=== PATIENT | female | born 1955 | race Caucasian/White ===

== ENCOUNTER 2016-10-22 14:42 | Emergency (ER) | payer MEDICARE, MEDICAID ==
[2016-10-22 15:25] VITALS: BP 158/88
[2016-10-22] MEDS ORDERED: NS 0.9% 1000 ML* 1,000 ML IV ONE (19:38)
[2016-10-22] MEDS ORDERED: Ondansetron INJ* 2 MG/ML VIAL IV ONE (19:41)
[2016-10-22] MEDS ORDERED: fentaNYL* 50 MCG/ML 2 ML VIAL (100 MCG VIAL) IV SLOW PU ONE (19:42)
[2016-10-22] MEDS ORDERED: Metoclopramide IV* 5 MG/ML 2 ML VIAL IV ONE (19:44)
[2016-10-22 20:48] LABS: Hematocrit 46 % (35-47); Hemoglobin 15.2 g/dl (12.0-16.0); Mean Corpuscular HGB Conc 33 g/dl (31-36); Mean Corpuscular Hemoglobin 32 pg (27-31); Mean Corpuscular Volume 95 fL (80-97); Mean Platelet Volume 9 um3 (7.4-10.4); Red Cell Distribution Width 14 % (10.5-15); White Blood Count 10.3 10^3/ul (3.5-10.8)
[2016-10-22 21:05] LABS: ALT 12 U/L (7-52); AST 22 U/L (13-39); Albumin 4.7 g/dL (3.2-5.2); Alkaline Phosphatase 92 U/L (34-104); Anion Gap 11 mmol/L (2-11); Blood Urea Nitrogen 23 mg/dL (6-24); C Reactive Protein < 1.00 mg/L (< 5.00); CO2 Carbon Dioxide 25 mmol/L (22-32); Calcium 10.5 mg/dL (8.6-10.3); Chloride 98 mmol/L (101-111); EGFR African American 34.5 (>60); EGFR Non-African American 26.8 (>60); Glucose 83 mg/dL (70-100); Lipase 18 U/L (11.0-82.0); Potassium 3.5 mmol/L (3.5-5.0); Sodium 134 mmol/L (133-145); Total Protein 8.7 g/dL (6.4-8.9)
[2016-10-22] MEDS ORDERED: HYDROmorphone INJ* 1 MG/ML CARPUJECT SYRINGE IV SLOW PU ONE (21:13)
--- NOTE | 2016-10-22 21:58 | RAD ---
INDICATION: Periumbilical pain. Liver transplant. Vomiting. Peripheral artery disease. COMPARISON: November 03, 2014 CT, February 16, 2013 CT. TECHNIQUE: Multidetector CT images were obtained from the lung bases to the ischial tuberosities. Oral contrast administered. Evaluation of the viscera is limited without IV contrast. Multiplanar reformation. REPORT: 4 mm noncalcified subpleural nodule lateral segment RIGHT middle lobe without change compared with a remote CT of February 16, 2013 without concern. Negative for cardiomegaly. Cardiac pacemaker leads. Unchanged appearance of the transplanted liver. The common bile duct appears dilated up to 1.0 cm similar to the 2013 CT. No stone or lesion conspicuous in the distal common bile duct. Moderately atrophic pancreas without suggestion of pancreatic duct dilatation. Unremarkable spleen. Small hiatal hernia. Negative for CT abnormality of the small bowel or diminutive retrocecal appendix. Mild diverticulosis of the sigmoid colon without findings of diverticulitis. Negative for ascites, free air, or significant hernias. Normal adrenal glands. No suspicious renal lesions or hydronephrosis. Moderately atrophic LEFT kidney without change. Renal vascular calcifications. Unremarkable nondilated ureters and moderately distended urinary bladder. Unremarkable uterus and adnexal regions. Negative for lymphadenopathy. Atherosclerotic calcification of normal diameter abdominal aorta and iliac arteries. Physiologic partial distention of the IVC. Negative for suspicious osseous lesions. IMPRESSION: 1. Postsurgical change of liver transplantation. 2. The common bile duct appears dilated up to 1.0 cm similar to the 2013 CT. 3. Normal appendix documented. 4. Negative for ascites. 5. No acute abdominal pelvic pathologic process evident.
--- NOTE | 2016-10-22 22:12 | ED ---
Mick Yates Erika, scribed for Rahul Alvarado MD on 10/22/16 at 1957 . GI/ HPI - HPI Summary HPI Summary: Patient is a 60-year-old female presenting to the ED with a CC of vomiting starting yesterday. Pt reports that she developed the nausea, vomiting, and periumbilical pain yesterday, and that she has been unable to tolerate PO intake since then - pt states she has lost 6 lbs in 2 days. She was seen by her PCP today, who sent her to the ED. Associated symptoms include chills and slight palpitations. She denies diarrhea, difficulty passing gas, black stools, and hematemesis. Pt does also reports cramping in her legs, and reports a Hx peripheral artery disease. Pt was also recently put on Abx due to possible UTI, and had a US of her kidney due to lab abnormalities in her kidney function. PSHx liver transplant almost 20 years ago at [facility] - takes tacrolimus. PSHx cholecystectomy. Denies PSHx appendectomy. Hx two cardiac arrests, pacemaker, defibrillator. - History of Current Complaint Chief Complaint: EDNauseaVomitDiarrh Time Seen by Provider: 10/22/16 19:22 Stated Complaint: VOMITTING/ABD PAIN Hx Obtained From: Patient Onset/Duration: Started Days Ago, Atraumatic, Still Present Timing: Constant Severity: Moderate Pain Intensity: 8 Location of Pain: Umbilical Associated Signs and Symptoms: Positive: Nausea, Vomiting, Chills. Negative: Blood w/Stool, Diarrhea Aggravating Factor(s): Food Alleviating Factor(s): Nothing - Additional Pertinent History Primary Care Physician: [id number] - Allergy/Home Medications Allergies/Adverse Reactions: Allergies Allergy/AdvReac Type Severity Reaction Status Date / Time Promethazine [From Phenergan] Allergy Severe Unknown Verified 04/06/16 15:56 Reaction Details Morphine Allergy Intermediate Hives Verified 04/06/16 15:56 Procaine [From Novocain] Allergy See Comment Verified 04/06/16 15:56 PMH/Surg Hx/FS Hx/Imm Hx Endocrine/Hematology History: Denies: Hx Anticoagulant Therapy, Hx Diabetes, Hx Anemia Cardiovascular History: Reports: Hx Auto Implanted Cardiovert Defib, Hx Cardiac Arrest, Hx Hypertension, Hx Pacemaker/ICD, Hx Syncope, Other Cardiovascular Problems/Disorders - cardiac arrest following phenergan long QT syndrome Denies: Hx Congestive Heart Failure Comment Only: Hx Peripheral Vascular Disease - PAD Respiratory History: Reports: Hx Chronic Bronchitis, Hx Pneumonia, Other Respiratory Problems/Disorders - PNA Denies: Hx Asthma GI History: Reports: Other GI Disorders - LIVER TRANSPLANT 1995. Pt states constipation on occasion Denies: Hx Jaundice History: Denies: Hx Renal Disease Musculoskeletal History: Reports: Hx Arthritis, Hx Back Problems, Other Musculoskeletal History - osteo-arthritis Denies: Hx Rheumatoid Arthritis - osteoarthritis Sensory History: Reports: Hx Contacts or Glasses Opthamlomology History: Reports: Hx Contacts or Glasses Neurological History: Reports: Hx Seizures Denies: Hx Dementia Psychiatric History: Reports: Hx Anxiety, Hx Depression, Hx Inpatient Treatment , Hx Substance Abuse Denies: Hx Suicide Attempt - suicidal ideation, hospitalization - Surgical History Surgery Procedure, Year, and Place: Pacer December 1996, Liver transplant February 1996 , peripheral artery disease surgery in groin 2011, arthoscopic of left knee, Pacemaker Hx Anesthesia Reactions: No - Immunization History Date of Tetanus Vaccine: pt states she doesnt know Date of Influenza Vaccine: none Infectious Disease History: No Infectious Disease History: Reports: Hx Hepatitis - C Denies: Hx Clostridium Difficile, Hx Human Immunodeficiency Virus (HIV), Hx of Known/Suspected MRSA, Hx Shingles, Hx Tuberculosis, Hx Known/Suspected VRE, Hx Known/Suspected VRSA, History Other Infectious Disease, Traveled Outside the [place] in Last 30 Days - Family History Family History: Denies FHx breast cancer - Social History Alcohol Use: None Hx Substance Use: No Substance Use Type: Reports: None Hx Tobacco Use: Yes Smoking Status (MU): Former Smoker Amount Used/How Often: 2-3 cig./day Review of Systems Positive: Chills Positive: Palpitations Positive: Abdominal Pain, Vomiting, Nausea. Negative: Diarrhea Musculoskeletal: Other - cramping in legs All Other Systems Reviewed And Are Negative: Yes Physical Exam - Summary Physical Exam Summary: Constitutional: Comfortable, pleasant, alert, non-toxic HEENT: dry mucosa Neck: Soft, supple, no adenopathy, no edema Heart: S1, S2, RRR, no murmurs, rubs, or gallops Lungs: clear, breathing comfortably, no wheezes, no rales Abdomen: Soft, flat, tenderness periumbilical with no guarding, no rebound. Bowel sounds present. No CVA tenderness Extremities: No edema, calves non-tender Neurological: A&Ox3 Psychological: logical, coherent Triage Information Reviewed: Yes Vital Signs On Initial Exam: Initial Vitals Temp Pulse Resp BP Pulse Ox 98.7 F 83 16 158/88 98 10/22/16 15:22 10/22/16 15:22 10/22/16 15:22 10/22/16 15:22 10/22/16 15:22 Vital Signs Reviewed: Yes Diagnostics - Vital Signs Vital Signs Temp Pulse Resp BP Pulse Ox 10/22/16 15:22 98.7 F 83 16 158/88 98 - Laboratory Lab Results: Lab Results 10/22/16 10/22/16 10/22/16 Range/Units 20:35 20:35 20:35 WBC 10.3 (3.5-10.8) 10^3/ul RBC 4.80 (4.0-5.4) 10^6/ul Hgb 15.2 (12.0-16.0) g/dl Hct 46 (35-47) % MCV 95 (80-97) fL MCH 32 H (27-31) pg MCHC 33 (31-36) g/dl RDW 14 (10.5-15) % Plt Count 196 (150-450) 10^3/ul MPV 9 (7.4-10.4) um3 Neut % (Auto) 59.9 (38-83) % Lymph % (Auto) 29.8 (25-47) % Robertson % (Auto) 7.6 (1-9) % Eos % (Auto) 1.3 (0-6) % Baso % (Auto) 1.4 (0-2) % Absolute Neuts (auto) 6.1 (1.5-7.7) 10^3/ul Absolute Lymphs (auto) 3.1 (1.0-4.8) 10^3/ul Absolute Monos (auto) 0.8 (0-0.8) 10^3/ul Absolute Eos (auto) 0.1 (0-0.6) 10^3/ul Absolute Basos (auto) 0.1 (0-0.2) 10^3/ul Absolute Nucleated RBC 0 10^3/ul Nucleated RBC % 0 Sodium 134 (133-145) mmol/L Potassium 3.5 (3.5-5.0) mmol/L Chloride 98 L (101-111) mmol/L Carbon Dioxide 25 (22-32) mmol/L Anion Gap 11 (2-11) mmol/L BUN 23 (6-24) mg/dL Creatinine 1.91 H (0.51-0.95) mg/dL Est GFR ( Amer) 34.5 (>60) Est GFR (Non-Af Amer) 26.8 (>60) BUN/Creatinine Ratio 12.0 (8-20) Glucose 83 (70-100) mg/dL Lactic Acid 1.0 (0.5-2.0) mmol/L Calcium 10.5 H (8.6-10.3) mg/dL Total Bilirubin 0.90 (0.2-1.0) mg/dL AST 22 (13-39) U/L ALT 12 (7-52) U/L Alkaline Phosphatase 92 (34-104) U/L C-Reactive Protein < 1.00 (< 5.00) mg/L Total Protein 8.7 (6.4-8.9) g/dL Albumin 4.7 (3.2-5.2) g/dL Globulin 4.0 (2-4) g/dL Albumin/Globulin Ratio 1.2 (1-3) Lipase 18 (11.0-82.0) U/L Result Diagrams: 10/22/16 20:35 10/22/16 20:35 Lab Statement: Any lab studies that have been ordered have been reviewed, and results considered in the medical decision making process. GIGU Course/Dx - Course Assessment/Plan: She has vomiting, periumbilical pain, but no signs of bleeding , fever, severe infection. CAT scan obtained for possibility of obstruction, appendicitis. Should her work up be entirely normal, likely she can be discharged if Sx improved. In the ER she has managed to keep down the Gastrografin and we will attempt to PO challenge. She also has received IV fluids. she feels much better now. we both agreed that with a completely normal workup including ct, that we can try simple fluids at home and simple crackers to start. I told her that I am here tomorrow should she not being doing well that we will re evaluate and possible admit. - Diagnoses Provider Diagnoses: Vomiting, Abdominal pain Discharge - Discharge Plan Condition: Stable Disposition: OTHER Discharge Disposition Comment: Signed out to Dr. Brown pending CTA results Referrals: Bill Koo MD [Primary Care Provider] - The documentation as recorded by the Mick dc Erika accurately reflects the service I personally performed and the decisions made by me, Rahul Alvarado MD.
== END 2016-10-22 22:30 | disposition home or self-care (01) ==
LOC: ED 14:42
DX: R11.10 Vomiting, unspecified (principal); R10.33 Periumbilical pain; Z94.4 Liver transplant status; Z95.0 Presence of cardiac pacemaker; Z87.891 Personal history of nicotine dependence; I73.9 Peripheral vascular disease, unspecified; Z88.5 Allergy status to narcotic agent
CPT/HCPCS: 36415; 74176; 80053; 83605; 83690; 85025; 86140; 96360; 96365; 96374; 96375; 99284; J1170; J2765; J3010

== ENCOUNTER 2016-11-16 09:16 | Emergency (ER) | payer MEDICARE, MEDICAID ==
--- NOTE | 2016-11-16 10:57 | UC ---
Cardiac HPI - HPI Summary HPI Summary: 3 DAYS OF RIGHT SIDED CHEST CONGESTION AND PAIN. HAS A PACEMAKER FOR LONG QT SYNDROME. WAS SUPPOSED TO HAVE A CTA TODAY TO EVALUATE LOWER EXTREMITY PAD BUT CAME HERE INSTEAD DUE TO DISCOMFORT. ALSO HAS H/O LIVER TRANSPLANT, CHRONIC KIDNEY DISEASE. DENIES SOB, NAUSEA, SWEATS. - History of Current Complaint Chief Complaint: UCChestPain Stated Complaint: CHEST CONGESTION Time Seen by Provider: 11/16/16 10:38 Hx Obtained From: Patient Onset/Duration: Gradual Onset, Lasting Days, Still Present Timing: Constant Initial Severity: Moderate Current Severity: Moderate Pain Intensity: 10 - SITTING IN EXAM ROOM IN NO ACUTE DISTRESS Chest Pain Location: Right Anterior Character: Dull/Aching, Tightness Aggravating: Nothing Alleviating: Nothing Associated Signs & Symptoms: Positive: Chest Pain, Cough. Negative: SOB, Syncope, Fever, Diaphoresis, Nausea/Vomiting, Palpitations - Allergy/Home Medications Allergies/Adverse Reactions: Allergies Allergy/AdvReac Type Severity Reaction Status Date / Time Promethazine [From Phenergan] Allergy Severe Unknown Verified 11/16/16 10:09 Reaction Details Morphine Allergy Intermediate Hives Verified 11/16/16 10:09 Procaine [From Novocain] Allergy See Comment Verified 11/16/16 10:09 Home Medications: Home Medications Nitriglycerine 0.4 mg SL PRN 11/16/16 [History] Nystatin CREAM* [Nystatin Cream*] 11/16/16 [History] Triamcinolone 0.1% Oint (NF) [Triamcinolone Acetonide] 11/16/16 [History] PMH/Surg Hx/FS Hx/Imm Hx Endocrine History Of: Denies: Diabetes Cardiovascular History Of: Reports: Cardiac Disorders - pacemaker/, Hypertension , Pacemaker/ICD Denies: Congestive Heart Failure Respiratory History Of: Reports: Bronchitis - CHRONIC, Pneumonia Denies: Asthma GI/ History Of: Denies: Renal Disease Neurological History Of: Reports: Seizures Denies: CVA, Dementia Psychological History Of: Reports: Anxiety, Depression Cancer History Of: Denies: Breast Cancer Other History Of: Negative For: Anticoagulant Therapy - Surgical History Surgical History: Yes Surgery Procedure, Year, and Place: Pacer December 1996, Liver transplant February 1996 , peripheral artery disease surgery in groin 2011, arthoscopic of left knee, Pacemaker - Family History Known Family History: Positive: Cardiac Disease, Hypertension Family History: Denies FHx breast cancer - Social History Alcohol Use: None Substance Use Type: None Smoking Status (MU): Former Smoker Amount Used/How Often: 2-3 cig./day When Did the Patient Quit Smoking/Using Tobacco: Nov 2014 - Immunization History Most Recent Influenza Vaccination: 07/2015 Most Recent Tetanus Shot: unknown Most Recent Pneumonia Vaccination: 2016 Review of Systems Constitutional: Negative Respiratory: Cough Cardiovascular: Chest Pain Gastrointestinal: Negative All Other Systems Reviewed And Are Negative: Yes Physical Exam Triage Information Reviewed: Yes Appearance: Well-Appearing, No Pain Distress, Well-Nourished Vital Signs: Initial Vital Signs Temp 99.1 F 11/16/16 10:02 Pulse 84 11/16/16 10:02 Resp 20 11/16/16 10:02 BP 209/100 11/16/16 10:02 Pulse Ox 100 11/16/16 10:02 Vital Signs Reviewed: Yes Eyes: Positive: Conjunctiva Clear ENT: Positive: Hearing grossly normal Neck: Positive: Supple, Nontender, No Lymphadenopathy Respiratory Exam: Normal Cardiovascular Exam: Normal Abdomen Description: Positive: Soft Musculoskeletal: Positive: No Edema Neurological: Positive: Alert Psychological: Positive: Age Appropriate Behavior Skin: Negative: rashes Diagnostics - EKG Cardiac Rate: NL - 74 BPM Cardiac Rhythm: Sinus: Normal - DIFFUSE T WAVE INVERSION Ectopy: None - Differential Diagnoses - Chest Pain Differential Diagnosis/HQI/PQRI: Acute WI, ACS, Angina - Clinical Impression Provider Diagnoses: CHEST PAIN, ABNORMAL EKG - Physician Notifications Discussed Patient Care With: CARLA BARNETT Time Discussed With Above Provider: 10:50 Instructed by Provider To: Transfer - TO [facility] AMBULANCE Discharge - Discharge Plan Condition: Fair Disposition: TRANS HIGHER LVL OF CARE FAC Referrals: Bill Koo MD [Primary Care Provider] -
[2016-11-16 11:11] VITALS: BP 206/110
== END 2016-11-16 11:12 | disposition short-term general hospital (02) ==
LOC: UCEAST 09:16
DX: R07.89 Other chest pain (principal); R94.31 Abnormal electrocardiogram [ECG] [EKG]; Z95.0 Presence of cardiac pacemaker; Z94.4 Liver transplant status; I12.9 Hypertensive chronic kidney disease with stage 1 through stage 4 chronic kidney disease, or unspecified chronic kidney disease; N18.9 Chronic kidney disease, unspecified; Z88.5 Allergy status to narcotic agent; Z88.4 Allergy status to anesthetic agent; Z87.891 Personal history of nicotine dependence
CPT/HCPCS: 93005; 99213; G0463

== ENCOUNTER 2016-11-16 11:41 | Emergency (ER) | payer MEDICARE, MEDICAID ==
[2016-11-16] MEDS ORDERED: Aspirin Low Dose CHEW TAB* 81 MG PO ONE (12:01)
[2016-11-16] MEDS ORDERED: Ondansetron INJ* 2 MG/ML VIAL IV ONE (12:02)
[2016-11-16] MEDS ORDERED: HYDROmorphone INJ* 1 MG/ML CARPUJECT SYRINGE IV ONE ×2 (12:02→15:05)
[2016-11-16 12:19] LABS: Hematocrit 38 % (35-47); Hemoglobin 12.7 g/dl (12.0-16.0); Mean Corpuscular HGB Conc 34 g/dl (31-36); Mean Corpuscular Hemoglobin 33 pg (27-31); Mean Corpuscular Volume 96 fL (80-97); Mean Platelet Volume 9 um3 (7.4-10.4); Red Cell Distribution Width 13 % (10.5-15); White Blood Count 6.8 10^3/ul (3.5-10.8)
[2016-11-16 12:29] LABS: Albumin 4.2 g/dL (3.2-5.2); BUN/Creatinine Ratio 12.8 (8-20); Calcium 9.9 mg/dL (8.6-10.3); EGFR African American 56.2 (>60); EGFR Non-African American 43.7 (>60); Globulin 3.8 g/dL (2-4); Potassium 4.1 mmol/L (3.5-5.0); Total Bilirubin 0.6 mg/dL (0.2-1.0)
[2016-11-16 12:37] LABS: Troponin I 0.06 ng/mL (<0.04)
--- NOTE | 2016-11-16 12:39 | RAD ---
HISTORY: Chest pain COMPARISONS: April 06, 2016 VIEWS:1: Single frontal portable view of the chest at 12:18 PM FINDINGS: LINES AND TUBES: A right-sided pacemaker is noted CARDIOMEDIASTINAL SILHOUETTE: The cardiomediastinal silhouette is normal for portable technique. PLEURA: The costophrenic angles are sharp. No pleural abnormalities are noted. LUNG PARENCHYMA: There is hyperinflation. ABDOMEN: The upper abdomen is clear. There is no subphrenic gas. BONES AND SOFT TISSUES: No bone or soft tissue abnormalities are noted. IMPRESSION: HYPERINFLATION. NO ACTIVE CARDIOPULMONARY DISEASE.
[2016-11-16] MEDS ORDERED: Heparin VIAL(*) 5000 UNITS/ML VIAL (FIVE THOUSAND) SUBCUT SCH (14:00)
[2016-11-16 14:13] VITALS: BP 176/78
--- NOTE | 2016-11-16 23:03 | CONS ---
CONSULTATION REPORT: DATE OF CONSULT: 11/16/16 PROVIDER: Sonja Rivera NP ATTENDING PHYSICIAN: Dr. Fountain (report dictated by Sonja Rivera NP). REFERRING PHYSICIAN: Dr. Won Gale. PRIMARY CARE PROVIDER: Dr. Koo. SENIOR ENVIRONMENTAL ENGINEER: Dr. Ignacio. REASON FOR CONSULT: Abnormal EKG and mildly elevated troponin. HISTORY OF PRESENT ILLNESS: Ms. Sifuentes is a 60-year-old female with a past medical history of long QT syndrome, status post pacemaker and defibrillator placement; [id number] VFib/VT cardiac arrest on 09/24/14; hepatitis C, status post liver transplant; chronic kidney disease; hypertension, who presents to the emergency department today with reports of cough x4 days, chills , and right upper chest wall pain around pacemaker site. Hospital Medicine was asked to evaluate the patient for possible admission due to an abnormal EKG, noted to have diffuse T-wave inversions. Her initial troponin was 0.06, second troponin was 0.06. The patient was evaluated in the emergency department. She reports 3 weeks ago , she developed nausea, vomiting, diarrhea. She was seen in the emergency department and was sent home with antiemetics. She states she lost approximately 6 pounds from this illness; however, she reports that she was feeling better and this resolved. Then, her son with whom she lives with had a bad cold with cough, headache. Then, she reports Tuesday, which was 4 days ago , she came down with runny nose, cough, headache, body aches, chills, decreased appetite, and reports that she has been coughing so much that now her right upper chest wall around her pacemaker site hurts when she coughs. As well, she is experiencing some back pain with coughing. She reports she has lots of sputum production which is white and creamy. She denies for being diagnosed with COPD in the past and does not currently smoke tobacco, but does have a long history of smoking. In regards to the patient's pacemaker, she has quite a large pacemaker in her right upper chest wall which was slipping under the skin and has been following with Dr. Ignacio, who recommended wearing a bra to hopefully allow the pacer to create some scar tissue and grow in place. The patient reports over the past 2 days, she has not been able to wear her bra due to her coughing and the pain and tenderness around the site. She denies actual chest pain, but reports this to be more pain around the pacer site and tenderness. She denies orthopnea or lower extremity swelling. She denies shortness of breath. When discussed with the patient about being admitted on observation status for chest pain, rule out PA, the patient states that she will absolutely not be admitted to this hospital, but if we think she needs to be admitted, she will sign out AMA and travel to [place] for admission. I did speak with Dr. Harley, envelope folding machine operator, who reviewed the EKG and states that the pacer itself can make these T-wave inversions. Recommendation is to check another troponin and if that is the same or less, the patient could be discharged home with plan for outpatient stress test and follow up with Dr. Ignacio. As well, recommendation is to treat the patient for COPD exacerbation. The patient denies any high fevers. Today, she was found to be 98.8 in the emergency department. She reports her abdominal pain, nausea, vomiting, diarrhea have resolved. No dark or bloody stools. PAST MEDICAL HISTORY: 1. Hypertension. 2. Hepatitis C, with liver transplant, 1995, at [place]. 3. Chronic kidney disease, stage 3. 4. Long QT syndrome, status post pacemaker placement. 5. Chronic low back pain. 6. History of VFib/V-tach arrest at [facility] where she was defibrillated and brought to [facility]. She was then transferred to [place] where she underwent a change in her pacemaker to a pacer/defibrillator, 09/24/14. 7. October of 2014, the patient reports she had pericarditis approximately 1 to 2 weeks after her pacer/defibrillator was implanted. 8. History of opiate abuse. 9. Depression with suicidal attempt. HOME MEDICATIONS: 1. Nystatin cream 1 application topical b.i.d. 2. Aspirin 81 mg p.o. daily. 3. Nitroglycerin 0.4 mg sublingual q.5 minutes p.r.n. 4. Tramadol 50 mg p.o. q.6 hours p.r.n. 5. Prograf 1 mg p.o. b.i.d. 6. Lipitor 10 mg p.o. daily. 7. Zoloft 50 mg p.o. daily. 8. Diltiazem HCl coated beads 240 mg p.o. daily. 9. Lisinopril 20 mg p.o. daily. ALLERGIES: PHENERGAN, MORPHINE, PROCAINE. FAMILY HISTORY: Positive family history of coronary artery disease. SOCIAL HISTORY: The patient reports prior long-term tobacco abuse, and she reports that she has quit over the past 2 years. No alcohol use. The patient currently lives with her son, Ever, who is her healthcare proxy. She has 2 sons, Dylan and Ever Coombs, and an older daughter who lives in [place]. REVIEW OF SYSTEMS: A 14-point review of systems was performed. All the pertinent positives and negatives are mentioned in the history of present illness. All the remaining systems are negative. PHYSICAL EXAM: Vital Signs: Temperature 98.8, heart rate 97, respirations 17, O2 sat 99% on room air, and blood pressure 176/78. Appearance: Alert and oriented x3, 60-year-old female, who appears chronically ill. She is alert and oriented x3 in no acute distress. HEENT: Head is normocephalic, atraumatic. Pupils are equal and reactive to light. Oropharynx is clear. Moist mucous membranes. Poor dentition. No oropharyngeal erythema or exudate noted. Neck: Supple. No cervical or supraclavicular lymphadenopathy. Cardiac: S1, S2. Regular rate and rhythm. No murmurs, rubs, or gallops appreciated. No lower extremity edema noted. Respiratory: Lungs are clear to auscultation bilaterally. Good aeration throughout. Abdomen: Soft, nontender, nondistended. Normal bowel sounds x4. Musculoskeletal: No clubbing or cyanosis noted. Full range of motion in all extremities. Strength is 5/5 throughout. Skin: No rashes, lesions, or open wounds noted. Warm, pink, and dry. It is noted on her right upper chest wall that she has a large pacemaker under the skin that has multiple sharp firm edges felt to the skin. She is tender to palpation around that site, which seems to be reproducing her pain when palpated. Neuro: Cranial nerves II through XII are intact. Sensation to lower extremities is intact to light touch. Psych: Alert and oriented x3. DIAGNOSTIC STUDIES/LAB DATA: Sodium 133, potassium 4.1, chloride 103, carbon dioxide 23, anion gap 7, BUN , creatinine 1.25, glucose 98, lactic acid 0.9 , calcium 9.9. Total bilirubin 0.60, AST 21, ALT 11, alkaline phosphatase 82. Troponin 0.06, second troponin 0.06. BNP 341. Total protein 8.0, albumin 4.2. INR is 0.91. WBC 6.8, RBC 3.90, Hgb 12.7, Hct 38, MCV 96, MCH 33, MCHC 34, RDW 13, platelet count 172. Chest x-ray, impression: Hyperinflation. No active cardiopulmonary disease. EKG: Sinus rhythm with a rate of 85. Diffuse T-wave inversions in leads II, III, aVF, and V4 through V6. ASSESSMENT: Ms. Coombs is a 60-year-old female with a past medical history of coronary artery disease with history of [id number] cardiac arrest, now status post pacer and defibrillator; hepatitis C, with liver transplant; chronic kidney disease, stage 3; history of long-term tobacco abuse, who presents to the emergency department with report of 4 days of upper respiratory symptoms, now with right upper chest wall pain and tenderness around pacemaker site, was found to have abnormal EKG changes and mildly elevated troponin. RECOMMENDATIONS: I spoke with Dr. Harley, envelope folding machine operator, who states that we check another troponin and if this is negative, send the patient home for outpatient stress test and to follow up with Dr. Ignacio as an outpatient. The patient has made it very clear that she will not be admitted to this hospital and if we think that she needs to be admitted, she will discharge herself against medical advice and have her son drive her to [facility]. I spoke with Dr. Won Gale who plans on checking another troponin and will make a decision. I do think the patient has this upper respiratory illness, most likely chronic obstructive pulmonary disease exacerbation with increased sputum production. She has good O2 saturation on room air and she has good aeration throughout. She would most likely benefit from steroids and inhalers. She has no leukocytosis and do not think the patient requires antibiotics, as this most likely appears to be viral. I did have the nurse test her for influenza A and B , results are still pending at the time of dictation. I did discuss with the patient that she should discuss with her primary about using daily inhalers and maybe being evaluated by Dr. Barragan, textile dyer, for underlying undiagnosed chronic obstructive pulmonary disease. TIME SPENT: Approximately 60 minutes was spent on this consultation. This was discussed with attending physician, Dr. Fountain, as well as referring leasing sales consultant , Dr. Won Gale, who agree with the plan of care as well as discussed with Dr. Harley, envelope folding machine operator. SONJA RIVERA NP CC: Dr. Koo; Dr. Ignacio * [id number]/CPS #: [id number] MTDD
--- NOTE | 2016-11-18 09:54 | ED ---
I, Luciano,Endy, scribed for Castillo Gale MD on 11/16/16 at 1201 . HPI Chest Pain - HPI Summary HPI Summary: This 60 y/o female presents to ED for gradually worsening 3 days ago. Pt reports cough 4 days ago, and reports possible sick contact from his son who was visiting her from out of town. Positive chills. She states she is still cold even when she sleeps with electronic blanket on. Movement and coughing make the pain worse. PMHx includes long QT syndrome s/p pacemaker/defib placement, HTN, PAD, HI, and liver transplant. - History of Current Complaint Chief Complaint: EDChestPainROMI Time Seen by Provider: 11/16/16 11:52 Hx Obtained From: Patient Onset/Duration: Started Days Ago, Atraumatic, Still Present Timing: Constant Pain Intensity: 10 Pain Scale Used: 0-10 Numeric Chest Pain Location: Diffuse Chest Pain Radiates: No Character: Dull/Aching Aggravating Factor(s): Movement, Other: - coughing Alleviating Factor(s): Nothing Associated Signs and Symptoms: Positive: Chest Pain, Chills. Negative: Shortness of Breath, Calf Pain/Swelling - Additional Pertinent History Primary Care Physician: [id number] - Allergy/Home Medications Allergies/Adverse Reactions: Allergies Allergy/AdvReac Type Severity Reaction Status Date / Time Promethazine [From Phenergan] Allergy Severe Unknown Verified 11/16/16 10:09 Reaction Details Morphine Allergy Intermediate Hives Verified 11/16/16 10:09 Procaine [From Novocain] Allergy See Comment Verified 11/16/16 10:09 Home Medications: Home Medications Aspirin EC Low Dose* [Ecotrin EC Low Dose*] 81 mg PO DAILY 11/16/16 [History Confirmed 11/16/16] Atorvastatin* [Lipitor*] 10 mg PO DAILY 11/16/16 [History Confirmed 11/16/16] Diltiazem HCl Coated Beads [Cartia Xt] 240 mg PO DAILY 11/16/16 [History Confirmed 11/16/16] Lisinopril TAB* [Prinivil TAB*] 20 mg PO DAILY 11/16/16 [History Confirmed 11/16] Nitroglycerin TAB 0.4 MG* 0.4 mg SL Q5M PRN 11/16/16 [History Confirmed 11/16/16 ] Nystatin CREAM* [Nystatin Cream*] 1 applic TOPICAL BID 11/16/16 [History Confirmed 11/16/16] Sertraline* [Zoloft*] 50 mg PO DAILY 11/16/16 [History Confirmed 11/16/16] Triamcinolone 0.1% CREAM(NF) [Kenalog Cream 0.1%(NF)] 1 applic TOPICAL BID 11/16 [History Confirmed 11/16/16] traMADol TAB* [Ultram*] 50 mg PO Q6HR PRN 11/16/16 [History Confirmed 11/16/16] PMH/Surg Hx/FS Hx/Imm Hx Endocrine/Hematology History: Denies: Hx Anticoagulant Therapy, Hx Diabetes, Hx Anemia Cardiovascular History: Reports: Hx Auto Implanted Cardiovert Defib, Hx Cardiac Arrest, Hx Hypertension, Hx Pacemaker/ICD, Hx Syncope, Other Cardiovascular Problems/Disorders - cardiac arrest following phenergan long QT syndrome Denies: Hx Congestive Heart Failure Comment Only: Hx Peripheral Vascular Disease - PAD Respiratory History: Reports: Hx Chronic Bronchitis, Hx Pneumonia, Other Respiratory Problems/Disorders - PNA Denies: Hx Asthma GI History: Reports: Other GI Disorders - LIVER TRANSPLANT 1995. Pt states constipation on occasion Denies: Hx Jaundice History: Denies: Hx Renal Disease Musculoskeletal History: Reports: Hx Arthritis, Hx Back Problems, Other Musculoskeletal History - osteo-arthritis Denies: Hx Rheumatoid Arthritis - osteoarthritis Sensory History: Reports: Hx Contacts or Glasses Opthamlomology History: Reports: Hx Contacts or Glasses Neurological History: Reports: Hx Seizures Denies: Hx Dementia Psychiatric History: Reports: Hx Anxiety, Hx Depression, Hx Inpatient Treatment , Hx Substance Abuse Denies: Hx Suicide Attempt - suicidal ideation, hospitalization - Surgical History Surgery Procedure, Year, and Place: Pacer December 1996, Liver transplant February 1996 , peripheral artery disease surgery in groin 2011, arthoscopic of left knee, Pacemaker Hx Anesthesia Reactions: No - Immunization History Date of Tetanus Vaccine: pt states she doesnt know Date of Influenza Vaccine: none Infectious Disease History: No Infectious Disease History: Reports: Hx Hepatitis - C Denies: Hx Clostridium Difficile, Hx Human Immunodeficiency Virus (HIV), Hx of Known/Suspected MRSA, Hx Shingles, Hx Tuberculosis, Hx Known/Suspected VRE, Hx Known/Suspected VRSA, History Other Infectious Disease, Traveled Outside the [place] in Last 30 Days - Family History Known Family History: Positive: Cardiac Disease, Hypertension Family History: Denies FHx breast cancer - Social History Alcohol Use: None Hx Substance Use: No Substance Use Type: Reports: None Hx Tobacco Use: Yes Smoking Status (MU): Former Smoker Amount Used/How Often: 2-3 cig./day Review of Systems Positive: Chills. Negative: Fever Positive: Chest Pain Positive: Cough All Other Systems Reviewed And Are Negative: Yes Physical Exam Triage Information Reviewed: Yes Vital Signs On Initial Exam: Initial Vitals Temp Pulse Resp BP Pulse Ox 98.8 F 87 18 196/98 100 11/16/16 11:43 11/16/16 11:43 11/16/16 11:43 11/16/16 11:43 11/16/16 11:43 Vital Signs Reviewed: Yes Appearance: Positive: Well-Appearing, No Pain Distress Skin: Positive: Warm, Skin Color Reflects Adequate Perfusion Head/Face: Positive: Normal Head/Face Inspection Eyes: Positive: Normal Neck: Positive: Supple, Nontender Respiratory/Lung Sounds: Positive: Clear to Auscultation, Breath Sounds Present Cardiovascular: Positive: Other - tender over pacemaker Musculoskeletal: Positive: Strength/ROM Intact Neurological: Positive: Normal Psychiatric: Positive: Normal, Affect/Mood Appropriate AVPU Assessment: Alert Diagnostics - Vital Signs Vital Signs Temp Pulse Resp BP Pulse Ox 11/16/16 11:43 98.8 F 87 18 196/98 100 - Laboratory Lab Results: Lab Results 11/16/16 11/16/16 11/16/16 Range/Units 11:07 11:07 11:07 WBC 6.8 (3.5-10.8) 10^3/ul RBC 3.90 L (4.0-5.4) 10^6/ul Hgb 12.7 (12.0-16.0) g/dl Hct 38 (35-47) % MCV 96 (80-97) fL MCH 33 H (27-31) pg MCHC 34 (31-36) g/dl RDW 13 (10.5-15) % Plt Count 172 (150-450) 10^3/ul MPV 9 (7.4-10.4) um3 Neut % (Auto) 60.4 (38-83) % Lymph % (Auto) 27.2 (25-47) % Glenn % (Auto) 5.6 (1-9) % Eos % (Auto) 5.4 (0-6) % Baso % (Auto) 1.4 (0-2) % Absolute Neuts (auto) 4.1 (1.5-7.7) 10^3/ul Absolute Lymphs (auto) 1.8 (1.0-4.8) 10^3/ul Absolute Monos (auto) 0.4 (0-0.8) 10^3/ul Absolute Eos (auto) 0.4 (0-0.6) 10^3/ul Absolute Basos (auto) 0.1 (0-0.2) 10^3/ul Absolute Nucleated RBC 0 10^3/ul Nucleated RBC % 0 INR (Anticoag Therapy) 0.91 (0.89-1.11) Sodium 133 (133-145) mmol/L Potassium 4.1 (3.5-5.0) mmol/L Chloride 103 (101-111) mmol/L Carbon Dioxide 23 (22-32) mmol/L Anion Gap 7 (2-11) mmol/L BUN 16 (6-24) mg/dL Creatinine 1.25 H (0.51-0.95) mg/dL Est GFR ( Amer) 56.2 (>60) Est GFR (Non-Af Amer) 43.7 (>60) BUN/Creatinine Ratio 12.8 (8-20) Glucose 98 (70-100) mg/dL Lactic Acid (0.5-2.0) mmol/L Calcium 9.9 (8.6-10.3) mg/dL Total Bilirubin 0.60 (0.2-1.0) mg/dL AST 21 (13-39) U/L ALT 11 (7-52) U/L Alkaline Phosphatase 82 (34-104) U/L Troponin I 0.06 H* (<0.04) ng/mL B-Natriuretic Peptide ( - 100) pg/mL Total Protein 8.0 (6.4-8.9) g/dL Albumin 4.2 (3.2-5.2) g/dL Globulin 3.8 (2-4) g/dL Albumin/Globulin Ratio 1.1 (1-3) 11/16/16 11/16/16 11/16/16 Range/Units 11:07 11:07 13:05 WBC (3.5-10.8) 10^3/ul RBC (4.0-5.4) 10^6/ul Hgb (12.0-16.0) g/dl Hct (35-47) % MCV (80-97) fL MCH (27-31) pg MCHC (31-36) g/dl RDW (10.5-15) % Plt Count (150-450) 10^3/ul MPV (7.4-10.4) um3 Neut % (Auto) (38-83) % Lymph % (Auto) (25-47) % Glenn % (Auto) (1-9) % Eos % (Auto) (0-6) % Baso % (Auto) (0-2) % Absolute Neuts (auto) (1.5-7.7) 10^3/ul Absolute Lymphs (auto) (1.0-4.8) 10^3/ul Absolute Monos (auto) (0-0.8) 10^3/ul Absolute Eos (auto) (0-0.6) 10^3/ul Absolute Basos (auto) (0-0.2) 10^3/ul Absolute Nucleated RBC 10^3/ul Nucleated RBC % INR (Anticoag Therapy) (0.89-1.11) Sodium (133-145) mmol/L Potassium (3.5-5.0) mmol/L Chloride (101-111) mmol/L Carbon Dioxide (22-32) mmol/L Anion Gap (2-11) mmol/L BUN (6-24) mg/dL Creatinine (0.51-0.95) mg/dL Est GFR ( Amer) (>60) Est GFR (Non-Af Amer) (>60) BUN/Creatinine Ratio (8-20) Glucose (70-100) mg/dL Lactic Acid 0.9 (0.5-2.0) mmol/L Calcium (8.6-10.3) mg/dL Total Bilirubin (0.2-1.0) mg/dL AST (13-39) U/L ALT (7-52) U/L Alkaline Phosphatase (34-104) U/L Troponin I 0.06 H* (<0.04) ng/mL B-Natriuretic Peptide 341 H ( - 100) pg/mL Total Protein (6.4-8.9) g/dL Albumin (3.2-5.2) g/dL Globulin (2-4) g/dL Albumin/Globulin Ratio (1-3) Result Diagrams: 11/16/16 11:07 11/16/16 11:07 Lab Statement: Any lab studies that have been ordered have been reviewed, and results considered in the medical decision making process. - Radiology CXR Xray Interpretation: No Acute Changes - HYPERINFLATION. NO ACTIVE CARDIOPULMONARY DISEASE. Radiology Interpretation Completed By: Radiologist - EKG 1139 Cardiac Rate: NL - Not paced EKG Rhythm: Sinus Rhythm EKG Interpretation: Diffuse T-wave inversion Re-Evaluation - Re-Evaluation First Eval Re-Evaluation Time: 14:34 Change: Unchanged Comment: MD in room to discuss plan of care involving admission with pt. Dr. Ortiz suggested the admission, but pt is currently refusing admission even after sharing hospitalist consultation. Currently pending third trop. Chest Pain Course/Dx - Course Course Of Treatment: Ms. Coombs presented from [facility] with a C/O coughing and URI-like symptoms with chest pain. She reported a sharp right-sided CP with movement and palpation which she attributes to her pacemaker and a dull, achey left-sided CP also. Her initial ecg was alarming with diffuse T-wave inversions which have not been seen previously on our ecg's. Dr. Harley felt that these could be a normal finding if she had been ventricularly paced for awhile previous to the ecg or they could represent ischemia. The hospitalists were notified for admission however she refused to consider hospitalization here. She is awaiting repeaat troponin at this time and we will recommend outpatient F /U if it is stable or transfer if not. - Diagnoses Provider Diagnoses: Chest pain - Provider Notifications Discussed Care Of Patient With: Dr. Harley (Street Superintendent) at 1247 PM. Dylan Minor NP (Hospitalist) at [address] Ortiz (Hospitalist) at [address] Tavares at change of shift Time Discussed With Above Provider: 12:47 Discharge - Discharge Plan Condition: Stable Disposition: HOME The documentation as recorded by the Luciano dc Soohyun accurately reflects the service I personally performed and the decisions made by , Castillo Gale MD.
--- NOTE | 2016-12-17 12:27 | ED ---
Jeffrey Yates Anna, scribed for Joce Tavares MD on 11/16/16 at 1709 . Progress - Progress Note Progress Note: Last troponin returned as 0.05 for pt, a decrease from previous two. Pt will be discharged home with follow up from PCP and an understanding that she should return for new or worsening symptoms. Course/Dx - Diagnoses Provider Diagnoses: Chest pain The documentation as recorded by the Jeffrey dc Anna accurately reflects the service I personally performed and the decisions made by , Joce Tavares MD.
== END 2016-11-16 17:46 | disposition home or self-care (01) ==
LOC: ED 11:41 → MEDTELE 13:41 → UNDOADMOB 13:41 → UNDODISOB 17:46 → MEDTELE 17:46
DX: R07.9 Chest pain, unspecified (principal); J20.9 Acute bronchitis, unspecified; I10 Essential (primary) hypertension; R05 Cough; Z87.891 Personal history of nicotine dependence; R94.31 Abnormal electrocardiogram [ECG] [EKG]; Z95.0 Presence of cardiac pacemaker; Z94.4 Liver transplant status; I12.9 Hypertensive chronic kidney disease with stage 1 through stage 4 chronic kidney disease, or unspecified chronic kidney disease; N18.9 Chronic kidney disease, unspecified; Z88.5 Allergy status to narcotic agent; Z88.4 Allergy status to anesthetic agent
CPT/HCPCS: 36415; 71010; 80053; 83605; 83880; 84484; 85025; 85610; 87502; 93005; 96374; 96375; 96376; 99282; A9270-GY; J1170; J2405

== ENCOUNTER 2017-02-14 18:06 | Emergency (ER) | payer MEDICARE, MEDICAID ==
--- NOTE | 2017-02-14 20:04 | RAD ---
Indication: Right wrist injury, fall on outstretched hand 3 views of the wrist demonstrates no fracture. No other bone or joint abnormality is identified. IMPRESSION: NO FRACTURE OF THE WRIST IS NOTED.
[2017-02-14] MEDS ORDERED: oxyCODONE TAB* 5 MG TAB PO ONE (20:18)
--- NOTE | 2017-02-14 20:20 | ED ---
Upper Extremity Pain - HPI Summary HPI Summary: Two days ago the patient tripped and fell, landing on her right knee and catching herself with her right wrist. She had pain in both areas but was hosting a birthday green party for her adult twin sons and didn't wan to interrupt the green party. Then, yesterday was Mother's Day, so she didn't want to spoil that day too by coming to the ER. Today she was unable to get a ride until this afternoon. She has significant pain in the wrist and knee. She has osteoporosis , and has had a liver transplant and has vascular issues. She has known osteoarthritis in the left knee. There is bruising and swelling of the wrist and knee. She has pain with any movement or weight bearing. No N/T. - History of Current Complaint Chief Complaint: EDExtremityUpper Stated Complaint: RT WRIST AND LT KNEE INJURY Time Seen by Provider: 02/14/17 19:17 Hx Obtained From: Patient Mechanism Of Injury: Fall From A Standing Position Onset/Duration: Started Days Ago - 2 Timing: Constant Severity Initially: Moderate Severity Currently: Severe Pain Location: Wrist, Other: - left knee Character: Sharp, Aching, Stiffness Aggravating Factor(s): Movement Alleviating Factor(s): Nothing Associated Signs & Symptoms: Positive: Swelling, Bruising Related History: Dominant Hand Right - Allergies/Home Medications Allergies/Adverse Reactions: Allergies Allergy/AdvReac Type Severity Reaction Status Date / Time Promethazine [From Phenergan] Allergy Severe Unknown Verified 11/16/16 10:09 Reaction Details Morphine Allergy Intermediate Hives Verified 11/16/16 10:09 Procaine [From Novocain] Allergy See Comment Verified 11/16/16 10:09 PMH/Surg Hx/FS Hx/Imm Hx Endocrine/Hematology History: Denies: Hx Anticoagulant Therapy, Hx Diabetes, Hx Anemia Cardiovascular History: Reports: Hx Auto Implanted Cardiovert Defib, Hx Cardiac Arrest, Hx Hypertension, Hx Pacemaker/ICD, Hx Syncope, Other Cardiovascular Problems/Disorders - cardiac arrest following phenergan long QT syndrome Denies: Hx Congestive Heart Failure Comment Only: Hx Peripheral Vascular Disease - PAD Respiratory History: Reports: Hx Chronic Bronchitis, Hx Pneumonia, Other Respiratory Problems/Disorders - PNA Denies: Hx Asthma GI History: Reports: Other GI Disorders - LIVER TRANSPLANT 1995. Pt states constipation on occasion Denies: Hx Jaundice History: Denies: Hx Dialysis, Hx Renal Disease Musculoskeletal History: Reports: Hx Arthritis, Hx Back Problems, Other Musculoskeletal History - osteo-arthritis Denies: Hx Rheumatoid Arthritis - osteoarthritis Comment Only: Hx Osteoporosis - unsure Sensory History: Reports: Hx Contacts or Glasses Opthamlomology History: Reports: Hx Contacts or Glasses Neurological History: Reports: Hx Seizures Denies: Hx Dementia Psychiatric History: Reports: Hx Anxiety, Hx Depression, Hx Inpatient Treatment , Hx Substance Abuse Denies: Hx Suicide Attempt - suicidal ideation, hospitalization - Surgical History Surgery Procedure, Year, and Place: Pacer December 1996, Liver transplant February 1996 , peripheral artery disease surgery in groin 2011, arthoscopic of left knee, Pacemaker Hx Anesthesia Reactions: No - Immunization History Date of Tetanus Vaccine: pt states she doesnt know Date of Influenza Vaccine: none Infectious Disease History: No Infectious Disease History: Reports: Hx Hepatitis - C Denies: Hx Clostridium Difficile, Hx Human Immunodeficiency Virus (HIV), Hx of Known/Suspected MRSA, Hx Shingles, Hx Tuberculosis, Hx Known/Suspected VRE, Hx Known/Suspected VRSA, History Other Infectious Disease, Traveled Outside the [place] in Last 30 Days - Family History Known Family History: Positive: Cardiac Disease, Hypertension Family History: Denies FHx breast cancer - Social History Occupation: Unemployed Lives: Alone Alcohol Use: None Hx Substance Use: No Substance Use Type: Reports: None Hx Tobacco Use: Yes Smoking Status (MU): Former Smoker Amount Used/How Often: 2-3 cig./day Review of Systems Positive: Myalgia, Decreased ROM, Edema - right wrist Positive: Bruising - left knee Negative: Paresthesia, Numbness All Other Systems Reviewed And Are Negative: Yes Physical Exam Triage Information Reviewed: Yes Vital Signs On Initial Exam: Initial Vitals Temp Pulse Resp BP Pulse Ox 97.7 F 85 20 150/59 98 02/14/17 18:09 02/14/17 18:09 02/14/17 18:09 02/14/17 18:09 02/14/17 18:09 Vital Signs Reviewed: Yes Appearance: Positive: Well-Appearing, Pain Distress, Thin Skin: Positive: Warm, Skin Color Reflects Adequate Perfusion, Dry, Soft Head/Face: Positive: Normal Head/Face Inspection Eyes: Positive: EOMI, ROHINI, Conjunctiva Clear ENT: Positive: Hearing grossly normal Respiratory/Lung Sounds: Positive: Breath Sounds Present Cardiovascular: Positive: RRR Musculoskeletal: Positive: Limited @ - right wrist extension and flexion limited by pain; left knee at 30 degrees and any extension or flexion causes pain, Pain @ - TTP right DRUJ; TTP left patella and lateral joint line, Edema Left - knee, Edema Right - wrist Neurological: Positive: Sensory/Motor Intact, Alert, Oriented to Person Place, Time, NV Bundle Intact Distally, Unable to Assess Gait Psychiatric: Positive: Affect/Mood Appropriate AVPU Assessment: Alert Diagnostics - Vital Signs Vital Signs Temp Pulse Resp BP Pulse Ox 02/14/17 18:12 97.3 F 82 20 150/59 100 02/14/17 18:09 97.7 F 85 20 150/59 98 - Laboratory Lab Statement: Any lab studies that have been ordered have been reviewed, and results considered in the medical decision making process. - Radiology No standard instances Xray Interpretation: No Acute Changes Radiology Interpretation Completed By: Radiologist - negative wrist or knee fracture Course/Dx - Diagnoses Differential Diagnosis/HQI/PQRI: Positive: Arthritis, Bursitis, Contusion, Fracture (Closed), Laceration, Strain, Sprain Provider Diagnoses: Sprain of right wrist, Contusion of left knee Discharge - Discharge Plan Condition: Stable Disposition: HOME Patient Education Materials: Wrist Sprain (ED), Knee Pain (ED) Referrals: Bill Koo MD [Primary Care Provider] - Additional Instructions: Wear your splint to protect you as your pain improves. Come out of the splint several times daily to perform gentle range of motion exercises to avoid stiffness. Elevate your hand above your heart and apply ice for 20 minutes several times daily to decrease swelling and pain. Use ibuprofen 400mg three times daily with meals for the next 3-5 days to decrease swelling and pain as well. Follow-up with your primary care provider in 3-5 days for evaluation. Return to the emergency department if your symptoms worsen.
[2017-02-14 20:50] VITALS: BP 161/70
--- NOTE | 2017-02-14 23:07 | RAD ---
Indication: Left knee pain. 4 views of left knee demonstrates joint space narrowing in the medial compartment with subchondral eburnation and osteophyte formation. No definite fracture is noted. No joint effusion is noted. IMPRESSION: DEGENERATIVE CHANGES MEDIAL COMPARTMENT LEFT KNEE.
== END 2017-02-14 20:50 | disposition home or self-care (01) ==
LOC: ED 18:06
DX: S63.501A Unspecified sprain of right wrist, initial encounter (principal); S80.02XA Contusion of left knee, initial encounter; R60.9 Edema, unspecified; M81.0 Age-related osteoporosis without current pathological fracture; W19.XXXA Unspecified fall, initial encounter; Y93.9 Activity, unspecified; Y92.9 Unspecified place or not applicable; Z87.891 Personal history of nicotine dependence
CPT/HCPCS: 99282; A9270-GY

== ENCOUNTER 2017-02-21 23:24 | Emergency (ER) | payer MEDICARE, MEDICAID ==
[2017-02-22] MEDS ORDERED: oxyCODONE/Acetamin 5/325 MG* TAB PO ONE ×2 (00:02)
--- NOTE | 2017-02-22 00:13 | ED ---
I, Luciano,Endy, scribed for Kendall Abarca MD on 02/22/17 at 0004 . Upper Extremity Pain - HPI Summary HPI Summary: This 61 y/o female presents to ED for persistent right wrist pain since a week ago. Pt was seen at [facility] a week ago after injuring her RUE wrist and LLE knee in a mechanical fall. She returns tonight stating that she is having trouble controlling her pain and has not been able to schedule an appointment with her doctor. Pt has been taking tramadol without much relief. - History of Current Complaint Chief Complaint: EDExtremityLower Stated Complaint: RT WRIST/LT KNEE PAIN Time Seen by Provider: 02/21/17 23:59 Hx Obtained From: Patient Mechanism Of Injury: Blunt Trauma, Fall From A Standing Position Onset/Duration: Started Weeks Ago - a week ago, Traumatic Timing: Constant Severity Initially: Moderate Severity Currently: Moderate Pain Location: Wrist - RUE Character: Dull Aggravating Factor(s): Movement - Allergies/Home Medications Allergies/Adverse Reactions: Allergies Allergy/AdvReac Type Severity Reaction Status Date / Time Promethazine [From Phenergan] Allergy Severe Unknown Verified 02/21/17 23:35 Reaction Details Procaine [From Novocain] Allergy See Comment Verified 02/21/17 23:35 PMH/Surg Hx/FS Hx/Imm Hx Endocrine/Hematology History: Denies: Hx Anticoagulant Therapy, Hx Diabetes, Hx Anemia Cardiovascular History: Reports: Hx Auto Implanted Cardiovert Defib, Hx Cardiac Arrest, Hx Hypertension, Hx Pacemaker/ICD, Hx Syncope, Other Cardiovascular Problems/Disorders - cardiac arrest following phenergan long QT syndrome Denies: Hx Congestive Heart Failure Comment Only: Hx Peripheral Vascular Disease - PAD Respiratory History: Reports: Hx Chronic Bronchitis, Hx Pneumonia, Other Respiratory Problems/Disorders - PNA Denies: Hx Asthma GI History: Reports: Other GI Disorders - LIVER TRANSPLANT 1995. Pt states constipation on occasion Denies: Hx Jaundice History: Denies: Hx Dialysis, Hx Renal Disease Musculoskeletal History: Reports: Hx Arthritis, Hx Back Problems, Other Musculoskeletal History - osteo-arthritis Denies: Hx Rheumatoid Arthritis - osteoarthritis Comment Only: Hx Osteoporosis - unsure Sensory History: Reports: Hx Contacts or Glasses Opthamlomology History: Reports: Hx Contacts or Glasses Neurological History: Reports: Hx Seizures Denies: Hx Dementia Psychiatric History: Reports: Hx Anxiety, Hx Depression, Hx Inpatient Treatment , Hx Substance Abuse Denies: Hx Suicide Attempt - suicidal ideation, hospitalization - Surgical History Surgery Procedure, Year, and Place: Pacer December 1996, Liver transplant February 1996 , peripheral artery disease surgery in groin 2011, arthoscopic of left knee, Pacemaker Hx Anesthesia Reactions: No - Immunization History Date of Tetanus Vaccine: pt states she doesnt know Date of Influenza Vaccine: none Infectious Disease History: No Infectious Disease History: Reports: Hx Hepatitis - C Denies: Hx Clostridium Difficile, Hx Human Immunodeficiency Virus (HIV), Hx of Known/Suspected MRSA, Hx Shingles, Hx Tuberculosis, Hx Known/Suspected VRE, Hx Known/Suspected VRSA, History Other Infectious Disease, Traveled Outside the [place] in Last 30 Days - Family History Known Family History: Positive: Cardiac Disease, Hypertension Family History: Denies FHx breast cancer - Social History Alcohol Use: None Hx Substance Use: No Substance Use Type: Reports: None Hx Tobacco Use: Yes Smoking Status (MU): Former Smoker Amount Used/How Often: 2-3 cig./day Review of Systems Negative: Fever Positive: Other - Positive pain at RUE wrist and LLE knee All Other Systems Reviewed And Are Negative: Yes Physical Exam Triage Information Reviewed: Yes Vital Signs On Initial Exam: Initial Vitals Temp Pulse Resp BP Pulse Ox 99.1 F 87 18 189/90 100 02/21/17 23:31 02/21/17 23:31 02/21/17 23:31 02/21/17 23:31 02/21/17 23:31 Vital Signs Reviewed: Yes Appearance: Positive: No Pain Distress, Thin Skin: Positive: Warm, Other - eccymotiv to wrist and knee Eyes: Positive: ROHINI ENT: Positive: Hearing grossly normal Neck: Positive: Supple Respiratory/Lung Sounds: Positive: Breath Sounds Present Cardiovascular: Positive: RRR Musculoskeletal: Positive: Other - from to wrist and knee, no deformity Neurological: Positive: Alert, Oriented to Person Place, Time Diagnostics - Vital Signs Vital Signs Temp Pulse Resp BP Pulse Ox 02/21/17 23:31 99.1 F 87 18 189/90 100 - Laboratory Lab Statement: Any lab studies that have been ordered have been reviewed, and results considered in the medical decision making process. Re-Evaluation - Re-Evaluation First Eval Comment: explained to pt, xrays last week neg, will give percocet for tonight, pt needs to see pcp for ongoing analgesics, pt appears comfprtasble despite stating in pain Course/Dx - Diagnoses Provider Diagnoses: Right wrist pain, Left knee pain Discharge - Discharge Plan Condition: Stable Disposition: HOME Patient Education Materials: Wrist Injury (ED), Knee Pain (ED) Referrals: Bill Koo MD [Primary Care Provider] - 2 Days The documentation as recorded by the Luciano dc Soohyun accurately reflects the service I personally performed and the decisions made by me, Kendall Abarca MD.
[2017-02-22 00:48] VITALS: BP 203/74
== END 2017-02-22 00:46 | disposition home or self-care (01) ==
LOC: ED 23:24
DX: M25.531 Pain in right wrist (principal); M25.562 Pain in left knee; Z87.891 Personal history of nicotine dependence
CPT/HCPCS: 99282; A9270-GY

== ENCOUNTER 2017-02-28 17:09 | Emergency (ER) | payer MEDICARE, MEDICAID ==
[2017-02-28 17:41] VITALS: BP 189/96
== END 2017-02-28 20:53 | disposition left against medical advice (07) ==
LOC: ED 17:09
DX: M25.531 Pain in right wrist (principal); Z53.20 Procedure and treatment not carried out because of patient's decision for unspecified reasons
CPT/HCPCS: 99281

== ENCOUNTER 2017-03-02 07:15 | Observation (INO) | payer MEDICARE, MEDICAID ==
[2017-03-02] MEDS ORDERED: Aspirin Low Dose CHEW TAB* 81 MG PO ONE (07:39)
[2017-03-02] MEDS ORDERED: Nitroglycerin TAB 0.4 MG* 0.4 MG TAB SL ONE (07:44)
[2017-03-02 08:08] LABS: Hematocrit 34 % (35-47); Hemoglobin 11.5 g/dl (12.0-16.0); Mean Corpuscular HGB Conc 34 g/dl (31-36); Mean Corpuscular Hemoglobin 33 pg (27-31); Mean Corpuscular Volume 96 fL (80-97); Mean Platelet Volume 9 um3 (7.4-10.4); Red Blood Count 3.51 10^6/ul (4.0-5.4); Red Cell Distribution Width 13 % (10.5-15); White Blood Count 7.4 10^3/ul (3.5-10.8)
[2017-03-02 08:22] LABS: Albumin 4.1 g/dL (3.2-5.2); BUN/Creatinine Ratio 10.8 (8-20); Calcium 9.1 mg/dL (8.6-10.3); EGFR African American 42.8 (>60); EGFR Non-African American 33.2 (>60); Globulin 3.6 g/dL (2-4); Magnesium 1.6 mg/dL (1.9-2.7); Potassium 3.3 mmol/L (3.5-5.0); Total Bilirubin 0.5 mg/dL (0.2-1.0); Total Protein 7.7 g/dL (6.4-8.9)
--- NOTE | 2017-03-02 08:28 | RAD ---
INDICATION: Chest pain. COMPARISON: Comparison is made with a prior study from November 16, 2016. TECHNIQUE: Dual-energy PA and lateral views of the chest were obtained. FINDINGS: There is a multilead cardiac pacemaker present. The heart is within normal limits in size. Mediastinal contours appear normal. The lungs are hyperinflated and clear. No pleural effusion is seen. IMPRESSION: FINDINGS CONSISTENT WITH COPD, NO EVIDENCE FOR ACUTE FINDING.
[2017-03-02 08:32] LABS: T4 12.17 mcg/mL (6.09-12.23)
[2017-03-02 08:33] LABS: TSH (Thyroid Stimulating Horm) 1.5 mcIU/mL (0.34-5.60)
[2017-03-02 08:47] LABS: Troponin I 0.13 ng/mL (<0.04)
[2017-03-02] MEDS ORDERED: Morphine INJ* 4 MG/ML 1 ML SYRINGE IV ONE ×2 (08:56→09:58)
[2017-03-02] MEDS ORDERED: Morphine INJ* 4 MG/ML 1 ML SYRINGE ONE (08:59)
[2017-03-02] MEDS ORDERED: Potassium Chlor TAB* 20 MEQ TAB.ER PO ONE (09:18)
[2017-03-02 09:40] LABS: Urine Bacteria Absent (Absent); Urine Bilirubin Negative (Negative); Urine Glucose Negative (Negative); Urine Nitrite Negative (Negative)
[2017-03-02] MEDS ORDERED: Acetaminophen TAB* 325 MG PO PRN (10:01)
--- NOTE | 2017-03-02 12:37 | HP ---
HISTORY AND PHYSICAL: DATE OF ADMISSION: 03/02/17 PRIMARY CARE PROVIDER: Dr. Koo. MECHANICAL SUPERVISOR: Dr. Ignacio. CHIEF COMPLAINT: Chest pain. HISTORY OF PRESENT ILLNESS: Ms. Coombs is a 61-year-old female who presents to the emergency room with complaints of chest pain that began at approximately 2 a.m. on the morning of admission. The patient states that over the last 15 days or so, she has slept very little. Additionally, she states she may be eating one meal a day over the last 15 days. However, approximately 2 a.m. on the morning of admission, she developed tightness and cramping in her chest. She describes this as substernal. The patient had some associated mild shortness of breath and chills, but no sweats or nausea. She does state that she has had a cold recently and has been blowing her nose quite a bit. She has had a moist cough and has been bringing up a significant amount of white sputum though does not describe the cough causing pain. The patient states that the pain has been present over the last 8 hours continuously. She did take 3 sublingual nitroglycerin at home; however, she states it did not help. In looking at her nitroglycerin bottle, it appears that this was prescribed in 2014 and may not be effective. In addition, the patient states that she has been scheduled for a type of bypass surgery for her lower extremity peripheral arterial disease next week. She was supposed to meet with an anesthesiologist tomorrow preop. Additionally , the patient states that she fell on 02/12/17. At that time she states she was seen in the ER on 02/14/17 for swelling of the right wrist. She states x- rays were obtained and did not reveal fracture. She states that she went back to the emergency room second time for continued pain in her wrist and was unhappy with the care at that time. She additionally presented to the emergency room on the day prior to this admission again for right wrist pain as well as left knee pain and left without being seen. PAST MEDICAL HISTORY: 1. Hypertension. 2. History of hepatitis C. 3. Status post liver transplant in 1995. 4. Permanent pacemaker/ICD for long QT syndrome in 1996. 5. Peripheral arterial disease. 6. Chronic back pain. 7. Depression. 8. Questionable history of opioid abuse. 9. Paroxysmal ventricular tachycardia. 10. History of AFib. 11. Left lower extremity endarterectomy and stenting for peripheral arterial disease. MEDICATIONS: 1. Hydrochlorothiazide 12.5 mg p.o. daily. 2. Metoprolol tartrate 25 mg p.o. b.i.d. 3. Advair 250/50 one puff inhale twice daily. 4. Aspirin 81 mg p.o. daily. 5. Tacrolimus 1 mg p.o. b.i.d. 6. Nitroglycerin 0.4 mg SL q.5 minutes p.r.n. chest pain. 7. Lisinopril 40 mg p.o. daily. 8. Cartia XT 240 mg p.o. daily. ALLERGIES: PROMETHAZINE and PROCAINE. FAMILY HISTORY: Mom at the age of 72 of cardiac arrest. Dad at the age of 65 of [place]. The patient's brother of CHF and sister after being in a coma for 10 months related to a postop infection. SOCIAL HISTORY: The patient states that she quit smoking 2 years ago. She does not drink alcohol since her liver transplant. 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 She is . She has 4 children. She indicates that her sons, Ever and Sam Coombs are her healthcare proxies. REVIEW OF SYSTEMS: The patient denies any fevers, does admit to chills this morning. She states her appetite has been poor over the last 15 days with eating approximately one meal per day. She admits to chest pain as above. No lower extremity edema. She does complain of claudication in her legs. She admits to cough and chronic shortness of breath. Additionally, she has been bring up whitish colored sputum as noted above. No nausea, vomiting, abdominal pain, constipation, diarrhea, or hematochezia. No hematuria. No dysuria. No focal weakness or sensory loss. No sudden change in vision. No dysphagia. She does complain of ongoing pain in her right wrist and left knee. No rashes. She admits to being very depressed at this point and in fact cries frequently during our evaluation. PHYSICAL EXAMINATION GENERAL: The patient is a well-developed, middle-aged petite female sitting in a stretcher in no acute distress. VITAL SIGNS: Blood pressure 133/56, pulse 68, respirations 24, temp 97.2, O2 sat 98% on room air. HEENT: Pupils are equal. They are round. They react to light. Extraocular muscles intact. Oropharynx is clear. Oral mucosa is moist. The patient wears upper dentures. Her lower teeth are in poor repair. There is no submandibular , cervical, or supraclavicular adenopathy. NECK: Thyroid is not enlarged. No thyroid nodules are noted. PULMONARY: Lungs are clear to auscultation bilaterally. CARDIAC: Normal S1, S2. Regular rate and rhythm. I do not appreciate any murmurs. There is no lower extremity edema. ABDOMEN: Bowel sounds are present. Abdomen is soft, nontender, nondistended. MUSCULOSKELETAL: There is no cyanosis or clubbing of the digits. There is full active range of motion of all 4 extremities. SKIN: Warm and dry. There are no rashes. The patient does have excoriations on the right anterior ankle. NEUROLOGIC: Cranial nerves II through XII are grossly intact. Sensation is intact to light touch throughout. Strength is 5/5 and symmetric in both upper and lower extremities bilaterally. PSYCH: The patient is alert. She is oriented x3. She is very cheerful and cries frequently during this evaluation. LABORATORY DATA/DIAGNOSTIC STUDIES: Sodium 136, potassium 3.3, chloride 103, CO2 23, BUN 17, creatinine 1.58, glucose 135. Lactic acid 1.3, calcium 9.1, magnesium 1.6, bilirubin 0.5, AST 26, ALT 16, alk phos 87, CPK 171, CK-MB 6.9 ( CK-MB percentage 4.04), troponin 0.13, BNP 78, albumin 4.1, TSH 1.5. Urinalysis reveals specific gravity of 1.009, 2+ protein, trace leukocyte esterase, positive squamous epithelial cells and hyaline cast. EKG; normal sinus rhythm without acute ST-T wave abnormalities, though there are diffuse T wave inversions in the inferior lateral leads that are unchanged from previous chest x-ray. Findings consistent with COPD. No evidence for acute finding. ASSESSMENT AND PLAN: Ms. Coombs is a 61-year-old female with a complicated cardiac history including cardiac arrest, a history of long QT syndrome status post pacer ICD, hypertension, peripheral arterial disease, and depression, who presents to the emergency room with complaints of chest pain that began on the morning of admission. 1. Chest pain: I am somewhat suspicious that the patient's chest pain may be related in fact to the upper respiratory tract infection given her recent cold and moist cough. However, her troponin is higher than her baseline. The patient usually has a chronically elevated troponin in the 0.3 to 0.6 range. Her troponin currently is 0.13. She does have ongoing chest pain. I will get a followup troponin at 10:30 and if this is trending up we will ask for a cardiology consultation. If the troponin is stable or trending down, we will plan on getting a chemical nuclear stress test tomorrow. I do think there are other reasons for the patient to possibly have chest discomfort. I will also go ahead and get a transthoracic echo-cardiogram to evaluate for pericardial effusion. The patient did have a hint of worsened chest pain while lying flat and better when sitting forward during my exam though she only commented on this once during the course of my evaluation. The patient will be maintained on her usual dose of aspirin, metoprolol, and lisinopril. 2. Hypertension: The patient's blood pressure is under good control on her home medication regimen. She will be maintained on her hydrochlorothiazide, metoprolol, lisinopril, and diltiazem. 3. Status post liver transplant. The patient will be maintained on her usual dose of tacrolimus. Her last tacrolimus level was 2.9 on 01/13/17. 4. Peripheral arterial disease. The patient will be continued on her usual dose of aspirin. She states that she was to have bypass surgery next week. Once her cardiac evaluation is complete, she can continue to pursue surgery for her peripheral arterial disease. 5. Depression, the patient is clearly depressed during my evaluation. She refuses to talk about what is going on currently and refuses to consider starting an antidepressant as she does want to take another medication at this time. I will continue to try to discuss with her about beginning an antidepressant. 6. DVT prophylaxis: According to the Adult Thrombosis Prophylaxis Risk Factor Assessment Guide, the patient has a total risk factor score of 2 making her moderate risk. She will be placed on heparin 5000 units subcutaneous q.8 hours. 7. Code status is full. TIME SPENT: 70 minutes were spent admitting the patient. CC: Dr. Koo; Dr. Ignacio* [id number]/[facility] #: [id number] [facility] HOSPITALAniya
[2017-03-02] MEDS: Heparin VIAL(*) 5000 UNITS/ML VIAL (FIVE THOUSAND) SUBCUT SCH ×2 (13:00→21:29)
[2017-03-02] MEDS: Morphine INJ* 4 MG/ML 1 ML SYRINGE IV PRN ×3 (14:06→22:23)
--- NOTE | 2017-03-02 15:22 | ECHO ---
Patient: ADELE ZELAYA [facility] Rec#: [id number] : 1955 Date: 03/02/2017 Age: 61y Height: 157.48 cm / 62.0 in Weight: 37.65 kg / 83.0 lbs Sex: F BSA: 1.32 Room#: [facility] Admit Date#: 03/02/2017 Type: Inpatient Referring: Inocencia Fountain DO Reading: April Ignacio MD Power Machine Operator: Rachna Moser RDCS CC: Bill Koo MD Transthoracic Echocardiogram Indication: CP BP: 133/56 HR: 58 Rhythm: Bradycardia Findings History: HTN, HepC+, s/p liver transplant 1995, s/p AICD 1996 for long Q-T syndrome,PAD,depression PVT,a-fib. Technical Comments: The study is technically limited due to the patient's history of COPD. COmpleted at 1440. Left Ventricle: The left ventricular chamber size is normal. Mild concentric left ventricular hypertrophy is observed. Global left ventricular wall motion and contractility are within normal limits.mild LVOT obstruction is noted, mild elevation in LVOT velocity and mild dagger shaped velocity profile. The estimated ejection fraction is 60-65%. Abnormal left ventricular diastolic function is observed. Left Atrium: The left atrium is severely dilated. Right Ventricle: The right ventricular cavity size is normal. The right ventricular global systolic function is normal. A pacemaker wire is visualized in the right ventricle. Right Atrium: The right atrial cavity size is normal. Aortic Valve: The aortic valve is trileaflet. There is no evidence of aortic regurgitation. There is no evidence of aortic stenosis. Mitral Valve: The mitral valve leaflets are mildly thickened. There is mild mitral regurgitation. The mitral regurgitant jet is centrally directed. There is no evidence of mitral stenosis. Tricuspid Valve: The tricuspid valve leaflets are normal. There is mild to moderate tricuspid regurgitation. The right ventricular systolic pressure is estimated at 39 mmHg. There is evidence of mild pulmonary hypertension. There is no tricuspid stenosis. Pulmonic Valve: The pulmonic valve appears normal. There is no evidence of pulmonic regurgitation. There is no pulmonic stenosis. Pericardium: The pericardium appears normal. Aorta: The ascending aorta is not well visualized. There is no dilatation of the aortic arch. There is no dilation of the aortic root. Pulmonary Artery: The main pulmonary artery appears normal. Venous: The inferior vena cava appears normal in size. There is a greater than 50% respiratory change in the inferior vena cava dimension. Conclusions Mild concentric left ventricular hypertrophy is observed. Global left ventricular wall motion and contractility are within normal limits.mild LVOT obstruction is noted, mild elevation in LVOT velocity and mild dagger shaped velocity profile. The estimated ejection fraction is 60-65%. Abnormal left ventricular diastolic function is observed. The right ventricular global systolic function is normal. There is mild mitral regurgitation. There is mild to moderate tricuspid regurgitation. There is evidence of mild pulmonary hypertension. The pericardium appears normal. Compared with prior echo of 09/24/14, LVH and LVEF are stable, valve function is stable, PA pressure not significantly changed. Measurements Name Value Normal Range RVIDd (AP) 2D 2.3 cm (0.9 - 2.6) RVDdMajor (2D) 2.6 cm (2.2 - 4.4) RAd ISD 4CH 4.8 cm (3.4 - 4.9) RA (A4C)W 3.7 cm (2.9 - 4.6) IVSd (2D) 1.3 cm (0.6 - 1) LVPWd (2D) 1.2 cm (0.6 - 1) LVIDd (2D) 3.6 cm (3.6 - 5.4) LVIDs (2D) 2.3 cm - LV FS (2D) 36 % (25 - 45) Aortic Annulus 1.6 cm (1.4 - 2.6) Ao root diameter (2D) 2.5 cm (2.1 - 3.5) Aortic arch 2 cm (1.8 - 3.4) Descending Ao 0.4 cm - LA dimension (AP) 2D 3.8 cm (2.3 - 3.8) LAd ISD 4CH 5.5 cm (2.9 - 5.3) LA ISD 4CH W 3.7 cm (2.5 - 4.5) Name Value Normal Range LA ESV SP 4CH (A/L) 80 ml - LA ESV SP 2CH (A/L) 71 ml - LA ESV BP (A/L) 77 ml - LA ESV BP (A/L) index 58.06 ml/m2 - LA ESV SP 4CH (MOD) 78 ml - LA ESV SP 2CH (MOD) 69 ml - Name Value Normal Range MV E-wave Vmax 0.8 m/sec - MV deceleration time 223 msec - MV A-wave Vmax 1 m/sec - MV E:A ratio 0.77 ratio - Name Value Normal Range AV Vmax 1.5 m/sec - AV VTI 37 cm - AV peak gradient 9.5 mmHg - AV mean gradient 4.02 mmHg - LVOT Vmax 1.3 m/sec - LVOT VTI 31 cm - LVOT peak gradient 7.16 mmHg - LVOT mean gradient 2.54 mmHg - Name Value Normal Range MR Vmax 4.8 m/sec - MR VTI 194 cm - Name Value Normal Range TR Vmax 3 m/sec - TR peak gradient 50 mmHg - RAP 3 mmHg - RVSP 39 mmHg - IVC diameter 1.5 cm - Name Value Normal Range PV Vmax 1 m/sec - PV peak gradient 4.04 mmHg -
--- NOTE | 2017-03-02 18:48 | ED ---
Sebas Yates Billy, scribed for Charlie Vear MD on 03/02/17 at 0750 . HPI Chest Pain - HPI Summary HPI Summary: Patient is a 61 year-old female coming to [facility] for evaluation of mid-sternal chest pain since 0200 this morning, when she was woken up by the pain. She took 1x NTG PROOFREADER. She reports mild shortness of breath as well as chills and a cough. Denies dizziness, nausea, diaphoresis, or fever. Patient has a history of 2x AZ in August and September of 2014. She has a pacemaker/defibrillator in place. Patient also reports that she has had a decreased appetite recently, eating only one meal a day, and she reports that she lost 36 pounds in the last 2 weeks. - History of Current Complaint Chief Complaint: EDChestPainROMI Time Seen by Provider: 03/02/17 07:37 Hx Obtained From: Patient Onset/Duration: Started Hours Ago Time of Onset: 02:00 Timing: Constant Initial Severity: Moderate Current Severity: Moderate Pain Intensity: 10 Pain Scale Used: 0-10 Numeric Chest Pain Location: Mid Sternal Chest Pain Radiates: No Aggravating Factor(s): Nothing Alleviating Factor(s): Nothing Associated Signs and Symptoms: Positive: Chest Pain, Shortness of Breath, Chills , Cough. Negative: Dizziness, Lightheadedness, Diaphoresis, Nausea - Additional Pertinent History Primary Care Physician: [id number] - Allergy/Home Medications Allergies/Adverse Reactions: Allergies Allergy/AdvReac Type Severity Reaction Status Date / Time Promethazine [From Phenergan] Allergy Severe Unknown Verified 02/28/17 17:31 Reaction Details Procaine [From Novocain] Allergy See Comment Verified 02/28/17 17:31 Home Medications: Home Medications Fluticasone-Salmeterol 250-50* [Advair Diskus 250-50*] 1 puff INH BID 03/02/17 [ History Confirmed 03/02/17] Hydrochlorothiazide TAB* [Hydrodiuril TAB*] 12.5 mg PO DAILY 03/02/17 [History Confirmed 03/02/17] Metoprolol Tartrate TAB* [Lopressor TAB*] 25 mg PO BID 03/02/17 [History Confirmed 03/02/17] PMH/Surg Hx/FS Hx/Imm Hx Endocrine/Hematology History: Denies: Hx Anticoagulant Therapy, Hx Diabetes, Hx Anemia Cardiovascular History: Reports: Hx Auto Implanted Cardiovert Defib, Hx Cardiac Arrest, Hx Hypertension, Hx Pacemaker/ICD, Hx Syncope, Other Cardiovascular Problems/Disorders - cardiac arrest following phenergan long QT syndrome Denies: Hx Congestive Heart Failure Comment Only: Hx Peripheral Vascular Disease - PAD Respiratory History: Reports: Hx Chronic Bronchitis, Hx Pneumonia, Other Respiratory Problems/Disorders - PNA Denies: Hx Asthma GI History: Reports: Other GI Disorders - LIVER TRANSPLANT 1995. Pt states constipation on occasion Denies: Hx Jaundice History: Denies: Hx Dialysis, Hx Renal Disease Musculoskeletal History: Reports: Hx Arthritis, Hx Back Problems, Other Musculoskeletal History - osteo-arthritis Denies: Hx Rheumatoid Arthritis - osteoarthritis Comment Only: Hx Osteoporosis - unsure Sensory History: Reports: Hx Contacts or Glasses Opthamlomology History: Reports: Hx Contacts or Glasses Neurological History: Reports: Hx Seizures Denies: Hx Dementia Psychiatric History: Reports: Hx Anxiety, Hx Depression, Hx Inpatient Treatment , Hx Substance Abuse Denies: Hx Suicide Attempt - suicidal ideation, hospitalization - Surgical History Surgery Procedure, Year, and Place: Pacer December 1996, Liver transplant February 1996 , peripheral artery disease surgery in groin 2011, arthoscopic of left knee, Pacemaker Hx Anesthesia Reactions: No - Immunization History Date of Tetanus Vaccine: pt states she doesnt know Date of Influenza Vaccine: none Infectious Disease History: No Infectious Disease History: Reports: Hx Hepatitis - C Denies: Hx Clostridium Difficile, Hx Human Immunodeficiency Virus (HIV), Hx of Known/Suspected MRSA, Hx Shingles, Hx Tuberculosis, Hx Known/Suspected VRE, Hx Known/Suspected VRSA, History Other Infectious Disease, Traveled Outside the [place] in Last 30 Days - Family History Known Family History: Positive: Cardiac Disease, Hypertension Family History: Denies FHx breast cancer - Social History Alcohol Use: None Hx Substance Use: No Substance Use Type: Reports: None Hx Tobacco Use: Yes Smoking Status (MU): Former Smoker Amount Used/How Often: 2-3 cig./day Review of Systems Positive: Chills. Negative: Skin Diaphoresis Positive: Chest Pain Positive: Shortness Of Breath, Cough Gastrointestinal: Other - decreased appetite Negative: Nausea Positive: Arthralgia - Right wrist pain All Other Systems Reviewed And Are Negative: Yes Physical Exam - Summary Physical Exam Summary: VITAL SIGNS: Reviewed. GENERAL: Patient is a thin female who is in pain distress secondary to the chest pain. Patient is not in any acute respiratory distress. She is able to speak in full sentences. HEAD AND FACE: No signs of trauma. No ecchymosis, hematomas or skull depressions. No sinus tenderness. EYES: PERRLA, EOMI x 2, No injected conjunctiva, no nystagmus. EARS: Hearing grossly intact. Ear canals and tympanic membranes are within normal limits. MOUTH: Oropharynx within normal limits. NECK: Supple, trachea is midline, no adenopathy, no JVD, no carotid bruit, no c- spine tenderness, neck with full ROM. CHEST: Symmetric, no tenderness at palpation LUNGS: Clear to auscultation bilaterally. No wheezing or crackles. CVS: Regular rate and rhythm, S1 and S2 present, no murmurs or gallops appreciated. ABDOMEN: Soft, non-tender. No signs of distention. No rebound no guarding, and no masses palpated. Bowel sounds are normal. EXTREMITIES: FROM in all major joints, no edema, no cyanosis or clubbing. NEURO: Alert and oriented x 3. No acute neurological deficits. Speech is normal and follows commands. SKIN: Dry and warm Triage Information Reviewed: Yes Vital Signs On Initial Exam: Initial Vitals Temp Pulse Resp BP Pulse Ox 97.2 F 75 18 183/83 100 03/02/17 07:16 03/02/17 07:16 03/02/17 07:16 03/02/17 07:16 03/02/17 07:16 Vital Signs Reviewed: Yes - Indira Coma Scale Coma Scale Total: 15 Diagnostics - Vital Signs Vital Signs Temp Pulse Resp BP Pulse Ox 03/02/17 07:31 72 99 03/02/17 07:30 182/86 03/02/17 07:28 152/71 03/02/17 07:16 97.2 F 75 18 183/83 100 - Laboratory Lab Results: Lab Results 03/02/17 03/02/17 03/02/17 Range/Units 07:48 07:48 07:48 WBC 7.4 (3.5-10.8) 10^3/ul RBC 3.51 L (4.0-5.4) 10^6/ul Hgb 11.5 L (12.0-16.0) g/dl Hct 34 L (35-47) % MCV 96 (80-97) fL MCH 33 H (27-31) pg MCHC 34 (31-36) g/dl RDW 13 (10.5-15) % Plt Count 199 (150-450) 10^3/ul MPV 9 (7.4-10.4) um3 Neut % (Auto) 55.7 (38-83) % Lymph % (Auto) 23.8 L (25-47) % Wagoner % (Auto) 11.3 H (1-9) % Eos % (Auto) 8.5 H (0-6) % Baso % (Auto) 0.7 (0-2) % Absolute Neuts (auto) 4.1 (1.5-7.7) 10^3/ul Absolute Lymphs (auto) 1.8 (1.0-4.8) 10^3/ul Absolute Monos (auto) 0.8 (0-0.8) 10^3/ul Absolute Eos (auto) 0.6 (0-0.6) 10^3/ul Absolute Basos (auto) 0.1 (0-0.2) 10^3/ul Absolute Nucleated RBC 0 10^3/ul Nucleated RBC % 0.1 Sodium 136 (133-145) mmol/L Potassium 3.3 L (3.5-5.0) mmol/L Chloride 103 (101-111) mmol/L Carbon Dioxide 23 (22-32) mmol/L Anion Gap 10 (2-11) mmol/L BUN 17 (6-24) mg/dL Creatinine 1.58 H (0.51-0.95) mg/dL Est GFR ( Amer) 42.8 (>60) Est GFR (Non-Af Amer) 33.2 (>60) BUN/Creatinine Ratio 10.8 (8-20) Glucose 135 H (70-100) mg/dL Lactic Acid 1.3 (0.5-2.0) mmol/L Calcium 9.1 (8.6-10.3) mg/dL Magnesium 1.6 L (1.9-2.7) mg/dL Total Bilirubin 0.50 (0.2-1.0) mg/dL AST 26 (13-39) U/L ALT 16 (7-52) U/L Alkaline Phosphatase 87 (34-104) U/L Total Creatine Kinase 171 (10-223) U/L CK-MB (CK-2) 6.9 H (0.6-6.3) ng/mL Troponin I 0.13 H* (<0.04) ng/mL B-Natriuretic Peptide ( - 100) pg/mL Total Protein 7.7 (6.4-8.9) g/dL Albumin 4.1 (3.2-5.2) g/dL Globulin 3.6 (2-4) g/dL Albumin/Globulin Ratio 1.1 (1-3) TSH 1.50 (0.34-5.60) mcIU/mL Thyroxine (T4) 12.17 (6.09-12.23) mcg/mL Urine Color Urine Appearance Urine pH (5-9) Ur Specific Eucha (1.010-1.030) Urine Protein (Negative) Urine Ketones (Negative) Urine Blood (Negative) Urine Nitrate (Negative) Urine Bilirubin (Negative) Urine Urobilinogen (Negative) Ur Leukocyte Esterase (Negative) Urine WBC (Auto) (Absent) Urine RBC (Auto) (Absent) Ur Squamous Epith Cells (Absent) Urine Bacteria (Absent) Hyaline Casts (Absent) Urine Glucose (Negative) 03/02/17 03/02/17 Range/Units 07:48 09:13 WBC (3.5-10.8) 10^3/ul RBC (4.0-5.4) 10^6/ul Hgb (12.0-16.0) g/dl Hct (35-47) % MCV (80-97) fL MCH (27-31) pg MCHC (31-36) g/dl RDW (10.5-15) % Plt Count (150-450) 10^3/ul MPV (7.4-10.4) um3 Neut % (Auto) (38-83) % Lymph % (Auto) (25-47) % Wagoner % (Auto) (1-9) % Eos % (Auto) (0-6) % Baso % (Auto) (0-2) % Absolute Neuts (auto) (1.5-7.7) 10^3/ul Absolute Lymphs (auto) (1.0-4.8) 10^3/ul Absolute Monos (auto) (0-0.8) 10^3/ul Absolute Eos (auto) (0-0.6) 10^3/ul Absolute Basos (auto) (0-0.2) 10^3/ul Absolute Nucleated RBC 10^3/ul Nucleated RBC % Sodium (133-145) mmol/L Potassium (3.5-5.0) mmol/L Chloride (101-111) mmol/L Carbon Dioxide (22-32) mmol/L Anion Gap (2-11) mmol/L BUN (6-24) mg/dL Creatinine (0.51-0.95) mg/dL Est GFR ( Amer) (>60) Est GFR (Non-Af Amer) (>60) BUN/Creatinine Ratio (8-20) Glucose (70-100) mg/dL Lactic Acid (0.5-2.0) mmol/L Calcium (8.6-10.3) mg/dL Magnesium (1.9-2.7) mg/dL Total Bilirubin (0.2-1.0) mg/dL AST (13-39) U/L ALT (7-52) U/L Alkaline Phosphatase (34-104) U/L Total Creatine Kinase (10-223) U/L CK-MB (CK-2) (0.6-6.3) ng/mL Troponin I (<0.04) ng/mL B-Natriuretic Peptide 78 ( - 100) pg/mL Total Protein (6.4-8.9) g/dL Albumin (3.2-5.2) g/dL Globulin (2-4) g/dL Albumin/Globulin Ratio (1-3) TSH (0.34-5.60) mcIU/mL Thyroxine (T4) (6.09-12.23) mcg/mL Urine Color Yellow Urine Appearance Clear Urine pH 5.0 (5-9) Ur Specific Eucha 1.009 L (1.010-1.030) Urine Protein 2+(100 mg/dl) H (Negative) Urine Ketones Negative (Negative) Urine Blood Negative (Negative) Urine Nitrate Negative (Negative) Urine Bilirubin Negative (Negative) Urine Urobilinogen Negative (Negative) Ur Leukocyte Esterase Trace H (Negative) Urine WBC (Auto) Trace(0-5/hpf) (Absent) Urine RBC (Auto) Trace(0-2/hpf) (Absent) Ur Squamous Epith Cells Present H (Absent) Urine Bacteria Absent (Absent) Hyaline Casts Present H (Absent) Urine Glucose Negative (Negative) Result Diagrams: 03/02/17 07:48 03/02/17 07:48 Lab Statement: Any lab studies that have been ordered have been reviewed, and results considered in the medical decision making process. - EKG 0728 Cardiac Rate: NL - 70 bpm EKG Rhythm: Sinus Rhythm EKG Interpretation: No STEMI, TWI in II III aVF, unable to interpret V4 V5 due to EKG quality Re-Evaluation - Re-Evaluation First Eval Re-Evaluation Time: 08:44 Chest Pain Course/Dx - Course Assessment/Plan: Patient is a 61 year-old female coming to [facility] for evaluation of mid-sternal chest pain since 0200 this morning, when she was woken up by the pain. She took 1x NTG PROOFREADER. She reports mild shortness of breath as well as chills and a cough. Denies dizziness, nausea, diaphoresis, or fever. Patient has a history of 2x AZ in August and September of 2014. She has a pacemaker/ defibrillator in place. Patient also reports that she has had a decreased appetite recently, eating only one meal a day, and she reports that she lost 36 pounds in the last 2 weeks. Test results WNL except for slight anemia. Potassium of 3.3 for which the patient was given potassium chloride. CKMB of 6.9 and troponin of 0.13. CXR findings are consistent with COPD, without any evidence of acute findings. EKG shows NSR without ST elevations. In the ED course, the patient was given NTG without any relief of her symptoms. She was also given morphine with improvement. Therefore, since the patient has multiple comorbidities, we must rule out acute coronary syndrome. I discussed the findings and test results with Dr. Fountain who accepted the patient for admission. The patient is hemodynamically stable, A&Ox3. - Chest Pain Differential Diagnosis/HQI/PQRI: Acute AZ, ACS, Angina, CHF, Chest Wall, GI Disease, Lower Respiratory Infection - Diagnoses Provider Diagnoses: chest pain r/o acute coronary syndrome, Anemia, Hypokalemia - Provider Notifications Discussed Care Of Patient With: Inocencia Fountain - Accepts patient for admission. Time Discussed With Above Provider: 09:18 Discharge - Discharge Plan Condition: Stable Disposition: ADMITTED TO [facility] The documentation as recorded by the scribeSebas Billy accurately reflects the service I personally performed and the decisions made by me, Charlie Vera MD.
[2017-03-02] MEDS: Mometasone/Formoter 200/5 MDI INH SCH (19:56)
[2017-03-02] MEDS: Tacrolimus CAP(*) 1 MG PO SCH (21:29)
[2017-03-02] MEDS: Metoprolol Tartrate TAB* 25 MG PO SCH (21:29)
[2017-03-03] MEDS: Morphine INJ* 4 MG/ML 1 ML SYRINGE IV PRN ×3 (05:50→14:44)
[2017-03-03] MEDS: Heparin VIAL(*) 5000 UNITS/ML VIAL (FIVE THOUSAND) SUBCUT SCH ×2 (05:51→15:58)
[2017-03-03] MEDS: Mometasone/Formoter 200/5 MDI INH SCH (07:31)
[2017-03-03] MEDS ORDERED: Docusate CAP* 100 MG PO PRN (08:48)
[2017-03-03] MEDS ORDERED: Aspirin EC Low Dose* 81 MG TAB.EC PO SCH (09:00)
[2017-03-03] MEDS ORDERED: Lisinopril TAB* 10 MG PO SCH (09:00)
[2017-03-03] MEDS ORDERED: Hydrochlorothiazide TAB* 25 MG PO SCH (09:00)
[2017-03-03] MEDS ORDERED: Diltiazem CD CAP* 240 MG PO SCH (09:00)
[2017-03-03] MEDS: Tacrolimus CAP(*) 1 MG PO SCH (11:32)
[2017-03-03] MEDS ORDERED: Aminophylline IV* 25 MG/ML 10 ML VIAL ONE (12:15)
[2017-03-03] MEDS ORDERED: Regadenoson* 0.4 MG/5 ML SYRINGE ONE (12:15)
[2017-03-03] MEDS: Metoprolol Tartrate TAB* 25 MG PO SCH (14:14)
--- NOTE | 2017-03-03 14:24 | RAD ---
Edited for charges. INDICATION: Chest pain. COMPARISON: There are no prior studies available for comparison. Technique: A single day myocardial perfusion stress study was performed. Initially the resting study was performed. The patient was given an intravenous injection of 10.7 mCi of technetium 99m tetrofosmin and and the heart was imaged in multiple projections. The patient returned later in the day and under the direction of Dr. Robertson, the patient was given intervenous injection of Lexiscan. Subsequently the patient was given intravenous injection of 25.3 mCi of technetium 99m tetrofosmin and the heart was imaged in multiple projections. Images were reconstructed in the axial, sagittal and coronal planes and in a 3- D format. FINDINGS: There appears to be normal wall motion and myocardial thickening. The left ventricular ejection fraction was calculated to be 69%. Review of the images demonstrates normal distribution of radiopharmaceutical. There is no evidence for infarct or ischemia. IMPRESSION: NO EVIDENCE FOR INFARCT OR ISCHEMIA. ASSESSMENT: Low risk. Based on imaging criteria from ACC/AHA 2002 Guideline Update for the Management of Patients With Chronic Stable Angina Table 23. Noninvasive Risk Stratification. MTDD
--- NOTE | 2017-03-03 15:26 | PN ---
Subjective Date of Service: 03/03/17 Interval History: Patient seen and examined at bedside. Pt states that she continues to have intermittent chest discomfort. She is unsure if the pain is worse today when laying back as she has been sitting up today. Denies fever, chills, chest discomfort, N/V/D. Pt states that she had chest discomfort during her stress test in addition to shortness of breath and palpitations that was relieved by Pepsi. Pt reports an occasional productive cough. Pt reports having a lot of stress lately caused by some family issues that started 2 weeks ago. Pt reports that she has never had chest discomfort like this before. Tele: Sinus rhythm, rate 60-70's. Family History: Unchanged from Admission Social History: Unchanged from Admission Past Medical History: Unchanged from Admission Objective Active Medications: Acetaminophen (Tylenol Tab*) 650 mg PO Q4H PRN Reason: PAIN Aspirin (Aspirin Ec Low Dose*) 81 mg PO DAILY [facility] Diltiazem HCl (Cardizem Cd Cap*) 240 mg PO DAILY [facility] Docusate Sodium (Colace Cap*) 100 mg PO BID PRN Reason: CONSTIPATION Heparin Sodium (Porcine) (Heparin Vial(*)) 5,000 units SUBCUT Q8HR [facility] Hydrochlorothiazide (Hydrodiuril Tab*) 12.5 mg PO DAILY [facility] Lisinopril (Prinivil Tab*) 40 mg PO DAILY [facility] Metoprolol Tartrate (Lopressor Tab*) 25 mg PO BID [facility] Mometasone Furoate/Formoterol Fumar (Dulera 200/5 Mdi*) 2 puff INH BID [facility] Morphine Sulfate (Morphine Inj (Syringe)*) 4 mg IV Q4H PRN Reason: PAIN Tacrolimus (Prograf Cap(*)) 1 mg PO BID [facility] Vital Signs 03/02/17 03/02/17 03/02/17 18:04 19:04 19:53 Temperature 97.8 F Pulse Rate 64 Respiratory 16 16 18 Rate Blood Pressure 132/59 (mmHg) O2 Sat by Pulse 97 Oximetry 03/02/17 03/02/17 03/02/17 22:23 23:23 23:24 Temperature 99.2 F Pulse Rate 65 Respiratory 18 16 20 Rate Blood Pressure 134/65 (mmHg) O2 Sat by Pulse 94 Oximetry 03/03/17 03/03/17 03/03/17 03:25 05:50 06:50 Temperature 98.3 F Pulse Rate 66 Respiratory 20 16 18 Rate Blood Pressure 134/56 (mmHg) O2 Sat by Pulse 97 Oximetry 03/03/17 03/03/17 03/03/17 07:21 07:42 10:29 Temperature 98.1 F Pulse Rate 64 Respiratory 18 16 18 Rate Blood Pressure 153/63 (mmHg) O2 Sat by Pulse 99 Oximetry 03/03/17 03/03/17 03/03/17 11:22 11:29 14:44 Temperature 98.4 F Pulse Rate 68 Respiratory 17 18 18 Rate Blood Pressure 188/76 (mmHg) O2 Sat by Pulse 100 Oximetry Oxygen Devices in Use Now: None Appearance: NAD, sitting up in bed. Eyes: No Scleral Icterus Ears/Nose/Mouth/Throat: Mucous Membranes Moist Respiratory: Symmetrical Chest Expansion and Respiratory Effort, Clear to Auscultation Cardiovascular: NL Sounds; No Murmurs; No JVD, RRR Extremities: No Edema Skin: No Rash or Ulcers Neurological: Alert and Oriented x 3, NL Muscle Strength and Tone Lines/Tubes/Other Access: Clean, Dry and Intact Peripheral IV - site benign Nutrition: Taking PO's Result Diagrams: 03/02/17 07:48 03/02/17 07:48 Additional Lab and Data: Assess/Plan/Problems-Billing Assessment: Ms. Coombs is a 61 yo female with PMH significant for complicated cardiac history including a cardiac arrest, hx prolonged QT syndrome - s/p ICD, HTN, PAD , and depression who presented to the emergency room with complaints of chest discomfort. - Patient Problems (1) Chest pain Code(s): R07.9 - CHEST PAIN, UNSPECIFIED SNOMED Code(s): 56805897 Comment: - Suspect this is non-cardiac. Pt has been under a lot of stress and has a URI. Suspect this is the cause of the discomfort - Troponins peaked at 0.15 - Stress test low risk - Echo stable when compared to previous ones (2) Hypertension Code(s): I10 - ESSENTIAL (PRIMARY) HYPERTENSION SNOMED Code(s): 24767032 Comment: - Hypertensive this AM prior to medications - Continue home medications (3) Liver transplant recipient Code(s): Z94.4 - LIVER TRANSPLANT STATUS SNOMED Code(s): 351523376 Comment: - Continue tactolimus (4) PAD (peripheral artery disease) Code(s): I73.9 - PERIPHERAL VASCULAR DISEASE, UNSPECIFIED SNOMED Code(s): 122421381 Comment: - Pt has an appointment with vascular surgeon next week (5) Depression Code(s): F32.9 - MAJOR DEPRESSIVE DISORDER, SINGLE EPISODE, UNSPECIFIED SNOMED Code(s): 19480318 Comment: - Pt encouraged to talk and consider antidepressants - Will defer to PCP at this time (6) Chronic pain Code(s): G89.29 - OTHER CHRONIC PAIN SNOMED Code(s): 25088939 Comment: - Recommend outpatient pain clinic consultation (7) DVT prophylaxis Code(s): YKK5124 - SNOMED Code(s): 102082536 (8) Full code status Code(s): Z78.9 - OTHER SPECIFIED HEALTH STATUS SNOMED Code(s): 421482563 Status and Disposition: OBV. Stable for discharge to home today.
[2017-03-03 15:46] VITALS: BP 148/82
--- NOTE | 2017-03-04 06:57 | DS ---
DISCHARGE SUMMARY: DATE OF ADMISSION: 03/02/17 DATE OF DISCHARGE: 03/03/17 ATTENDING PHYSICIAN: Dr. Montez Voss *(dictated by Lucy Uribe NP). PRIMARY CARE PROVIDER: Dr. Bill Koo. PRIMARY DIAGNOSIS: Noncardiac chest pain. SECONDARY DIAGNOSES: 1. Hypertension. 2. Status post liver transplant. 3. Peripheral arterial disease. 4. Depression. STUDIES WHILE IN THE HOSPITAL: 1. Chest x-ray on 03/02/17. Radiologist's impression: Findings consistent with COPD. No evidence for acute findings. 2. Transthoracic echocardiogram from 03/02/17. Shoe Shanker's impression: Mild concentric left ventricular hypertrophy is observed. Global left ventricle wall motion and contractility are within normal limits. Mild LVOT obstruction is noted, mild elevation in LVOT velocity, and mild dagger-shaped velocity profile. The estimated ejection fraction is 60% to 65%. Abnormal left ventricular diastolic function is observed. The right ventricular global systolic function is normal. There is mild mitral regurgitation. There is mild- to-moderate tricuspid regurgitation. There is evidence of mild pulmonary hypertension. The pericardium appears normal. Compared with prior echo of , LVH and LVEF are stable, valve function is stable, PA pressure not significantly changed. 3. Nuclear cardiac stress test from 03/03/17. Radiologist's impression: No evidence for infarct or ischemia. Assessment: Low risk. Shoe Shanker's conclusion: Observation chest pain none. Resting ECG abnormal ST changes none. Non-diagnostic Lexiscan study by EKG due to resting EKG abnormalities. Nuclear portion to be reported separately by radiologist. Hypertensive response. DISCHARGE MEDICATIONS: Continued home medications: 1. Hydrochlorothiazide 12.5 mg oral daily. 2. Metoprolol tartrate 25 mg oral twice daily. 3. Advair Diskus 250/50 one puff inhalation twice daily. 4. Aspirin 81 mg oral daily. 5. Prograf 1 mg oral twice daily. 6. Nitroglycerin 0.4 mg sublingual every 5 minutes as needed for chest discomfort. 7. Lisinopril 40 mg oral daily. 8. Diltiazem HCl 240 mg oral daily. HISTORY OF PRESENT ILLNESS/HOSPITAL COURSE: Ms. Coombs is a 61-year-old female with past medical history significant for hypertension, status post liver transplant, pacemaker ICD inserted for prolonged QT syndrome, peripheral arterial disease, who presented to the emergency room with complaints of chest discomfort starting yesterday. The patient had also reported having approximately 2 weeks of sleeping very little, losing weight due to poor appetite, and recent stressors related to her family. The patient states that she had not had chest discomfort similar to this. She also reports some upper respiratory symptoms of cough with some white sputum production. The patient took 3 nitroglycerin at home, however, felt this did not help her pain and she decided to present to the emergency room for further evaluation of her symptoms. While in the emergency room, the patient had an EKG showing a normal sinus rhythm without acute ST-T wave abnormalities. She did have diffuse T-wave inversions in the inferior leads that were unchanged from previous EKGs. The patient had a chest x-ray showing findings consistent with COPD, but no other acute findings. She had labs that were significant for hypokalemia with potassium at 3.3. Troponin of 0.13. Hospitalists were asked to evaluate the patient for admission. While in the hospital, the patient was monitored on telemetry. She had no events noted on telemetry. She chronically has an elevated troponin of 0.3 to 0.6. Her initial troponin was 0.13. Her troponins peaked at 0.15. The patient underwent a transthoracic echocardiogram to evaluate for pericardial effusion and the possibility of a pericarditis. The patient's transthoracic echocardiogram had no significant findings and was similar to previous echocardiogram. The patient was maintained on her usual dose of aspirin, metoprolol, and lisinopril. It is to note the patient was hypertensive this morning, but her blood pressure medications had been held in preparation for her stress test. She was administered her antihypertensives and her blood pressure has improved to the 140s from the 180s. The patient reported continued intermittent chest discomfort. This was not reproducible by pain with palpation , but she underwent a nuclear cardiac stress test that showed a low risk. It was felt that some of the patient's discomfort could be part of her chronic pain and that her chest discomfort may also be related to stress in addition to what appears to be viral upper respiratory infection. Ms. Coombs is stable for discharge to home today. PHYSICAL EXAMINATION: Vital signs are as follows: Temperature 98.0, heart rate 70, respiratory rate 17, O2 sat 100% on room air, blood pressure 148/82. DISCHARGE PLAN: Ms. Coombs will be discharged to home. Activity as tolerated. The patient should be on heart healthy diet. As far as her chest discomfort, I suspect this is noncardiac and is related to stress and possibly a viral illness. At this time, the patient has been afebrile and does not have any leukocytosis, we will hold on any antibiotics. As far as the patient's chronic pain, I recommend she be set up with an appointment with the pain clinic. At this time, the patient has been encouraged to take [id number] medications that have been approved for her to take status post liver transplant. The patient should be seen in followup by her primary care provider , Dr. Koo, she has an appointment on March 08, at 3:45 p.m. All of her usual medications have been continued. This is a summarized report of a complex medical history and hospital stay. For further details, please see the entire medical record. TIME SPENT: Time for this discharge was 50 minutes; 25 minutes of that was spent [id number] with the patient discussing discharge plans and instructions. Reviewed by ERI RICARDO 03/04/17 1807 CC: Dr. Koo* [id number]/[facility] #: [id number] DOROTHY
== END 2017-03-03 16:25 | disposition home or self-care (01) ==
LOC: ED 07:15 → MEDTELE 10:01
PROVIDERS: ADMIT Hospitalist; ATTEND Hospitalist
DX: R07.89 Other chest pain (principal); I10 Essential (primary) hypertension; I73.9 Peripheral vascular disease, unspecified; E87.6 Hypokalemia; F32.9 Major depressive disorder, single episode, unspecified; I45.81 Long QT syndrome; Z94.4 Liver transplant status; I51.7 Cardiomegaly; Z79.82 Long term (current) use of aspirin; Z79.899 Other long term (current) drug therapy; Z88.8 Allergy status to other drugs, medicaments and biological substances; Z95.0 Presence of cardiac pacemaker; Z87.891 Personal history of nicotine dependence; R06.02 Shortness of breath
CPT/HCPCS: 36415; 71020; 78452; 80053; 81003; 81015; 82550; 82553; 83605; 83735; 83880; 84436; 84443; 84484; 85025; 87086; 93005; 93017; 93306; 94640; 96365; 96366; 96372; 96375; 96376; 99284; A9270-GY; A9502; G0378; J0280; J1644; J2270; J2785; J3475; J7507

== ENCOUNTER 2017-03-14 14:28 | Inpatient (IN) | payer MEDICARE, MEDICAID ==
[2017-03-14] MEDS ORDERED: VERAPAMIL 2.5 MG/ML 4 ML VIAL ONE (14:35)
[2017-03-14] MEDS ORDERED: fentaNYL* 50 MCG/ML 2 ML VIAL (100 MCG VIAL) ONE (14:35)
[2017-03-14] MEDS ORDERED: Heparin 2 UNITS/ML IVPREMIX* 3,000 ML IV ONE (14:35)
[2017-03-14] MEDS ORDERED: Heparin(*) 1000 UNIT/ML 10 ML VIAL CATH LAB IV ONE (14:35)
[2017-03-14] MEDS ORDERED: Midazolam* 1 MG/ML 5 ML VIAL (5 MG) ONE (14:35)
[2017-03-14] MEDS ORDERED: Lidocaine 1% INJ* 10 MG/ML 30 ML SDV ONE (14:35)
[2017-03-14] MEDS ORDERED: nitroGLYCERIN DRIP* 250 ML ONE ×2 (14:35→14:37)
[2017-03-14] MEDS ORDERED: Iohexol 350 (CONTRAST) 200 ML MDV IV ONE (14:36)
[2017-03-14] MEDS ORDERED: Norepinephrine 16MCG/ML IVPRE* 4,000 MCG/250 ML BAG IV ONE (14:37)
[2017-03-14] MEDS ORDERED: Iodixanol* (CONTRAST) 320 MG/ML 100 ML SDV ONE (14:48)
--- NOTE | 2017-03-14 15:05 | ED ---
Ya Yates Alfonso, scribed for Joce Tavares MD on 03/14/17 at 1454 . HPI Chest Pain - HPI Summary HPI Summary: This patient is a 61 year old female [facility] c/o unspecified chest pain for a few days. Sx aggravated and alleviated by nothing. She was brought directly to the laboratory apparatus glass blower with Dr. Jones (svp) upon arriving to the ED. PMHx of CAD. PSHx of liver transplant. - History of Current Complaint Chief Complaint: EDChestPainROMI Hx Obtained From: Patient, EMS Onset/Duration: Started Days Ago - A few days Timing: Constant Initial Severity: Moderate Current Severity: Moderate Aggravating Factor(s): Nothing Alleviating Factor(s): Nothing Associated Signs and Symptoms: Positive: Chest Pain - Additional Pertinent History Primary Care Physician: MARQUIS - Allergy/Home Medications Allergies/Adverse Reactions: Allergies Allergy/AdvReac Type Severity Reaction Status Date / Time Promethazine [From Phenergan] Allergy Severe Unknown Verified 02/28/17 17:31 Reaction Details Procaine [From Novocain] Allergy See Comment Verified 02/28/17 17:31 PMH/Surg Hx/FS Hx/Imm Hx Endocrine/Hematology History: Denies: Hx Anticoagulant Therapy, Hx Diabetes, Hx Anemia Cardiovascular History: Reports: Hx Angina, Hx Auto Implanted Cardiovert Defib, Hx Cardiac Arrest, Hx Coronary Artery Disease, Hx Hypertension, Hx Myocardial Infarction, Hx Pacemaker/ICD, Hx Syncope, Other Cardiovascular Problems/ Disorders - cardiac arrest following phenergan long QT syndrome Denies: Hx Congestive Heart Failure, Hx Hypercholesterolemia Comment Only: Hx Peripheral Vascular Disease - PAD Respiratory History: Reports: Hx Chronic Bronchitis, Hx Pneumonia, Other Respiratory Problems/Disorders - PNA Denies: Hx Asthma GI History: Reports: Other GI Disorders - LIVER TRANSPLANT 1995. Pt states constipation on occasion Denies: Hx Jaundice History: Denies: Hx Dialysis, Hx Renal Disease Musculoskeletal History: Reports: Hx Arthritis, Hx Back Problems, Other Musculoskeletal History - osteo-arthritis Denies: Hx Rheumatoid Arthritis - osteoarthritis Comment Only: Hx Osteoporosis - unsure Sensory History: Reports: Hx Contacts or Glasses Denies: Hx Hearing Aid Opthamlomology History: Reports: Hx Contacts or Glasses Neurological History: Reports: Hx Seizures Denies: Hx Dementia Psychiatric History: Reports: Hx Anxiety, Hx Depression, Hx Inpatient Treatment , Hx Substance Abuse Denies: Hx Suicide Attempt - suicidal ideation, hospitalization - Surgical History Surgery Procedure, Year, and Place: Pacer December 1996, Liver transplant February 1996 , peripheral artery disease surgery in groin 2011, arthoscopic of left knee, Pacemaker Hx Anesthesia Reactions: No - Immunization History Date of Tetanus Vaccine: pt states she doesnt know Date of Influenza Vaccine: none Infectious Disease History: Reports: Hx Hepatitis - C Denies: Hx Clostridium Difficile, Hx Human Immunodeficiency Virus (HIV), Hx of Known/Suspected MRSA, Hx Shingles, Hx Tuberculosis, Hx Known/Suspected VRE, Hx Known/Suspected VRSA, History Other Infectious Disease, Traveled Outside the [place] in Last 30 Days - Family History Known Family History: Positive: Cardiac Disease, Hypertension Family History: Denies FHx breast cancer - Social History Alcohol Use: None Hx Substance Use: No Substance Use Type: Reports: None Hx Tobacco Use: Yes Smoking Status (MU): Former Smoker Amount Used/How Often: 2-3 cig./day Review of Systems Constitutional: Negative Eyes: Negative ENT: Negative Positive: Chest Pain - Unspecified Respiratory: Negative Gastrointestinal: Negative Genitourinary: Negative Musculoskeletal: Negative Skin: Negative Neurological: Negative Psychological: Normal All Other Systems Reviewed And Are Negative: Yes Physical Exam - Summary Physical Exam Summary: Gen: ill-appearing, mild to moderate pain distress Skin: warm, color, dry Head: normal Eyes: EOMI, ROHINI ENT: dry oral mucosa Neck: supple, nontender Resp: CTA, breath sounds present Cardio: RRR Abd: soft, nontender Bowel: present Musc: normal, strength/ROM intact Neuro: alert and awake Psych: affect/mood appropriate Triage Information Reviewed: Yes Vital Signs Reviewed: Yes Chest Pain Course/Dx - Course Course Of Treatment: CRITICAL CARE TIME LESS THAN 30 MINUTES. PATIENT SEEN WHILE SHE WAS STILL ON THE EMS RPEGRAM. DR JONES TOOK PATIENT DIRECTLY TO THE CARDIAC CATHETERIZATION LAB FROM THE ED. - Diagnoses Provider Diagnoses: STEMI (ST elevation myocardial infarction) - Provider Notifications Discussed Care Of Patient With: Kat Jones Time Discussed With Above Provider: 14:22 Instructed by Provider To: Will See In ED - Dr. Jones (wax specialist) was consulted and he saw the patient in the ED, taking them directly to the laboratory apparatus glass blower. Patient never left the [facility]. Discharge - Discharge Plan Condition: Guarded Disposition: ADMITTED TO [facility] Referrals: Bill Koo MD [Primary Care Provider] - The documentation as recorded by the Ya dc Alfonso accurately reflects the service I personally performed and the decisions made by me, Joce Tavares MD.
[2017-03-14 15:38] LABS: Hematocrit 30 % (35-47); Mean Corpuscular HGB Conc 33 g/dl (31-36); Mean Corpuscular Hemoglobin 32 pg (27-31); Mean Corpuscular Volume 95 fL (80-97); Mean Platelet Volume 9 um3 (7.4-10.4); Red Blood Count 3.14 10^6/ul (4.0-5.4); Red Cell Distribution Width 13 % (10.5-15); White Blood Count 12.3 10^3/ul (3.5-10.8)
--- NOTE | 2017-03-14 15:53 | PN ---
Progress Note - Progress Note Note: CRITICAL CARE MEDICINE PROCEDURE NOTE DATE: 03/14/17 TIME: 1500 SERVICE: Critical Care Medicine for cardiology. LOCATION OF PROCEDURE: Photocopy Operator PROCEDURE: Central line insertion PROCEDURALIST: Dr. Ivory Consent obtain: procedure performed emergently INDICATION: STEMI, Cardiogenic shock with poor access PROCEDURE: Oxygenation maintained and vitals monitored. Patient in supine position on cath table. SITE: RIGHT Internal jugular. Site preparation with chlorhexidine locally. Full sterile drape, gown, hat, mask, gloves. 5ml 1% Lidocaine utilized at incision site. Standard sterile Seldinger technique utilized via ultrasound guidance and wire was inserted with a little bit of resistance after 15cm. May have curved down subclavian, but wire appeared to be ok on fluro view. Catheter was inserted to 14cm and sutured in place. Good blood return, however distal port was a little sluggish and felt a little resistance as it may be up against a valve, or again potentially guided distally. Minimal blood loss. Site dressed with tegaderm. Ok to use, at least as a midline urgently; and will obtain f/u cxr after cath. Patient otherwise tolerated well. Shoshana Ivory, DO
[2017-03-14 15:54] LABS: Albumin 2.9 g/dL (3.2-5.2); BUN/Creatinine Ratio 9.3 (8-20); Calcium 7.8 mg/dL (8.6-10.3); EGFR African American 7.3 (>60); EGFR Non-African American 5.7 (>60); Globulin 2.9 g/dL (2-4); Potassium 4.4 mmol/L (3.5-5.0); Total Bilirubin 0.6 mg/dL (0.2-1.0); Total Protein 5.8 g/dL (6.4-8.9)
[2017-03-14 16:04] LABS: Troponin I 44.28 ng/mL (<0.04)
[2017-03-14] MEDS ORDERED: Heparin 2 UNITS/ML IVPREMIX* 1,000 ML IV ONE (16:12)
[2017-03-14] MEDS ORDERED: Ticagrelor* 90 MG TAB PO ONE (16:13)
[2017-03-14] MEDS ORDERED: Ondansetron INJ* 2 MG/ML VIAL ONE (16:15)
--- NOTE | 2017-03-14 16:31 | CONSULT ---
Consult Consult: CRITICAL CARE MEDICINE DATE: 03/14/17 TIME: 1600 PRIMARY CARE PROVIDER: Hayes REFERRING PROVIDER: Ailyn REASON/CHIEF COMPLAINT: MODs post STEMI HISTORY OF PRESENT ILLNESS: 61 F presenting with STEMI. Poor iv access, vasculopath noted in farm laborer and icu consulted for line placement (see procedure note). BM stent placed to rca. Pt with noted multiple medical ailments and now more acute organ dysfunction beyond AMI. ICU consulted. REVIEW OF SYSTEMS: As per HPI. PAST MEDICAL HISTORY: As per HPI. HTN, Hep C, s/p liver transplant 1995, AICU from long QT, PAD s/p Left le endaterectomy, PAF, copd, tob abuse MEDICATIONS: Reviewed. ALLERGIES: Reviewed. Promethazine and procaine. SOCIAL HISTORY: Reviewed. quit tob. FAMILY HISTORY: CAD PHYSICAL EXAM: small, frail Vital Signs: Reviewed. Neurologic: awake, communicating. HEENT: anicteric, mmm Cardiovascular: distant, S1, S2 Respiratory: clear bl Abdomen: old scarring, soft Extremities: cool Access: RIJ now. LABS: Reviewed. IMAGING: Reviewed. MEDICATIONS: Reviewed. ASSESSMENT: 61 F with history as above presenting with STEMI, Acute renal failure, COPD, PAD, chronic pain PLAN: Neurologic: stable. prns and chronic pain needs. Cardiovascular: cards f/u. perfusion low end and can use levophed through pump recovery. coming in with a troponin of >40. vol deplete. generous crystalloids ongoing as ordered. Respiratory: tolerating. NC currently. f/u copd needs Gastrointestinal: maintain but check first her tacrolimus level Renal/Metabolic: suhas. question meds. tacrolimus induced MARITZA, acei, thiazide vs pre-reanl and flow failure with MS or combo of all. will need nephro eval in am - high potential for HD needs. check UA, FENa. Infectious Disease: no abx needs identified Hematology: f/u counts. anti-plt per cards. Endocrine: check lipids, A1C Musculoskeletal: oob tomorrow. Psych/Social: pt expressed understanding. Supportive and preventative care as ordered. SUP: po VTE prophylaxis: SCDs; heparin if stay prolonged. Disposition: ICU with cards and ICU f/u Code Status: Full Critical Care Time: 45min, excluding procedures. D/w Dr. Ailyn Ivory DO
[2017-03-14] MEDS ORDERED: Acetaminophen TAB* 325 MG PO PRN (16:37)
[2017-03-14] MEDS ORDERED: Ondansetron INJ* 2 MG/ML VIAL IV PRN ×2 (16:37→17:09)
[2017-03-14] MEDS ORDERED: Nitroglycerin TAB 0.4 MG* 0.4 MG TAB SL PRN (16:37)
[2017-03-14] MEDS ORDERED: NS 0.9% 1000 ML* 1,000 ML IV SCH (16:45)
[2017-03-14] MEDS ORDERED: fentaNYL* 50 MCG/ML 2 ML VIAL (100 MCG VIAL) IV SLOW PU PRN (16:58)
[2017-03-14] MEDS ORDERED: NS 0.9% 1000 ML* 1,000 ML IV ONE (16:59)
[2017-03-14] MEDS ORDERED: Albuterol/Ipratropium NEB.SOL* Albuterol 2.5 MG/Ipratropium 0.5 MG 3 ML INH PRN (17:00)
--- NOTE | 2017-03-14 17:32 | RAD ---
HISTORY: Line placement COMPARISONS: March 02, 2017 VIEWS:1: Single frontal portable view of the chest at 5:12 PM FINDINGS: LINES AND TUBES: Right-sided pacemaker is noted. The right internal jugular venous catheter is noted with the tip overlying the superior vena cava. CARDIOMEDIASTINAL SILHOUETTE: The cardiomediastinal silhouette is normal for portable technique. PLEURA: The costophrenic angles are sharp. No pleural abnormalities are noted. There is no appreciable pneumothorax. LUNG PARENCHYMA: There is hyperinflation. ABDOMEN: The upper abdomen is clear. There is no subphrenic gas. BONES AND SOFT TISSUES: Degenerative changes are noted most pronounced of the right shoulder IMPRESSION: LINES AND TUBES ABOVE. HYPERINFLATION. NO ACTIVE CARDIOPULMONARY DISEASE.
[2017-03-14 18:52] LABS: Phosphorus 7.4 mg/dL (2.5-5.0)
[2017-03-14] MEDS ORDERED: Norepinephrine 16MCG/ML IVPRE* 4,000 MCG/250 ML BAG IV SCH (19:00)
--- NOTE | 2017-03-14 19:19 | CONS ---
CC: Dr. Koo; Dr. Ignacio; Transplant Unit at [facility]; Dr. Galan * INTERVENTIONAL CARDIOLOGY CONSULT NOTE: DATE OF CONSULT: 03/14/17 PRIMARY CARE PHYSICIAN: Dr. Koo. CREAM GATHERER: Dr. Ignacio. HISTORY OF PRESENT ILLNESS: A 61-year-old woman with remote liver transplant presenting to the ER with acute inferior wall ST elevation infarct. She has an extensive history of peripheral vascular disease. She was here last month with chest pain for 8 hours, troponins were 0.13, 0.14, 0.15, 0.13, 0.13, 0.08. She had a nuclear cardiac scan, 03/03/17, which was read as showing normal wall motion and thickening, normal EF of 69%, and normal tracer distribution without infarct or ischemia. EKG on 03/02/17 showed inferolateral T-wave inversion with a long QT interval, unchanged from EKG of 11/16/16. She was discharged with a diagnosis of noncardiac chest pain, echocardiogram showed LVH with EF of 60% to 65% with mild LVOT obstruction. She had mild pulmonary hypertension. She has had previous elevated low level troponins. She was discharged with hydrochlorothiazide 12.5 mg daily, Lopressor 25 b.i.d., bronchodilators, aspirin 81 mg daily, Prograf 1 mg b.i.d. p.r.n., nitroglycerin, lisinopril 40 daily, Cardizem ER 240 mg daily. Yesterday, she felt poorly with pressure in her chest and across her upper back intermittently throughout the whole day. She also fell 3 times over the past 48 hours because of loss of balance. She said she has been eating and drinking. She denies any syncope. She is scheduled to have a peripheral vascular bypass surgery with Dr. Scott in [place] sometime in the next month or two for bilateral lower extremity claudication. By recent CTA, she has right common femoral disease as well as in-stent restenosis of a left external iliac stent, but with a patent common femoral on the left. PAST MEDICAL HISTORY: PAD with pending bypass surgery, hypertension, history of hepatitis C status post liver transplant in 1995, long QT syndrome status post AICD implant, history of paroxysmal atrial fibrillation and paroxysmal ventricular tachycardia, chronic low back pain, chronic renal insufficiency with creatinine in the past as high as 2.6. On 03/02/17, creatinine was 1.58. ALLERGIES: PHENERGAN and PROCAINE. FAMILY HISTORY: Positive for premature coronary artery disease. SOCIAL HISTORY: She stopped smoking 2 years ago. REVIEW OF SYSTEMS: She tells me she has lost 30 pounds in the past 2 weeks. Pulmonary: She has intermittent bronchitis. GI: She denies peptic ulcer disease or bleeding, on aspirin 81 mg daily. Circulatory: She is pending vascular surgery. Remainder all negative. PHYSICAL EXAM: At arrival in the cardiac cath rn, first blood pressure 81/35. She already had volume running. She was complaining of moderate chest pressure and low back pain which is chronic. Heart rate 60s. No ectopy. Lungs: She had no rales or wheezes laterally. Neck: JVP was not elevated. Carotids were palpable. HEENT: Unremarkable without xanthelasma, but her mucous membranes were dry. Cardiac Exam: Normal S1, S2. No murmur, gallop, or rub. Abdomen: Soft, nontender. No bruit. Bowel sounds present. Aorta not palpable. Right femoral pulses not palpable. Left femoral pulse was 1/2. The right radial was not palpable, nor were pedals. She had no cyanosis, clubbing, or edema. Her skin was cool, vasoconstricted. DIAGNOSTIC STUDIES/LAB DATA: EKG showed acute inferolateral ST elevation infarct. Subsequent labs during the cath revealed acute renal failure on chronic renal failure with a creatinine of 7.29, potassium 4.4. Her CPK-MB was already elevated at 261.3, first troponin was high at 44.28. BNP elevated at 143. IMPRESSION: 1. Acute inferior wall ST elevation infarct with hypotension, clinically volume depletion, with subsequent labs confirming acute on chronic renal failure. 2. Severe peripheral acute disease with limited access options, anticipated bypass grafting. Hence, a drug-eluting stent was not contemplated. 3. Acute renal failure on chronic renal insufficiency. She will be managed by the automation lead/hospitalist service with consultation from Dr. Galan as needed. She is at significant risk for developing permanent worse renal failure from contrast utilized in treating her acute infarct, even though we minimized the amount utilized. [id number]/[facility] #: [id number] MTDD
[2017-03-14 19:24] LABS: Uric Acid 11.3 mg/dL (2.3-6.6)
[2017-03-14] MEDS: fentaNYL* 50 MCG/ML 2 ML VIAL (100 MCG VIAL) IV SLOW PU PRN ×4 (19:55→23:37)
[2017-03-14] MEDS: Atorvastatin* 80 MG TAB PO SCH (20:14)
[2017-03-14] MEDS: Ticagrelor* 90 MG TAB PO SCH (20:14)
[2017-03-14] MEDS: Mometasone/Formoter 200/5 MDI INH SCH ×2 (20:22→20:28)
[2017-03-14] MEDS ORDERED: Mometasone/Formoter 100/5 MDI INH SCH (21:00)
[2017-03-14] MEDS ORDERED: Mometasone/Formoter 200/5 MDI INH SCH (21:00)
[2017-03-14] MEDS ORDERED: Atropine SYRINGE* 0.1 MG/ML 10 ML SYRINGE (1 MG) ONE (21:34)
[2017-03-14] MEDS ORDERED: Sodium Bicarbonate 8.4% IV* 150 MEQ in D5W 1000 ML BAG* 1,000 ML IVPB SCH (23:00)
[2017-03-15] MEDS: fentaNYL* 50 MCG/ML 2 ML VIAL (100 MCG VIAL) IV SLOW PU PRN ×9 (00:45→20:05)
[2017-03-15 05:27] LABS: Hematocrit 28 % (35-47); Hemoglobin 9.6 g/dl (12.0-16.0); Mean Corpuscular HGB Conc 34 g/dl (31-36); Mean Corpuscular Hemoglobin 32 pg (27-31); Mean Corpuscular Volume 96 fL (80-97); Mean Platelet Volume 9 um3 (7.4-10.4); Red Blood Count 2.95 10^6/ul (4.0-5.4); Red Cell Distribution Width 14 % (10.5-15)
[2017-03-15 05:33] LABS: BUN/Creatinine Ratio 12.4 (8-20); Calcium 7.8 mg/dL (8.6-10.3); EGFR African American 14.1 (>60); Magnesium 1.3 mg/dL (1.9-2.7); Phosphorus 4.8 mg/dL (2.5-5.0); Potassium 3.9 mmol/L (3.5-5.0)
[2017-03-15] MEDS ORDERED: Spiriva Inhaler DEVICE* 1 EACH DEVICE INH ONE (09:00)
[2017-03-15] MEDS: Ticagrelor* 90 MG TAB PO SCH ×2 (09:09→21:20)
[2017-03-15] MEDS: Aspirin Low Dose CHEW TAB* 81 MG PO SCH (09:09)
[2017-03-15] MEDS: Tiotropium CAP.INH* CAP.INH/18 MCG INH SCH (09:10)
[2017-03-15] MEDS: Mometasone/Formoter 200/5 MDI INH SCH ×2 (09:10→19:30)
[2017-03-15] MEDS ORDERED: Magnesium Sulf 4 GM/100 ML IV* 4,000 MG/100 ML BAG IVPB ONE (09:42)
[2017-03-15] MEDS: oxyCODONE/Acetamin 5/325 MG* TAB PO PRN ×4 (09:52→22:04)
--- NOTE | 2017-03-15 11:06 | PN ---
Progress Note - Progress Note Note: CRITICAL CARE MEDICINE DATE: 03/15/17 TIME: 935 SUBJECTIVE: Patient seen and examined. PHYSICAL EXAM: Vital Signs: Reviewed. Neurologic: awake, communicating. HEENT: anicteric, mmm Cardiovascular: distant, S1, S2 Respiratory: clear bl Abdomen: old scarring, soft Extremities: warmer Access: RIJ. LABS: Reviewed. IMAGING: Reviewed. MEDICATIONS: Reviewed. ASSESSMENT: 61 F with history as above presenting with STEMI to RCA, Acute renal failure, COPD, PAD, chronic pain PLAN: Neurologic: stable. percocet prn. Cardiovascular: cards f/u. add touch bb (previously on cardizem for rate control ) and see if this holds her paf. keep lower dose crystalloids today. Respiratory: tolerating. RA currently. f/u copd needs Gastrointestinal: po. checking tacrolimus level and pn hold Renal/Metabolic: suhas improved and continued. nephro eval. Infectious Disease: no abx needs Hematology: f/u counts. anti-plt per cards. Endocrine: on statin Musculoskeletal: oob Psych/Social: pt expressed understanding. Supportive and preventative care as ordered. SUP: po VTE prophylaxis: SCDs; heparin if stay prolonged. Disposition: ICU today and floor tomorrow likely Code Status: Full Critical Care Time: 25min D/w Dr. Ailyn Ivory DO
--- NOTE | 2017-03-15 11:32 | ECHO ---
Patient: ADELE ZELAYA [facility] Rec#: [id number] : 1955 Date: 03/15/2017 Age: 61y Height: 157.48 cm / 62.0 in Weight: 52.16 kg / 115.0 lbs Sex: F BSA: 1.51 Room#: ICU-1 Admit Date#: 03/14/2017 Type: Inpatient Referring: Kat Robertson MD Reading: Nicholas Harley MD Research Agricultural Engineer: Lucy Lawton RDCS CC: Bill Koo MD Transthoracic Echocardiogram Indication: STEMI, S/P PCI BP: 112/55 HR: 85 Rhythm: NSR Indications Acute Myocardial Infarction Findings History: HTN, Hep C, liver transplant 1995, AICD for long QT syndrome, PAD, PVT, PAF, former smoker. Technical Comments: The study quality is fair. The study is technically limited due to poor parasternal windows. Completed at 0930. Left Ventricle: The left ventricular chamber size is decreased. Mild concentric left ventricular hypertrophy is observed. There is a focal wall motion abnormality present. Left ventricular systolic function is at the lower limits of normal. The estimated ejection fraction is 50-55%. Abnormal left ventricular diastolic function is observed. The mid inferolateral, and apical lateral wall segments are hypokinetic (score 2). Overall wallmotion score index is 2.00 Left Atrium: The left atrium is mildly dilated. Right Ventricle: The right ventricular cavity size is normal. The right ventricular global systolic function is mildly reduced. A pacemaker wire is visualized in the right ventricle. Right Atrium: The right atrial cavity size is normal. A pacemaker wire is visualized in the right atrium. Aortic Valve: The aortic valve is trileaflet. There is no evidence of aortic regurgitation. There is no evidence of aortic stenosis. Mitral Valve: The mitral valve leaflets are mildly thickened. There is mild to moderate mitral regurgitation. There is no evidence of mitral stenosis. Tricuspid Valve: The tricuspid valve leaflets are normal. There is moderate tricuspid regurgitation. There is evidence of moderate pulmonary hypertension. There is no tricuspid stenosis. Pulmonic Valve: The pulmonic valve structure is not well visualized. The pulmonic valve appears normal. There is no evidence of pulmonic regurgitation. There is no pulmonic stenosis. Pericardium: There is no significant pericardial effusion. Aorta: The aorta is not well visualized. There is no dilatation of the aortic arch. There is no dilation of the aortic root. Pulmonary Artery: The main pulmonary artery is not well visualized. Venous: The inferior vena cava is dilated. There is less than 50% respiratory change in the inferior vena cava dimension. Conclusions Mild concentric left ventricular hypertrophy is observed. Left ventricular systolic function is at the lower limits of normal. The estimated ejection fraction is 50-55%. The mid inferolateral, and apical lateral wall segments are hypokinetic (score 2). The right ventricular global systolic function is mildly reduced. A pacemaker wire is visualized in the right ventricle. There is no evidence of aortic stenosis. There is mild to moderate mitral regurgitation. There is moderate tricuspid regurgitation. There is evidence of moderate pulmonary hypertension. There is no significant pericardial effusion. The aorta is not well visualized. Compared to study of 03/02/17, the inferio wall motion abnormalities are new. Valve functions are the same Measurements Name Value Normal Range RVIDd (AP) 2D 2.5 cm (0.9 - 2.6) RVDdMajor (2D) 3.6 cm (2.2 - 4.4) RAd ISD 4CH 4.4 cm (3.4 - 4.9) RA (A4C)W 4.2 cm (2.9 - 4.6) IVSd (2D) 1.1 cm (0.6 - 1) LVPWd (2D) 1.1 cm (0.6 - 1) LVIDd (2D) 3.4 cm (3.6 - 5.4) LVIDs (2D) 2.8 cm - LV FS (2D) 17 % (25 - 45) Aortic Annulus 1.7 cm (1.4 - 2.6) Ao root diameter (2D) 2.7 cm (2.1 - 3.5) Aortic arch 2.4 cm (1.8 - 3.4) LA dimension (AP) 2D 3.4 cm (2.3 - 3.8) LAd ISD 4CH 5.3 cm (2.9 - 5.3) LA ISD 4CH W 4.6 cm (2.5 - 4.5) Name Value Normal Range LA ESV SP 4CH (A/L) 46 ml - LA ESV SP 2CH (A/L) 40 ml - LA ESV BP (A/L) 52.85 ml - LA ESV BP (A/L) index 34.98 ml/m2 - LA ESV SP 4CH (MOD) 43 ml - LA ESV SP 2CH (MOD) 38 ml - Name Value Normal Range MV E-wave Vmax 0.7 m/sec - MV deceleration time 211.1 msec - MV A-wave Vmax 0.96 m/sec - MV E:A ratio 0.75 ratio - LV septal e' Vmax 0.03 m/sec - LV lateral e' Vmax 0.07 m/sec - LV E:e' septal ratio 23.3 ratio - LV E:e' lateral ratio 10 ratio - Name Value Normal Range AV Vmax 1.79 m/sec - AV VTI 29.4 cm - AV peak gradient 12.8 mmHg - AV mean gradient 6.6 mmHg - LVOT Vmax 1.2 m/sec - LVOT VTI 22.2 cm - LVOT peak gradient 5.8 mmHg - LVOT mean gradient 2.89 mmHg - JD Vmax 0.8 m/sec - Name Value Normal Range MR Vmax 4.9 m/sec - MR VTI 124.1 cm - Name Value Normal Range TR Vmax 2.8 m/sec - TR peak gradient 31 mmHg - RAP 15 mmHg - RVSP 46 mmHg - IVC diameter 2.2 cm - Name Value Normal Range PV Vmax 0.9 m/sec - PV peak gradient 3.27 mmHg - Wallmotion BAS Not Seen BA Not Seen BAL Not Seen TITO Not Seen BI Not Seen BIS Not Seen MAS Not Seen MA Not Seen MAL Not Seen MIL Hypokinetic AK Not Seen MIS Not Seen Not Seen AA Not Seen AL Hypokinetic AI Not Seen APEX Not Seen
--- NOTE | 2017-03-15 14:53 | CATH ---
CC: Dr. Ignacio; Dr. Koo; Liver Transplant Unit at [facility] * STENT REPORT: DATE OF PROCEDURE: 03/14/17 - ROOM #[id number] PRIMARY CARE PROVIDER: Dr. Koo. HIGH RIGGER: Dr. Ignacio. PROCEDURES: 1. Left common femoral artery access with Doppler needle and ultrasound guidance, bilateral selective coronary cineangiography, left heart catheterization, aspiration thrombectomy RCA, stent placement RCA 2.75 x 32 bare metal stent post dilated with 2.75 x 30 noncompliant balloon. 2. Right internal jugular triple-lumen catheter placement Dr. Ott with ultrasound assistance. HISTORY: A 61-year-old woman with severe peripheral vascular disease, remote liver transplant presenting with acute inferior wall ST elevation infarct, hypotension with systolic blood pressure in the 60 to 70s in the ambulance, history of CKD stage 3. She had no palpable right radial, right femoral, had a palpable faint left common femoral, recent CTA had shown right common femoral disease, a patent left common femoral with external iliac in-stent restenosis. She is anticipating vascular bypass surgery with Dr. Scott within the next 1 to 2 months, further details were unknown. Therefore, a drug-eluting stent was not considered. PROCEDURE ACCESS: Left common femoral artery with ultrasound guidance and Doppler needle, Wholey wire. Sheath 6F. MEDICATIONS: 1. IV Versed. 2. IV Fentanyl. 3. Heparin 9000 units IV. 4. Brilinta 180 mg p.o. 5. Zofran 4 mg IV. 6. Volume loading with IV saline approximately 2 L. DIAGNOSTIC CATHETERS: 6-FR4, 6FL4 guiding catheters, 6FR4 which was disengaged from the RCA ostium to prevent dampening wire 14BMW used to perform aspiration thrombectomy of the mid RCA after which a 2.5 x 12 balloon was used to pre- dilate the stenosis after which a 2.75 x 32 REBEL bare metal stent was deployed , a 2.5 x 32 was not available. It was deployed at 11 atmospheres 20 seconds, post dilated with a 2.75 x 30 noncompliant balloon 11 atmospheres 18 seconds, 11 atmospheres 20 seconds. Left heart pressures were then recorded using the guiding catheter. Sheath was secured, was subsequently pulled in the ICU once ACT decreased. HEMODYNAMICS: Initial BP 81/35, post revascularization and IV volume LV 92/10- 16, no aortic valve gradient on pull back. ANGIOGRAPHY: Left main: The left main has mild proximal taper, is small, it was dampening with engagement with the diagnostic catheter. Left main has no significant stenosis. LAD: The LAD is moderate, extends past the apex, has scattered mild luminal irregularity, supplies several small diagonals, the LAD has no significant stenosis. Circumflex: The circumflex is moderate, not dominant, with a very small marginal and a moderate posterolateral, the circumflex has luminal irregularity but no significant stenosis. There are left to right collaterals to the RCA. RCA: The RCA is dominant, moderate, occluded in the mid portion, there was dampening with catheter engagement. Because of thrombus, aspiration thrombectomy was performed. After stent deployment, post dilatation, the RCA has JOSHUA-3 flow, normal myocardial blush. There is no residual stenosis at the stent site. Before the crux, there was an eccentric, fairly short 50% stenosis , the PDA is small to moderate with mid 30% stenosis, is followed by a moderate posterolateral. Left common femoral sheath entry is in the common femoral which has an eccentric 40% stenosis, the external iliac, proximal previously placed stent has in-stent restenosis in the segment visualized. The SFA is occluded at the origin, the profunda is patent proximally. CONCLUSION: 1. Acute inferior wall ST elevation infarct with culprit RCA occlusion, excellent angiographic result after aspiration thrombectomy followed by bare metal stent placement and noncompliant balloon post dilatation. Drug eluting stent was not used as the patient is expecting to have bypass procedure within the next few months. 2. Hypovolemic shock, improved with volume administration, there may be a component of RV infarct as well. 3. Extensive PAD. [id number]/[facility] #: [id number] [facility]
[2017-03-15] MEDS: Metoprolol Tartrate TAB* 25 MG PO SCH ×2 (15:33→21:20)
--- NOTE | 2017-03-15 16:20 | PN ---
CC: Dr. Koo; Dr. Ignacio * PROGRESS NOTE: DATE OF SERVICE/DICTATION: 03/15/17 HISTORY: Ms. 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 She had been noticing some episodes of falling recently. She called me while I was on-call this weekend, mentioned that she has been started on a new medication and that she was having dizziness and lightheadedness when she stood up and that she would then occasionally fall down. I suggested that she should discontinue the medication and contact Dr. Koo on Tuesday. She subsequently presented to the hospital with an ST segment elevation myocardial infarction and underwent balloon angioplasty of right coronary artery. She is feeling considerably better at the present time. Of note, she was recently admitted to the hospital with chest pain and had a nuclear study at that time, which was negative. She was noted on this occasion to have an elevated serum creatinine above her baseline, which was interpreted as a combination of decreased pump function plus prerenal state. Her previous medical history is significant for peripheral vascular disease. She has a long history of hypertension. She has a prolonged QT syndrome and has a defibrillator implanted. She has a history of paroxysmal atrial fibrillation. ALLERGIES: She is allergic to PHENERGAN and PROCAINE. PHYSICAL EXAMINATION: At the present time, she is somewhat hypotensive with blood pressures in the 80 systolic range while I was with her in the intensive care unit. Pulse is 88, respirations are 24. She is lying flat in bed. Her chest was clear. The heart revealed a regular rhythm. I heard no murmurs. The abdomen is soft and nontender. There was no edema. LABORATORY DATA AND DIAGNOSTIC STUDIES: Review of laboratory studies reveals a white count of 11, hemoglobin 9.6. Sodium 129, potassium 3.9, total CO2 of 19, chloride 102. Her total CO2 is actually improved since yesterday. Her creatinine is 4.12, down from 7.29 on presentation. Her baseline creatinine is around 2. Her troponin was 44.28. IMPRESSION: 1. Acute right coronary artery myocardial infarction. 2. Acute on chronic renal insufficiency on the basis of prerenal state. 3. Hyponatremia. 4. Metabolic acidosis. 5. Chronic hepatitis C. 6. Status post hepatic transplant. At the present time, her renal function is improving nicely with rehydration. I would not further buffer her acidosis as this will probably spontaneously improve, as it is also likely that her serum sodium will spontaneously improve. Her uric acid is markedly elevated at 11.3, but she is not having significant episodes of gout nor uric acid or kidney stones. I do not think this warrants the use of allopurinol at this time. I have discussed the case with Dr. Quintero and with Dr. Ivroy. [id number]/[facility] #: [id number] [facility]ITALAniya
[2017-03-15] MEDS: Atorvastatin* 80 MG TAB PO SCH (18:04)
[2017-03-16] MEDS: fentaNYL* 50 MCG/ML 2 ML VIAL (100 MCG VIAL) IV SLOW PU PRN (00:08)
[2017-03-16] MEDS: oxyCODONE/Acetamin 5/325 MG* TAB PO PRN ×5 (02:41→20:59)
[2017-03-16 04:48] LABS: Hematocrit 25 % (35-47); Hemoglobin 8.4 g/dl (12.0-16.0); Mean Corpuscular HGB Conc 34 g/dl (31-36); Mean Corpuscular Hemoglobin 32 pg (27-31); Mean Corpuscular Volume 96 fL (80-97); Mean Platelet Volume 9 um3 (7.4-10.4); Red Cell Distribution Width 14 % (10.5-15); White Blood Count 7.9 10^3/ul (3.5-10.8)
[2017-03-16 05:10] LABS: BUN/Creatinine Ratio 15.8 (8-20); Calcium 7.9 mg/dL (8.6-10.3); EGFR African American 24.2 (>60); EGFR Non-African American 18.8 (>60); Phosphorus 3.7 mg/dL (2.5-5.0); Potassium 4.4 mmol/L (3.5-5.0)
[2017-03-16] MEDS: Mometasone/Formoter 200/5 MDI INH SCH ×2 (07:57→20:11)
[2017-03-16] MEDS: Tiotropium CAP.INH* CAP.INH/18 MCG INH SCH (07:59)
[2017-03-16] MEDS: Aspirin Low Dose CHEW TAB* 81 MG PO SCH (09:06)
[2017-03-16] MEDS: Metoprolol Tartrate TAB* 25 MG PO SCH ×2 (09:06→20:59)
[2017-03-16] MEDS: Ticagrelor* 90 MG TAB PO SCH ×2 (09:07→20:59)
[2017-03-16] MEDS: Tacrolimus CAP(*) 1 MG PO SCH ×2 (09:07→20:59)
--- NOTE | 2017-03-16 12:33 | PN ---
Subjective Date of Service: 03/16/17 Interval History: This is a 61 yo female with prolonged QT syndrome, COPD, PVD, HTN, and s/p liver transplant with a h/o Hep C who was admitted with STEMI and MARNI s/p RCA thrombectomy and bare metal stent placement. Patient has been moved from ICU yesterday. Dr Galan has been consulted for management of her MARNI who has recommended continued hydration. Patient denies CP, SOB, abd pain, n/v. She has an occasional cough, but not worse than usual. She is also complaining of bilateral heel pain that seems to be new. She states that it's a burning sensation on the plantar aspect. No known h/o DM. Objective Active Medications: Acetaminophen (Tylenol Tab*) 650 mg PO Q4H PRN PRN Reason: HEADACHE/PAIN Albuterol/Ipratropium (Duoneb (Albuterol 2.5 Mg/Ipratropium 0.5 Mg)) 1 neb INH Q4H PRN PRN Reason: SOB/WHEEZING Aspirin (Aspirin Low Dose Tab*) 81 mg PO DAILY [facility] Last Admin: 03/16/17 09:06 Dose: 81 mg Atorvastatin Calcium (Lipitor*) 80 mg PO 1700 [facility] Last Admin: 03/15/17 18:04 Dose: 80 mg Fentanyl Citrate (Fentanyl*) 25 mcg IV SLOW PU Q1H PRN PRN Reason: PAIN Last Admin: 03/16/17 00:08 Dose: 25 mcg Lactated Ringer's (Lactated Ringers 1000 Ml Bag*) 1,000 mls @ 75 mls/hr IV PER RATE [facility] Last Admin: 03/16/17 01:04 Dose: 75 mls/hr Metoprolol Tartrate (Lopressor Tab*) 12.5 mg PO Q12HR [facility] Last Admin: 03/16/17 09:06 Dose: 12.5 mg Mometasone Furoate/Formoterol Fumar (Dulera 200/5 Mdi*) 2 puff INH BID [facility] Last Admin: 03/16/17 07:57 Dose: 2 puff Nitroglycerin (Nitroglycerin Tab 0.4 Mg*) 0.4 mg SL Q5M PRN PRN Reason: ANGINA Ondansetron HCl (Zofran Inj*) 4 mg IV Q4H PRN PRN Reason: NAUSEA Oxycodone/Acetaminophen (Percocet 5/325 Tab*) 1 tab PO Q4H PRN PRN Reason: PAIN Last Admin: 03/16/17 06:47 Dose: 1 tab Tacrolimus (Prograf Cap(*)) 1 mg PO BID [facility] Last Admin: 03/16/17 09:07 Dose: 1 mg Ticagrelor (Brilinta*) 90 mg PO BID [facility] Last Admin: 03/16/17 09:07 Dose: 90 mg Tiotropium Horicon (Spiriva Cap.Inh*) 1 cap INH DAILY [facility] Last Admin: 03/16/17 07:59 Dose: 1 inh Vital Signs: Temp Pulse Resp BP Pulse Ox 98.7 F 84 18 100/51 98 03/16/17 12:06 03/16/17 12:06 03/16/17 12:06 03/16/17 12:06 03/16/17 12:06 Appearance: Well appearing middle aged woman in NAD Respiratory: Symmetrical Chest Expansion and Respiratory Effort, Clear to Auscultation Cardiovascular: NL Sounds; No Murmurs; No JVD, RRR Abdominal: NL Sounds; No Tenderness; No Distention Extremities: No Edema Skin: No Rash or Ulcers Neurological: Alert and Oriented x 3 Result Diagrams: 03/16/17 04:37 03/16/17 04:37 Microbiology and Other Data: Microbiology 03/14/17 18:36 Urine Culture - Final Urine No Growth (<1,000 CFU/mL) 03/14/17 18:10 Nasal Screen MRSA (PCR)(JANET) - Final Nasal Mrsa Negative Assess/Plan/Problems-Billing Assessment: This is a 61 yo female with COPD, HTN, paroxysmal afib, PVD, and s/p liver transplant with h/o Hep C admitted with STEMI and MARNI s/p RCA thrombectomy and bare metal stent placement - Patient Problems (1) STEMI (ST elevation myocardial infarction) Comment: s/p thrombectomy and bare metal stent placement Management per cardiology team Cont ASA, Brilinta, statin, BB (2) Acute kidney injury Comment: Improving with IVF hydration Presumably due to pre-renal causes, mostly poor cardiac output which has improved Cont IVF and refer to Dr Galan's recommendations (3) COPD (chronic obstructive pulmonary disease) Comment: Without acute exacerbation Cont Dulera and Spiriva (4) Neuropathy Comment: This is a new complaint since admission Perhaps related to uremia associated with MARNI Will check TSH and HgbA1c, otherwise recommend f/u with PCP (5) Hypertension Comment: Mildly hypotensive Cont BB (6) PAD (peripheral artery disease) Comment: s/p endarterectomy Cont ASA/statin, asx (7) Long QT syndrome Comment: Pacer in place No dysrhythmias observed (8) Liver transplant recipient Comment: Continue tacrolimus (9) DVT prophylaxis Comment: SCDs per cardiology (10) Full code status Status and Disposition: Inpatient. Dispo per cardiology. Hospitalist will cont to follow
[2017-03-16 14:00] LABS: TSH (Thyroid Stimulating Horm) 1.54 mcIU/mL (0.34-5.60)
[2017-03-16] MEDS: Atorvastatin* 80 MG TAB PO SCH (17:00)
[2017-03-17 04:59] LABS: Hematocrit 25 % (35-47); Hemoglobin 8.2 g/dl (12.0-16.0); Mean Corpuscular HGB Conc 33 g/dl (31-36); Mean Corpuscular Hemoglobin 32 pg (27-31); Mean Corpuscular Volume 97 fL (80-97); Mean Platelet Volume 9 um3 (7.4-10.4); Red Blood Count 2.58 10^6/ul (4.0-5.4); Red Cell Distribution Width 14 % (10.5-15); White Blood Count 8.5 10^3/ul (3.5-10.8)
[2017-03-17 05:20] LABS: BUN/Creatinine Ratio 19.2 (8-20); Calcium 8.1 mg/dL (8.6-10.3); EGFR Non-African American 24.9 (>60)
[2017-03-17] MEDS: oxyCODONE/Acetamin 5/325 MG* TAB PO PRN ×2 (07:27→18:01)
[2017-03-17] MEDS: Tiotropium CAP.INH* CAP.INH/18 MCG INH SCH (07:59)
[2017-03-17] MEDS: Mometasone/Formoter 200/5 MDI INH SCH ×2 (07:59→20:22)
[2017-03-17] MEDS: Metoprolol Tartrate TAB* 25 MG PO SCH (08:45)
[2017-03-17] MEDS: Aspirin Low Dose CHEW TAB* 81 MG PO SCH (08:45)
[2017-03-17] MEDS: Ticagrelor* 90 MG TAB PO SCH ×2 (08:46→20:39)
[2017-03-17] MEDS: Cyanocobalamin TAB* 500 MCG PO SCH (08:46)
[2017-03-17] MEDS: Tacrolimus CAP(*) 1 MG PO SCH ×2 (08:46→20:39)
[2017-03-17] MEDS: fentaNYL* 50 MCG/ML 2 ML VIAL (100 MCG VIAL) IV SLOW PU PRN ×7 (08:54→22:30)
--- NOTE | 2017-03-17 14:48 | PN ---
Progress Note - Progress Note SOAP: Subjective: [Maria Coombs is a 61 year old female with prolonged QT syndrome, COPD, PVD , and s/p liver transplant h/o hep C that was admitted for STEMI and MARNI s/p thrombectomy and bare metal stent placed. Patient reports improvement today and feels significantly better and is hoping to be discharged tomorrow to her younger brother who she will be housed with. Her only complaint is bilateral peripheral neuropathy that is worse in the left plantar aspect of her foot. She denies it getting any better and expressed concern for possible diabetes. She was reassured that her hemoglobin A1c has come back negative at 5.3 and this information was shared with her. Patient was started on B12 supplementation to aid in neuropathy. She denies any SOB, chest pains, palpitations, or edema. She has been eating and drinking with no abdominal pain, n/v.] Objective: [Active Medications: Acetaminophen (Tylenol Tab*) 650 mg PO Q4H PRN PRN Reason: HEADACHE/PAIN Albuterol/Ipratropium (Duoneb (Albuterol 2.5 Mg/Ipratropium 0.5 Mg)) 1 neb INH Q4H PRN PRN Reason: SOB/WHEEZING Aspirin (Aspirin Low Dose Tab*) 81 mg PO DAILY [facility] Last Admin: 03/17/17 08:45 Dose: 81 mg Atorvastatin Calcium (Lipitor*) 80 mg PO 1700 [facility] [place] Last Admin: 03/16/17 17:00 Dose: 80 mg Cyanocobalamin (Vitamin B12 Tab*) 1,000 mcg PO DAILY [facility] [place] Last Admin: 03/17/17 08:46 Dose: 1,000 mcg Fentanyl Citrate (Fentanyl*) 25 mcg IV SLOW PU Q1H PRN PRN Reason: PAIN Last Admin: 03/17/17 12:49 Dose: 25 mcg Heparin Sodium (Porcine) (Heparin Flush Picc/Ml/Cvc(*)) 1 ml FLUSH 0600,1800 [facility] [place] PRN Reason: Protocol Last Admin: 03/17/17 05:34 Dose: 1 ml Metoprolol Tartrate (Lopressor Tab*) 50 mg PO BID [facility] [place] Mometasone Furoate/Formoterol Fumar (Dulera 200/5 Mdi*) 2 puff INH BID [facility] Last Admin: 03/17/17 07:59 Dose: 2 puff Nitroglycerin (Nitroglycerin Tab 0.4 Mg*) 0.4 mg SL Q5M PRN PRN Reason: ANGINA Ondansetron HCl (Zofran Inj*) 4 mg IV Q4H PRN PRN Reason: NAUSEA Oxycodone/Acetaminophen (Percocet 5/325 Tab*) 1 tab PO Q4H PRN PRN Reason: PAIN Last Admin: 03/17/17 07:27 Dose: 1 tab Tacrolimus (Prograf Cap(*)) 1 mg PO BID [facility] Last Admin: 03/17/17 08:46 Dose: 1 mg Ticagrelor (Brilinta*) 90 mg PO BID [facility] [place] Last Admin: 03/17/17 08:46 Dose: 90 mg Tiotropium [place] (Spiriva Cap.Inh*) 1 cap INH DAILY [facility] [place] Last Admin: 03/17/17 07:59 Dose: 1 inh Vital Signs: Temp Pulse Resp BP Pulse Ox 97.8 F 83 18 128/68 100 03/17/17 11:07 03/17/17 11:07 03/17/17 12:49 03/17/17 11:07 03/17/17 11:07 Appearance: Well appearing pleasant middle aged women who is ambulating around the room in [facility] Skin: irritation and erythematous on left rocha, no rashes or ulcers. Respiratory: Chest is symmetric with no use of accessory muscle or respiratory effort. Lungs are clear to auscultation across all lung gerard. Cardiovascular: RRR, no murmurs, rubs, or gallops. Abdomen: Bowel sound heard in all four quadrants, no tenderness to palpation abdomen is soft and symmetric. Extremities: No edema noted, warm to touch. Neurological: Alert and Oriented X 3 Diagnostics: WBC 8.5 10^3/ul (3.5-10.8) 03/17/17 04:35 RBC 2.58 10^6/ul (4.0-5.4) L 03/17/17 04:35 Hgb 8.2 g/dl (12.0-16.0) L 03/17/17 04:35 Hct 25 % (35-47) L 03/17/17 04:35 MCV 97 fL (80-97) 03/17/17 04:35 MCH 32 pg (27-31) H 03/17/17 04:35 MCHC 33 g/dl (31-36) 03/17/17 04:35 RDW 14 % (10.5-15) 03/17/17 04:35 Plt Count 153 10^3/ul (150-450) 03/17/17 04:35 MPV 9 um3 (7.4-10.4) 03/17/17 04:35 Neut % (Auto) 71.3 % (38-83) 03/17/17 04:35 Lymph % (Auto) 13.6 % (25-47) L 03/17/17 04:35 Wheeler % (Auto) 9.7 % (1-9) H 03/17/17 04:35 Eos % (Auto) 4.8 % (0-6) 03/17/17 04:35 Baso % (Auto) 0.6 % (0-2) 03/17/17 04:35 Absolute Neuts (auto) 6.1 10^3/ul (1.5-7.7) 03/17/17 04:35 Absolute Lymphs (auto) 1.2 10^3/ul (1.0-4.8) 03/17/17 04:35 Absolute Monos (auto) 0.8 10^3/ul (0-0.8) 03/17/17 04:35 Absolute Eos (auto) 0.4 10^3/ul (0-0.6) 03/17/17 04:35 Absolute Basos (auto) 0.1 10^3/ul (0-0.2) 03/17/17 04:35 Absolute Nucleated RBC 0 10^3/ul 03/17/17 04:35 Nucleated RBC % 0 03/17/17 04:35 INR (Anticoag Therapy) 0.97 (0.89-1.11) 03/14/17 15:27 APTT 22.7 seconds (26.0-36.3) L 03/14/17 15:27 Sodium 130 mmol/L (133-145) L 03/17/17 04:35 Potassium 5.0 mmol/L (3.5-5.0) 03/17/17 04:35 Chloride 104 mmol/L (101-111) 03/17/17 04:35 Carbon Dioxide 22 mmol/L (22-32) 03/17/17 04:35 Anion Gap 4 mmol/L (2-11) 03/17/17 04:35 BUN 39 mg/dL (6-24) H 03/17/17 04:35 Creatinine 2.03 mg/dL (0.51-0.95) H 03/17/17 04:35 Est GFR ( Amer) 32.0 (>60) 03/17/17 04:35 Est GFR (Non-Af Amer) 24.9 (>60) 03/17/17 04:35 BUN/Creatinine Ratio 19.2 (8-20) 03/17/17 04:35 Glucose 82 mg/dL (70-100) 03/17/17 04:35 Hemoglobin A1c 5.3 % (Less than 6.0) 03/16/17 04:37 Uric Acid 11.3 mg/dL (2.3-6.6) H 03/14/17 18:54 Calcium 8.1 mg/dL (8.6-10.3) L 03/17/17 04:35 Phosphorus 3.7 mg/dL (2.5-5.0) 03/16/17 04:37 Magnesium 2.0 mg/dL (1.9-2.7) 03/16/17 04:37 Total Bilirubin 0.60 mg/dL (0.2-1.0) 03/14/17 15:27 AST 128 U/L (13-39) H 03/14/17 15:27 ALT 27 U/L (7-52) 03/14/17 15:27 Alkaline Phosphatase 62 U/L (34-104) 03/14/17 15:27 Total Creatine Kinase 630 U/L (10-223) H 03/15/17 05:00 CK-MB (CK-2) 238.9 ng/mL (0.6-6.3) H 03/15/17 02:00 Myoglobin 932.2 ng/mL (14.3-65.8) H 03/14/17 15:27 Troponin I 44.28 ng/mL (<0.04) H* 03/14/17 15:27 B-Natriuretic Peptide 143 pg/mL (-100) H 03/14/17 15:27 Total Protein 5.8 g/dL (6.4-8.9) L 03/14/17 15:27 Albumin 2.9 g/dL (3.2-5.2) L 03/14/17 15:27 Globulin 2.9 g/dL (2-4) 03/14/17 15:27 Albumin/Globulin Ratio 1.0 (1-3) 03/14/17 15:27 LDL Cholesterol Direct 66 mg/dL 03/14/17 15:27 Vitamin B12 266 pg/mL (180-914) 03/16/17 12:40 TSH 1.54 mcIU/mL (0.34-5.60) 03/16/17 12:40 Ur Random Creatinine 118.92 mg/dL 03/14/17 18:36 Ur Random Sodium 36 mmol/L 03/14/17 18:36 Tacrolimus <1.0 ng/mL L 03/14/17 18:54 Blood Type AB Positive 03/14/17 15:27 Antibody Screen Negative 03/14/17 15:27 ] Assessment/Plan: [Assessment: 61 yo female with prolonged QT syndrome, COPD, PVD, and s/p liver transplant h/o hep C that was admitted for STEMI and MARNI s/p thrombectomy and bare metal stent placed. 1) STEMI (ST Elevation myocardial infarction): Thrombectomy and bare metal stent was placed Management with cardiology team Patient plans to follow up with outpatient project estimator Dr. Ignacio. Continue ASA, statin, BB, and Brilinta 2) Acute kidney injury: IVF hydration continued per Dr. Galan's recommendations. Likely a pre-renal causation due to low cardiac output. 3) COPD: Continue Dulera and Spiriva. 4) Neuropathy: Continue with B12 1,000 mcg supplementation to see if it improves. 5) Hypertension: Continue BB pressure 128/68 today 6) PAD: Continue ASA and statin therapy. 7) Long QT Syndrome: Pacemaker is in place No dysrhythmias observed on EKGs. 8) Liver transplant: Continue tacrolimus 9) DVT prophylaxis: Per cardiology, patient is on Heparin therapy. 10) Full Code Status Status: Patient is currently inpatient and managed by cardiology and hospitalist. Patient plans on discharging to her younger brother that lives in town and following up with her PCP and outpatient project estimator. ] Procedure Note: Right IJ line was removed with preceptor assistance from Tejas Justin PA-C. Patient was placed in reverse trendelenburg in her hospital bed and was instructed to exhale slowly and IJ line was removed and gauze was placed with pressure over area of insertion. []
--- NOTE | 2017-03-17 16:57 | PN ---
Subjective Date of Service: 03/17/17 Interval History: Patient offers no acute concerns. Continues to deny CP, SOB, abd pain, n/v. No cough. IJ line was removed today by Soraya Pizarro PA-C under my supervision. Patient was placed in reverse trendelenburg position, sutures removed, patient exhaled as line was removed and pressure held with 2x2 dressing placed. Objective Active Medications: Acetaminophen (Tylenol Tab*) 650 mg PO Q4H PRN PRN Reason: HEADACHE/PAIN Albuterol/Ipratropium (Duoneb (Albuterol 2.5 Mg/Ipratropium 0.5 Mg)) 1 neb INH Q4H PRN PRN Reason: SOB/WHEEZING Aspirin (Aspirin Low Dose Tab*) 81 mg PO DAILY [facility] Last Admin: 03/17/17 08:45 Dose: 81 mg Atorvastatin Calcium (Lipitor*) 80 mg PO 1700 [facility] Last Admin: 03/16/17 17:00 Dose: 80 mg Cyanocobalamin (Vitamin B12 Tab*) 1,000 mcg PO DAILY [facility] Last Admin: 03/17/17 08:46 Dose: 1,000 mcg Fentanyl Citrate (Fentanyl*) 25 mcg IV SLOW PU Q1H PRN PRN Reason: PAIN Last Admin: 03/17/17 14:37 Dose: 25 mcg Heparin Sodium (Porcine) (Heparin Flush Picc/Ml/Cvc(*)) 1 ml FLUSH 0600,1800 [facility] PRN Reason: Protocol Last Admin: 03/17/17 05:34 Dose: 1 ml Metoprolol Tartrate (Lopressor Tab*) 50 mg PO BID [facility] Mometasone Furoate/Formoterol Fumar (Dulera 200/5 Mdi*) 2 puff INH BID [facility] Last Admin: 03/17/17 07:59 Dose: 2 puff Nitroglycerin (Nitroglycerin Tab 0.4 Mg*) 0.4 mg SL Q5M PRN PRN Reason: ANGINA Ondansetron HCl (Zofran Inj*) 4 mg IV Q4H PRN PRN Reason: NAUSEA Oxycodone/Acetaminophen (Percocet 5/325 Tab*) 1 tab PO Q4H PRN PRN Reason: PAIN Last Admin: 03/17/17 07:27 Dose: 1 tab Tacrolimus (Prograf Cap(*)) 1 mg PO BID [facility] Last Admin: 03/17/17 08:46 Dose: 1 mg Ticagrelor (Brilinta*) 90 mg PO BID [facility] Last Admin: 03/17/17 08:46 Dose: 90 mg Tiotropium [place] (Spiriva Cap.Inh*) 1 cap INH DAILY [facility] Last Admin: 03/17/17 07:59 Dose: 1 inh Vital Signs: Temp Pulse Resp BP Pulse Ox 98.2 F 81 18 107/54 100 03/17/17 15:30 03/17/17 15:30 03/17/17 15:37 03/17/17 15:30 03/17/17 15:30 Appearance: Well appearing in NAD Respiratory: Symmetrical Chest Expansion and Respiratory Effort, Clear to Auscultation Cardiovascular: NL Sounds; No Murmurs; No JVD, RRR Abdominal: NL Sounds; No Tenderness; No Distention Extremities: No Edema Skin: No Rash or Ulcers Neurological: Alert and Oriented x 3 Result Diagrams: 03/17/17 04:35 03/17/17 04:35 Microbiology and Other Data: Microbiology 03/14/17 18:36 Urine Culture - Final Urine No Growth (<1,000 CFU/mL) 03/14/17 18:10 Nasal Screen MRSA (PCR)(JANET) - Final Nasal Mrsa Negative Assess/Plan/Problems-Billing Assessment: This is a 61 yo female with COPD, HTN, paroxysmal afib, PVD, and s/p liver transplant with h/o Hep C admitted with STEMI and MARNI s/p RCA thrombectomy and bare metal stent placement - Patient Problems (1) STEMI (ST elevation myocardial infarction) Comment: s/p thrombectomy and bare metal stent placement Management per cardiology team Cont ASA, Brilinta, statin, BB (2) Acute kidney injury Comment: Improving with IVF hydration Presumably due to pre-renal causes, mostly poor cardiac output which has improved Cont IVF and refer to Dr Galan's recommendations (3) COPD (chronic obstructive pulmonary disease) Comment: Without acute exacerbation Cont Dulera and Spiriva (4) Neuropathy Comment: This is a new complaint since admission TSH and HgbA1c WNL, vit B12 borderline low and supplementation has been initiated, recommend follow up with PCP (5) Hypertension Comment: Mildly hypotensive Cont BB (6) PAD (peripheral artery disease) Comment: s/p endarterectomy Cont ASA/statin, asx (7) Long QT syndrome Comment: Pacer in place No dysrhythmias observed (8) Liver transplant recipient Comment: Continue tacrolimus (9) DVT prophylaxis Comment: SCDs per cardiology (10) Full code status Status and Disposition: Inpatient. Dispo per cardiology, anticipate likely discharge tomorrow. Hospitalist will cont to follow
[2017-03-17] MEDS: Atorvastatin* 80 MG TAB PO SCH (18:00)
[2017-03-17] MEDS: Metoprolol Tartrate TAB* 50 mg PO SCH (20:38)
[2017-03-18] MEDS: fentaNYL* 50 MCG/ML 2 ML VIAL (100 MCG VIAL) IV SLOW PU PRN ×3 (04:21→10:20)
[2017-03-18] MEDS: oxyCODONE/Acetamin 5/325 MG* TAB PO PRN (05:53)
[2017-03-18 06:05] LABS: Hematocrit 27 % (35-47); Hemoglobin 8.8 g/dl (12.0-16.0); Mean Corpuscular HGB Conc 33 g/dl (31-36); Mean Corpuscular Hemoglobin 32 pg (27-31); Mean Corpuscular Volume 98 fL (80-97); Mean Platelet Volume 9 um3 (7.4-10.4); Red Blood Count 2.72 10^6/ul (4.0-5.4); Red Cell Distribution Width 13 % (10.5-15)
[2017-03-18 06:24] LABS: Calcium 8.6 mg/dL (8.6-10.3); EGFR African American 38.3 (>60); EGFR Non-African American 29.7 (>60); Potassium 5.1 mmol/L (3.5-5.0)
[2017-03-18] MEDS: Cyanocobalamin TAB* 500 MCG PO SCH (07:57)
[2017-03-18] MEDS: Tacrolimus CAP(*) 1 MG PO SCH (07:57)
[2017-03-18] MEDS: Metoprolol Tartrate TAB* 50 mg PO SCH (07:57)
[2017-03-18] MEDS: Aspirin Low Dose CHEW TAB* 81 MG PO SCH (07:58)
[2017-03-18] MEDS: Ticagrelor* 90 MG TAB PO SCH (07:58)
[2017-03-18] MEDS: Mometasone/Formoter 200/5 MDI INH SCH (08:57)
[2017-03-18] MEDS: Tiotropium CAP.INH* CAP.INH/18 MCG INH SCH (08:57)
--- NOTE | 2017-03-18 11:30 | PN ---
Progress Note - Progress Note SOAP: Subjective: [This is a 61 yo female admitted s/p thrombectomy RCA stent placed after STEMI and MARNI with PMH of Qt prolongation, HTN, PAF, COPD, PAD, and liver transplant h/o of hepatitis C. Vital signs stable overnight. Patients states she has been given clearance for discharge per cardiology and states she will be following up with outpatient cardiology Dr. Ignacio and Nephrology Dr. Galan in the next week. She states she will be going home and staying with her younger brother. She does not voice any concerns and denies chest pain, cough, SOB, palpitations, or edema. ] Objective: [General: Pleasant 61 yo female in NAD. Lungs: Chest is symmetric and lungs are clear to auscultation across all lung gerard. Heart: RRR, no murmurs rubs or gallops Extremities: No edema noted, Dorsalis pedis pulse palpated 1+ bilaterally, unable to palpate posterior tibialis pulses.] Neuro: Alert and Oriented x3 Vital Signs: Temp Pulse Resp BP Pulse Ox 98.8 F 65 16 142/61 98 03/18/17 07:37 03/18/17 08:59 03/18/17 10:20 03/18/17 07:37 03/18/17 08:59 Assessment/Plan: [Assessment: 61 yo female with prolonged QT syndrome, COPD, PVD, and s/p liver transplant h/o hep C that was admitted for STEMI and MARNI s/p thrombectomy and bare metal stent placed. 1) STEMI (ST Elevation myocardial infarction): Thrombectomy and bare metal stent was placed Management with cardiology team Patient plans to follow up with outpatient human resources compensation analyst Dr. Ignacio. Continue ASA, statin, BB, and Brilinta 2) Acute kidney injury: IVF hydration continued per Dr. Galan's recommendations. Likely a pre-renal causation due to low cardiac output. 3) COPD: Continue Dulera and Spiriva. 4) Neuropathy: Continue with B12 1,000 mcg supplementation to see if it improves. 5) Hypertension: Continue BB 6) PAD: Continue ASA and statin therapy. 7) Long QT Syndrome: Pacemaker is in place No dysrhythmias observed on EKGs. 8) Liver transplant: Continue tacrolimus 9) DVT prophylaxis: Per cardiology, patient is on Heparin therapy. 10) Full Code Status Disposition: Patient is currently inpatient and managed by cardiology and hospitalist. Patient plans on discharging to her younger brother that lives in town and following up with her PCP and outpatient human resources compensation analyst. ] []
[2017-03-18 11:46] VITALS: BP 113/54
--- NOTE | 2017-03-18 14:21 | DS ---
CC: Dr. Koo; Dr. Galan; Dr. Ignacio; Dr. Robertson * DISCHARGE SUMMARY: DATE OF ADMISSION: 03/14/17 DATE OF DISCHARGE: 03/18/17 PRIMARY CARE PROVIDER: Dr. Koo. PRIMARY FOOD PRESERVATION SCIENTIST: Dr. Ignacio. ASSOCIATE PROGRAM MANAGER: Dr. Galan. COMMUNITY RELATIONS LIAISON: Dr. Robertson. CABLE ENGINEER OUTSIDE PLANT: Dr. Ivory. DISCHARGING PROVIDER: CARLA Hernandez. SUPERVISING PHYSICIAN: Dr. Kasandra Hawthorne. * (DICTATED BY CARLA HERNANDEZ) PRIMARY DISCHARGE DIAGNOSES: 1. ST elevation myocardial infarction, now status post thrombectomy and bare- metal stent placement to the right coronary artery. 2. Cardiogenic shock. 3. Acute kidney injury, nearly resolved. SECONDARY DISCHARGE DIAGNOSES: 1. Chronic obstructive pulmonary disease without acute exacerbation. 2. Peripheral neuropathy likely due to mild vitamin B12 deficiency. 3. Hypotension. 4. Peripheral arterial disease. 5. Acute long QT syndrome with pacemaker in place and without significant dysrhythmias during her hospital stay. 6. Remote history of liver transplant, maintained on tacrolimus with a history of hepatitis C. DISCHARGE MEDICATIONS: 1. Tramadol 50 mg p.o. q.6 hours as needed for pain. 2. Aspirin 81 mg p.o. daily. 3. Atorvastatin 80 mg p.o. at bedtime. 4. Vitamin B12 1000 mcg p.o. daily. 5. Advair 250/50 one puff inhaled twice daily. 6. Metoprolol tartrate 50 mg p.o. twice daily. 7. Nitroglycerin 0.4 mg sublingual q.5 minutes as needed for chest pain. 8. Tacrolimus 1 mg p.o. twice daily. 9. Brilinta 90 mg p.o. twice daily. 10. Spiriva 1 capsule inhaled daily. MEDICATION CHANGES: 1. Start Brilinta. 2. Start Spiriva. 3. Stop hydrochlorothiazide. 4. Increase metoprolol. 5. Stop diltiazem. 6. Hold lisinopril. HOSPITAL IMAGIN. Chest x-ray demonstrates changes consistent with COPD but no acute process. 2. EKG shows sinus rhythm with ST depression in V1 through V3 consistent with an inferior wall WI. 3. Transthoracic echocardiogram shows mild LVH with left ventricular ejection fraction at 50% to 55% and mid inferolateral and apical wall segments are hypokinetic. Right ventricular systolic function is mildly reduced. Mild-to- moderate mitral regurg, moderate tricuspid regurg, moderate pulmonary hypertension noted. 4. Cardiac catheterization performed by Dr. Robertson, resulted in RCA thrombectomy and bare-metal stent placement. Left main has no significant stenosis. LAD showed no significant stenosis. Circumflex showed no significant stenosis. The RCA demonstrated an occluded mid portion, which showed no residual stenosis following stent deployment. HOSPITAL COURSE: This is a 61-year-old female with a history of COPD, remote history of liver transplant with a history of hepatitis C as well as peripheral vascular disease, hypertension, and prolonged QT syndrome with pacemaker in place, who presented with complaints of chest pressure and weakness. Patient had been seen with similar complaints about 2 weeks prior and admitted for chest pain workup at that time. Nuclear stress testing was negative and patient had mild elevation in her troponins. Upon return, patient had ST depressions in precordial leads V1 through V3 indicative of an inferior wall WI. Patient was initially hypotensive with systolic pressures in the 80s. STEMI team was called and patient was immediately taken to the cardiac catheterization lab. The RCA was identified as the culprit vessel and thrombectomy was additionally performed followed by balloon angioplasty and deployment of a bare-metal stent completed by Dr. Robertson. Patient was subsequently transferred to the ICU and treated for cardiogenic shock with evidence of significant acute kidney injury associated with such. Patient was resuscitated with crystalloid fluids and vasopressors were not necessary. Patient's associate artistic director Dr. Galan was consulted regarding severity of her acute kidney injury. Initial creatinine of 7.29 with an estimated GFR of 5.7. Dr. Galan felt that her acute kidney injury was likely prerenal due to hypovolemia and complicated by poor cardiac output as a result of cardiogenic shock and recommended continuing IV fluid hydration. Patient did quite well following stent placement, did not experience any additional complications. Her renal function continued to improve, and she did not complain of any additional chest pain following cardiac catheterization. She experienced no complications as a result of her COPD. At one point, patient began complaining of bilateral heel pain that she described as a pins and needle sensation in the plantar aspect of both of her heels. She states that this was a new complaint for her and she had a strong family history of diabetes, which she was concerned about. Hemoglobin A1c was checked, which was within normal limits at 5.3. TSH was also drawn, which was normal at 1.5 but vitamin B12 was slightly low at 266 and patient was subsequently started on oral supplementation. DISPOSITION AND FOLLOWUP PLAN: Patient is being discharged to her brother's home where she will live for some time. Her lisinopril was not resumed at the time of discharge. She has a potassium of 5.1 today. Her renal function has returned nearly to baseline but recommend repeating a basic metabolic panel in 5 to 7 days and following up with associate artistic director Dr. Galan for his advice regarding resuming her lisinopril and subsequent monitoring of her potassium and renal function at that time. Other medication changes as outlined above. Followup with Dr. Ignacio has been arranged for 03/24/17 in her office. She will require a follow up with Dr. Galan in approximately 1 to 2 weeks and her primary care provider within a week. CARLA HERNANDEZ [id number] #: [id number] DOROTHY
== END 2017-03-18 13:00 | disposition home or self-care (01) | DRG 248 ==
LOC: ED 14:28 → ICU 16:54 → MEDTELE 03-16 00:32
PROVIDERS: ADMIT Internal Medicine Critical Care Medicine; ATTEND Hospitalist
PROC: 02C03ZZ Extirpation of Matter from Coronary Artery, One Artery, Percutaneous Approach (ICD-10-PCS; 2017-03-14)
PROC: B2111ZZ Fluoroscopy of Multiple Coronary Arteries using Low Osmolar Contrast (ICD-10-PCS; 2017-03-14)
PROC: 4A023N7 Measurement of Cardiac Sampling and Pressure, Left Heart, Percutaneous Approach (ICD-10-PCS; 2017-03-14)
PROC: 05HM33Z Insertion of Infusion Device into Right Internal Jugular Vein, Percutaneous Approach (ICD-10-PCS; 2017-03-14)
PROC: B543ZZA Ultrasonography of Right Jugular Veins, Guidance (ICD-10-PCS; 2017-03-14)
PROC: 02703DZ Dilation of Coronary Artery, One Artery with Intraluminal Device, Percutaneous Approach (ICD-10-PCS; principal; 2017-03-14 14:30)
PROC: 05PYX3Z Removal of Infusion Device from Upper Vein, External Approach (ICD-10-PCS; 2017-03-17)
DX: I21.11 ST elevation (STEMI) myocardial infarction involving right coronary artery (principal); R57.0 Cardiogenic shock; E87.2 Acidosis; I95.9 Hypotension, unspecified; I27.2 Other secondary pulmonary hypertension; N17.9 Acute kidney failure, unspecified; Z94.4 Liver transplant status; E87.1 Hypo-osmolality and hyponatremia; N18.3 Chronic kidney disease, stage 3 (moderate); G62.9 Polyneuropathy, unspecified; I45.81 Long QT syndrome; I48.0 Paroxysmal atrial fibrillation; I25.10 Atherosclerotic heart disease of native coronary artery without angina pectoris; M19.90 Unspecified osteoarthritis, unspecified site; F41.9 Anxiety disorder, unspecified; F32.9 Major depressive disorder, single episode, unspecified; I73.9 Peripheral vascular disease, unspecified; J44.9 Chronic obstructive pulmonary disease, unspecified; G89.29 Other chronic pain; E53.8 Deficiency of other specified B group vitamins; I08.1 Rheumatic disorders of both mitral and tricuspid valves; I12.9 Hypertensive chronic kidney disease with stage 1 through stage 4 chronic kidney disease, or unspecified chronic kidney disease; M54.5 Low back pain; Z88.8 Allergy status to other drugs, medicaments and biological substances; Z95.810 Presence of automatic (implantable) cardiac defibrillator; I25.2 Old myocardial infarction; Z82.49 Family history of ischemic heart disease and other diseases of the circulatory system; Z87.891 Personal history of nicotine dependence; Z88.4 Allergy status to anesthetic agent; Z87.01 Personal history of pneumonia (recurrent); Z86.19 Personal history of other infectious and parasitic diseases; Z79.82 Long term (current) use of aspirin; Z79.02 Long term (current) use of antithrombotics/antiplatelets; Z79.899 Other long term (current) drug therapy
CPT/HCPCS: 36415; 71010; 76937; 80048; 80053; 80197; 82550; 82553; 82570; 82607; 83036; 83721; 83735; 83874; 83880; 84100; 84300; 84443; 84484; 84550; 85025; 85027; 85610; 85730; 86850; 86900; 86901; 87086; 87641; 93005; 93306; 94640; 94760; A9270-GY; C1725; C1757; C1769; C1876; C1887; J0461; J1644; J2001; J2250; J2405; J3010; J7060; J7507

== ENCOUNTER 2017-03-23 12:27 | Emergency (ER) | payer MEDICARE, MEDICAID ==
[2017-03-23] MEDS ORDERED: HYDROcodone/ACETAMIN 5-325 MG* 1 TAB PO ONE (15:49)
--- NOTE | 2017-03-23 18:04 | ED ---
Lower Extremity - HPI Summary HPI Summary: Pt here w/ Lt foot swelling x 3-4 days. Pt is s/p cardiac cath w/ stent placement via Lt femoral artery 1 week ago here for CA. Had a f/u Tuesday w/ cardiology and was told everything was healing well, no problems. She developed swelling in her Lt foot 2 days later and has had this since. No pain in groin. Denies fever, chills, N/V/D, chest pain, SOB, hemoptysis, new onset fatigue. Had labs drawn today through PCP's office. WBC's WNL and remaining CBC is abnormal but improved from previous draws (see labs results for details). Mag is low at 1.5 - pt reports she takes OTC mag supplement at home and recently had mag IV while admitted for CA and renal failure. Labs also reveal poor renal function but improvement from previous labs. Urinating well w/o difficulty. NOTE: pt is s/p liver transplant and takes tacrolimus x years. - History of Current Complaint Chief Complaint: EDExtremityLower Stated Complaint: FEET SWELLING/STENT SX WK AGO Time Seen by Provider: 03/23/17 15:31 Hx Obtained From: Patient Pain Intensity: 8 - Allergies/Home Medications Allergies/Adverse Reactions: Allergies Allergy/AdvReac Type Severity Reaction Status Date / Time Promethazine [From Phenergan] Allergy Severe Unknown Verified 03/23/17 12:48 Reaction Details Procaine [From Novocain] Allergy See Comment Verified 03/23/17 12:48 Home Medications: Home Medications traMADol TAB* [Ultram*] 50 mg PO Q6HR PRN 03/23/17 [History Confirmed 03/23/17] PMH/Surg Hx/FS Hx/Imm Hx Previously Healthy: No - recovering from cardiac cath 1 week ago Endocrine/Hematology History: Reports: Hx Anemia Denies: Hx Anticoagulant Therapy, Hx Blood Transfusions, Hx Diabetes Cardiovascular History: Reports: Hx Angina, Hx Auto Implanted Cardiovert Defib, Hx Cardiac Arrest - 2013 X2 Aug/Sep, Hx Coronary Artery Disease, Hx Hypertension , Hx Myocardial Infarction - 03/2017 - stent placed - on Brilinta, Hx Pacemaker/ ICD, Hx Peripheral Vascular Disease - pending bypass, Hx Syncope - 2016, Other Cardiovascular Problems/Disorders - cardiac arrest following phenergan long QT syndrome; Percarditis-10/2014 Denies: Hx Congestive Heart Failure, Hx Hypercholesterolemia Respiratory History: Reports: Hx Chronic Bronchitis, Hx Pneumonia, Other Respiratory Problems/Disorders - PNA Denies: Hx Asthma, Hx Pulmonary Embolism, Hx Seasonal Allergies, Hx Sleep Apnea GI History: Reports: Hx Gall Bladder Disease, Other GI Disorders - 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 Denies: Hx Crohn's Disease, Hx Diverticulosis, Hx Gastroesophageal Reflux Disease, Hx Jaundice History: Reports: Hx Acute Renal Failure - admission in 03/2017 Denies: Hx Dialysis, Hx Renal Disease Musculoskeletal History: Reports: Hx Arthritis - chronic - pending pain management appt, Hx Back Problems - chronic, Other Musculoskeletal History - osteo-arthritis Denies: Hx Rheumatoid Arthritis - osteoarthritis Sensory History: Reports: Hx Contacts or Glasses - reading glasses Denies: Hx Hearing Aid Opthamlomology History: Reports: Hx Contacts or Glasses - reading glasses Neurological History: Denies: Hx Dementia, Hx Seizures Psychiatric History: Reports: Hx Anxiety, Hx Depression, Hx Inpatient Treatment , Hx Substance Abuse Denies: Hx Suicide Attempt - suicidal ideation, hospitalization - Surgical History Surgery Procedure, Year, and Place: Pacer December 1996, Liver transplant February 1996 , peripheral artery disease surgery in groin 2011, arthoscopic of left knee, Pacemaker Hx Anesthesia Reactions: No - Immunization History Date of Tetanus Vaccine: pt states she doesnt know Date of Influenza Vaccine: none Infectious Disease History: No Infectious Disease History: Reports: Hx Hepatitis - C - s/p liver transplant - no Hep C currently Denies: Hx Clostridium Difficile, Hx Human Immunodeficiency Virus (HIV), Hx of Known/Suspected MRSA, Hx Shingles, Hx Tuberculosis, Hx Known/Suspected VRE, Hx Known/Suspected VRSA, History Other Infectious Disease, Traveled Outside the [place] in Last 30 Days - Family History Known Family History: Positive: Cardiac Disease, Hypertension Family History: Denies FHx breast cancer - Social History Lives: With Family Alcohol Use: None Hx Substance Use: No Substance Use Type: Reports: None Hx Tobacco Use: Yes Smoking Status (MU): Former Smoker Amount Used/How Often: 2-3 cig./day Review of Systems Constitutional: Negative Negative: Fever, Chills, Fatigue Cardiovascular: Other - see HPI Negative: Chest Pain Negative: Shortness Of Breath Negative: Abdominal Pain, Vomiting, Diarrhea, Nausea Positive: no symptoms reported Musculoskeletal: Other - chronic arthralgia Skin: Other - see HPI Neurological: Negative Negative: Weakness, Paresthesia, Numbness Psychological: Normal All Other Systems Reviewed And Are Negative: Yes Physical Exam Triage Information Reviewed: Yes Vital Signs On Initial Exam: Initial Vitals Temp Pulse Resp BP Pulse Ox 98.4 F 60 16 146/56 100 03/23/17 12:49 03/23/17 12:49 03/23/17 12:49 03/23/17 12:49 03/23/17 12:49 Vital Signs Reviewed: Yes Appearance: Positive: Well-Appearing, Pain Distress - mild - pleasant, Thin Skin: Positive: Warm, Dry - erythema w/ superficial capillary rupture over Lt dorsal foot w/ pitting edema - pulses difficult to palpate - cap refill < 2 secs (U/S identifies pulse per nursing); macular purpuric ecchymosis over Lt medial groin - no edema, NTTP; medial inner thigh down leg and into foot TTP - no edema, no erythema Head/Face: Positive: Normal Head/Face Inspection Eyes: Positive: EOMI ENT: Positive: Hearing grossly normal Respiratory/Lung Sounds: Positive: Breath Sounds Present. Negative: Rales, Rhonchi, Wheezes Cardiovascular: Positive: Pulses are Symmetrical in both Upper and Lower Extremities - see above, Murmur, Leg Edema Left - foot as mentioned above, S1, S2. Negative: Leg Edema Right Abdomen Description: Positive: Nontender, Soft Bowel Sounds: Positive: Present Musculoskeletal: Positive: Normal, Strength/ROM Intact Neurological: Positive: Normal, Sensory/Motor Intact, Alert, Oriented to Person Place, Time, CN Intact II-III Psychiatric: Positive: Normal - Indira Coma Scale Coma Scale Total: 15 Diagnostics - Vital Signs Vital Signs Temp Pulse Resp BP Pulse Ox 03/23/17 16:30 51 18 123/75 95 03/23/17 16:00 55 15 125/65 99 03/23/17 15:46 55 16 120/88 100 03/23/17 15:00 40 12 127/60 91 03/23/17 14:30 60 18 100 03/23/17 12:51 98.4 F 60 16 146/56 100 03/23/17 12:49 98.4 F 60 16 146/56 100 - Laboratory Lab Statement: Any lab studies that have been ordered have been reviewed, and results considered in the medical decision making process. Re-Evaluation - Re-Evaluation First Eval Change: Unchanged - NO RELIEF OF PAIN W/ NORCO - WILL TRY IV MORPHINE Second Eval Change: Improved - pain improved s/p IV morphine
--- NOTE | 2017-03-23 18:05 | RAD ---
INDICATION: Pain and swelling. COMPARISON: CT aortogram and runoff December 02, 2016 TECHNIQUE: Duplex interrogation of the Lowerextremity was performed. FINDINGS: Deep veins: The common femoral, great saphenous, profunda femoris, proximal, mid, and distal deep femoral, popliteal, posterior tibial, and peroneal veins are patent. There is normal compressibility, augmentation, and phasic flow. Superficial veins: There are no findings of superficial thrombophlebitis. Popliteal fossa:There is no evidence of a popliteal cyst. Soft tissues:There are no soft tissue abnormalities. Other: There is left SFA occlusion representing a previously documented finding IMPRESSION: NORMAL VENOUS EXAMINATION. NO EVIDENCE OF DEEP VENOUS THROMBOSIS
[2017-03-23] MEDS ORDERED: Morphine INJ* 2 MG/ML 1 ML SYRINGE IV ONE (18:09)
[2017-03-23] MEDS ORDERED: Ondansetron INJ* 2 MG/ML VIAL ONE (18:13)
[2017-03-23] MEDS ORDERED: Ondansetron INJ* 2 MG/ML VIAL IV ONE (18:46)
[2017-03-23 18:53] VITALS: BP 125/61
--- NOTE | 2017-03-23 19:38 | RAD ---
INDICATION: Left foot swelling. History of cardiac catheter. History of chronic left SFA occlusion. Request for duplex interrogation of the lower extremity COMPARISON: Venous duplex examination same date; CT aortogram and runoff December 02, 2016 TECHNIQUE: Duplex interrogation of the left lower extremity was performed. FINDINGS: The common femoral artery is patent with a velocity of 140 cm/s. The profunda femoris artery is patent with velocity of 155 cm/s. The SFA is occluded representing a previously documented finding. There is reconstitution of a patent popliteal artery with a velocity 30 cm/s. The tibial vessels are patent with velocities in the posterior tibial, peroneal, anterior tibial arteries of 18, 27, and 41 cm/s, respectively. IMPRESSION: LEFT SFA OCCLUSION REPRESENTING A CHRONIC, KNOWN FINDING. A DENSITY AT THE GROIN WITH RECONSTITUTED VESSELS BELOW THE KNEE.
[2017-03-23] MEDS ORDERED: oxyCODONE/Acetamin 5/325 MG* TAB PO ONE (19:42)
== END 2017-03-23 20:22 | disposition home or self-care (01) ==
LOC: ED 12:27
DX: R60.0 Localized edema (principal); Z95.5 Presence of coronary angioplasty implant and graft; Z87.891 Personal history of nicotine dependence
CPT/HCPCS: 36415; 83605; 86140; 96375; 99282; A9270-GY; J2270; J2405

== ENCOUNTER 2017-06-05 07:57 | Inpatient (IN) | payer MEDICARE, MEDICAID ==
[2017-06-05] MEDS ORDERED: methylPREDNISolone 125 MG* 2 ML VIAL IV ONE (08:12)
[2017-06-05] MEDS ORDERED: Aspirin Low Dose CHEW TAB* 81 MG PO ONE (08:12)
[2017-06-05] MEDS ORDERED: Albuterol/Ipratropium NEB.SOL* Albuterol 2.5 MG/Ipratropium 0.5 MG 3 ML INH ONE (08:12)
[2017-06-05] MEDS ORDERED: oxyCODONE/Acetamin 5/325 MG* TAB PO ONE (08:14)
[2017-06-05 08:31] LABS: Hematocrit 32 % (35-47); Hemoglobin 10.7 g/dl (12.0-16.0); Mean Corpuscular HGB Conc 34 g/dl (31-36); Mean Corpuscular Hemoglobin 32 pg (27-31); Mean Corpuscular Volume 96 fL (80-97); Mean Platelet Volume 8 um3 (7.4-10.4); Red Cell Distribution Width 14 % (10.5-15); White Blood Count 10.4 10^3/ul (3.5-10.8)
[2017-06-05 08:59] LABS: Albumin 4.3 g/dL (3.2-5.2); BUN/Creatinine Ratio 18.7 (8-20); Calcium 9.9 mg/dL (8.6-10.3); EGFR African American 57.1 (>60); EGFR Non-African American 44.4 (>60); Magnesium 1.9 mg/dL (1.9-2.7); Total Bilirubin 0.7 mg/dL (0.2-1.0); Total Protein 8.3 g/dL (6.4-8.9)
--- NOTE | 2017-06-05 09:04 | RAD ---
INDICATION: Shortness of breath. COMPARISON: Comparison is made with a prior chest x-ray study from March 14, 2017. TECHNIQUE: A portable view of the chest was obtained. FINDINGS: There is a multilead transvenous cardiac pacemaker present. The heart is within normal limits in size. There is mild diffuse prominence of the interstitial markings which is a new finding from the prior exam. No focal infiltrate or pleural effusion is seen. IMPRESSION: FINDINGS SUGGESTIVE OF CONGESTIVE HEART FAILURE.
[2017-06-05] MEDS ORDERED: Furosemide IV* 10 MG/ML 10 ML VIAL (100 MG) IV ONE (09:10)
[2017-06-05 09:12] LABS: Troponin I 0.06 ng/mL (<0.04)
--- NOTE | 2017-06-05 10:06 | ED ---
oHlly Yates Edward, scribed for Florentino Mayers on 06/05/17 at 0800 . Shortness of Breath - HPI Summary HPI Summary: 61 y/o female presents to the ED c/o increasing SOB starting last night at 23: 00. SOB worse since 05:00 this morning. SOB @ [facility]. SOB not alleviated with inhaler. Associated sx: CP starting at 05:00 this morning. Denies swelling of legs, N/V, diaphoresis, dizziness. Pt c/o chronic SOB when she walks. PMHx COPD, STEMI (March 2017). Smoker. - History of Current Complaint Hx Obtained From: Patient Onset/Duration: Lasting Hours Dyspnea At: [facility] Associated Signs & Symptoms: Chest Pain Unrelated to Cough - Allergy/Home Medications Allergies/Adverse Reactions: Allergies Allergy/AdvReac Type Severity Reaction Status Date / Time Promethazine [From Phenergan] Allergy Severe Unknown Verified 03/23/17 12:48 Reaction Details Procaine [From Novocain] Allergy See Comment Verified 03/23/17 12:48 PMH/Surg Hx/FS Hx/Imm Hx Previously Healthy: No Endocrine/Hematology History: Reports: Hx Anemia Denies: Hx Anticoagulant Therapy, Hx Blood Transfusions, Hx Diabetes Cardiovascular History: Reports: Hx Angina, Hx Auto Implanted Cardiovert Defib, Hx Cardiac Arrest - 2013 X2 Aug/Sep, Hx Coronary Artery Disease, Hx Hypertension , Hx Myocardial Infarction - 03/2017 - stent placed - on Brilinta, Hx Pacemaker/ ICD, Hx Peripheral Vascular Disease - pending bypass, Hx Syncope - 2016, Other Cardiovascular Problems/Disorders - cardiac arrest following phenergan long QT syndrome; Percarditis-10/2014 Denies: Hx Congestive Heart Failure, Hx Hypercholesterolemia Respiratory History: Reports: Hx Chronic Bronchitis, Hx Pneumonia, Other Respiratory Problems/Disorders - PNA Denies: Hx Asthma, Hx Pulmonary Embolism, Hx Seasonal Allergies, Hx Sleep Apnea GI History: Reports: Hx Gall Bladder Disease, Other GI Disorders - 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 Denies: Hx Crohn's Disease, Hx Diverticulosis, Hx Gastroesophageal Reflux Disease, Hx Jaundice History: Reports: Hx Acute Renal Failure - admission in 03/2017 Denies: Hx Dialysis, Hx Renal Disease Musculoskeletal History: Reports: Hx Arthritis - chronic - pending pain management appt, Hx Back Problems - chronic, Other Musculoskeletal History - osteo-arthritis Denies: Hx Rheumatoid Arthritis - osteoarthritis Sensory History: Reports: Hx Contacts or Glasses - reading glasses Denies: Hx Hearing Aid Opthamlomology History: Reports: Hx Contacts or Glasses - reading glasses Neurological History: Denies: Hx Dementia, Hx Seizures Psychiatric History: Reports: Hx Anxiety, Hx Depression, Hx Inpatient Treatment , Hx Substance Abuse Denies: Hx Suicide Attempt - suicidal ideation, hospitalization - Surgical History Surgery Procedure, Year, and Place: Pacer December 1996, Liver transplant February 1996 , peripheral artery disease surgery in groin 2011, arthoscopic of left knee, Pacemaker Hx Anesthesia Reactions: No - Immunization History Date of Tetanus Vaccine: pt states she doesnt know Date of Influenza Vaccine: none Infectious Disease History: Reports: Hx Hepatitis - C - s/p liver transplant - no Hep C currently Denies: Hx Clostridium Difficile, Hx Human Immunodeficiency Virus (HIV), Hx of Known/Suspected MRSA, Hx Shingles, Hx Tuberculosis, Hx Known/Suspected VRE, Hx Known/Suspected VRSA, History Other Infectious Disease - Family History Known Family History: Positive: Cardiac Disease, Hypertension Family History: Denies FHx breast cancer - Social History Alcohol Use: None Hx Substance Use: No Substance Use Type: Reports: None Hx Tobacco Use: Yes Smoking Status (MU): Former Smoker Amount Used/How Often: 2-3 cig./day Review of Systems Constitutional: Negative Eyes: Negative ENT: Negative Positive: Chest Pain Positive: Shortness Of Breath Gastrointestinal: Negative Genitourinary: Negative Musculoskeletal: Negative Skin: Negative Neurological: Negative Psychological: Normal All Other Systems Reviewed And Are Negative: Yes Physical Exam Triage Information Reviewed: Yes Vital Signs On Initial Exam: Initial Vitals Temp Pulse Resp BP Pulse Ox 98.1 F 58 17 175/75 96 06/05/17 07:58 06/05/17 07:58 06/05/17 07:58 06/05/17 07:58 06/05/17 07:58 Vital Signs Reviewed: Yes Appearance: Positive: Well-Appearing, No Pain Distress Skin: Positive: Warm, Skin Color Reflects Adequate Perfusion, Dry Head/Face: Positive: Normal Head/Face Inspection Eyes: Positive: EOMI, ROHINI ENT: Positive: Normal ENT inspection Neck: Positive: Supple, Nontender Respiratory/Lung Sounds: Positive: Breath Sounds Present, Wheezes - wheezes bilaterally, Other - Poor air entry b/l Cardiovascular: Positive: RRR, Pulses are Symmetrical in both Upper and Lower Extremities Abdomen Description: Positive: Nontender, Soft Bowel Sounds: Positive: Present Musculoskeletal: Positive: Normal, Strength/ROM Intact Neurological: Positive: Normal, Sensory/Motor Intact, Alert, Oriented to Person Place, Time Diagnostics - Vital Signs Vital Signs Temp Pulse Resp BP Pulse Ox 06/05/17 09:30 73 16 178/74 97 06/05/17 09:00 60 14 100 06/05/17 08:58 62 13 97 06/05/17 08:55 60 12 97 06/05/17 08:50 20 06/05/17 08:36 59 21 98 06/05/17 08:28 23 06/05/17 08:00 98.1 F 59 22 194/75 96 06/05/17 07:58 98.1 F 58 17 175/75 96 - Laboratory Lab Results: Lab Results 06/05/17 06/05/17 06/05/17 Range/Units 08:17 08:17 08:17 WBC 10.4 (3.5-10.8) 10^3/ul RBC 3.30 L (4.0-5.4) 10^6/ul Hgb 10.7 L (12.0-16.0) g/dl Hct 32 L (35-47) % MCV 96 (80-97) fL MCH 32 H (27-31) pg MCHC 34 (31-36) g/dl RDW 14 (10.5-15) % Plt Count 271 (150-450) 10^3/ul MPV 8 (7.4-10.4) um3 Neut % (Auto) 71.3 (38-83) % Lymph % (Auto) 12.1 L (25-47) % [place] % (Auto) 8.2 (1-9) % Eos % (Auto) 8.1 H (0-6) % Baso % (Auto) 0.3 (0-2) % Absolute Neuts (auto) 7.4 (1.5-7.7) 10^3/ul Absolute Lymphs (auto) 1.3 (1.0-4.8) 10^3/ul Absolute Monos (auto) 0.8 (0-0.8) 10^3/ul Absolute Eos (auto) 0.8 H (0-0.6) 10^3/ul Absolute Basos (auto) 0 (0-0.2) 10^3/ul Absolute Nucleated RBC 0 10^3/ul Nucleated RBC % 0 INR (Anticoag Therapy) (0.89-1.11) APTT (26.0-36.3) seconds D-Dimer, Quantitative (Less Than 230) ng/mL Sodium 136 (133-145) mmol/L Potassium Pending Chloride 103 (101-111) mmol/L Carbon Dioxide 25 (22-32) mmol/L Anion Gap Pending BUN 23 (6-24) mg/dL Creatinine 1.23 H (0.51-0.95) mg/dL Est GFR ( Amer) 57.1 (>60) Est GFR (Non-Af Amer) 44.4 (>60) BUN/Creatinine Ratio 18.7 (8-20) Glucose 110 H (70-100) mg/dL Calcium 9.9 (8.6-10.3) mg/dL Magnesium 1.9 (1.9-2.7) mg/dL Total Bilirubin 0.70 (0.2-1.0) mg/dL AST Pending ALT 14 (7-52) U/L Alkaline Phosphatase 85 (34-104) U/L Troponin I 0.06 H* (<0.04) ng/mL B-Natriuretic Peptide 1328 H ( - 100) pg/mL Total Protein 8.3 (6.4-8.9) g/dL Albumin 4.3 (3.2-5.2) g/dL Globulin 4.0 (2-4) g/dL Albumin/Globulin Ratio 1.1 (1-3) 06/05/17 Range/Units 08:17 WBC (3.5-10.8) 10^3/ul RBC (4.0-5.4) 10^6/ul Hgb (12.0-16.0) g/dl Hct (35-47) % MCV (80-97) fL MCH (27-31) pg MCHC (31-36) g/dl RDW (10.5-15) % Plt Count (150-450) 10^3/ul MPV (7.4-10.4) um3 Neut % (Auto) (38-83) % Lymph % (Auto) (25-47) % [place] % (Auto) (1-9) % Eos % (Auto) (0-6) % Baso % (Auto) (0-2) % Absolute Neuts (auto) (1.5-7.7) 10^3/ul Absolute Lymphs (auto) (1.0-4.8) 10^3/ul Absolute Monos (auto) (0-0.8) 10^3/ul Absolute Eos (auto) (0-0.6) 10^3/ul Absolute Basos (auto) (0-0.2) 10^3/ul Absolute Nucleated RBC 10^3/ul Nucleated RBC % INR (Anticoag Therapy) 0.91 (0.89-1.11) APTT 31.3 (26.0-36.3) seconds D-Dimer, Quantitative 414 H (Less Than 230) ng/mL Sodium (133-145) mmol/L Potassium Chloride (101-111) mmol/L Carbon Dioxide (22-32) mmol/L Anion Gap BUN (6-24) mg/dL Creatinine (0.51-0.95) mg/dL Est GFR ( Amer) (>60) Est GFR (Non-Af Amer) (>60) BUN/Creatinine Ratio (8-20) Glucose (70-100) mg/dL Calcium (8.6-10.3) mg/dL Magnesium (1.9-2.7) mg/dL Total Bilirubin (0.2-1.0) mg/dL AST ALT (7-52) U/L Alkaline Phosphatase (34-104) U/L Troponin I (<0.04) ng/mL B-Natriuretic Peptide ( - 100) pg/mL Total Protein (6.4-8.9) g/dL Albumin (3.2-5.2) g/dL Globulin (2-4) g/dL Albumin/Globulin Ratio (1-3) Result Diagrams: 06/05/17 08:17 06/05/17 08:17 Lab Statement: Any lab studies that have been ordered have been reviewed, and results considered in the medical decision making process. - Radiology CXR Radiology Interpretation Completed By: Radiologist - FINDINGS SUGGESTIVE OF CHF - EKG 1 EKG Rhythm: Sinus Bradycardia - @ 57 bpm EKG Interpretation: 08:03 - Non-specific ST changes Course/Dx - Course Assessment/Plan: 61 y/o female presents to the ED c/o increasing SOB starting last night at 23:00. SOB worse since 05:00 this morning. SOB not alleviated with inhaler. SOB @ [facility]. Associated sx: CP starting at 05:00 this morning. Denies swelling of legs, N/V, diaphoresis, dizziness. Pt c/o chronic SOB when she walks. PMHx COPD, STEMI (March 2017). Smoker. EKG @ 08:03 shows Sinus bradycardia @ [address] changes. CXR FINDINGS SUGGESTIVE OF CHF. Troponin at 08:17 - 0.06. Dr. Lopez agreed to admit the pt. - Diagnoses Provider Diagnoses: CHF (congestive heart failure), chest pain r/o ACS - Physician Notifications Discussed Care of Patient With: Theresa Lopez Time Discussed With Above Provider: 21:37 Instructed by Provider To: Admit As Inpatient Discharge - Discharge Plan Condition: Stable Disposition: ADMITTED TO [facility] Referrals: Bill Koo MD [Primary Care Provider] - The documentation as recorded by the Holly dc Edward accurately reflects the service I personally performed and the decisions made by Riana waldrop Emmanuel.
[2017-06-05 10:20] LABS: Potassium 4.3 mmol/L (3.5-5.0)
[2017-06-05 11:02] LABS: Urine Bacteria Absent (Absent); Urine Bilirubin Negative (Negative); Urine Glucose Negative (Negative); Urine Nitrite Negative (Negative)
[2017-06-05] MEDS ORDERED: Nitroglycerin 2% OINT* 1 GM PAK ONE (11:25)
[2017-06-05] MEDS ORDERED: Acetaminophen TAB* 325 MG PO PRN (11:28)
[2017-06-05] MEDS ORDERED: Albuterol 2.5 MG/3 ML NEB.SOL* (0.083%) INH PRN (11:28)
[2017-06-05] MEDS: Diltiazem CD CAP* 120 MG PO SCH (11:57)
[2017-06-05] MEDS: Diltiazem CD CAP* 180 MG PO SCH (11:57)
[2017-06-05] MEDS: Ticagrelor* 90 MG TAB PO SCH ×2 (11:58→20:18)
[2017-06-05] MEDS ORDERED: Nitroglycerin 2% OINT* 1 GM PAK TOPICAL SCH (12:00)
[2017-06-05] MEDS ORDERED: Morphine INJ* 2 MG/ML 1 ML SYRINGE IV ONE (12:57)
[2017-06-05] MEDS ORDERED: Heparin DRIP 25,000 UNITS(*) 25,000 UNITS/500 ML BAG IVPB SCH (13:00)
[2017-06-05] MEDS ORDERED: Heparin VIAL(*) 5000 UNITS/ML VIAL (FIVE THOUSAND) IV SCH (13:00)
[2017-06-05] MEDS ORDERED: Morphine INJ* 2 MG/ML 1 ML SYRINGE ONE (13:06)
[2017-06-05] MEDS ORDERED: Heparin VIAL(*) 5000 UNITS/ML VIAL (FIVE THOUSAND) SUBCUT SCH (14:00)
--- NOTE | 2017-06-05 14:26 | HP ---
CC: Dr. Koo * HISTORY AND PHYSICAL: DATE OF ADMISSION: 06/05/17 PRIMARY CARE PROVIDER: Dr. Koo. ATTENDING PHYSICIAN WHILE IN THE HOSPITAL: Theresa Pinto MD * (report dictated by Dylan Minor NP). CHIEF COMPLAINT: 1. Chest pain. 2. Shortness of breath. HISTORY OF PRESENT ILLNESS: Mrs. Coombs is a 61-year-old female patient with multiple medical problems. She comes into the emergency department today stating that over the last 24 to 36 hours, she has had progressive worsening shortness of breath, worse with lying flat. She says she has needed to sleep propped up on pillow. She states she has been having some chest pressure, which does get worse when she lies down. She denies having any abdominal discomfort, but she does state that whenever she tries to urinate, it has been painful at times. She denies having any fevers or chills in the last 36 hours, but interestingly she does state that in the middle of the week last week, she developed a runny nose, congestion. She was having chills then. She said she was under 5 blankets trying to get warm and she states she was still shivering and cold. She says that this progressed until . She went to bed early on , woke up Tuesday and felt great, but then on Tuesday and Tuesday night, she did have progressive worsening shortness of breath and having some orthopnea. No edema was described and she says that she has not had anymore runny nose, congestion, or fevers or chills, but she was concerned because of the chest pressure. She recently did have a STEMI with a bare metal stent to the RCA. She has a history of hypertension, hepatitis C, chronic back pain, depression, paroxysmal ventricular tachycardia, atrial fibrillation, peripheral arterial disease, CAD, COPD, neuropathy, LA, osteoporosis and long QTC syndrome. Because of these issues and her recent heart attack and having the chest discomfort and worsening shortness of breath, she felt that she should be evaluated. She states that she recently has had an issue with her blood pressure, it has been running in the 190s at times. Dr. Koo has been working closely with her, increasing her medications as she has tolerated to try to get her blood pressure better controlled. She was evaluated in the ED, it was noted that her troponin was elevated. In addition to this, her BNP was elevated and chest x-ray was concerning for CHF. We were asked to evaluate for admission. PAST MEDICAL HISTORY: Significant for: 1. Hypertension. 2. Hepatitis C. 3. Peripheral arterial disease. 4. Chronic back pain. 5. Depression. 6. Paroxysmal ventricular tachycardia. 7. Atrial fibrillation. 8. CAD. 9. COPD. 10. Neuropathy. 11. LA. 12. Osteoporosis. 13. Long QTC syndrome. PAST SURGICAL HISTORY: She has had a liver transplant 21 years ago. She has had an ICD/pacemaker placement. She has had a left lower extremity endarterectomy. She has had a cardiac catheterization with bare metal stent done in March of this year. I will refer you to that hospitalization for details. MEDICATIONS: Home meds according to Joe' include: 1. Incruse Ellipta 1 inhalation daily. 2. Diltiazem CD 300 mg daily. 3. Lipitor 80 mg p.o. at bedtime. 4. Tramadol 50 mg p.o. every 6 hours as needed. 5. Brilinta 90 mg p.o. b.i.d. 6. Prograf 1 mg p.o. b.i.d. 7. Nitro 0.4 mg sublingual q.5 minutes p.r.n. chest pain. 8. Lopressor 50 mg p.o. b.i.d. 9. B12 1000 mcg p.o. daily. 10. Aspirin 81 mg daily. ALLERGIES TO MEDICATIONS: Include PROMETHAZINE and PROCAINE. FAMILY HISTORY: Her mother had a history of cardiac arrest and LA as did the father. SOCIAL HISTORY: She is still smoking, she states just under half a pack a day. She has been smoking her entire life. She does not drink alcohol. Her surrogate decision maker is her son. REVIEW OF SYSTEMS: There is no documented fever here. She does admit to having a weight change. She has actually lost weight since her LA. No weight gain recently. She denies having any double vision, no ear discharge. There was rhinorrhea, but it resolved. No sore throat. There is chest pressure per my HPI. She says that it is nonexertional. She does admit to having some orthopnea and no nocturnal dyspnea. There is dyspnea on exertion. There was no abdominal pain. There was no nausea or vomiting. There is dysuria. There is no frequency. No seizure. No loss of consciousness, no pruritus and no skin ulcerations. Review of 14 systems completed, all others negative. PHYSICAL EXAMINATION GENERAL: At this time, Mrs. Coombs is a 61-year-old female patient. She is chronically ill appearing. She is sitting in the hospital bed. She does not appear to be in any acute respiratory distress. VITAL SIGNS: Blood pressure 173/77 with a pulse of 72, respirations 22, O2 sat 97%. She is on room air. Her temperature was 98.1. HEENT: Head is atraumatic and normocephalic. Eyes: EOMs are intact. Her sclerae anicteric and not pale. Throat: Oral mucosa appears to be moist. No oropharyngeal erythema. NECK: Supple. LUNGS: Clear on the upper lobes. On the lower lobes, she does have bilateral crackles. No wheezes or rhonchi. HEART: Sounds S1 and S2. Regular rate and rhythm. No murmurs, rubs, or gallops. ABDOMEN: Soft, flat. There was tenderness in the suprapubic area. EXTREMITIES: Pulses were 2+ throughout. She had no peripheral edema. NEUROLOGIC: She is awake, she is alert, she is oriented x3. Speech is clear. She has no gross focal deficits. SKIN: Intact. DIAGNOSTIC STUDIES/LAB DATA: Reveal WBC of 10.4, RBC of 3.30, hemoglobin 10.7 , hematocrit of 32, and platelet count of 271,000. INR was 0.91, PTT was 31.3. The D-Dimer was 414. Sodium was 136, potassium was 4.3, chloride 103, bicarb 25, BUN 23, creatinine 1.23, which is improved significantly from her previous creatinine. Her glucose is 110, calcium 9.9, mag 1.9, total bili 0.7, AST 32, ALT 14, alk phos 85. Troponin was 0.06. BNP was 1328. Albumin was 4.0. Urine is pending. She did have a chest x-ray obtained today, when I reviewed it , to me it appears that she does have pulmonary vascular congestion bilaterally. Radiology read this as findings suggestive of CHF. She does have a EKG obtained today as well, which shows sinus bradycardia with a rate of 57. She did have inverted T-waves in lead 3 and lead 2 and aVF. She had no elevation noted. She has a biphasic T-wave in V1. I reviewed to the previous EKG and it looks a little bit better. There is ST depression noted in V4, 5 and V1, 2, 3, and V4 are improved. She did have an echocardiogram done on 03/15, which showed an EF of 50% to 55%. Her heart catheterization on the , impression: Acute inferior wall ST elevation infarct with RCA occlusion. A bare metal stent was placed. Old medical records were reviewed. ASSESSMENT AND PLAN: Mrs. Coombs is a 61-year-old female patient coming into the emergency department today with complaints of chest pain and shortness of breath. On evaluation congestive heart failure. She will be admitted under inpatient status for: 1. Congestive heart failure. Again at this point, I suspect that the demand on her heart was increased when she had a upper respiratory infection and her cardiac output could not keep up and thus, placing her in congestive heart failure with the recent upper respiratory infection that she had. She may also have a urinary tract infection that may be increasing the demand as well. My plan is to go ahead and check her urine. We will give her Lasix 40 mg IV b.i.d. , put her on nitro paste as she is still having chest pain, cycle her troponins , repeat the echocardiogram and in addition to this, depending on the findings of the echo we may need to get Cardiology involved. We will continue her medications as prescribed. We will check daily weights, place her on telemetry and again I did order a heart healthy diet and we will follow closely and I again did order some nitrates. 2. Hypertension. Again, her blood pressure is not well controlled, which certainly is not helping her cardiac status, so we are going to put her on nitro. We will monitor this closely and may need to consider adding a second agent or increasing her beta zoie if she will tolerate it. 3. Hepatitis C with liver transplant. Continue her Prograf. 4. Peripheral arterial disease. She is on Brilinta, aspirin, and statin. We will continue. 5. Chronic back pain. Tramadol has been ordered. 6. Depression. Continue supportive care. 7. History of paroxysmal ventricular tachycardia and atrial fibrillation. She is in a sinus rhythm now. We will monitor. 8. Coronary artery disease. Continue beta zoie, aspirin, statin. Again, trend the troponins. Get serial EKGs. 9. Chronic obstructive pulmonary disease. Continue inhalers as prescribed and p.r.n. albuterol. 10. Osteoporosis. She can follow with her primary. 11. Neuropathy. Again, we will continue with her p.r.n. tramadol. 12. Long QTC syndrome. We will monitor this on telemetry. 13. DVT prophylaxis. She will be placed on heparin subcu. 14. Code status. She actually says she wished to be DNR. She states she did fill out one here when she was here last time. TIME SPENT: On the admission was 60 minutes; greater than half the time obtaining my history and physical, the other half of the time was spent going over the plan of care with the patient and implementing the plan of care. I did discuss plan of care with my attending, Dr. Pinto; she is in agreement. DYLAN MINOR NP [id number]/[facility] #: [id number] DOROTHY
--- NOTE | 2017-06-05 15:49 | CONS ---
CC: Dr. Koo; Dr. Rizzo CARDIOLOGY CONSULTATION: DATE OF CONSULTATION: 06/05/17 INDICATION FOR CONSULTATION: Chest pain. HISTORY OF PRESENT ILLNESS: The patient is a 61-year-old female with a history of liver transplant, history of hepatitis C, history of recent inferior wall myocardial infarction. The patient states that she has been feeling poorly for the past couple of days. She has had a moist cough bringing up white sputum and some chest pain. Ultimately, she came to the emergency room for evaluation. The patient states that she has just been feeling unwell for the last couple of days. She denies any fev ers or chills. She has been having a productive cough. She has also been complaining of chest pain in the center of her chest. It does not radiate anywhere. It is essentially constant. There is n o change with exertion, no change with lying down. The patient was admitted to the hospital in March 2017 with an acute inferior wall myocardial infarct ion. At that time, she had an occluded right coronary artery. She had a bare metal stent placed at that time. She also had mild disease in her left circumflex and left anterior descending artery. PAST MEDICAL HISTORY: Significant for: 1. Hypertension. 2. Hepatitis C. 3. Liver transplant in 1995. 4. History of ICD implantation for long QT syndrome. 5. Peripheral artery disease, status post multiple stents and potentially for femoral bypass. 6. Paroxysmal atrial fibrillation. OUTPATIENT MEDICATIONS: 1. Prograf capsules 1 mg b.i.d. 2. Aspirin 81 mg a day. 3. Atorvastatin 80 mg a day. 4. Metoprolol tartrate 50 mg b.i.d. 5. Brilinta 90 mg b.i.d. 6. Tramadol as directed. 7. Diltiazem 300 mg daily. ALLERGIES: PROMETHAZINE and PROCAINE. FAMILY HISTORY: Mother of cardiac arrest at 72. Father at 65 of myocardial infarction. SOCIAL HISTORY: She is a previous smoker. She quit 3 years ago. Rare alcohol intake. 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 She has 4 children. PHYSICAL EXAMINATION: On physical exam, height is 5 feet 2 inches, weight is 101 pounds. Temperatu re 97.5, heart rate is 76, blood pressure 173/77, respiratory rate is 18. Sclerae anicteric. Oroph arynx is pink without erythema. Carotids are 2+ without bruits. JVD is normal. Thyroid is normal. Cardiac Exam: S1, S2 without any murmurs, rubs, or gallops. Lungs are clear to auscultation bila terally. There is no dullness or percussion. Abdomen is soft, nontender, and nondistended with nor moactive bowel sounds. Extremities showed no edema. She has 2+ pulses throughout. The patient is awake, alert, and oriented. She moves all 4 extremities equally. LABORATORY STUDIES/DIAGNOSTIC STUDIES: Chemistry is within normal limits. BUN 23, creatinine 1.2. AST and ALT are within normal limits. First troponin level is 0.06, second troponin is 0.06. BNP at 1328, which is a new finding for her. Her EKG demonstrates normal sinus rhythm with prolonged QT and T wave abnormalities, no obvious acut e ischemic EKG changes. IMPRESSION: This is a 61-year-old female with multiple medical problems, admitted to the hospital w ith shortness of breath and chest pain and found to be in congestive heart failure. She was josey javier in the emergency room. She feels much better today. RECOMMENDATIONS: For now, my recommendation is to continue to rule out myocardial infarction. Her first 2 troponins levels were flat. Her EKGs do not represent an acute myocardial event. Further recommendations pending the results of her echocardiogram and troponin. [id number]/[facility] #: [id number]
[2017-06-05] MEDS: Furosemide IV* 10 MG/ML VIAL (40 MG) IV SCH (16:23)
[2017-06-05] MEDS: traMADol TAB* 50 MG PO PRN (16:23)
[2017-06-05] MEDS ORDERED: Iodixanol* (CONTRAST) 320 MG/ML 100 ML SDV IV ONE (17:04)
--- NOTE | 2017-06-05 18:26 | RAD ---
INDICATION: Chest pain and shortness of breath. COMPARISON: Comparison is made with a prior CT angiogram of the chest from November 03, 2014 and a prior chest x-ray study from June 05, 2017. TECHNIQUE: A CT angiogram of the chest was performed with intravenous following intravenous injection of 58 ml of is a PICC 320 nonionic contrast. Contiguous axial sections were obtained from the lung apices through the lung bases. Images were reconstructed in the coronal and sagittal planes. FINDINGS: There is relatively homogeneous opacification of the pulmonary arteries. No intraluminal filling defect or pulmonary embolism is seen. The heart is within normal limits in size. There is reflux of contrast into the inferior vena cava and hepatic veins suggestive of right heart failure. No pericardial effusion is present. There are calcifications within the coronary arteries. The aorta is not opacified with contrast on this study. The aorta is normal in caliber. There is mild to moderate calcific plaque present. There are calcified lymph nodes in the subcarinal region and right hilum consistent with old granulomatous disease. No significant enlarged lymph nodes are seen by size criteria. There are scattered patchy infiltrates present which are most prominent in the right upper lobe although also involve the left upper lobe in the superior segments of both lower lobes suggestive of pneumonia. No pleural effusion is seen. No significant focal osseous abnormality is seen. IMPRESSION: 1. NO EVIDENCE FOR PULMONARY EMBOLISM. 2. SCATTERED PATCHY INFILTRATE SUGGESTIVE OF PNEUMONIA. 3. FINDINGS CONSISTENT WITH OLD GRANULOMATOUS DISEASE.
[2017-06-05] MEDS: Morphine INJ* 2 MG/ML 1 ML SYRINGE IV PRN (19:20)
[2017-06-05] MEDS: DOXYcycline IV* 100 MG in NS 0.9% 250 ML* 250 ML IVPB SCH (19:54)
[2017-06-05] MEDS: Tacrolimus CAP(*) 1 MG PO SCH (20:18)
[2017-06-05] MEDS: Atorvastatin* 80 MG TAB PO SCH (20:18)
[2017-06-05] MEDS: Metoprolol Tartrate TAB* 50 mg PO SCH (20:18)
[2017-06-05] MEDS: Nitroglycerin 2% OINT* 1 GM PAK TOPICAL SCH (20:21)
[2017-06-05] MEDS ORDERED: Metoprolol Tartrate TAB* 50 mg PO SCH (21:00)
[2017-06-05] MEDS ORDERED: Ticagrelor* 90 MG TAB PO SCH (21:00)
[2017-06-05] MEDS ORDERED: Tacrolimus CAP(*) 1 MG PO SCH (21:00)
[2017-06-06] MEDS: Morphine INJ* 2 MG/ML 1 ML SYRINGE IV PRN ×4 (04:50→21:30)
[2017-06-06] MEDS: Nitroglycerin 2% OINT* 1 GM PAK TOPICAL SCH ×2 (05:11→15:51)
[2017-06-06 05:39] LABS: Hematocrit 30 % (35-47); Hemoglobin 9.9 g/dl (12.0-16.0); Mean Corpuscular HGB Conc 33 g/dl (31-36); Mean Corpuscular Hemoglobin 31 pg (27-31); Mean Corpuscular Volume 95 fL (80-97); Mean Platelet Volume 9 um3 (7.4-10.4); Red Blood Count 3.18 10^6/ul (4.0-5.4); Red Cell Distribution Width 15 % (10.5-15); White Blood Count 15.6 10^3/ul (3.5-10.8)
[2017-06-06 05:53] LABS: Calcium 9.6 mg/dL (8.6-10.3); EGFR African American 36.8 (>60); EGFR Non-African American 28.6 (>60); Potassium 3.8 mmol/L (3.5-5.0)
[2017-06-06 06:37] LABS: Urine Bacteria Absent (Absent); Urine Bilirubin Negative (Negative); Urine Glucose Negative (Negative); Urine Nitrite Negative (Negative)
[2017-06-06] MEDS ORDERED: Umeclidin 62.5 MDI(NF) 1 INH MDI INH SCH (09:00)
[2017-06-06] MEDS ORDERED: Influenza VAC *QUAD* 2017-18* 0.5 ML SYRINGE IM ONE (09:00)
[2017-06-06] MEDS ORDERED: Diltiazem CD CAP* 120 MG PO SCH (09:00)
[2017-06-06] MEDS ORDERED: Diltiazem CD CAP* 180 MG PO SCH (09:00)
[2017-06-06] MEDS: Tacrolimus CAP(*) 1 MG PO SCH ×2 (09:28→21:29)
[2017-06-06] MEDS: Cyanocobalamin TAB* 500 MCG PO SCH (09:28)
[2017-06-06] MEDS: Ticagrelor* 90 MG TAB PO SCH ×2 (09:29→21:29)
[2017-06-06] MEDS: Aspirin EC Low Dose* 81 MG TAB.EC PO SCH (09:29)
[2017-06-06] MEDS: Metoprolol Tartrate TAB* 50 mg PO SCH ×2 (09:31→21:29)
[2017-06-06] MEDS: Diltiazem CD CAP* 180 MG PO SCH (09:32)
[2017-06-06] MEDS: Diltiazem CD CAP* 120 MG PO SCH (09:32)
[2017-06-06] MEDS: Furosemide IV* 10 MG/ML VIAL (40 MG) IV SCH (09:33)
[2017-06-06] MEDS: traMADol TAB* 50 MG PO PRN (09:37)
[2017-06-06] MEDS: DOXYcycline IV* 100 MG in NS 0.9% 250 ML* 250 ML IVPB SCH ×2 (10:05→19:22)
--- NOTE | 2017-06-06 10:35 | ECHO ---
Patient: ADELE ZELAYA [facility] Rec#: [id number] : 1955 Date: 06/06/2017 Age: 61y Height: 157.48 cm / 62.0 in Weight: 47.54 kg / 104.8 lbs Sex: F BSA: 1.45 Room#: [facility] Admit Date#: 06/05/2017 Type: Inpatient Referring: Theresa Villegas MD Reading: Nicholas Harley MD Printing Estimator: Lucy Lawton RDCS CC: Bill Koo MD Transthoracic Echocardiogram Indication: CHF BP: 182/66 HR: 50 Rhythm: Paced Findings History: HTN, hep C, liver transplant 1995, AICD for long QT syndrome, PAD, PVT, PAF, former smoker. Technical Comments: The study quality is fair. The study is technically limited due to the patient's smoking history. Completed at 1010. Left Ventricle: The left ventricular chamber size is normal. Mild concentric left ventricular hypertrophy is observed. Global left ventricular wall motion and contractility are within normal limits. Left ventricular systolic function is at the lower limits of normal. The estimated ejection fraction is 50-55%. There is abnormal ventricular septal wall motion consistent with right ventricular pacemaker. The assessment of diastolic function is non-diagnostic. Left Atrium: The left atrium is severely dilated. Right Ventricle: The right ventricle is mildly dilated. The right ventricular global systolic function is low normal. A pacemaker wire is visualized in the right ventricle. Right Atrium: The right atrial cavity size is normal. A pacemaker wire is visualized in the right atrium. Aortic Valve: The aortic valve is trileaflet. The aortic valve leaflets are mildly thickened. There is a trace of aortic regurgitation. There is no evidence of aortic stenosis. Mitral Valve: There is mitral annular calcification. The mitral valve leaflets are moderately thickened. There is moderate mitral regurgitation. There is no evidence of mitral stenosis. Tricuspid Valve: The tricuspid valve leaflets are mildly thickened. There is moderate to severe tricuspid regurgitation. The right ventricular systolic pressure is estimated at 28 mmHg. There is evidence that pulmonary hypertension may be underestimated. There is no tricuspid stenosis. Pulmonic Valve: The pulmonic valve appears normal. There is a trace pulmonic regurgitation. There is no pulmonic stenosis. Pericardium: There is no significant pericardial effusion. Aorta: There is no dilatation of the ascending aorta. There is no dilatation of the aortic arch. The aortic root is normal in size. Pulmonary Artery: The main pulmonary artery appears normal. Venous: The inferior vena cava is dilated. There is a greater than 50% respiratory change in the inferior vena cava dimension. Hepatic vein systolic flow is reversed. Summary: There are no significant changes when compared to the previous study done on 03/15/17 Conclusions Global left ventricular wall motion and contractility are within normal limits. Left ventricular systolic function is at the lower limits of normal. The estimated ejection fraction is 50-55%. There is abnormal ventricular septal wall motion consistent with right ventricular pacemaker. There is a trace of aortic regurgitation. There is moderate mitral regurgitation. There is moderate to severe tricuspid regurgitation. There is evidence that pulmonary hypertension may be underestimated. There is no significant pericardial effusion. There are no significant changes when compared to the previous study done on 03/15/17 Measurements Name Value Normal Range RVIDd (AP) 2D 3.9 cm (0.9 - 2.6) RVDdMajor (2D) 4.9 cm (2.2 - 4.4) RAd ISD 4CH 4.7 cm (3.4 - 4.9) RA (A4C)W 4.4 cm (2.9 - 4.6) IVSd (2D) 1.2 cm (0.6 - 1) LVPWd (2D) 1.1 cm (0.6 - 1) LVIDd (2D) 3.8 cm (3.6 - 5.4) LVIDs (2D) 2.9 cm - LV FS (2D) 24 % (25 - 45) Aortic Annulus 1.7 cm (1.4 - 2.6) Ao root diameter (2D) 2.5 cm (2.1 - 3.5) Ascending Ao 2.7 cm (2.1 - 3.4) Aortic arch 2.4 cm (1.8 - 3.4) LA dimension (AP) 2D 4.4 cm (2.3 - 3.8) LAd ISD 4CH 5.2 cm (2.9 - 5.3) LA ISD 4CH W 4.3 cm (2.5 - 4.5) Name Value Normal Range LA ESV SP 4CH (A/L) 82 ml - LA ESV SP 2CH (A/L) 97 ml - LA ESV BP (A/L) 91 ml - LA ESV BP (A/L) index 63 ml/m2 - LA ESV SP 4CH (MOD) 76 ml - LA ESV SP 2CH (MOD) 93 ml - Name Value Normal Range MV E-wave Vmax 1.16 m/sec - MV deceleration time 152.9 msec - MV A-wave Vmax 0.61 m/sec - MV E:A ratio 1.9 ratio - LV septal e' Vmax 0.06 m/sec - LV lateral e' Vmax 0.07 m/sec - LV E:e' septal ratio 19.33 ratio - LV E:e' lateral ratio 16.57 ratio - Name Value Normal Range AV Vmax 1.37 m/sec - AV VTI 26.7 cm - AV peak gradient 7.55 mmHg - AV mean gradient 3.82 mmHg - LVOT Vmax 1.02 m/sec - LVOT VTI 17.2 cm - LVOT peak gradient 4.24 mmHg - LVOT mean gradient 2.06 mmHg - JD Vmax 0.55 m/sec - Name Value Normal Range MR Vmax 5 m/sec - MR VTI 169.5 cm - MR flow (PISA) 151 ml/sec - MR PISA radius 0.67 cm - MR alias Vmax 53.01 cm/sec - Name Value Normal Range TR Vmax 1.84 m/sec - TR peak gradient 13 mmHg - RAP 15 mmHg - RVSP 28 mmHg - IVC diameter 2.2 cm - Name Value Normal Range PV Vmax 0.68 m/sec - PV peak gradient 1.84 mmHg -
[2017-06-06] MEDS: Umeclidin 62.5 MDI(NF) 1 INH MDI INH SCH (11:53)
--- NOTE | 2017-06-06 14:05 | PN ---
Subjective Date of Service: 06/06/17 Interval History: Patient seen and examined at bedside. Pt states that she is feeling better today , then when she came in. Denies fever, chills, shortness of breath, N/V/D. Pt states that she has a cough with minimal white sputum production. She denies chest discomfort today, except pain when the nuclear test technician was pushing on her test. Tele: Paced to sinus rhythm, rate 50-60's. Family History: Unchanged from Admission Social History: Unchanged from Admission Past Medical History: Unchanged from Admission Objective Active Medications: Acetaminophen (Tylenol Tab*) 650 mg PO Q4H PRN Reason: FEVER/PAIN Albuterol (Ventolin 2.5 Mg/3 Ml Neb.Monique*) 2.5 mg INH Q2H PRN Reason: SOB/ WHEEZING Aspirin (Aspirin Ec Low Dose*) 81 mg PO DAILY [facility] Atorvastatin Calcium (Lipitor*) 80 mg PO BEDTIME [facility] Cyanocobalamin (Vitamin B12 Tab*) 1,000 mcg PO DAILY [facility] Diltiazem HCl (Cardizem Cd Cap*) 180 mg PO DAILY [facility] Diltiazem HCl (Cardizem Cd Cap*) 120 mg PO DAILY [facility] Furosemide (Lasix Iv*) 40 mg IV 0800,1700 [facility] Doxycycline Hyclate 100 mg/ (Sodium Chloride) 250 mls @ 250 mls/hr IVPB Q12H [facility] Metoprolol Tartrate (Lopressor Tab*) 50 mg PO BID [facility] Morphine Sulfate (Morphine Inj (Syringe)*) 2 mg IV Q4H PRN Reason: PAIN - MILD Nitroglycerin (Nitroglycerin 2% Oint*) 1 inch TOPICAL Q8HR [facility] Reason: Protocol Tacrolimus (Prograf Cap(*)) 1 mg PO BID [facility] Ticagrelor (Brilinta*) 90 mg PO BID [facility] Tramadol HCl (Ultram*) 50 mg PO Q6HR PRN Reason: PAIN Umeclidinium [place] (Incruse Ellipta Mdi (Nf)) 1 inh INH DAILY [facility] Vital Signs 06/05/17 06/05/17 06/05/17 14:08 15:21 16:00 Temperature 98.4 F Pulse Rate 50 Respiratory 18 20 Rate Blood Pressure 110/58 (mmHg) O2 Sat by Pulse 100 100 Oximetry 06/05/17 06/05/17 06/05/17 16:23 18:23 19:20 Temperature 98.0 F Pulse Rate 51 Respiratory 16 20 16 Rate Blood Pressure 128/57 (mmHg) O2 Sat by Pulse 99 Oximetry 06/05/17 06/06/17 06/06/17 20:20 00:00 00:26 Temperature 98.0 F Pulse Rate 60 Respiratory 16 16 Rate Blood Pressure 117/58 (mmHg) O2 Sat by Pulse 97 98 Oximetry 06/06/17 06/06/17 06/06/17 00:49 02:34 04:50 Temperature 97.8 F Pulse Rate 57 49 Respiratory 20 16 16 Rate Blood Pressure 83/45 (mmHg) O2 Sat by Pulse 99 98 Oximetry 06/06/17 06/06/17 06/06/17 05:50 07:28 08:00 Temperature 97.5 F Pulse Rate 45 Respiratory 16 22 Rate Blood Pressure 90/50 (mmHg) O2 Sat by Pulse 100 100 Oximetry 06/06/17 06/06/17 06/06/17 09:31 09:37 11:14 Temperature 98.3 F Pulse Rate 60 50 Respiratory 16 18 Rate Blood Pressure 110/46 (mmHg) O2 Sat by Pulse 100 Oximetry Ears/Nose/Mouth/Throat: Mucous Membranes Moist Respiratory: Symmetrical Chest Expansion and Respiratory Effort, Clear to Auscultation Cardiovascular: NL Sounds; No Murmurs; No JVD, RRR Abdominal: NL Sounds; No Tenderness; No Distention Neurological: Alert and Oriented x 3, NL Muscle Strength and Tone Lines/Tubes/Other Access: Clean, Dry and Intact Peripheral IV - site benign Nutrition: Taking PO's Result Diagrams: 06/06/17 04:41 06/06/17 04:41 Additional Lab and Data: Assess/Plan/Problems-Billing Assessment: Ms. Coombs is a 61 yo female with PMH significant for HTN, HEp C, PAD, chronic back pain, depression, paroxysmal v tach and afib, CAD, COPD, MD, liver transplant and prolonged QTC syndrome who presented to the emergency room with complaints of shortness of breath and chest pain. The paitent was found in be in a CHF exacerbation and to have PNA. - Patient Problems (1) Pneumonia Code(s): J18.9 - PNEUMONIA, UNSPECIFIED ORGANISM SNOMED Code(s): 347644931 Comment: - Chest xray - findings suggestive of congetive HF - Chest CTA - scattered patchy infiltrate - Afebile, but with leukocytosis today - Continue doxycycline (2) CHF exacerbation Code(s): I50.9 - HEART FAILURE, UNSPECIFIED SNOMED Code(s): 84055282 Comment: - Acute - Suspect secondary to worsening MR and Pt pacing more - Cardiology consult, input appreciated - Daily weights and Strict I+Os - Will change Lasix from IV to PO starting in the morning (3) Chest pain Code(s): R07.9 - CHEST PAIN, UNSPECIFIED SNOMED Code(s): 05481980 Comment: - Suspect this is non-cardiac. Pain is reproducible and she has PNA - Troponins 0.06, 0.06, 0.05 - Echo - EF 50-55%, abnormal ventricular septal wall motion consistent wtih right ventricular pacemaker (4) Hypertension Code(s): I10 - ESSENTIAL (PRIMARY) HYPERTENSION SNOMED Code(s): 79500964 Comment: - Hypertensive on admission - Now with some hypotension and BP normotensive now - Continue metoprolol, - Discontinue Nitro paste (5) CAD (coronary artery disease) Code(s): I25.10 - ATHSCL HEART DISEASE OF [place] CORONARY ARTERY W/O ANG PCTRS SNOMED Code(s): 98934650 Comment: - Continue brilinta, metoprolol, ASA and statin (6) Tobacco user Code(s): Z72.0 - TOBACCO USE SNOMED Code(s): 357130766 Comment: - Encouraged to stop smoking - Nicotine replacement (7) COPD (chronic obstructive pulmonary disease) Code(s): J44.9 - CHRONIC OBSTRUCTIVE PULMONARY DISEASE, UNSPECIFIED SNOMED Code(s): 42864470 Comment: - Without acute exacerbation - Continue Ellipta and Albuterol PRN (8) Chronic pain Code(s): G89.29 - OTHER CHRONIC PAIN SNOMED Code(s): 88598684 Comment: - Continue Tamadol (9) Long QT syndrome Code(s): I45.81 - LONG QT SYNDROME SNOMED Code(s): 4467809 Comment: - Pacer in place - No dysrhythmias observed (10) PAD (peripheral artery disease) Code(s): I73.9 - PERIPHERAL VASCULAR DISEASE, UNSPECIFIED SNOMED Code(s): 645708707 Comment: - Asymptomatic - s/p endarterectomy - Continue ASA and statin (11) Hepatitis C carrier Code(s): Z22.52 - SNOMED Code(s): 377220845 Comment: - Status post liver transplant (12) Liver transplant recipient Code(s): Z94.4 - LIVER TRANSPLANT STATUS SNOMED Code(s): 098763699 Comment: - Continue tacrolimus (13) pacemaker in situ (14) DVT prophylaxis Code(s): ZER6747 - SNOMED Code(s): 791963280 Comment: - SQ Heparin (15) Full code status Code(s): Z78.9 - OTHER SPECIFIED HEALTH STATUS SNOMED Code(s): 460614269 Status and Disposition: OBV to Inpatient. Discharge to home when medically stable, possibly in the morning.
[2017-06-06] MEDS ORDERED: Mouth Piece, Nicotine* 1 EACH CARTRIDGE INH ONE (19:10)
[2017-06-06] MEDS: Nicotine Inhaler* 10 MG AMP INH PRN (19:20)
[2017-06-06] MEDS: Atorvastatin* 80 MG TAB PO SCH (21:29)
[2017-06-07] MEDS: Morphine INJ* 2 MG/ML 1 ML SYRINGE IV PRN ×4 (01:31→13:48)
[2017-06-07 05:39] LABS: Hematocrit 28 % (35-47); Hemoglobin 9.3 g/dl (12.0-16.0); Mean Corpuscular HGB Conc 33 g/dl (31-36); Mean Corpuscular Hemoglobin 31 pg (27-31); Mean Corpuscular Volume 95 fL (80-97); Mean Platelet Volume 9 um3 (7.4-10.4); Red Blood Count 2.96 10^6/ul (4.0-5.4); Red Cell Distribution Width 15 % (10.5-15); White Blood Count 13.7 10^3/ul (3.5-10.8)
[2017-06-07 05:51] LABS: BUN/Creatinine Ratio 27.3 (8-20); Calcium 9.1 mg/dL (8.6-10.3); EGFR African American 31.7 (>60); EGFR Non-African American 24.6 (>60); Potassium 3.6 mmol/L (3.5-5.0)
[2017-06-07] MEDS: DOXYcycline IV* 100 MG in NS 0.9% 250 ML* 250 ML IVPB SCH ×2 (07:39→18:46)
[2017-06-07] MEDS: Diltiazem CD CAP* 180 MG PO SCH (07:43)
[2017-06-07] MEDS: Metoprolol Tartrate TAB* 50 mg PO SCH ×2 (07:44→20:17)
[2017-06-07] MEDS: Tacrolimus CAP(*) 1 MG PO SCH ×2 (07:44→20:17)
[2017-06-07] MEDS: Ticagrelor* 90 MG TAB PO SCH ×2 (07:47→20:17)
[2017-06-07] MEDS: Aspirin EC Low Dose* 81 MG TAB.EC PO SCH (07:47)
[2017-06-07] MEDS: Cyanocobalamin TAB* 500 MCG PO SCH (07:48)
[2017-06-07] MEDS: Furosemide TAB* 20 MG PO SCH (07:50)
[2017-06-07] MEDS: Nicotine Inhaler* 10 MG AMP INH PRN (07:50)
[2017-06-07] MEDS: Diltiazem CD CAP* 120 MG PO SCH (07:50)
[2017-06-07] MEDS: Umeclidin 62.5 MDI(NF) 1 INH MDI INH SCH (08:15)
[2017-06-07] MEDS ORDERED: Furosemide IV* 10 MG/ML VIAL (40 MG) IV ONE (14:00)
--- NOTE | 2017-06-07 15:58 | PN ---
Subjective Date of Service: 06/07/17 Interval History: Pt attests to SOB though took off NC as causing dry nose -> coughing up some blood. Abdominal bloating sensation. Usually constipated. BP low just now 88/ 53. Pt living in [facility] [place]. Application has been submitted with their case assistant to [facility]. Does not like exposure to drug users given her immunocompromised state. Pt drank 3L and weighs 108 from 104.8 from 101.6 lbs. Thirsty Family History: Unchanged from Admission Social History: Unchanged from Admission Past Medical History: Unchanged from Admission Objective Active Medications: Acetaminophen (Tylenol Tab*) 650 mg PO Q4H PRN PRN Reason: FEVER/PAIN Last Admin: 06/07/17 07:44 Dose: 650 mg Albuterol (Ventolin 2.5 Mg/3 Ml Neb.Monique*) 2.5 mg INH Q2H PRN PRN Reason: SOB/WHEEZING Aspirin (Aspirin Ec Low Dose*) 81 mg PO DAILY [facility] Last Admin: 06/07/17 07:47 Dose: 81 mg Atorvastatin Calcium (Lipitor*) 80 mg PO BEDTIME [facility] Last Admin: 06/06/17 21:29 Dose: 80 mg Cyanocobalamin (Vitamin B12 Tab*) 1,000 mcg PO DAILY [facility] Last Admin: 06/07/17 07:48 Dose: 1,000 mcg Diltiazem HCl (Cardizem Cd Cap*) 180 mg PO DAILY [facility] Last Admin: 06/07/17 07:43 Dose: 180 mg Diltiazem HCl (Cardizem Cd Cap*) 120 mg PO DAILY [facility] Last Admin: 06/07/17 07:50 Dose: 120 mg Furosemide (Lasix Tab*) 20 mg PO DAILY [facility] Last Admin: 06/07/17 07:50 Dose: 20 mg Doxycycline Hyclate 100 mg/ (Sodium Chloride) 250 mls @ 250 mls/hr IVPB Q12H [facility] Last Admin: 06/07/17 07:39 Dose: 250 mls/hr Metoprolol Tartrate (Lopressor Tab*) 50 mg PO BID [facility] Last Admin: 06/07/17 07:44 Dose: 50 mg Morphine Sulfate (Morphine Inj (Syringe)*) 2 mg IV Q4H PRN PRN Reason: PAIN - MILD Last Admin: 06/07/17 13:48 Dose: 2 mg Nicotine (Nicotine Inhaler*) 10 mg INH Q2H PRN PRN Reason: CRAVING Last Admin: 06/07/17 07:50 Dose: 10 mg Tacrolimus (Prograf Cap(*)) 1 mg PO BID [facility] Last Admin: 06/07/17 07:44 Dose: 1 mg Ticagrelor (Brilinta*) 90 mg PO BID [facility] Last Admin: 06/07/17 07:47 Dose: 90 mg Tramadol HCl (Ultram*) 50 mg PO Q6HR PRN PRN Reason: PAIN Last Admin: 06/06/17 09:37 Dose: 50 mg Umeclidinium [place] (Incruse Ellipta Mdi (Nf)) 1 inh INH DAILY [facility] Last Admin: 06/07/17 08:15 Dose: Not Given Vital Signs 06/06/17 06/06/17 06/06/17 16:00 16:04 17:04 Temperature Pulse Rate Respiratory 18 16 Rate Blood Pressure (mmHg) O2 Sat by Pulse 100 Oximetry 06/06/17 06/06/17 06/06/17 18:23 19:40 20:00 Temperature 97.8 F Pulse Rate 59 Respiratory 18 16 16 Rate Blood Pressure 119/62 (mmHg) O2 Sat by Pulse 100 Oximetry 06/06/17 06/06/17 06/06/17 21:30 22:30 23:34 Temperature 97.8 F Pulse Rate 51 Respiratory 16 16 16 Rate Blood Pressure 92/48 (mmHg) O2 Sat by Pulse 99 Oximetry 06/07/17 06/07/17 06/07/17 00:00 01:31 01:45 Temperature Pulse Rate 54 Respiratory 18 16 Rate Blood Pressure (mmHg) O2 Sat by Pulse 98 99 Oximetry 06/07/17 06/07/17 06/07/17 02:30 03:37 05:35 Temperature 98.1 F Pulse Rate 56 Respiratory 16 16 18 Rate Blood Pressure 127/60 (mmHg) O2 Sat by Pulse 97 Oximetry 06/07/17 06/07/17 06/07/17 06:35 07:37 08:00 Temperature 97.7 F Pulse Rate 64 Respiratory 16 28 16 Rate Blood Pressure 140/59 (mmHg) O2 Sat by Pulse 100 100 Oximetry 06/07/17 06/07/17 06/07/17 09:28 10:28 11:28 Temperature 97.8 F Pulse Rate 50 Respiratory 16 16 24 Rate Blood Pressure 88/53 (mmHg) O2 Sat by Pulse 99 Oximetry 06/07/17 06/07/17 11:51 13:48 Temperature Pulse Rate 61 Respiratory 16 16 Rate Blood Pressure (mmHg) O2 Sat by Pulse 96 Oximetry Oxygen Devices in Use Now: None Appearance: Chronically Ill appearing. Eyes: No Scleral Icterus, PERRLA Ears/Nose/Mouth/Throat: NL Teeth, Lips, Gums, Mucous Membranes Moist Neck: NL Appearance and Movements; NL JVP, Trachea Midline Respiratory: Symmetrical Chest Expansion and Respiratory Effort - Slight rales at bases Cardiovascular: - - 3/6 crescendo decreshendo murmur located at 5th intercoastal midclavicular. RRR. JVD to ear tragus Abdominal: - - soft, slight tenderness LLQ/epigastric Extremities: No Edema Skin: No Rash or Ulcers Neurological: Alert and Oriented x 3, NL Sensation, NL Muscle Strength and Tone Result Diagrams: 06/07/17 05:20 06/07/17 05:20 Additional Lab and Data: Laboratory Results - last 24 hr 06/07/17 06/07/17 05:20 05:20 WBC 13.7 H RBC 2.96 L Hgb 9.3 L Hct 28 L MCV 95 MCH 31 MCHC 33 RDW 15 Plt Count 227 MPV 9 Neut % (Auto) 78.7 Lymph % (Auto) 12.6 L [place] % (Auto) 8.2 Eos % (Auto) 0.2 Baso % (Auto) 0.3 Absolute Neuts (auto) 10.7 H Absolute Lymphs (auto) 1.7 Absolute Monos (auto) 1.1 H Absolute Eos (auto) 0 Absolute Basos (auto) 0 Absolute Nucleated RBC 0.01 Nucleated RBC % 0 Sodium 131 L Potassium 3.6 Chloride 99 L Carbon Dioxide 22 Anion Gap 10 BUN 56 H Creatinine 2.05 H Est GFR ( Amer) 31.7 Est GFR (Non-Af Amer) 24.6 BUN/Creatinine Ratio 27.3 H Glucose 103 H Calcium 9.1 Microbiology and Other Data: Microbiology 06/06/17 16:10 Legionella Urinary Antigen - Final Urine Negative Legionella Streptococcus pneumoniae Ag Screen - Final Negative S. pneumo Antigen Assess/Plan/Problems-Billing Assessment: Ms. Coombs is a 61 yo female with PMH significant for CAD/VT s/p stent, multiple cardiac arrests, HTN, Hepatitis C, PAD, chronic back pain, depression, paroxysmal v tach and afib, COPD, liver transplant and prolonged QTC syndrome who presented to the emergency room with complaints of shortness of breath, chills/hot sensation and chest pressure. Hypertensive Urgency with diastolic/ valvular (moderate to severe TVR) CHF exacerbation and to patchy infiltrates on CT Angio. Acute Kidney Injury in setting of labile CKD. Living in [facility]. - Patient Problems (1) Diastolic CHF, acute Current Visit: Yes Status: Acute Code(s): I50.31 - ACUTE DIASTOLIC ( CONGESTIVE) HEART FAILURE SNOMED Code(s): 729860455 Comment: Corinne Fluid restriction. Extra 40IV lasix now. Patient education about daily weights and fluid intake. JVD to ear and SOB. (2) Acute kidney injury Current Visit: No Status: Acute Priority: High Onset Date: 07/30/14 Code (s): N17.9 - ACUTE KIDNEY FAILURE, UNSPECIFIED SNOMED Code(s): 57969796 Comment: DDx hypertensive urgency, CHF exaccerbation, IV contrast nephropathy. BMP daily. Consider Urine Lytes (3) Hypertensive urgency Current Visit: Yes Status: Acute Priority: High Code(s): I16.0 - HYPERTENSIVE URGENCY SNOMED Code(s): 324114669 Comment: 190s as an outpatient and in ED. On Diltiazem ER 300mg daily, metoprolol 50mg BID, lasix diuresis. Recheck as now recorded as hypotensive. Titrate accordingly. (4) Pneumonia Current Visit: Yes Status: Acute Code(s): J18.9 - PNEUMONIA, UNSPECIFIED ORGANISM SNOMED Code(s): 518169270 Comment: - Chest CTA - scattered patchy infiltrate - Afebile, improving leukocytosis today - Continue doxycycline (5) Cardiac arrest Current Visit: No Status: Acute Priority: High Onset Date: 09/24/14 Code (s): I46.9 - CARDIAC ARREST, CAUSE UNSPECIFIED SNOMED Code(s): 166266946 Comment: telemonitor, s/p PPM (6) Tricuspid valve regurgitation Current Visit: Yes Status: Acute Code(s): I07.1 - RHEUMATIC TRICUSPID INSUFFICIENCY SNOMED Code(s): 781326529 Comment: Moderate to Severe. (7) CAD (coronary artery disease) Current Visit: No Status: Chronic Code(s): I25.10 - ATHSCL HEART DISEASE OF [place] CORONARY ARTERY W/O ANG PCTRS SNOMED Code(s): 12125165 Comment: VT RCA March 2017 s/p BMS - Continue brilinta, metoprolol, ASA and statin - Continue telemetry - appreciate cardiology recs (8) Depression Current Visit: No Status: Chronic Code(s): F32.9 - MAJOR DEPRESSIVE DISORDER , SINGLE EPISODE, UNSPECIFIED SNOMED Code(s): 66108999 Comment: Pt undergoing a lot of stress recently. Living in [facility]. (9) Hx of opioid abuse Current Visit: No Status: Chronic Priority: Medium Code(s): Z87.898 - PERSONAL HISTORY OF OTHER SPECIFIED CONDITIONS SNOMED Code(s): 848237984 Comment: Stop IV morphine, back to home tramadol in anticipation of potential discharge (10) Liver transplant recipient Current Visit: No Status: Chronic Code(s): Z94.4 - LIVER TRANSPLANT STATUS SNOMED Code(s): 436384743 Comment: - Continue tacrolimus (11) Long QT syndrome Current Visit: No Status: Chronic Priority: High Onset Date: 09/24/14 Code(s): I45.81 - LONG QT SYNDROME SNOMED Code(s): 6421455 Comment: - Pacer in place - No dysrhythmias observed. - Telemetry - Avoid QT prolonging agents like anti-nausea or FQs (12) Opioid dependence Current Visit: No Status: Chronic Priority: High Code(s): F11.20 - OPIOID DEPENDENCE, UNCOMPLICATED SNOMED Code(s): 73062734 Comment: back to home tramadol (13) PAD (peripheral artery disease) Current Visit: No Status: Chronic Code(s): I73.9 - PERIPHERAL VASCULAR DISEASE, UNSPECIFIED SNOMED Code(s): 778040285 Comment: - Asymptomatic - s/p endarterectomy - Continue ASA and statin (14) Atrial fibrillation Current Visit: Yes Status: Acute Code(s): I48.91 - UNSPECIFIED ATRIAL FIBRILLATION SNOMED Code(s): 91186388 Comment: Reported Hx Afib, If so CHADSVASC 4 (HTN, CHF, female, vascular disease(PAD/CAD)). On DAPT but not currently on anticoagulation which would be indicated. Investigate telemetry/history to confirm. Status and Disposition: Inpatient. Discharge to home when medically stable [facility] has been arranged as well. Attending: Christian Rojas
[2017-06-07] MEDS ORDERED: Senna/Docusate (NF) TAB PO SCH (16:00)
[2017-06-07] MEDS ORDERED: Docusate CAP* 100 MG PO PRN (17:51)
[2017-06-07] MEDS ORDERED: Senna TAB PO PRN (17:52)
[2017-06-07] MEDS: Atorvastatin* 80 MG TAB PO SCH (20:17)
[2017-06-07] MEDS: traMADol TAB* 50 MG PO PRN (20:17)
[2017-06-07] MEDS: Polyethylene Glycol 3350* 17 GM PACKET PO SCH (20:17)
[2017-06-08] MEDS: traMADol TAB* 50 MG PO PRN (05:09)
[2017-06-08 05:52] LABS: BUN/Creatinine Ratio 31.4 (8-20); Calcium 9.1 mg/dL (8.6-10.3); EGFR African American 33.7 (>60); EGFR Non-African American 26.2 (>60); Magnesium 1.6 mg/dL (1.9-2.7); Potassium 3.6 mmol/L (3.5-5.0)
[2017-06-08] MEDS ORDERED: NS 0.9% 250 ML* 500 ML ONE (07:24)
[2017-06-08] MEDS: DOXYcycline IV* 100 MG in NS 0.9% 250 ML* 250 ML IVPB SCH (07:26)
[2017-06-08] MEDS: Nicotine Inhaler* 10 MG AMP INH PRN (07:26)
[2017-06-08] MEDS: Polyethylene Glycol 3350* 17 GM PACKET PO SCH (07:26)
[2017-06-08] MEDS ORDERED: Magnesium Sulfate 2 GM IV* 2 GM/50 ML BAG IVPB ONE (08:18)
[2017-06-08 08:40] VITALS: BP 142/67
[2017-06-08] MEDS: Metoprolol Tartrate TAB* 50 mg PO SCH (08:49)
[2017-06-08] MEDS: Aspirin EC Low Dose* 81 MG TAB.EC PO SCH (08:49)
[2017-06-08] MEDS: Diltiazem CD CAP* 120 MG PO SCH (08:49)
[2017-06-08] MEDS: Ticagrelor* 90 MG TAB PO SCH (08:49)
[2017-06-08] MEDS: Diltiazem CD CAP* 180 MG PO SCH (08:49)
[2017-06-08] MEDS: Cyanocobalamin TAB* 500 MCG PO SCH (08:49)
[2017-06-08] MEDS: Furosemide TAB* 20 MG PO SCH (08:49)
[2017-06-08] MEDS: Tacrolimus CAP(*) 1 MG PO SCH (08:49)
[2017-06-08] MEDS: Umeclidin 62.5 MDI(NF) 1 INH MDI INH SCH (09:21)
--- NOTE | 2017-06-08 10:58 | PN ---
Subjective Date of Service: 06/08/17 - CC: SOB Interval History: Breathing is improving, following fluid restriction. Still some SOB, not at baseline. ROS: remains constipated and bloated and gassy Medications Active Medications: Acetaminophen (Tylenol Tab*) 650 mg PO Q4H PRN PRN Reason: FEVER/PAIN Last Admin: 06/07/17 07:44 Dose: 650 mg Albuterol (Ventolin 2.5 Mg/3 Ml Neb.Monique*) 2.5 mg INH Q2H PRN PRN Reason: SOB/WHEEZING Aspirin (Aspirin Ec Low Dose*) 81 mg PO DAILY [facility] Last Admin: 06/08/17 08:49 Dose: 81 mg Atorvastatin Calcium (Lipitor*) 80 mg PO BEDTIME [facility] Last Admin: 06/07/17 20:17 Dose: 80 mg Cyanocobalamin (Vitamin B12 Tab*) 1,000 mcg PO DAILY [facility] Last Admin: 06/08/17 08:49 Dose: 1,000 mcg Diltiazem HCl (Cardizem Cd Cap*) 180 mg PO DAILY [facility] Last Admin: 06/08/17 08:49 Dose: 180 mg Diltiazem HCl (Cardizem Cd Cap*) 120 mg PO DAILY [facility] Last Admin: 06/08/17 08:49 Dose: 120 mg Docusate Sodium (Colace Cap*) 100 mg PO BID PRN PRN Reason: CONSTIPATION Furosemide (Lasix Tab*) 20 mg PO DAILY [facility] Last Admin: 06/08/17 08:49 Dose: 20 mg Doxycycline Hyclate 100 mg/ (Sodium Chloride) 250 mls @ 250 mls/hr IVPB Q12H [facility] Last Admin: 06/08/17 07:26 Dose: 250 mls/hr Metoprolol Tartrate (Lopressor Tab*) 50 mg PO BID [facility] Last Admin: 06/08/17 08:49 Dose: 50 mg Nicotine (Nicotine Inhaler*) 10 mg INH Q2H PRN PRN Reason: CRAVING Last Admin: 06/08/17 07:26 Dose: 10 mg Polyethylene Glycol/Electrolytes (Miralax*) 17 gm PO 0800,2100 [facility] Last Admin: 06/08/17 07:26 Dose: 17 gm Senna (Senokot Tab*) 1 tab PO DAILY PRN PRN Reason: CONSTIPATION Tacrolimus (Prograf Cap(*)) 1 mg PO BID [facility] Last Admin: 06/08/17 08:49 Dose: 1 mg Ticagrelor (Brilinta*) 90 mg PO BID [facility] Last Admin: 06/08/17 08:49 Dose: 90 mg Tramadol HCl (Ultram*) 50 mg PO Q6HR PRN PRN Reason: PAIN Last Admin: 06/08/17 05:09 Dose: 50 mg Umeclidinium [place] (Incruse Ellipta Mdi (Nf)) 1 inh INH DAILY [facility] Last Admin: 06/08/17 09:21 Dose: Not Given Objective Vital Signs: Temp Pulse Resp BP Pulse Ox 97.4 F 59 14 142/67 99 06/08/17 07:49 06/08/17 07:49 06/08/17 08:20 06/08/17 07:49 06/08/17 07:49 Oxygen Devices in Use Now: Nasal Cannula Appearance: petite woman, appears somewhat older than stated age, at 60 degrees comfortable. Eyes: PERRLA Ears/Nose/Mouth/Throat: Mucous Membranes Moist Neck: Trachea Midline Respiratory: Symmetrical Chest Expansion and Respiratory Effort - mild decrease in breathsounds in bases bilaterally. Cardiovascular: RRR - pansystolic low pitched murers heard LLSB and apex. Abdominal: - - distended, active bowel sounds, suspect hepatomegally but liver is not pulsitile. Non tender. Laboratory Results: 06/07/17 05:20 06/08/17 04:50 INR (Anticoag Therapy) 0.91 (0.89-1.11) 06/05/17 08:17 APTT 31.3 seconds (26.0-36.3) 06/05/17 08:17 Total Bilirubin 0.70 mg/dL (0.2-1.0) 06/05/17 08:17 AST 32 U/L (13-39) 06/05/17 08:17 ALT 14 U/L (7-52) 06/05/17 08:17 Alkaline Phosphatase 85 U/L (34-104) 06/05/17 08:17 B-Natriuretic Peptide 1328 pg/mL (-100) H 06/05/17 08:17 Total Protein 8.3 g/dL (6.4-8.9) 06/05/17 08:17 Albumin 4.3 g/dL (3.2-5.2) 06/05/17 08:17 Globulin 4.0 g/dL (2-4) 06/05/17 08:17 Albumin/Globulin Ratio 1.1 (1-3) 06/05/17 08:17 Diagnostic Imaging: ECHO 06/05/17: EF 55%, mod MR, mod-severe TR. EKG Data: ECG 06/05/17: QTc 570 ms Monitor: NSR. Assessment/Plan 61 yo female admitted with CHF, preserved LV systolic function with MR and TR. Hx LQTS (w/ICD), CAD, IWMI and stent March 2017, PAF, valvular heart disease, liver transplant, PVD with claudication improving with diuresis. Additional comorbidities include HTN, being treated for pneumonia. Points of Discussion: CHF: Continue lasix and fluid restriction. LQTS: Continue beta zoie and ICD and avoidance of meds that further prolong QT interval. HTN: Adequate control on BB, CCB, diuretics CAD/PVD Continue Lipator/ASA/Brillinta in addition to smoking cessation, HTN control. Complex patient.
[2017-06-08] MEDS ORDERED: Furosemide TAB* 40 MG PO SCH (13:00)
--- NOTE | 2017-06-09 05:24 | DS ---
DISCHARGE SUMMARY: DATE OF ADMISSION: 06/05/17 DATE OF DISCHARGE: 06/08/17 ADMITTING PROVIDER: Dylan Minor NP PRIMARY CARE PROVIDER: Dr. Koo. CHIEF COMPLAINT: Progressive shortness of breath, chest tightness. PRINCIPAL DIAGNOSIS: Diastolic congestive heart failure in the setting of hypertensive urgency. SECONDARY DIAGNOSES: Include: 1. Hypertension. 2. Hepatitic C. 3. Peripheral artery disease. 4. Coronary artery disease. 5. Cardiac arrest, status post pacemaker. 6. Congenital prolonged QT syndrome. 7. Liver transplant, on immunosuppression therapy. 8. Osteoporosis. 9. Neuropathy. 10. Chronic obstructive pulmonary disease. 11. Chronic opioid use. 12. Depression. HISTORY OF PRESENT ILLNESS AND HOSPITAL COURSE: Ms. Coombs is a 61-year-old female with multiple medical problems, who presented with a day and a half of progressive shortness of breath, worse with lying flat, improved with a pillow to sleep on. Of note, she had had very high blood pressures in the outpatient setting to the 190s and Dr. Koo recently increased her diltiazem extended release to total of 300 mg in the ED here. She had been again quite hypertensive to the 190s. She denied fevers, chills, but had a runny nose and congestion a week prior. She recently had a STEMI with a bare-metal stent to the RCA. Chest x-ray in the ED was considering for vascular congestion, CHF, and her BNP was elevated to the 1328. Troponins were trended and flat at 0.06, 0.06, 0.05. The patient's home antihypertensives were initiated in addition to Lasix 40 mg IV b.i.d. in the ED. These were then scaled back on hospital day # 2. Her creatinine had bumped likely secondary to hypertensive urgency and CHF. It is difficult to assess her true baseline given quite labile creatinines over the last 6 months especially, but initial creatinine on admission had been 1.23, rising to 1.8, then 2.05 on hospital day #3. This started to decline at 1.94 on day of discharge. The patient was noted to be ingesting large amounts of fluid (3.3 L) on hospital day #3, at which point this provider instituted fluid restrictions. Lasix was then also increased back up to 40 mg IV that afternoon. The patient's weight dropped 2 kg by the next day and her shortness of breath markedly improved. In addition, the abdominal bloating sensation that she had been experiencing had resolved. Her pacemaker was interrogated, but no setting changes were made. She plans to establish care with a new church supervisor at the [facility], as it is within walking distance of her temporary fpc at the [facility], where she has been staying recently. She had a case fitter at [facility] and they had put an application for more permanent housing solution at [facility], but that disposition is still pending. The patient was discharged on Lasix 40 mg daily and will need close followup with both Dr. Koo and her new church supervisor, Dr. Rizzo. She had a CT angiogram on admission, which was negative for pulmonary embolism (may have been a contributing factor given the dye load to her acute kidney injury), but it shows scattered patchy infiltrates suggestive of pneumonia and based on this finding, she was started on a 5-day course of doxycycline, the last 2 days of which will be completed as an outpatient. She did have negative legionella and Strep pneumo urinary antigens. Doxy was chosen because of her congenital prolonged QT syndrome, of note, approximately 650 microseconds on admission EKG. Her weight on admission was documented as 47.6 kg rising up to 49.4 kg by 06/07/17 and then decreasing to 47.7 kg. Her physical exam on the day prior to admission was notable for JVD up to tragus of ear, which had markedly improved by the day of discharge. No significant peripheral edema in the legs, but suspicion for abdominal bloating secondary to retained fluid on day prior to admission. MEDICATIONS UPON DISCHARGE: Include: 1. Diltiazem 300 mg extended release daily. 2. Furosemide 40 mg daily. 3. Metoprolol tartrate 50 mg b.i.d. 4. Nitroglycerin tab p.r.n. 5. Tacrolimus 1 mg p.o. b.i.d. 6. Brilinta 90 mg p.o. b.i.d. 7. Incruse Ellipta inhaler daily. 8. Tramadol 50 mg q.6 p.r.n. 9. Vitamin B12 tablets 1000 mcg p.o. daily. 10. Lipitor 80 mg p.o. bedtime. 11. Aspirin 81 mg daily. 12. Tylenol 650 mg p.o. q.4 p.r.n. New medications include: 1. Doxycycline 100 mg p.o. b.i.d. for 2 additional days. 2. Docusate 100 mg p.o. b.i.d. 3. MiraLAX 17 g p.o. b.i.d. 4. Senokot tabs, 1 tab p.o. daily. DISPOSITION: Home ([facility]). DIET: Heart healthy, unchanged. FOLLOW-UP/CC: Dr. Koo and her new church supervisor, Dr. Rizzo [id number]/[facility] #: [id number] MTDD
== END 2017-06-08 13:27 | disposition home or self-care (01) | DRG 304 ==
LOC: ED 07:57 → MEDTELE 09:40 → OBSVTOIN 06-06 14:17
PROVIDERS: ADMIT Internal Medicine; ATTEND Internal Medicine
PROC: 3E0234Z Introduction of Serum, Toxoid and Vaccine into Muscle, Percutaneous Approach (ICD-10-PCS; principal; 2017-06-06)
DX: I16.0 Hypertensive urgency (principal); J18.9 Pneumonia, unspecified organism; I50.33 Acute on chronic diastolic (congestive) heart failure; Z94.4 Liver transplant status; Z86.74 Personal history of sudden cardiac arrest; I45.81 Long QT syndrome; I48.0 Paroxysmal atrial fibrillation; F11.20 Opioid dependence, uncomplicated; G62.9 Polyneuropathy, unspecified; I73.9 Peripheral vascular disease, unspecified; F32.9 Major depressive disorder, single episode, unspecified; J44.9 Chronic obstructive pulmonary disease, unspecified; I25.10 Atherosclerotic heart disease of native coronary artery without angina pectoris; M19.90 Unspecified osteoarthritis, unspecified site; G89.29 Other chronic pain; F41.9 Anxiety disorder, unspecified; Z82.49 Family history of ischemic heart disease and other diseases of the circulatory system; M54.9 Dorsalgia, unspecified; M81.0 Age-related osteoporosis without current pathological fracture; F17.210 Nicotine dependence, cigarettes, uncomplicated; I08.1 Rheumatic disorders of both mitral and tricuspid valves; R14.0 Abdominal distension (gaseous); Z79.82 Long term (current) use of aspirin; Z79.02 Long term (current) use of antithrombotics/antiplatelets; I25.2 Old myocardial infarction; Z88.8 Allergy status to other drugs, medicaments and biological substances; Z95.810 Presence of automatic (implantable) cardiac defibrillator; Z95.5 Presence of coronary angioplasty implant and graft; Z86.19 Personal history of other infectious and parasitic diseases; Z23 Encounter for immunization
CPT/HCPCS: 36415; 71010; 71275; 80048; 80053; 81003; 81015; 83735; 83880; 84484; 85025; 85379; 85610; 85730; 87899; 90686; 93005; 93306; 94640; A9270-GY; G0378; J1940; J2270; J2930; J3475; J7507; Q9967

== ENCOUNTER 2017-06-20 20:33 | Inpatient (IN) | payer MEDICARE, MEDICAID ==
[2017-06-20] MEDS ORDERED: Levalbuterol 1.25MG/0.5ML NEB INH ONE (20:39)
[2017-06-20] MEDS ORDERED: Diltiazem IV* 5 MG/ML 5 ML VIAL (for loading dose/IV Push) (25 MG) IV SLOW PU ONE (20:42)
[2017-06-20] MEDS ORDERED: Diltiazem IV VIAL* 125 MG in D5W 100 ML BAG* 100 ML IV ONE (20:43)
[2017-06-20] MEDS ORDERED: Morphine INJ* 4 MG/ML 1 ML CARPUJECT IV ONE (20:44)
[2017-06-20] MEDS ORDERED: Ondansetron INJ* 2 MG/ML VIAL IV ONE (20:44)
[2017-06-20] MEDS ORDERED: NS 0.9% 1000 ML* 1,000 ML IV SCH (20:45)
[2017-06-20] MEDS ORDERED: Diltiazem IV VIAL* 125 MG/25 ML VIAL ONE (21:00)
[2017-06-20] MEDS ORDERED: Diltiazem DRIP* 100 MG/100 ML ADDV.BAG IVPB ONE (21:01)
[2017-06-20 21:07] LABS: Hematocrit 33 % (35-47); Hemoglobin 10.9 g/dl (12.0-16.0); Mean Corpuscular HGB Conc 33 g/dl (31-36); Mean Corpuscular Hemoglobin 31 pg (27-31); Mean Corpuscular Volume 95 fL (80-97); Mean Platelet Volume 8 um3 (7.4-10.4); Red Blood Count 3.49 10^6/ul (4.0-5.4); Red Cell Distribution Width 15 % (10.5-15); White Blood Count 8.1 10^3/ul (3.5-10.8)
--- NOTE | 2017-06-20 21:20 | RAD ---
HISTORY: Shortness of breath COMPARISONS: June 05, 2017 VIEWS: 1: frontal portable view of the chest at 9:04 PM FINDINGS: LINES AND TUBES: There is right-sided pacemaker CARDIOMEDIASTINAL SILHOUETTE: The cardiomediastinal silhouette is normal for portable technique. PLEURA: The costophrenic angles are sharp. No pleural abnormalities are noted. LUNG PARENCHYMA: There is hyperinflation. There is patchy alveolar opacification of the left lung base and to a lesser extent of the right lung base ABDOMEN: The upper abdomen is clear. There is no subphrenic gas. BONES AND SOFT TISSUES: No bone or soft tissue abnormalities are noted. IMPRESSION: 1. COPD. 2. LEFT GREATER THAN RIGHT BIBASILAR ATELECTASIS VERSUS CONSOLIDATION. RECOMMEND FOLLOW-UP UNTIL RESOLUTION TO EXCLUDE UNDERLYING PULMONARY PARENCHYMAL PATHOLOGY.
[2017-06-20 21:23] LABS: Albumin 3.9 g/dL (3.2-5.2); C Reactive Protein 9.36 mg/L (< 5.00); Calcium 9.7 mg/dL (8.6-10.3); EGFR African American 58.7 (>60); EGFR Non-African American 45.7 (>60); Globulin 4.4 g/dL (2-4); Magnesium 2.1 mg/dL (1.9-2.7); Potassium 3.8 mmol/L (3.5-5.0); Total Bilirubin 0.5 mg/dL (0.2-1.0); Total Protein 8.3 g/dL (6.4-8.9)
[2017-06-20 21:29] LABS: Troponin I 0.05 ng/mL (<0.04)
[2017-06-20 21:50] LABS: TSH (Thyroid Stimulating Horm) 3.77 mcIU/mL (0.34-5.60)
[2017-06-20] MEDS ORDERED: Acetaminophen TAB* 325 MG PO PRN (22:02)
[2017-06-20] MEDS ORDERED: Docusate CAP* 100 MG PO PRN (22:02)
[2017-06-20] MEDS ORDERED: Nicotine Inhaler* 10 MG AMP INH PRN (22:02)
[2017-06-20] MEDS ORDERED: Senna TAB PO PRN (22:02)
[2017-06-20] MEDS ORDERED: Mouth Piece, Nicotine* 1 EACH CARTRIDGE INH SCH (22:24)
[2017-06-20] MEDS ORDERED: Iodixanol* (CONTRAST) 320 MG/ML 100 ML SDV IV ONE (22:50)
[2017-06-20] MEDS: traMADol TAB* 50 MG PO PRN (23:36)
[2017-06-20] MEDS: Metoprolol Tartrate TAB* 50 mg PO SCH (23:37)
[2017-06-20] MEDS: Tacrolimus CAP(*) 1 MG PO SCH (23:39)
--- NOTE | 2017-06-21 01:19 | HP ---
CC: Dr. Koo; Dr. Rizzo * HISTORY AND PHYSICAL: DATE OF ADMISSION: 06/20/17 PRIMARY CARE PROVIDER: Dr. Koo. MEDICAL INSTRUMENT TECHNICIAN: Dr. Rizzo. CHIEF COMPLAINT: Shortness of breath and heart palpitations. HISTORY OF PRESENT ILLNESS: Maria Coombs is a 61-year-old female with history of liver transplant over 20 years ago, who also has history of non- oxygen-dependent COPD and long QT syndrome, status post ICD placement, who presented to the hospital complaining of palpitations and shortness of breath. The patient stated that she was discharged from the hospital on 06/08/17 when she was admitted for congestive heart failure and her cardiac medications were adjusted. She stated that she did pretty well until today when she developed a dry cough and with the cough she felt that all of a sudden, she developed palpitations and then it continued to progress with worse palpitations and worse shortness of breath at that point. When she came into the emergency department, she was in acute respiratory failure with a heart rate in the 160s with atrial flutter. The patient cardioverted shortly after a dose of Cardizem 20 mg IV was administered as well as dose of morphine and Zofran by the ED provider. By the time I am seeing her in the ED room, she is comfortable, although still on Vapotherm, in sinus rhythm with a heart rate in the 80s. She is going to be admitted to the intensive care unit with a diagnosis of acute respiratory failure and atrial fibrillation with rapid ventricular response. PAST MEDICAL HISTORY: 1. History of hypertension. 2. History of hepatitis C. 3. History of peripheral arterial disease. The patient had left lower extremity endarterectomy in the past. 4. History of chronic lower back pain. 5. Depression. 6. History of paroxysmal ventricular tachycardia as a consequence of long QT syndrome. The patient is status post ICD placement. 7. History of atrial fibrillation. 8. History of coronary artery disease. 9. History of COPD, not oxygen dependent. 10. History of neuropathy. 11. History of OR. 12. History of osteoporosis. 13. History of liver transplant 21 years ago. ALLERGIES: Include PROMETHAZINE and PROCAINE. MEDICATIONS: Are unchanged from her discharge on 06/08/17 and include: 1. Diltiazem CD 300 mg daily. 2. Furosemide 40 mg daily. 3. Metoprolol tartrate 50 mg b.i.d. 4. Nitroglycerin tablet on a p.r.n. basis. 5. Prograf 1 mg b.i.d. 6. Brilinta 90 mg b.i.d. 7. Incruse Ellipta inhalation daily. 8. Tramadol 50 mg every 6 hours p.r.n. 9. Vitamin B12 1000 mcg daily. 10. Lipitor 80 mg daily. 11. Aspirin 81 mg daily. 12. Tylenol on a p.r.n. basis. The patient also is going to be continued on her laxatives and stool softeners and this includes Colace, MiraLAX, and Senokot. The patient finished her doxycycline treatment on 06/10/17. FAMILY HISTORY: Positive for heart disease in both mother and father. SOCIAL HISTORY: The patient smokes "less than a pack a day." She started smoking when she was a teenager. She does not drink any alcohol, but she used to be an alcoholic. She quit drinking 25 years ago. Her surrogate decision maker is her son, Ever Coombs. REVIEW OF SYSTEMS: Please see history of present illness. The patient has stated that she had been in her usual state of health until today when she started having dry cough. The patient denies any chest pain. She stated that her exercise tolerance had been reasonable for the past several days after her admission a week and a half ago. She does not use oxygen at home. She denies cough with purulent sputum production. She has not had any recent fevers and has not been feeling ill. She has had no problems with gastrointestinal issues. No diarrhea, no abdominal pain, no nausea or vomiting. All the remaining 14 systems were reviewed with the patient and were otherwise negative. PHYSICAL EXAMINATION VITAL SIGNS: Blood pressure of 167/66, heart rate of 82 and regular, respiratory rate of 22, oxygen saturation 100% on Vapotherm at 35 L and 100% oxygen. GENERAL: The patient is a very pleasant 61-year-old female who is in no acute distress. Alert, awake, and oriented x3. HEENT: Head atraumatic, normocephalic. Eyes: Pupils are equal and reactive to light and accommodation. Oropharynx is clear. Mucosa moist. NECK: Supple, no JVD, no bruits bilaterally. RESPIRATORY: Coarse crackles heard at bilateral bases, otherwise clear. CARDIOVASCULAR: Regular rate and rhythm. No murmurs. ABDOMEN: Soft, nontender. Bowel sounds present in all 4 quadrants. EXTREMITIES: There is no edema. Pulses are +1 bilaterally. There is no clubbing or cyanosis. SKIN: On evaluation of the skin, no ecchymotic areas or rashes noted. NEURO EVALUATION: Speech is clear. Cranial nerves II through XII are grossly intact. Motor strength is 5/5 bilaterally. PSYCHIATRIC EVALUATION: Alert and oriented x3, pleasant, cooperative with evaluation, with no evidence of anxiety or depression. DIAGNOSTIC STUDIES/LABORATORY DATA: Laboratory data showed troponin of 0.05, which is consistent with patient's prior. Sodium of 137, potassium of 3.8, chloride 103, carbon dioxide 27, BUN 18, creatinine 1.2, which is consistent with prior. Liver function tests unremarkable. C-reactive protein of 9.3. Brain natriuretic peptide was 533. TSH was 3.7. CBC: White blood cell count of 8.1, hemoglobin of 10.9, hematocrit of 33, and platelets of 278. Portable chest x-ray was reviewed by the radiologist with impression: "COPD. Left greater than right bibasilar atelectasis with consolidation. Recommend followup until resolution to exclude underlying pulmonary parenchymal pathology. " The patient's first EKG showed atrial fibrillation with rapid ventricular response with heart rate at [address] depressions in lateral leads. After 20 mg of Cardizem, the patient converted to sinus rhythm with an EKG showing normal sinus rhythm with a heart rate of 78 beats per minute with negative T waves in leads II, III, and aVF as well as V4 and V6. The patient's ST changes are chronic and comparable with prior EKG obtained earlier this month. ASSESSMENT AND PLAN: 1. Acute respiratory failure. At this point, I suspect that the patient had an attack of nonproductive dry cough, which caused her to get in atrial fibrillation with rapid ventricular response and subsequently caused the development of acute respiratory failure. That state is resolving after the patient received a bolus of IV Cardizem and a dose of morphine. At this point, the patient is back in sinus rhythm. She is going to be supported with Vapotherm and observed in the intensive care unit. At this point, I do not believe, she will require any further rate controlling agents. She is on the Cardizem at home, which I will be continuing in the morning. I will also treat her with a dose of beta zoie for tonight that she is scheduled for. 2. In regards to atrial fibrillation with rapid ventricular response and anticoagulation. The patient has a history of AFib in the past, but she is right now not anticoagulated. Her episode was clearly defined and happened for a couple of hours until she converted to sinus rhythm in the ED. I will ask her for ICD interrogation to evaluate it further. 3. In regards to patient's troponin elevation, this is chronic consistent with prior. The patient had no complaints of chest pain. I will check another troponin in the morning. The patient did have history of ST elevation OR in March 2017 where she received a bare metal stent to the RCA. 4. In regards to the patient's dyslipidemia, I will continue her statin and check lipid profile in the morning. 5. The patient's chronic kidney disease is stage 3 and consistent with prior. In fact, creatinine had improved slightly. 6. In regards to patient's combined, but mostly diastolic chronic CHF. The patient's EF was documented at 55% during her last hospital stay at the beginning of the month. At this point, I will continue her Lasix in the morning and check patient's daily weights. It is plausible that the patient may have been over- diuresed recently although currently, she appears euvolemic. Therefore, I will continue her Lasix in the morning. 7. For patient's liver transplant, continue patient's Prograf. 8. In regards to smoking, the patient was counseled to quit. She is going to be placed on nicotine inhaler. 9. In regards to DVT prophylaxis, the patient is going to be placed on heparin subcutaneously. 10. The patient's code status is full and her surrogate is her son. TIME SPENT: Approximately 72 minutes was spent on admission of this patient, more than half that time was spent [id number] with the patient during the interview and physical exam. [id number]/[facility] #: [id number] DOROTHY
[2017-06-21] MEDS ORDERED: Zosyn per Pharmacy* NOTE FOLLOW UP SCH (05:00)
[2017-06-21] MEDS ORDERED: Morphine INJ* 4 MG/ML 1 ML CARPUJECT ONE ×2 (05:14→06:13)
[2017-06-21 05:47] LABS: Urine Bacteria Absent (Absent); Urine Bilirubin Negative (Negative); Urine Glucose Negative (Negative); Urine Nitrite Negative (Negative)
[2017-06-21] MEDS ORDERED: Furosemide IV* 10 MG/ML VIAL (40 MG) IV ONE (06:08)
[2017-06-21] MEDS ORDERED: Nitroglycerin 2% OINT* 1 GM PAK TOPICAL ONE (06:08)
[2017-06-21] MEDS ORDERED: Furosemide IV* 10 MG/ML VIAL (40 MG) ONE (06:09)
[2017-06-21] MEDS ORDERED: Morphine INJ* 2 MG/ML 1 ML CARPUJECT IV ONE (06:10)
[2017-06-21] MEDS ORDERED: Morphine INJ* 4 MG/ML 1 ML CARPUJECT IV ONE (06:10)
[2017-06-21] MEDS ORDERED: Nitroglycerin 2% OINT* 1 GM PAK ONE (06:16)
[2017-06-21] MEDS: Heparin VIAL(*) 5000 UNITS/ML VIAL (FIVE THOUSAND) SUBCUT SCH ×3 (06:19→21:47)
--- NOTE | 2017-06-21 06:27 | PN ---
Progress Note - Progress Note Date of Service: 06/21/17 Note: CTA showed b/l infiltrates. Despite that CRP is relatively low and suspect CHF more. Pt received IVF from ED and by 6 AM developed resp rales b/l , increased WOB and SBP in 200's. Lasix/Nitro Morphine give. Still increased RR on Vapotherm. Will start BIPAP and check ABG.
[2017-06-21 06:31] LABS: Hematocrit 31 % (35-47); Hemoglobin 10.2 g/dl (12.0-16.0); Mean Corpuscular HGB Conc 33 g/dl (31-36); Mean Corpuscular Hemoglobin 31 pg (27-31); Mean Corpuscular Volume 94 fL (80-97); Mean Platelet Volume 9 um3 (7.4-10.4); Red Blood Count 3.32 10^6/ul (4.0-5.4); Red Cell Distribution Width 15 % (10.5-15); White Blood Count 8.2 10^3/ul (3.5-10.8)
[2017-06-21 06:43] LABS: BUN/Creatinine Ratio 14.8 (8-20); Calcium 8.6 mg/dL (8.6-10.3); EGFR African American 61.7 (>60); HDL Cholesterol 51.4 mg/dL; Magnesium 1.9 mg/dL (1.9-2.7); Potassium 4.2 mmol/L (3.5-5.0)
[2017-06-21 06:49] LABS: EPAP 6; FIO2 100; IPAP 12; Resp Rate 12
[2017-06-21 06:53] LABS: PCO2 Arterial 45 mmHg (35-45)
--- NOTE | 2017-06-21 07:07 | ED ---
Richard Yates Benjamin, scribed for Joce Tavares MD on 06/20/17 at 2058 . Shortness of Breath - HPI Summary HPI Summary: 61yo female BIBA for sudden SOB and CP. Pt was dxed last week with PNA and fluid in her lungs. Pt uses an inhaler at home. LEVEL 5 CAVEAT due to respiratory distress. - History of Current Complaint Chief Complaint: EDShortnessOfBreath Time Seen by Provider: 06/20/17 20:36 Hx From Patient Unobtainable Due To: Extremis - LEVEL 5 CAVEAT due to distress. Onset/Duration: Sudden Onset Current Severity: Severe Dyspnea At: Rest - Allergy/Home Medications Allergies/Adverse Reactions: Allergies Allergy/AdvReac Type Severity Reaction Status Date / Time Promethazine [From Phenergan] Allergy Severe Unknown Verified 03/23/17 12:48 Reaction Details Procaine [From Novocain] Allergy See Comment Verified 03/23/17 12:48 PMH/Surg Hx/FS Hx/Imm Hx Endocrine/Hematology History: Reports: Hx Anemia Denies: Hx Anticoagulant Therapy, Hx Blood Transfusions, Hx Diabetes Cardiovascular History: Reports: Hx Angina, Hx Auto Implanted Cardiovert Defib, Hx Cardiac Arrest - 2013 X2 Aug/Sep, Hx Coronary Artery Disease, Hx Hypertension , Hx Myocardial Infarction - 03/2017 - stent placed - on Brilinta, Hx Pacemaker/ ICD, Hx Peripheral Vascular Disease - pending bypass, Hx Syncope - 2016, Other Cardiovascular Problems/Disorders - cardiac arrest following phenergan long QT syndrome; Percarditis-10/2014 Denies: Hx Congestive Heart Failure, Hx Hypercholesterolemia Respiratory History: Reports: Hx Chronic Bronchitis, Hx Pneumonia, Other Respiratory Problems/Disorders - PNA Denies: Hx Asthma, Hx Pulmonary Embolism, Hx Seasonal Allergies, Hx Sleep Apnea GI History: Reports: Hx Gall Bladder Disease, Other GI Disorders - 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 Denies: Hx Crohn's Disease, Hx Diverticulosis, Hx Gastroesophageal Reflux Disease, Hx Jaundice History: Reports: Hx Acute Renal Failure - admission in 03/2017 Denies: Hx Dialysis, Hx Renal Disease Musculoskeletal History: Reports: Hx Arthritis - chronic - pending pain management appt, Hx Back Problems - chronic, Other Musculoskeletal History - osteo-arthritis Denies: Hx Rheumatoid Arthritis - osteoarthritis Sensory History: Reports: Hx Contacts or Glasses - reading glasses Denies: Hx Hearing Aid Opthamlomology History: Reports: Hx Contacts or Glasses - reading glasses Neurological History: Denies: Hx Dementia, Hx Seizures Psychiatric History: Reports: Hx Anxiety, Hx Depression, Hx Inpatient Treatment , Hx Substance Abuse Denies: Hx Suicide Attempt - suicidal ideation, hospitalization - Surgical History Surgery Procedure, Year, and Place: Pacer December 1996, Liver transplant February 1996 , peripheral artery disease surgery in groin 2011, arthoscopic of left knee, Pacemaker Hx Anesthesia Reactions: No - Immunization History Date of Tetanus Vaccine: pt states she doesnt know Date of Influenza Vaccine: none Infectious Disease History: No Infectious Disease History: Reports: Hx Hepatitis - C - s/p liver transplant - no Hep C currently Denies: Hx Clostridium Difficile, Hx Human Immunodeficiency Virus (HIV), Hx of Known/Suspected MRSA, Hx Shingles, Hx Tuberculosis, Hx Known/Suspected VRE, Hx Known/Suspected VRSA, History Other Infectious Disease, Traveled Outside the [place] in Last 30 Days - Family History Known Family History: Positive: Cardiac Disease, Hypertension Family History: Denies FHx breast cancer - Social History Occupation: Unemployed Lives: With Family Alcohol Use: None Hx Substance Use: No Substance Use Type: Reports: None Hx Tobacco Use: Yes Smoking Status (MU): Former Smoker Type: Cigarettes Amount Used/How Often: 2-3 cig./day Review of Systems - ROS Summary Review of Systems Summary: LEVEL 5 CAVEAT due to respiratory distress. Positive: Chest Pain Positive: Shortness Of Breath All Other Systems Reviewed And Are Negative: No Physical Exam Triage Information Reviewed: Yes Vital Signs On Initial Exam: Initial Vitals Pulse Resp Pulse Ox 153 39 100 06/20/17 20:39 06/20/17 20:39 06/20/17 20:39 Vital Signs Reviewed: Yes Completion Of Physical Exam Limited Due To: Level 5 - LEVEL 5 CAVEAT due to respiratory distress. Appearance: Positive: Well-Appearing, Well-Nourished, Pain Distress - Moderate to severe respiratory distress. Skin: Positive: Warm, Skin Color Reflects Adequate Perfusion, Dry Head/Face: Positive: Normal Head/Face Inspection Eyes: Positive: EOMI, ROHINI ENT: Positive: Normal ENT inspection, Hearing grossly normal Neck: Positive: Supple, Nontender Respiratory/Lung Sounds: Positive: Breath Sounds Present, Rhonchi - bilateral Cardiovascular: Positive: Pulses are Symmetrical in both Upper and Lower Extremities, Tachycardia. Negative: Leg Edema Left, Leg Edema Right Abdomen Description: Positive: Nontender, Soft Bowel Sounds: Positive: Present Musculoskeletal: Positive: Strength/ROM Intact. Negative: Edema Left, Edema Right Neurological: Positive: Sensory/Motor Intact, Alert, Oriented to Person Place, Time Psychiatric: Positive: Affect/Mood Appropriate Diagnostics - Vital Signs Vital Signs Temp Pulse Resp BP Pulse Ox 06/20/17 20:42 96.7 F 166 42 167/66 98 06/20/17 20:39 153 39 100 - Laboratory Lab Results: Lab Results 06/20/17 06/20/17 06/20/17 Range/Units 19:57 19:57 19:57 WBC (3.5-10.8) 10^3/ul RBC (4.0-5.4) 10^6/ul Hgb (12.0-16.0) g/dl Hct (35-47) % MCV (80-97) fL MCH (27-31) pg MCHC (31-36) g/dl RDW (10.5-15) % Plt Count (150-450) 10^3/ul MPV (7.4-10.4) um3 Neut % (Auto) (38-83) % Lymph % (Auto) (25-47) % Gentry % (Auto) (1-9) % Eos % (Auto) (0-6) % Baso % (Auto) (0-2) % Absolute Neuts (auto) (1.5-7.7) 10^3/ul Absolute Lymphs (auto) (1.0-4.8) 10^3/ul Absolute Monos (auto) (0-0.8) 10^3/ul Absolute Eos (auto) (0-0.6) 10^3/ul Absolute Basos (auto) (0-0.2) 10^3/ul Absolute Nucleated RBC 10^3/ul Nucleated RBC % INR (Anticoag Therapy) 0.88 L (0.89-1.11) APTT 31.5 (26.0-36.3) seconds D-Dimer, Quantitative 931 H (Less Than 230) ng/mL Sodium 137 (133-145) mmol/L Potassium 3.8 (3.5-5.0) mmol/L Chloride 103 (101-111) mmol/L Carbon Dioxide 27 (22-32) mmol/L Anion Gap 7 (2-11) mmol/L BUN 18 (6-24) mg/dL Creatinine 1.20 H (0.51-0.95) mg/dL Est GFR ( Amer) 58.7 (>60) Est GFR (Non-Af Amer) 45.7 (>60) BUN/Creatinine Ratio 15.0 (8-20) Glucose 127 H (70-100) mg/dL Lactic Acid (0.5-2.0) mmol/L Calcium 9.7 (8.6-10.3) mg/dL Magnesium 2.1 (1.9-2.7) mg/dL Total Bilirubin 0.50 (0.2-1.0) mg/dL AST 29 (13-39) U/L ALT 19 (7-52) U/L Alkaline Phosphatase 93 (34-104) U/L Total Creatine Kinase 103 (10-223) U/L CK-MB (CK-2) 4.5 (0.6-6.3) ng/mL Troponin I 0.05 H* (<0.04) ng/mL C-Reactive Protein 9.36 H (< 5.00) mg/L B-Natriuretic Peptide 533 H ( - 100) pg/mL Total Protein 8.3 (6.4-8.9) g/dL Albumin 3.9 (3.2-5.2) g/dL Globulin 4.4 H (2-4) g/dL Albumin/Globulin Ratio 0.9 L (1-3) Lipase 32 (11.0-82.0) U/L TSH 3.77 (0.34-5.60) mcIU/mL 06/20/17 06/20/17 Range/Units 19:57 19:57 WBC 8.1 (3.5-10.8) 10^3/ul RBC 3.49 L (4.0-5.4) 10^6/ul Hgb 10.9 L (12.0-16.0) g/dl Hct 33 L (35-47) % MCV 95 (80-97) fL MCH 31 (27-31) pg MCHC 33 (31-36) g/dl RDW 15 (10.5-15) % Plt Count 278 (150-450) 10^3/ul MPV 8 (7.4-10.4) um3 Neut % (Auto) 58.5 (38-83) % Lymph % (Auto) 22.9 L (25-47) % Gentry % (Auto) 6.4 (1-9) % Eos % (Auto) 10.9 H (0-6) % Baso % (Auto) 1.3 (0-2) % Absolute Neuts (auto) 4.7 (1.5-7.7) 10^3/ul Absolute Lymphs (auto) 1.9 (1.0-4.8) 10^3/ul Absolute Monos (auto) 0.5 (0-0.8) 10^3/ul Absolute Eos (auto) 0.9 H (0-0.6) 10^3/ul Absolute Basos (auto) 0.1 (0-0.2) 10^3/ul Absolute Nucleated RBC 0 10^3/ul Nucleated RBC % 0 INR (Anticoag Therapy) (0.89-1.11) APTT (26.0-36.3) seconds D-Dimer, Quantitative (Less Than 230) ng/mL Sodium (133-145) mmol/L Potassium (3.5-5.0) mmol/L Chloride (101-111) mmol/L Carbon Dioxide (22-32) mmol/L Anion Gap (2-11) mmol/L BUN (6-24) mg/dL Creatinine (0.51-0.95) mg/dL Est GFR ( Amer) (>60) Est GFR (Non-Af Amer) (>60) BUN/Creatinine Ratio (8-20) Glucose (70-100) mg/dL Lactic Acid 1.5 (0.5-2.0) mmol/L Calcium (8.6-10.3) mg/dL Magnesium (1.9-2.7) mg/dL Total Bilirubin (0.2-1.0) mg/dL AST (13-39) U/L ALT (7-52) U/L Alkaline Phosphatase (34-104) U/L Total Creatine Kinase (10-223) U/L CK-MB (CK-2) (0.6-6.3) ng/mL Troponin I (<0.04) ng/mL C-Reactive Protein (< 5.00) mg/L B-Natriuretic Peptide ( - 100) pg/mL Total Protein (6.4-8.9) g/dL Albumin (3.2-5.2) g/dL Globulin (2-4) g/dL Albumin/Globulin Ratio (1-3) Lipase (11.0-82.0) U/L TSH (0.34-5.60) mcIU/mL Result Diagrams: 06/21/17 04:56 06/21/17 04:56 Lab Statement: Any lab studies that have been ordered have been reviewed, and results considered in the medical decision making process. - Radiology CXR Xray Interpretation: Positive (See Comments) - IMPRESSION: 1. COPD. 2. LEFT GREATER THAN RIGHT BIBASILAR ATELECTASIS VERSUS CONSOLIDATION. RECOMMEND FOLLOW- UP UNTIL RESOLUTION TO EXCLUDE UNDERLYING PULMONARY PARENCHYMAL PATHOLOGY. Radiology Interpretation Completed By: Radiologist - ED physician has reviewed this radiology report and agrees. Course/Dx - Course Course Of Treatment: Reviewed pts medication and allergy lists. High blood pressure noted. ADMIT HOSPITALIST. - Diagnoses Provider Diagnoses: Acute respiratory failure, Rapid atrial fibrillation - Critical Care Time Critical Care Time: 30-74 min Discharge - Discharge Plan Condition: Guarded Disposition: ADMITTED TO [facility] documentation as recorded by the Richard dc Benjamin accurately reflects the service I personally performed and the decisions made by me, Joce Tavares MD.
[2017-06-21 07:10] LABS: Troponin I 0.19 ng/mL (<0.04)
--- NOTE | 2017-06-21 08:08 | RAD ---
Indication: Hypoxia. Contrast: Administered 61.1 ml of VISAPAQUE 320 mg/ml CTA of the chest was performed after IV contrast administration. Coronal and sagittal reconstructed images were obtained. Patient has history of liver transplant. Comparison is made with previous exam dated June 05, 2017. The pulmonary arterial tree is well opacified. No evidence of filling defects are noted to suggest pulmonary embolus. Inferior thyroid lobes are unremarkable. No hilar adenopathy is noted. The heart demonstrates no pericardial effusion. The thoracic aorta demonstrates no evidence of aortic dissection or aneurysmal dilatation. The lung gerard demonstrate emphysematous changes. There is consolidative changes in both lung bases with air bronchograms consistent with bibasilar pneumonia. No pleural fluid is identified. The visualized abdominal organs demonstrates liver to demonstrate intrahepatic ductal dilatation. Clinical correlation is suggested. The remainder of the abdominal organs are unremarkable. The patient has history of liver transplant. IMPRESSION: Bibasilar pneumonia with no evidence of pulmonary embolus.
[2017-06-21] MEDS: Morphine INJ* 4 MG/ML 1 ML CARPUJECT IV PRN ×4 (08:14→22:30)
[2017-06-21] MEDS: ZOSYN 3.375 GM Q8H per EXTENDED INFUSION IVPB SCH ×4 (08:41→16:28)
[2017-06-21] MEDS: Tiotropium CAP.INH* CAP.INH/18 MCG (USE ORDER SET !) INH SCH (08:49)
[2017-06-21] MEDS ORDERED: Spiriva Inhaler DEVICE* 1 EACH DEVICE SCH (09:00)
--- NOTE | 2017-06-21 09:06 | PN ---
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 She was in rapid afib/flutter in the ER but converted with a cardizem bolus. Her resp status declined and developed pulm edema prompting BiPAP therapy. She diuressed nearly a liter after Lasix administration Patient was recently relieved from the BiPAP, she reports improvement in her WOB. She is still mildly dyspneic. She states that her symptoms of SOB started the day before yesterday with some progressive dyspnea. No edema. Palpitations and cough started yesterday afternoon. She states that she was told that she had a PNA during her last admission and was treated with doxycycline. CTA at admission last night demonstrated bibasilar infiltrates which may represent a new or resolving process. Objective Active Medications: Acetaminophen (Tylenol Tab*) 650 mg PO Q4H PRN PRN Reason: FEVER/PAIN Albuterol (Ventolin 2.5 Mg/3 Ml Neb.Monique*) 2.5 mg INH Q2H PRN PRN Reason: SOB/WHEEZING Aspirin (Aspirin Ec Low Dose*) 81 mg PO DAILY TAI Atorvastatin Calcium (Lipitor*) 80 mg PO BEDTIME [facility] Cyanocobalamin (Vitamin B12 Tab*) 1,000 mcg PO DAILY TAI Device (Tiotropium Inhaler Device*) 1 each .SEE ORDER .USE w/ SPIRIVA CAPS TAI Device (Nicotine Mouth Piece*) 1 each INH .CARTRIDGE TAI Diltiazem HCl (Cardizem Cd Cap*) 180 mg PO DAILY TAI Diltiazem HCl (Cardizem Cd Cap*) 120 mg PO DAILY TAI Docusate Sodium (Colace Cap*) 100 mg PO BID PRN PRN Reason: CONSTIPATION Last Admin: 06/20/17 23:37 Dose: 100 mg Furosemide (Lasix Tab*) 40 mg PO DAILY [facility] Heparin Sodium (Porcine) (Heparin Vial(*)) 5,000 units SUBCUT Q8HR TAI Last Admin: 06/21/17 06:19 Dose: 5,000 units Piperacillin Sod/Tazobactam (Sod 3.375 gm/ Sodium Chloride) 100 mls @ 25 mls/ hr IVPB Q8H [facility] Last Admin: 06/21/17 08:41 Dose: 25 mls/hr Metoprolol Tartrate (Lopressor Tab*) 50 mg PO BID [facility] Last Admin: 06/20/17 23:37 Dose: 50 mg Morphine Sulfate (Morphine Inj (Syringe)*) 1 mg IV Q4H PRN PRN Reason: PAIN Last Admin: 06/21/17 08:14 Dose: 1 mg Nicotine (Nicotine Inhaler*) 10 mg INH Q2H PRN PRN Reason: CRAVING Pharmacy Consult (Zosyn Per Pharmacy*) 1 note FOLLOW UP .ZOSYN PER PHARMACY [facility] Pharmacy Profile Note (Nitro Patch/Oint Remove*) 1 note TOPICAL 1600 ONE Stop: 06/21/17 16:01 Polyethylene Glycol/Electrolytes (Miralax*) 17 gm PO 0800,2100 [facility] Senna (Senokot Tab*) 1 tab PO DAILY PRN PRN Reason: CONSTIPATION Last Admin: 06/20/17 23:37 Dose: 1 tab Tacrolimus (Prograf Cap(*)) 1 mg PO BID [facility] Last Admin: 06/20/17 23:39 Dose: Not Given Ticagrelor (Brilinta*) 90 mg PO BID [facility] Tiotropium [place] (Spiriva Cap.Inh*) 1 cap INH DAILY [facility] Last Admin: 06/21/17 08:49 Dose: 1 cap Tramadol HCl (Ultram*) 50 mg PO Q6HR PRN PRN Reason: PAIN Last Admin: 06/20/17 23:36 Dose: 50 mg Vital Signs: Temp Pulse Resp BP Pulse Ox 97.5 F 87 26 162/85 92 06/21/17 07:40 06/21/17 08:50 06/21/17 08:50 06/21/17 08:30 06/21/17 08:50 Oxygen Devices in Use Now: Nasal Cannula Appearance: Middle aged female who appears chronically ill in NAD Respiratory: Symmetrical Chest Expansion and Respiratory Effort, - - crackles at lung bases, L>R Cardiovascular: NL Sounds; No Murmurs; No JVD, RRR Abdominal: NL Sounds; No Tenderness; No Distention Extremities: No Edema Skin: No Rash or Ulcers Neurological: Alert and Oriented x 3 Result Diagrams: 06/21/17 04:56 06/21/17 04:56 Additional Lab and Data: . Microbiology and Other Data: Microbiology 06/21/17 04:56 Legionella Urinary Antigen - Final Urine Negative Legionella Streptococcus pneumoniae Ag Screen - Final Negative S. pneumo Antigen 06/20/17 23:25 Nasal Screen MRSA (PCR)(JANET) - Final Nasal Mrsa Negative Diagnostic Imaging: CXR - pacer/ICD device in L chest, bibasilar infiltrate v pul edema CTA chest - no PE, bibasilar infiltrate EKG - initial - aflutter at !50 bpm EKG - repeat - sinus, inverted Twaves V4-6, II, III, avF unchanged from baseline Assess/Plan/Problems-Billing Assessment: This is a 61 yo female who presented with rapid afib/flutter and associated acute respiratory failure with possible PNA but no signs of sepsis, admitted to ICU for BiPAP. 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 No leukocytosis, only mild elevation in CRP Tmax 100.5 Recent tx for possible PNA with doxycycline, but comparison of CTA to 06/05 shows that the infiltrate is new and pattern doesn't look like pulm edema Cont empiric therapy with Zosyn Cultures pending (5) Demand ischemia Comment: No c/o CP, no new ischemic changes on EKG Trend trops (6) COPD (chronic obstructive pulmonary disease) Comment: No acute exacerbation Cont home inhaled medications (7) CAD (coronary artery disease) Comment: [place] RCA March 2017 s/p BMS Continue brilinta, metoprolol, ASA and statin Asx, mildly elevated trop, assume this is demand related rather than representing ACS (8) Hypertension Comment: Hypertensive at admission Now improving Cont home antihypertensives (9) Long QT syndrome Comment: ICD in place Cont tele Avoid QT prolonging agents (10) Liver transplant recipient Comment: Continue tacrolimus (11) PAD (peripheral artery disease) Comment: Continue ASA and statin (12) Depression Comment: Appears stable at the moment (13) DVT prophylaxis Comment: SQ heparin (14) Full code status Status and Disposition: Inpatient. Continues to require ICU level care.
[2017-06-21] MEDS: Polyethylene Glycol 3350* 17 GM PACKET PO SCH ×2 (09:38→21:46)
[2017-06-21] MEDS: Metoprolol Tartrate TAB* 50 mg PO SCH ×2 (09:39→21:46)
[2017-06-21] MEDS: Tacrolimus CAP(*) 1 MG PO SCH ×2 (09:39→21:47)
[2017-06-21] MEDS: Diltiazem CD CAP* 120 MG PO SCH (09:39)
[2017-06-21] MEDS: Ticagrelor* 90 MG TAB PO SCH ×2 (09:39→21:46)
[2017-06-21] MEDS: Aspirin EC Low Dose* 81 MG TAB.EC PO SCH (09:39)
[2017-06-21] MEDS: Diltiazem CD CAP* 180 MG PO SCH (09:40)
[2017-06-21] MEDS: Cyanocobalamin TAB* 500 MCG PO SCH (09:40)
[2017-06-21] MEDS: Furosemide TAB* 40 MG PO SCH (09:40)
[2017-06-21] MEDS: Heparin DRIP 25,000 UNITS(*) 25,000 UNITS/500 ML BAG IV SCH (12:48)
[2017-06-21] MEDS ORDERED: Nitro Patch/OINT Remove TOPICAL ONE (16:00)
[2017-06-21] MEDS: Heparin VIAL(*) 5000 UNITS/ML VIAL (FIVE THOUSAND) IV SCH (19:41)
[2017-06-21] MEDS: Atorvastatin* 80 MG TAB PO SCH (21:46)
--- NOTE | 2017-06-21 21:55 | CONS ---
CC: Dr. Rizzo; Dr. Koo * CARDIOLOGY CONSULTATION: DATE OF CONSULT: 06/21/17 INDICATION FOR CONSULT: Atrial fibrillation. HISTORY OF PRESENT ILLNESS: The patient is a 61-year-old female with multiple medical problems including hepatitis C, renal transplant, coronary artery disease with recent inferior wall myocardial infarction, who was admitted to the hospital because of feeling poorly at home. On arrival to the emergency room, she was found to be in atrial fibrillation with rapid ventricular response. The patient came to the emergency room because of palpitations and shortness of breath. On arrival to the emergency room, she was in atrial fibrillation with a heart rate of 160, she was given Cardizem CD and converted to normal sinus rhythm on her own. I went to speak to the patient today, but she was extremely sleepy, she was unable to sleep all night, thus I could not get any history from her. The patient is currently lying flat in bed without complaints. PAST MEDICAL HISTORY: Significant for hepatitis C, history of liver transplant , history of peripheral vascular disease, history of coronary artery disease, history of long QT syndrome, history of ICD implantation, history of COPD. OUTPATIENT MEDICATIONS: 1. Diltiazem CD 300 mg a day. 2. Lasix 40 mg a day. 3. Metoprolol tartrate 50 mg b.i.d. 4. Prograf 1 mg b.i.d. 5. Brilinta 90 mg b.i.d. 6. Tramadol 50 mg q.6 hours p.r.n. 7. Lipitor 80 mg a day. 8. Aspirin 81 mg a day. ALLERGIES: She is intolerant of lidocaine, Phenergan, cilostazol. SOCIAL HISTORY: She is a previous alcoholic. She denies any alcohol for the last 25 years. She smokes half a pack of cigarettes a day. She lives on her own. Her son is involved in her care. REVIEW OF SYSTEMS: Per her history and physical. PHYSICAL EXAM: Height is 5 feet 2 inches, weight is 105 pounds. Temperature 97.3, heart rate is 80, blood pressure 126/75, respiratory rate is 28, oxygen saturation 100% on 2 L, sclerae anicteric. Oropharynx is pink without erythema. Carotids are 2+ without bruits. JVD is normal. Thyroid is normal. Cardiac Exam: S1, S2 without any murmurs, rubs, or gallops. Lungs are clear to auscultation bilaterally. There is no dullness to percussion. Abdomen is soft, nontender, nondistended with normoactive bowel sounds. Extremities show no edema. She has 2+ pulses throughout. The patient is awake, alert, and oriented. She moves all 4 extremities equally. DIAGNOSTIC STUDIES/LAB DATA: CBC: White count 8.2, hemoglobin 10, hematocrit 34, platelet count 249. Chemistries within normal limits. BUN 17, creatinine 1.15. Initial troponin 0.05, latest troponin 0.29. TSH 3.66. AST and ALT are within normal limits. EKG demonstrates normal sinus rhythm, long QT. IMPRESSION AND PLAN: This is a 61-year-old female with a history of long QT syndrome, history of liver transplant, history of coronary artery disease with a stent through her right coronary artery in March, who was admitted to the hospital because of palpitation. She was found to be in atrial fibrillation with rapid ventricular response. She converted to normal sinus rhythm on her own. Interrogation of her single-chamber implantable cardioverter-defibrillator shows normal function of the device. For now, my recommendation is to start heparin. The patient's elevated troponin level is not due to an ischemic event. It is likely due to demand ischemia from her rapid ventricular rate. I do not think the patient needs a stress test or reevaluation of her cardiac perfusion. The patient is on heparin for now. The question is should she be on long-term anticoagulation. The patient did have an admission to the hospital a month ago for pulmonary edema of unclear origin. It may have been she has been going in and out of atrial fibrillation. I strongly encouraged the use of anticoagulation despite the fact that she is on aspirin and Brilinta. The question is what to do about antiarrhythmic therapy in this patient. It will be very difficult to start an antiarrhythmic on this patient. I would not be comfortable starting amiodarone or Multaq given their history of liver toxicity , I would be hesitant to start Tikosyn or sotalol given her history of long QT. [id number]/[facility] #: [id number] [facility]
[2017-06-22] MEDS: ZOSYN 3.375 GM Q8H per EXTENDED INFUSION IVPB SCH ×6 (01:00→16:59)
[2017-06-22] MEDS: Morphine INJ* 4 MG/ML 1 ML CARPUJECT IV PRN ×2 (02:40→06:44)
[2017-06-22 04:53] LABS: Hematocrit 23 % (35-47); Hemoglobin 7.7 g/dl (12.0-16.0); Mean Corpuscular HGB Conc 33 g/dl (31-36); Mean Corpuscular Hemoglobin 31 pg (27-31); Mean Corpuscular Volume 93 fL (80-97); Mean Platelet Volume 8 um3 (7.4-10.4); Red Blood Count 2.48 10^6/ul (4.0-5.4); Red Cell Distribution Width 14 % (10.5-15); White Blood Count 7.6 10^3/ul (3.5-10.8)
[2017-06-22 04:59] LABS: C Reactive Protein 51.48 mg/L (< 5.00)
[2017-06-22 05:09] LABS: BUN/Creatinine Ratio 19.7 (8-20); Calcium 8.5 mg/dL (8.6-10.3); EGFR African American 43.1 (>60); EGFR Non-African American 33.5 (>60); Potassium 3.3 mmol/L (3.5-5.0)
[2017-06-22] MEDS: Heparin VIAL(*) 5000 UNITS/ML VIAL (FIVE THOUSAND) SUBCUT SCH ×2 (06:02→14:11)
--- NOTE | 2017-06-22 08:23 | RAD ---
HISTORY: Acute respiratory failure COMPARISONS: June 20, 2017 VIEWS: 4: Frontal dual-energy and lateral views of the chest. FINDINGS: CARDIOMEDIASTINAL SILHOUETTE: The cardiomediastinal silhouette is normal. MARQUES: The marques are normal. PLEURA: The costophrenic angles are sharp. No pleural abnormalities are noted. LUNG PARENCHYMA: There is hyperinflation with flattening of the diaphragm and expansion of the AP diameter of the chest. There is persistent but improved alveolar desiccation of the right lung base with interval resolution of airspace disease of the left lung base ABDOMEN: The upper abdomen is clear. There is no subphrenic gas. BONES AND SOFT TISSUES: No bone or soft tissue abnormalities are noted. OTHER: A left-sided pacemaker is noted IMPRESSION: CP. PERSISTENT, BUT IMPROVED, RIGHT BASILAR CONSOLIDATION
[2017-06-22] MEDS: Tiotropium CAP.INH* CAP.INH/18 MCG (USE ORDER SET !) INH SCH (08:40)
[2017-06-22] MEDS: Aspirin EC Low Dose* 81 MG TAB.EC PO SCH (09:14)
[2017-06-22] MEDS: Diltiazem CD CAP* 120 MG PO SCH (09:14)
[2017-06-22] MEDS: Metoprolol Tartrate TAB* 50 mg PO SCH ×2 (09:14→20:39)
[2017-06-22] MEDS: Ticagrelor* 90 MG TAB PO SCH ×2 (09:14→20:41)
[2017-06-22] MEDS: Polyethylene Glycol 3350* 17 GM PACKET PO SCH ×2 (09:14→20:42)
[2017-06-22] MEDS: Diltiazem CD CAP* 180 MG PO SCH (09:14)
[2017-06-22] MEDS: Cyanocobalamin TAB* 500 MCG PO SCH (09:15)
[2017-06-22] MEDS: Furosemide TAB* 40 MG PO SCH (09:15)
[2017-06-22] MEDS: Tacrolimus CAP(*) 1 MG PO SCH ×2 (09:15→20:41)
[2017-06-22] MEDS ORDERED: Morphine INJ* 4 MG/ML 1 ML CARPUJECT IV PRN (10:02)
--- NOTE | 2017-06-22 10:14 | PN ---
Subjective Date of Service: 06/22/17 Interval History: Patient reports significant improvement in dyspnea. She is still having occasional CP, but she states it is R sided, sore to palpation and worse with deep inspiration. No abd pain,n/v. 1/2 blood cx bottles reported as positive for gram + cocci neg for MSSA and MRSA. Objective Active Medications: Acetaminophen (Tylenol Tab*) 650 mg PO Q4H PRN PRN Reason: FEVER/PAIN Albuterol (Ventolin 2.5 Mg/3 Ml Neb.Monique*) 2.5 mg INH Q2H PRN PRN Reason: SOB/WHEEZING Aspirin (Aspirin Ec Low Dose*) 81 mg PO DAILY [facility] Last Admin: 06/22/17 09:14 Dose: 81 mg Atorvastatin Calcium (Lipitor*) 80 mg PO BEDTIME [facility] Last Admin: 06/21/17 21:46 Dose: 80 mg Cyanocobalamin (Vitamin B12 Tab*) 1,000 mcg PO DAILY [facility] Last Admin: 06/22/17 09:15 Dose: 1,000 mcg Device (Tiotropium Inhaler Device*) 1 each .SEE ORDER .USE w/ SPIRIVA CAPS [facility] Device (Nicotine Mouth Piece*) 1 each INH .CARTRIDGE [facility] Diltiazem HCl (Cardizem Cd Cap*) 180 mg PO DAILY [facility] Last Admin: 06/22/17 09:14 Dose: 180 mg Diltiazem HCl (Cardizem Cd Cap*) 120 mg PO DAILY [facility] Last Admin: 06/22/17 09:14 Dose: 120 mg Docusate Sodium (Colace Cap*) 100 mg PO BID PRN PRN Reason: CONSTIPATION Last Admin: 06/20/17 23:37 Dose: 100 mg Furosemide (Lasix Tab*) 40 mg PO DAILY [facility] Last Admin: 06/22/17 09:15 Dose: 40 mg Heparin Sodium (Porcine) (Heparin Vial(*)) 5,000 units SUBCUT Q8HR [facility] Last Admin: 06/22/17 06:02 Dose: 5,000 units Heparin Sodium (Porcine) (Heparin Vial(*)) 0 units IV .PER PROTOCOL [facility] PRN Reason: Protocol Last Admin: 06/21/17 19:41 Dose: 1,900 units Piperacillin Sod/Tazobactam (Sod 3.375 gm/ Sodium Chloride) 100 mls @ 25 mls/ hr IVPB Q8H [facility] Last Admin: 06/22/17 09:15 Dose: 25 mls/hr Heparin Sodium/Dextrose (Heparin Drip 25,000 Units(*)) 25,000 units in 500 mls @ 0 mls/hr IV .NO INITIAL BOLUS [facility]; As Directed PRN Reason: Protocol Last Admin: 06/21/17 12:48 Dose: 15 mls/hr Metoprolol Tartrate (Lopressor Tab*) 50 mg PO BID [facility] Last Admin: 06/22/17 09:14 Dose: 50 mg Morphine Sulfate (Morphine Inj (Syringe)*) 1 mg IV Q2H PRN PRN Reason: PAIN Nicotine (Nicotine Inhaler*) 10 mg INH Q2H PRN PRN Reason: CRAVING Pharmacy Consult (Zosyn Per Pharmacy*) 1 note FOLLOW UP .ZOSYN PER PHARMACY [facility] Polyethylene Glycol/Electrolytes (Miralax*) 17 gm PO 0800,2100 [facility] Last Admin: 06/22/17 09:14 Dose: 17 gm Senna (Senokot Tab*) 1 tab PO DAILY PRN PRN Reason: CONSTIPATION Last Admin: 06/20/17 23:37 Dose: 1 tab Tacrolimus (Prograf Cap(*)) 1 mg PO BID [facility] Last Admin: 06/22/17 09:15 Dose: 1 mg Ticagrelor (Brilinta*) 90 mg PO BID [facility] Last Admin: 06/22/17 09:14 Dose: 90 mg Tiotropium [place] (Spiriva Cap.Inh*) 1 cap INH DAILY [facility] Last Admin: 06/22/17 08:40 Dose: 1 cap Tramadol HCl (Ultram*) 50 mg PO Q6HR PRN PRN Reason: PAIN Last Admin: 06/20/17 23:36 Dose: 50 mg Vital Signs: Temp Pulse Resp BP Pulse Ox 98.7 F 66 22 128/63 99 06/22/17 03:00 06/22/17 10:00 06/22/17 10:00 06/22/17 07:00 06/22/17 10:00 Oxygen Devices in Use Now: Nasal Cannula Appearance: Well appearing middle aged female in NAD Respiratory: Symmetrical Chest Expansion and Respiratory Effort, Clear to Auscultation Cardiovascular: NL Sounds; No Murmurs; No JVD, RRR Abdominal: NL Sounds; No Tenderness; No Distention Extremities: No Edema Skin: No Rash or Ulcers Neurological: Alert and Oriented x 3 Result Diagrams: 06/22/17 04:30 06/22/17 04:30 Additional Lab and Data: . Microbiology and Other Data: Microbiology 06/21/17 04:56 Legionella Urinary Antigen - Final Urine Negative Legionella Streptococcus pneumoniae Ag Screen - Final Negative S. pneumo Antigen 06/20/17 23:25 Nasal Screen MRSA (PCR)(JANET) - Final Nasal Mrsa Negative Diagnostic Imaging: CXR - pacer/ICD device in L chest, bibasilar infiltrate v pul edema CTA chest - no PE, bibasilar infiltrate EKG - initial - aflutter at !50 bpm EKG - repeat - sinus, inverted Twaves V4-6, II, III, avF unchanged from baseline CXR - mild R basilar infiltrate, pulm edema resolved Assess/Plan/Problems-Billing Assessment: This is a 61 yo female who presented with rapid afib/flutter and associated acute respiratory failure with possible PNA but no signs of sepsis, admitted to ICU for BiPAP. - Patient Problems (1) Acute respiratory failure Comment: Secondary to rapid afib inducing acute heart failure Now stable on RA Resolved (2) Rapid atrial fibrillation Comment: Converted to NSR with Cardizem bolus ICD interrogation yielded rapid afib ~10hrs, but setting capture rates >170 bpm only CHADSVASC of 2 with indication for anticogulation She is on dual antiplatelet therapy for recent BMS to RCA March 2017 Noted drop in H/H overnight, but no obvious signs of bleeding Will cont evaluate appropriateness for AC in conjunction with cardiology recommendations (3) Pneumonia Comment: Possible PNA based on UNIFORM ATTENDANT No leukocytosis, only mild elevation in CRP Tmax 100.5 Recent tx for possible PNA with doxycycline, but comparison of CTA to 06/05 shows that the infiltrate is new and pattern doesn't look like pulm edema Cont empiric therapy with Zosyn Blood cultures now showing 1/2 bottles of gram + cocci, but neg for MSSA/MRSA Patient has shown rapid improvement which would not be expected with gram + septicemia, perhaps cx represents a contaminant Will cont Zosyn and repeat blood cx at this time (4) Anemia Comment: Noted drop in H/H overnight Asx Pending stool guiac and repeat H/H Cont hep drip at this time, but plan to dc if H/H cont to drop (5) Demand ischemia Comment: Demand ischemia v NSTEMI She developed CP yesterday, but likely respiratory in origin Appreciate cards involvement Heparin drip started Trop peaked No ischemic changes on EKG (6) Acute diastolic heart failure Comment: Likely driven by rapid afib Now NSR and good response to diuresis (7) COPD (chronic obstructive pulmonary disease) Comment: No acute exacerbation Cont home inhaled medications (8) CAD (coronary artery disease) Comment: [place] RCA March 2017 s/p BMS Continue brilinta, metoprolol, ASA and statin Asx, mildly elevated trop, assume this is demand related rather than representing ACS (9) Hypertension Comment: Hypertensive at admission Now improving Cont home antihypertensives (10) Long QT syndrome Comment: ICD in place Cont tele Avoid QT prolonging agents QTc measured at 560ms this am (11) Liver transplant recipient Comment: Continue tacrolimus (12) PAD (peripheral artery disease) Comment: Continue ASA and statin (13) Depression Comment: Appears stable at the moment (14) DVT prophylaxis Comment: SQ heparin (15) Full code status Status and Disposition: Inpatient. Appropriate for transfer to telemetry unit from ICU
[2017-06-22] MEDS ORDERED: Morphine INJ* 4 MG/ML 1 ML CARPUJECT ONE (10:19)
[2017-06-22 12:52] LABS: Hematocrit 31 % (35-47)
[2017-06-22] MEDS: Morphine INJ* 2 MG/ML 1 ML SYRINGE (TWO MG - NEW SYRINGE VERSION) IV PRN ×4 (14:17→22:59)
[2017-06-22] MEDS: Heparin DRIP 25,000 UNITS(*) 25,000 UNITS/500 ML BAG IV SCH (20:33)
[2017-06-22] MEDS: Atorvastatin* 80 MG TAB PO SCH (20:39)
[2017-06-22] MEDS: Heparin VIAL(*) 5000 UNITS/ML VIAL (FIVE THOUSAND) IV SCH (22:29)
[2017-06-22] MEDS: Albuterol 2.5 MG/3 ML NEB.SOL* (0.083%) INH PRN (22:58)
[2017-06-23] MEDS: ZOSYN 3.375 GM Q8H per EXTENDED INFUSION IVPB SCH ×6 (01:12→17:26)
[2017-06-23] MEDS: Morphine INJ* 2 MG/ML 1 ML SYRINGE (TWO MG - NEW SYRINGE VERSION) IV PRN ×7 (01:28→23:47)
[2017-06-23 06:01] LABS: Hematocrit 29 % (35-47); Hemoglobin 9.6 g/dl (12.0-16.0); Mean Corpuscular HGB Conc 33 g/dl (31-36); Mean Corpuscular Hemoglobin 31 pg (27-31); Mean Corpuscular Volume 93 fL (80-97); Mean Platelet Volume 8 um3 (7.4-10.4); Red Blood Count 3.09 10^6/ul (4.0-5.4); Red Cell Distribution Width 14 % (10.5-15); White Blood Count 10.1 10^3/ul (3.5-10.8)
[2017-06-23 06:15] LABS: BUN/Creatinine Ratio 18.9 (8-20); Calcium 8.7 mg/dL (8.6-10.3); EGFR African American 42.4 (>60); Potassium 3.3 mmol/L (3.5-5.0)
[2017-06-23] MEDS: Tiotropium CAP.INH* CAP.INH/18 MCG (USE ORDER SET !) INH SCH (08:00)
[2017-06-23] MEDS: Metoprolol Tartrate TAB* 50 mg PO SCH ×2 (08:37→21:34)
[2017-06-23] MEDS: Potassium Chlor TAB* 20 MEQ TAB.ER PO SCH ×2 (08:37→21:34)
[2017-06-23] MEDS: Diltiazem CD CAP* 120 MG PO SCH (08:38)
[2017-06-23] MEDS: Ticagrelor* 90 MG TAB PO SCH ×2 (08:38→21:34)
[2017-06-23] MEDS: Cyanocobalamin TAB* 500 MCG PO SCH (08:38)
[2017-06-23] MEDS: Polyethylene Glycol 3350* 17 GM PACKET PO SCH (08:38)
[2017-06-23] MEDS: Furosemide TAB* 40 MG PO SCH (08:38)
[2017-06-23] MEDS: Diltiazem CD CAP* 180 MG PO SCH (08:38)
[2017-06-23] MEDS: Aspirin EC Low Dose* 81 MG TAB.EC PO SCH (08:38)
[2017-06-23] MEDS: Tacrolimus CAP(*) 1 MG PO SCH ×2 (08:41→21:34)
[2017-06-23] MEDS ORDERED: Apixaban* 5 MG TAB PO SCH ×2 (09:00)
[2017-06-23] MEDS ORDERED: Loperamide CAP* 2 MG PO ONE (13:07)
--- NOTE | 2017-06-23 13:14 | PN ---
Subjective Date of Service: 06/23/17 Interval History: Patient reports that she is not feeling well this morning. She developed severe diarrhea this am. She has been receiving scheduled Miralax since admission, which was listed on her home medication list. She denies n/v. Some abd discomfort. Still having some intermittent CP. No SOB. Objective Active Medications: Acetaminophen (Tylenol Tab*) 650 mg PO Q4H PRN PRN Reason: FEVER/PAIN Albuterol (Ventolin 2.5 Mg/3 Ml Neb.Monique*) 2.5 mg INH Q2H PRN PRN Reason: SOB/WHEEZING Last Admin: 06/22/17 22:58 Dose: 2.5 mg Apixaban (Eliquis*) 2.5 mg PO BID [facility] Last Admin: 06/23/17 08:39 Dose: 2.5 mg Aspirin (Aspirin Ec Low Dose*) 81 mg PO DAILY [facility] Last Admin: 06/23/17 08:38 Dose: 81 mg Atorvastatin Calcium (Lipitor*) 80 mg PO BEDTIME [facility] Last Admin: 06/22/17 20:39 Dose: 80 mg Cyanocobalamin (Vitamin B12 Tab*) 1,000 mcg PO DAILY [facility] Last Admin: 06/23/17 08:38 Dose: 1,000 mcg Device (Tiotropium Inhaler Device*) 1 each .SEE ORDER .USE w/ SPIRIVA CAPS [facility] Device (Nicotine Mouth Piece*) 1 each INH .CARTRIDGE [facility] Diltiazem HCl (Cardizem Cd Cap*) 180 mg PO DAILY [facility] Last Admin: 06/23/17 08:38 Dose: 180 mg Diltiazem HCl (Cardizem Cd Cap*) 120 mg PO DAILY [facility] Last Admin: 06/23/17 08:38 Dose: 120 mg Docusate Sodium (Colace Cap*) 100 mg PO BID PRN PRN Reason: CONSTIPATION Last Admin: 06/20/17 23:37 Dose: 100 mg Furosemide (Lasix Tab*) 40 mg PO DAILY [facility] Last Admin: 06/23/17 08:38 Dose: 40 mg Piperacillin Sod/Tazobactam (Sod 3.375 gm/ Sodium Chloride) 100 mls @ 25 mls/ hr IVPB Q8H [facility] Last Admin: 06/23/17 08:29 Dose: 25 mls/hr Loperamide HCl (Imodium Cap*) 4 mg PO ONCE ONE Stop: 06/23/17 13:08 Metoprolol Tartrate (Lopressor Tab*) 50 mg PO BID [facility] Last Admin: 06/23/17 08:37 Dose: 50 mg Morphine Sulfate (Morphine Inj (Syringe)*) 1 mg IV Q2H PRN PRN Reason: PAIN Last Admin: 06/23/17 11:17 Dose: 1 mg Nicotine (Nicotine Inhaler*) 10 mg INH Q2H PRN PRN Reason: CRAVING Pharmacy Consult (Zosyn Per Pharmacy*) 1 note FOLLOW UP .ZOSYN PER PHARMACY [facility] Potassium Chloride (Klor Con Er Tab*) 40 meq PO BID [facility] Stop: 06/23/17 21:01 Last Admin: 06/23/17 08:37 Dose: 40 meq Senna (Senokot Tab*) 1 tab PO DAILY PRN PRN Reason: CONSTIPATION Last Admin: 06/20/17 23:37 Dose: 1 tab Tacrolimus (Prograf Cap(*)) 1 mg PO BID [facility] Last Admin: 06/23/17 08:41 Dose: 1 mg Ticagrelor (Brilinta*) 90 mg PO BID [facility] Last Admin: 06/23/17 08:38 Dose: 90 mg Tiotropium [place] (Spiriva Cap.Inh*) 1 cap INH DAILY [facility] Last Admin: 06/23/17 08:00 Dose: 1 cap Tramadol HCl (Ultram*) 50 mg PO Q6HR PRN PRN Reason: PAIN Last Admin: 06/20/17 23:36 Dose: 50 mg Vital Signs: Temp Pulse Resp BP Pulse Ox 98.6 F 73 18 128/56 98 06/23/17 12:03 06/23/17 12:03 06/23/17 12:17 06/23/17 12:03 06/23/17 12:03 Oxygen Devices in Use Now: Nasal Cannula Appearance: Mildly ill appearing but in NAD Respiratory: Symmetrical Chest Expansion and Respiratory Effort, Clear to Auscultation Cardiovascular: NL Sounds; No Murmurs; No JVD, RRR Abdominal: - - soft, mild diffuse TTP Extremities: No Edema Neurological: Alert and Oriented x 3 Result Diagrams: 06/23/17 05:16 06/23/17 05:16 Additional Lab and Data: . Microbiology and Other Data: Microbiology 06/21/17 04:56 Legionella Urinary Antigen - Final Urine Negative Legionella Streptococcus pneumoniae Ag Screen - Final Negative S. pneumo Antigen 06/20/17 23:25 Nasal Screen MRSA (PCR)(JANET) - Final Nasal Mrsa Negative Diagnostic Imaging: CXR - pacer/ICD device in L chest, bibasilar infiltrate v pul edema CTA chest - no PE, bibasilar infiltrate EKG - initial - aflutter at !50 bpm EKG - repeat - sinus, inverted Twaves V4-6, II, III, avF unchanged from baseline CXR - mild R basilar infiltrate, pulm edema resolved Assess/Plan/Problems-Billing Assessment: This is a 61 yo female who presented with rapid afib/flutter and associated acute respiratory failure with possible PNA but no signs of sepsis, admitted to ICU for BiPAP, now transferred to telemetry unit. - Patient Problems (1) Acute respiratory failure Comment: Secondary to rapid afib inducing acute heart failure Now stable on RA Resolved (2) Rapid atrial fibrillation Comment: Converted to NSR with Cardizem bolus ICD interrogation yielded rapid afib ~10hrs, but setting capture rates >170 bpm only CHADSVASC of 2 with indication for anticogulation She is on dual antiplatelet therapy for recent BMS to RCA March 2017 Started Eliquis at renally adjusted dose (3) Pneumonia Comment: Possible PNA based on ANIMAL CARE PROVIDER No leukocytosis, only mild elevation in CRP Tmax 100.5 Recent tx for possible PNA with doxycycline, but comparison of CTA to 06/05 shows that the infiltrate is new and pattern doesn't look like pulm edema Cont empiric therapy with Zosyn Blood cultures now showing 1/2 bottles of gram + cocci, but neg for MSSA/MRSA Patient has shown rapid improvement which would not be expected with gram + septicemia, perhaps cx represents a contaminant Repeat blood cxs are negative at 24 hours Will cont Zosyn (4) Diarrhea Comment: New diarrhea this am Likely due to Miralax Stop miralax and try Immodium for symptomatic relief (5) Anemia Comment: Repeat H/H was WNL, drop overnight yesterday was likely a lab error Stool neg for occult blood, Hgb otherwise stable (6) Demand ischemia Comment: Demand ischemia v NSTEMI She developed CP, but likely respiratory in origin Appreciate cards involvement Treated with heparin, now on Eliquis for afib Trop peaked No ischemic changes on EKG (7) Acute diastolic heart failure Comment: Likely driven by rapid afib Now NSR and good response to diuresis (8) COPD (chronic obstructive pulmonary disease) Comment: No acute exacerbation Cont home inhaled medications (9) CAD (coronary artery disease) Comment: [place] RCA March 2017 s/p BMS Continue brilinta, metoprolol, ASA and statin Asx, mildly elevated trop, assume this is demand related rather than representing ACS (10) Hypertension Comment: Hypertensive at admission Now improving Cont home antihypertensives (11) Long QT syndrome Comment: ICD in place Cont tele Avoid QT prolonging agents QTc measured at 680ms this am (12) Liver transplant recipient Comment: Continue tacrolimus (13) PAD (peripheral artery disease) Comment: Continue ASA and statin (14) Depression Comment: Appears stable at the moment (15) DVT prophylaxis Comment: SQ heparin (16) Full code status Status and Disposition: Inpatient. Anticipate dc tomorrow
[2017-06-23 13:25] LABS: Magnesium 1.5 mg/dL (1.9-2.7)
[2017-06-23] MEDS ORDERED: Magnesium Sulf 4 GM/100 ML IV* 4,000 MG/100 ML BAG IVPB ONE (14:00)
[2017-06-23] MEDS: Apixaban* 2.5 MG TAB PO SCH (21:34)
[2017-06-23] MEDS: Atorvastatin* 80 MG TAB PO SCH (21:34)
[2017-06-24] MEDS: ZOSYN 3.375 GM Q8H per EXTENDED INFUSION IVPB SCH ×4 (00:42→08:26)
[2017-06-24] MEDS: Morphine INJ* 2 MG/ML 1 ML SYRINGE (TWO MG - NEW SYRINGE VERSION) IV PRN ×3 (01:56→08:24)
[2017-06-24] MEDS ORDERED: Furosemide IV* 10 MG/ML 2 ML VIAL (20 MG) IV ONE (02:15)
[2017-06-24] MEDS ORDERED: Furosemide IV* 10 MG/ML 2 ML VIAL (20 MG) ONE (02:27)
[2017-06-24] MEDS: Albuterol 2.5 MG/3 ML NEB.SOL* (0.083%) INH PRN (03:22)
[2017-06-24 08:12] VITALS: BP 110/68
[2017-06-24] MEDS: Tiotropium CAP.INH* CAP.INH/18 MCG (USE ORDER SET !) INH SCH (08:31)
[2017-06-24] MEDS: Metoprolol Tartrate TAB* 50 mg PO SCH (08:32)
[2017-06-24] MEDS: Apixaban* 2.5 MG TAB PO SCH (08:32)
[2017-06-24] MEDS: Aspirin EC Low Dose* 81 MG TAB.EC PO SCH (08:32)
[2017-06-24] MEDS: Tacrolimus CAP(*) 1 MG PO SCH (08:32)
[2017-06-24] MEDS: Furosemide TAB* 40 MG PO SCH (08:32)
[2017-06-24] MEDS: Cyanocobalamin TAB* 500 MCG PO SCH (08:34)
[2017-06-24] MEDS: Diltiazem CD CAP* 180 MG PO SCH (08:35)
[2017-06-24] MEDS: Diltiazem CD CAP* 120 MG PO SCH (08:35)
[2017-06-24] MEDS: Ticagrelor* 90 MG TAB PO SCH (08:35)
[2017-06-24 11:42] LABS: Hematocrit 31 % (35-47); Mean Corpuscular HGB Conc 33 g/dl (31-36); Mean Corpuscular Hemoglobin 30 pg (27-31); Mean Corpuscular Volume 93 fL (80-97); Red Blood Count 3.31 10^6/ul (4.0-5.4); Red Cell Distribution Width 15 % (10.5-15); White Blood Count 11.7 10^3/ul (3.5-10.8)
[2017-06-24 11:44] LABS: Add Diff/Slide Review? Slide Review Added; Comments Flag Yes
[2017-06-24 12:01] LABS: BUN/Creatinine Ratio 16.4 (8-20); Calcium 9.2 mg/dL (8.6-10.3); EGFR African American 40.7 (>60); EGFR Non-African American 31.6 (>60); Potassium 3.9 mmol/L (3.5-5.0)
[2017-06-24 12:07] LABS: Mean Platelet Volume 9 um3 (7.4-10.4)
[2017-06-24] MEDS: traMADol TAB* 50 MG PO PRN (13:09)
--- NOTE | 2017-06-24 13:16 | DCNOTE ---
Subjective Date of Service: 06/24/17 Interval History: Patient reports she feels "much, much better today". She would like to be discharged today. Denies SOB. Reports mild cough, occasionally productive. No fevers or chills. Reports she is followed closely by her PCP and has a f/u next week. Per nurse, the patient was very unhappy she wasn't be given the IV morphine due to "terrible Chest Pain". I evaluated the patient shortly after and the patient appeared comfortable and only reported chest pain when coughing or to palpation. I explained to her the morphine will be DC'd to due her being discharged and she stated understanding. She takes Tramadol at home and is followed by the pain clinic. Objective Active Medications: Acetaminophen (Tylenol Tab*) 650 mg PO Q4H PRN PRN Reason: FEVER/PAIN Albuterol (Ventolin 2.5 Mg/3 Ml Neb.Monique*) 2.5 mg INH Q2H PRN PRN Reason: SOB/WHEEZING Last Admin: 06/24/17 03:22 Dose: 2.5 mg Apixaban (Eliquis) 2.5 mg PO BID [facility] Last Admin: 06/24/17 08:32 Dose: 2.5 mg Aspirin (Aspirin Ec Low Dose*) 81 mg PO DAILY [facility] Last Admin: 06/24/17 08:32 Dose: 81 mg Atorvastatin Calcium (Lipitor*) 80 mg PO BEDTIME [facility] Last Admin: 06/23/17 21:34 Dose: 80 mg Cyanocobalamin (Vitamin B12 Tab*) 1,000 mcg PO DAILY [facility] Last Admin: 06/24/17 08:34 Dose: 1,000 mcg Device (Tiotropium Inhaler Device*) 1 each .SEE ORDER .USE w/ SPIRIVA CAPS [facility] Device (Nicotine Mouth Piece*) 1 each INH .CARTRIDGE [facility] Diltiazem HCl (Cardizem Cd Cap*) 180 mg PO DAILY [facility] Last Admin: 06/24/17 08:35 Dose: 180 mg Diltiazem HCl (Cardizem Cd Cap*) 120 mg PO DAILY [facility] Last Admin: 06/24/17 08:35 Dose: 120 mg Docusate Sodium (Colace Cap*) 100 mg PO BID PRN PRN Reason: CONSTIPATION Last Admin: 06/20/17 23:37 Dose: 100 mg Furosemide (Lasix Tab*) 40 mg PO DAILY [facility] Last Admin: 06/24/17 08:32 Dose: 40 mg Piperacillin Sod/Tazobactam (Sod 3.375 gm/ Sodium Chloride) 100 mls @ 25 mls/ hr IVPB Q8H [facility] Last Admin: 06/24/17 08:26 Dose: 25 mls/hr Metoprolol Tartrate (Lopressor Tab*) 50 mg PO BID [facility] Last Admin: 06/24/17 08:32 Dose: 50 mg Nicotine (Nicotine Inhaler*) 10 mg INH Q2H PRN PRN Reason: CRAVING Pharmacy Consult (Zosyn Per Pharmacy*) 1 note FOLLOW UP .ZOSYN PER PHARMACY [facility] Senna (Senokot Tab*) 1 tab PO DAILY PRN PRN Reason: CONSTIPATION Last Admin: 06/20/17 23:37 Dose: 1 tab Tacrolimus (Prograf Cap(*)) 1 mg PO BID [facility] Last Admin: 06/24/17 08:32 Dose: 1 mg Ticagrelor (Brilinta*) 90 mg PO BID [facility] Last Admin: 06/24/17 08:35 Dose: 90 mg Tiotropium [place] (Spiriva Cap.Inh*) 1 cap INH DAILY [facility] Last Admin: 06/24/17 08:31 Dose: 1 cap Tramadol HCl (Ultram*) 50 mg PO Q6HR PRN PRN Reason: PAIN Last Admin: 06/20/17 23:36 Dose: 50 mg Vital Signs 06/24/17 06/24/17 06/24/17 03:47 04:04 05:04 Temperature 97.8 F Pulse Rate 73 Respiratory 20 28 26 Rate Blood Pressure 135/54 (mmHg) O2 Sat by Pulse 97 Oximetry 06/24/17 06/24/17 06/24/17 07:22 08:00 08:24 Temperature 98.3 F Pulse Rate 70 Respiratory 20 18 18 Rate Blood Pressure 110/68 (mmHg) O2 Sat by Pulse 96 Oximetry 06/24/17 06/24/17 09:24 11:20 Temperature 99.0 F Pulse Rate 74 Respiratory 16 20 Rate Blood Pressure (mmHg) O2 Sat by Pulse 98 Oximetry Oxygen Devices in Use Now: None Appearance: 61 yo female A+O x3 in NAD Eyes: No Scleral Icterus, PERRLA Ears/Nose/Mouth/Throat: NL Teeth, Lips, Gums, Mucous Membranes Moist Neck: NL Appearance and Movements; NL JVP Respiratory: Symmetrical Chest Expansion and Respiratory Effort, Clear to Auscultation Cardiovascular: NL Sounds; No Murmurs; No JVD, RRR, No Edema Abdominal: NL Sounds; No Tenderness; No Distention Lymphatic: No Cervical Adenopathy Extremities: No Edema, No Clubbing, Cyanosis Skin: No Rash or Ulcers, No Nodules or Sclerosis Neurological: Alert and Oriented x 3, NL Sensation, NL Muscle Strength and Tone Lines/Tubes/Other Access: Clean, Dry and Intact Peripheral IV Nutrition: Taking PO's Result Diagrams: 06/24/17 11:05 06/24/17 11:05 Additional Lab and Data: . Microbiology and Other Data: Microbiology 06/21/17 04:56 Legionella Urinary Antigen - Final Urine Negative Legionella Streptococcus pneumoniae Ag Screen - Final Negative S. pneumo Antigen 06/20/17 23:25 Nasal Screen MRSA (PCR)(JANET) - Final Nasal Mrsa Negative Diagnostic Imaging: CXR - pacer/ICD device in L chest, bibasilar infiltrate v pul edema CTA chest - no PE, bibasilar infiltrate EKG - initial - aflutter at !50 bpm EKG - repeat - sinus, inverted Twaves V4-6, II, III, avF unchanged from baseline CXR - mild R basilar infiltrate, pulm edema resolved Assess/Plan/Problems-Billing Assessment: This is a 61 yo female who presented with rapid afib/flutter and associated acute respiratory failure with possible PNA but no signs of sepsis, admitted to ICU for BiPAP, now transferred to telemetry unit. - Patient Problems (1) Acute diastolic heart failure Comment: Likely driven by rapid afib Now NSR and good response to diuresis (2) Acute respiratory failure Comment: Secondary to rapid afib inducing acute heart failure Now stable on RA Resolved (3) Anemia Comment: Repeat H/H was WNL, drop overnight yesterday was likely a lab error Stool neg for occult blood, Hgb otherwise stable (4) COPD (chronic obstructive pulmonary disease) Comment: No acute exacerbation Cont home inhaled medications (5) Demand ischemia Comment: She developed CP, but likely respiratory in origin Appreciate cards involvement, suspect demand ischemia - no recommendation for further testing Treated with heparin, now on Eliquis for afib Trop peaked No ischemic changes on EKG (6) Diarrhea Comment: resolved, Likely due to Miralax (7) Pneumonia Comment: Possible PNA based on PAYROLL ANALYST No leukocytosis, only mild elevation in CRP Tmax 100.5 Recent tx for possible PNA with doxycycline, but comparison of CTA to 06/05 shows that the infiltrate is new and pattern doesn't look like pulm edema Cont empiric therapy with Zosyn Blood cultures now showing 1/2 bottles of gram + cocci, but neg for MSSA/MRSA Patient has shown rapid improvement which would not be expected with gram + septicemia, perhaps cx represents a contaminant Repeat blood cxs are negative at 24 hours Was treated with zosyn, will DC home on Augmentin for 7 day. (8) Liver transplant recipient Comment: Continue tacrolimus (9) Full code status (10) DVT prophylaxis Comment: SQ heparin Status and Disposition: Inpatient. DC today to alf. Social work following.
--- NOTE | 2017-06-25 06:56 | DS ---
CC: Dr. Koo; Dr. Rizzo* DISCHARGE SUMMARY: DATE OF ADMISSION: 06/20/17 DATE OF DISCHARGE: 06/24/17 PROVIDER: ERI Michael ATTENDING PHYSICIAN: Dr. Montez Voss* (report dictated by Sonja Rivera NP) PRIMARY CARE PROVIDER: Dr. Koo. SUPERVISOR POWDERED SUGAR: Dr. Rizzo. DISCHARGE DIAGNOSES: 1. Acute respiratory failure secondary to rapid atrial fibrillation. 2. Rapid atrial fibrillation with rapid ventricular response. 3. Possible pneumonia. 4. Acute diastolic heart failure thought to be secondary to rapid atrial fibrillation. 5. Elevated troponin, suspected an ischemia secondary to rapid atrial fibrillation. SECONDARY DIAGNOSES: 1. Tobacco abuse. 2. Hypertension. 3. Hepatitic C. 4. Peripheral artery disease, status post lower extremity endarterectomy. 5. Chronic low back pain, followed by the pain clinic. 6. Depression. 7. History of paroxysmal ventricular tachycardia secondary to long QT syndrome , status post ICD placement. 8. Coronary artery disease. 9. Chronic obstructive pulmonary disease. 10. Neuropathy. 11. Osteoporosis. 12. History of liver transplant 21 years ago. DISCHARGE MEDICATIONS: 1. Vitamin B12 1000 mcg p.o. daily. 2. Lipitor 80 mg p.o. at bedtime. 3. Aspirin 81 mg p.o. daily. 4. Albuterol 2.5 mg/3 mL INH q.4 hours p.r.n. 5. Diltiazem 300 mg p.o. daily. 6. Metoprolol tartrate 50 mg p.o. b.i.d. 7. Lasix 40 mg p.o. daily. 8. Colace 100 mg p.o. b.i.d. p.r.n. 9. Senna 1 tab p.o. daily p.r.n. 10. MiraLAX 17 g p.o. b.i.d. p.r.n. 11. Nitroglycerin 0.4 mg sublingual q.5 minutes p.r.n. x3. 12. Nicotine inhaler 10 mg INH q.2 hours p.r.n. 13. Ellipta 1 inhalation p.o. daily. 14. Brilinta 90 mg p.o. b.i.d. 15. Prograf 1 mg p.o. b.i.d. 16. Tramadol 50 mg p.o. q.6 hours p.r.n. New medications: 1. Eliquis 2.5 mg p.o. b.i.d. 2. Augmentin 875 mg p.o. b.i.d. x7 days. ALLERGIES: PROCAINE and PROMETHAZINE. HISTORY OF PRESENT ILLNESS AND HOSPITAL COURSE: Please see history and physical by Dr. Hawthorne for full admission details, but in summary this is a 61- year-old female with a complex past medical history, who presented to the emergency department on 06/20/17 with complaints of shortness of breath and heart palpitations, found to be in rapid AFib with the rate in the 160s. She was noted to be in acute respiratory failure as well as some diastolic heart failure, thought all to be secondary to her rapid heart rate. The patient was given 20 mg of IV Cardizem in the emergency department and converted to a sinus rhythm shortly after. By the time the hospitalist saw the patient in the emergency department, she was comfortable, although still on Vapotherm, remained in sinus rhythm with the heart rate in the 80s, and she was admitted to the ICU with a diagnosis of acute respiratory failure and atrial fibrillation with RVR. The patient also recently had a hospitalization earlier this month for congestive heart failure and her cardiac medications were adjusted at that time. She was noted to have mostly diastolic chronic congestive heart failure. During her last hospitalization, her EF was noted to be 55%. Her Lasix was continued. There is also a questionable concern for possible pneumonia. Even though she did not have a leukocytosis, she had a noted elevation in her CRP of 50, and she was recently treated for pneumonia with doxycycline, but comparison of CTA to 06/05/17 shows that the infiltrate is a new in pattern, does not look like pulmonary edema. She was treated with Zosyn and switched over to Augmentin on discharge. On admission, the patient was noted to have an elevated troponin of 0.05, which trended up and peaked at 0.29 and has trended down. She had no noted EKG changes. She was seen in consultation by baseball hand sewer, Dr. Harley, who recommended starting the patient on heparin and the patient was switched over to Eliquis as recommendation from Dr. Harley was that he strongly encouraged use of anticoagulation despite the fact that she is currently on aspirin and Brilinta. It is thought that her elevated troponin level was not due to ischemic event, but likely due to demand ischemia from her rapid ventricular rate. No recommendation for a stress test or reevaluation of her cardiac perfusion. The patient's pacemaker was interrogated, which showed rapid AFib for approximately 10 hours. The patient was started on Eliquis renally dosed 2.5 mg p.o. b.i.d. She will remain on the dual-antiplatelet therapy for a recent [place] and stent placed to her RCA in March 2017. The patient was going to be discharged yesterday, but had several bouts of severe diarrhea throughout the day, this was thought to be due to her MiraLAX. This was stopped. She was given 1 dose of Imodium and the patient reports that her diarrhea has resolved since. She denies any fevers, chills, nausea, vomiting, or abdominal pain. She was noted to have a slight drop in her hemoglobin down from around her baseline of 10.2 to 7.7, this was thought to be a lab error. Her stool for occult blood was negative. As well she had 1/4 bottles grew Staphylococcus capitis, but was negative for MRSA or staph. Repeat blood cultures showing no growth. This is thought to be possibly a contaminant as the patient has recovered and turned around quickly. The patient is stable for discharge today. She has been followed by social work and financial manager and the patient [facility]. She is being set up with a nebulizing machine through [facility]. She has a followup appointment with Dr. Koo scheduled for next week as well as a followup appointment with the pain clinic in the first week of July. The patient was discharged and new medications were reviewed with her by myself on discharge and she states understanding. SONJA RIVERA, ALVARO [id number]/[facility] #: [id number] DOROTHY
== END 2017-06-24 14:21 | disposition home or self-care (01) | DRG 291 ==
LOC: ED 20:33 → ICU 21:35 → MEDTELE 06-22 12:08
PROVIDERS: ADMIT Internal Medicine; ATTEND Hospitalist
PROC: 4B02XTZ Measurement of Cardiac Defibrillator, External Approach (ICD-10-PCS; principal; 2017-06-21)
DX: I11.0 Hypertensive heart disease with heart failure (principal); J96.00 Acute respiratory failure, unspecified whether with hypoxia or hypercapnia; I47.2 Ventricular tachycardia; J18.9 Pneumonia, unspecified organism; Z94.4 Liver transplant status; I24.8 Other forms of acute ischemic heart disease; I73.9 Peripheral vascular disease, unspecified; I48.91 Unspecified atrial fibrillation; I50.31 Acute diastolic (congestive) heart failure; I25.10 Atherosclerotic heart disease of native coronary artery without angina pectoris; F17.210 Nicotine dependence, cigarettes, uncomplicated; B19.20 Unspecified viral hepatitis C without hepatic coma; M54.5 Low back pain; F32.9 Major depressive disorder, single episode, unspecified; G62.9 Polyneuropathy, unspecified; M81.0 Age-related osteoporosis without current pathological fracture; Z95.810 Presence of automatic (implantable) cardiac defibrillator; Z88.8 Allergy status to other drugs, medicaments and biological substances; Z79.1 Long term (current) use of non-steroidal anti-inflammatories (NSAID); Z79.82 Long term (current) use of aspirin; Z79.899 Other long term (current) drug therapy; Z82.49 Family history of ischemic heart disease and other diseases of the circulatory system; Z95.5 Presence of coronary angioplasty implant and graft; I25.2 Old myocardial infarction; R19.7 Diarrhea, unspecified; F10.21 Alcohol dependence, in remission
CPT/HCPCS: 36415; 36600; 71010; 71020; 71275; 80048; 80053; 80061; 81003; 81015; 82272; 82550; 82553; 82803; 83605; 83690; 83735; 83880; 84443; 84484; 85014; 85018; 85025; 85027; 85379; 85610; 85730; 86140; 87040; 87077; 87150; 87205; 87641; 87899; 93005; 94640; 94660; A9270-GY; J1644; J1940; J2270; J2405; J2543; J3475; J7507; Q9967

== ENCOUNTER 2017-08-20 02:48 | Inpatient (IN) | payer MEDICARE, MEDICAID ==
[2017-08-20] MEDS ORDERED: Albuterol/Ipratropium NEB.SOL* Albuterol 2.5 MG/Ipratropium 0.5 MG 3 ML ONE ×2 (03:08→07:53)
[2017-08-20] MEDS ORDERED: Albuterol/Ipratropium NEB.SOL* Albuterol 2.5 MG/Ipratropium 0.5 MG 3 ML INH ONE (03:12)
[2017-08-20 03:30] LABS: Hematocrit 30 % (35-47); Hemoglobin 9.7 g/dl (12.0-16.0); Mean Corpuscular HGB Conc 32 g/dl (31-36); Mean Corpuscular Hemoglobin 29 pg (27-31); Mean Corpuscular Volume 89 fL (80-97); Mean Platelet Volume 8 um3 (7.4-10.4); Red Blood Count 3.39 10^6/ul (4.0-5.4); Red Cell Distribution Width 18 % (10.5-15); White Blood Count 12.6 10^3/ul (3.5-10.8)
[2017-08-20 03:39] LABS: FIO2 100
[2017-08-20 03:42] LABS: Albumin 3.5 g/dL (3.2-5.2); BUN/Creatinine Ratio 14.8 (8-20); Calcium 8.5 mg/dL (8.6-10.3); EGFR African American 43.7 (>60); Globulin 3.5 g/dL (2-4); Potassium 3.5 mmol/L (3.5-5.0); Total Bilirubin 0.6 mg/dL (0.2-1.0)
[2017-08-20 03:43] LABS: PCO2 Arterial 35 mmHg (35-45)
[2017-08-20] MEDS ORDERED: Morphine INJ* 4 MG/ML 1 ML CARPUJECT IV ONE (03:55)
[2017-08-20] MEDS ORDERED: Piperacillin/Tazobac ADVAN(*) 3.375 GM in NS 0.9% 100 ML* 100 ML IVPB ONE (03:58)
[2017-08-20] MEDS ORDERED: Vancomycin(*) 1,000 MG VIAL IVPB SCH (04:00)
[2017-08-20 04:22] LABS: Troponin I 0.04 ng/mL (<0.04)
[2017-08-20] MEDS ORDERED: Vancomycin(*) 750 MG in NS 0.9% 250 ML* 250 ML IVPB ONE (05:00)
[2017-08-20] MEDS ORDERED: Nitroglycerin TAB 0.4 MG* 0.4 MG TAB SL PRN (07:25)
[2017-08-20] MEDS ORDERED: Morphine INJ* 4 MG/ML 1 ML CARPUJECT ONE (07:28)
[2017-08-20] MEDS: Morphine INJ* 4 MG/ML 1 ML CARPUJECT IV PRN (07:28)
--- NOTE | 2017-08-20 07:30 | ADMNOTE ---
Subjective Date of Service: 08/20/17 Interval History: ADMICISSION HISTORY AND PHYSICAL EXAM: Allergies Allergy/AdvReac Type Severity Reaction Status Date / Time Promethazine [From Phenergan] Allergy Severe Unknown Verified 08/20/17 03:06 Reaction Details Procaine [From Novocain] Allergy See Comment Verified 08/20/17 03:06 Home Medications Medication Instructions Recorded Confirmed Type Tacrolimus CAP(*) [Prograf CAP(*)] 1 mg PO BID 11/24/12 08/20/17 History Aspirin EC Low Dose* [Ecotrin EC 81 mg PO DAILY 11/16/16 08/20/17 History Low Dose 81 MG*] Cyanocobalamin TAB* [Vitamin B12 1,000 mcg PO DAILY #30 tab 03/18/17 08/20/17 Rx TAB*] Metoprolol Tartrate TAB* 50 mg PO BID #60 tab 03/18/17 08/20/17 Rx [Lopressor TAB*] Nitroglycerin TAB 0.4 MG* 0.4 mg SL Q5M PRN #10 tab 03/18/17 08/20/17 Rx traMADol TAB* [Ultram*] 50 mg PO Q4H PRN MDD 6 03/23/17 08/20/17 History Umeclidinium [place] [Incruse 1 inh PO DAILY 06/05/17 08/20/17 History Ellipta] Albuterol 2.5MG/3ML (0.083%)* 2.5 mg INH Q4H PRN #90 ml 06/24/17 08/20/17 Rx [Ventolin 2.5 MG/3 ML NEB.DORENE*] Apixaban* [Eliquis] 2.5 mg PO BID #60 tab 06/24/17 08/20/17 Rx Diltiazem HCl Coated Beads 300 mg PO DAILY 07/06/17 08/20/17 History [Cardizem 300 MG LA] Clonazepam 0.5 mg PO DAILY 08/20/17 08/20/17 History HPI: She began having increase SOB early this AM, had chills, sweats. No relief with neb tx. Family History: Findings - Both parents had heart disease Social History: Findings - States she quit smoking 2014, but in 06/19 stated she still smoked. No alcohol x 25 yrs. Son Ever is her SDM. Past Medical History: Findings - Liver transplant 21 yrs ago. COPD, [place], stents , cardiac arrest x 2, AICD Review of Systems - Measurements Intake and Output: Intake and Output Last 24 Hours 08/18/17 08/19/17 08/20/17 08/21/17 06:59 06:59 06:59 06:59 Weight 104 lb - Review of Systems Constitutional Symptoms: Negative: Weight Gain, Weight Loss, Weakness, Fatigue, Fever, Night Sweats, Unexplained Falls, Other Dermatology: Positive: Normal HEENT: Positive: Normal Eyes: Positive: Normal Thyroid: Positive: Normal Pulmonary: Positive: Shortness of Breath, COPD Cardiology: Positive: Normal Gastroenterology: Positive: Vomiting, Other - liver transplant Genital - Urinary: Positive: Normal Genitourinay - Female: Positive: Menopause Musculoskeletal: Positive: Joint Pain Endocrinology: Positive: Normal Hematologic/Lymphatic: Positive: Anemia Neurology: Positive: Normal Psychiatry: Positive: Normal Allergic/Immunologic: Negative: Hx Anaphylaxis, Hx Angioedema, Hx Environmental, Hx Seasonal, Athsma, Hx HIV, Immunocompromise, Swollen Glands LymphNodes, Other Objective Vital Signs 08/20/17 08/20/17 08/20/17 03:04 03:09 03:10 Temperature 99.0 F Pulse Rate 94 94 Respiratory 40 36 Rate Blood Pressure 206/68 206/68 (mmHg) O2 Sat by Pulse 94 91 Oximetry 08/20/17 08/20/17 08/20/17 03:13 03:23 03:33 Temperature Pulse Rate 89 91 Respiratory 33 28 40 Rate Blood Pressure 163/73 171/67 (mmHg) O2 Sat by Pulse 95 97 Oximetry 08/20/17 08/20/17 08/20/17 03:59 04:00 04:30 Temperature Pulse Rate 86 85 Respiratory 24 38 23 Rate Blood Pressure 153/80 158/55 (mmHg) O2 Sat by Pulse 96 94 Oximetry 08/20/17 08/20/17 08/20/17 05:00 05:32 06:00 Temperature Pulse Rate 77 80 Respiratory 20 25 23 Rate Blood Pressure 128/50 150/54 147/56 (mmHg) O2 Sat by Pulse 95 89 Oximetry 08/20/17 06:43 Temperature Pulse Rate 84 Respiratory 26 Rate Blood Pressure 153/55 (mmHg) O2 Sat by Pulse 87 Oximetry Oxygen Devices in Use Now: High Flow Heated Nasal Cannula Appearance: Alert, partly up in ED stretcher. In good spirits. C/O head/neck/ back pain Eyes: No Scleral Icterus Neck: NL Appearance and Movements; NL JVP, No Thyroid Enlargement, Masses Respiratory: Symmetrical Chest Expansion and Respiratory Effort, Clear to Auscultation, Clear to Percussion, - - tachypneic Cardiovascular: NL Sounds; No Murmurs; No JVD, RRR, No Edema, - Extremities: No Edema, No Clubbing, Cyanosis, - Skin: No Nodules or Sclerosis, - - Bruise under R eye, pt states from car door Neurological: Alert and Oriented x 3, NL Sensation Result Diagrams: 08/20/17 03:10 08/20/17 03:10 Assess/Plan/Problems-Billing Assessment: - Patient Problems (1) Pneumonia Current Visit: No Status: Acute Code(s): J18.9 - PNEUMONIA, UNSPECIFIED ORGANISM SNOMED Code(s): 869652058 Comment: Extensive L PNA. Continue vanco, pip/brodie. Continue Vapotherm, bronchodilators. MS for pain control. (2) Atrial fibrillation Current Visit: No Status: Acute Code(s): I48.91 - UNSPECIFIED ATRIAL FIBRILLATION SNOMED Code(s): 18642356 Comment: PAF, continue apixaban. (3) Long QT syndrome Current Visit: No Status: Chronic Priority: High Onset Date: 09/24/14 Code(s): I45.81 - LONG QT SYNDROME SNOMED Code(s): 2109257 Comment: ICD in place. Avoid QT prolonging agents. QT 675 08/20/17. Hx Vtach. (4) CAD (coronary artery disease) Current Visit: No Status: Chronic Code(s): I25.10 - ATHSCL HEART DISEASE OF [place] CORONARY ARTERY W/O ANG PCTRS SNOMED Code(s): 50758628 Comment: [place] RCA March 2017 s/p BMS Continue brilinta, metoprolol, ASA and statin Clinically no change in cardiac condition, mildly elevated trop, assume this is demand related rather than representing ACS (5) Anemia Current Visit: No Status: Acute Code(s): D64.9 - ANEMIA, UNSPECIFIED SNOMED Code(s): 120264993 Comment: ACD. Stable. (6) Liver transplant recipient Current Visit: No Status: Chronic Code(s): Z94.4 - LIVER TRANSPLANT STATUS SNOMED Code(s): 628487120 Comment: Continue tacrolimus (7) CKD (chronic kidney disease) stage 3, GFR 30-59 ml/min Current Visit: Yes Status: Acute Code(s): N18.3 - CHRONIC KIDNEY DISEASE, STAGE 3 (MODERATE) SNOMED Code(s): 265585389 Comment: Stable.
[2017-08-20] MEDS: Albuterol/Ipratropium NEB.SOL* Albuterol 2.5 MG/Ipratropium 0.5 MG 3 ML INH PRN (07:53)
[2017-08-20] MEDS ORDERED: Vancomycin per Pharmacy* NOTE FOLLOW UP SCH (08:00)
--- NOTE | 2017-08-20 08:27 | ED ---
Ya Yates Alfonso, scribed for Jagdeep Dodd MD on 08/20/17 at 0322 . Shortness of Breath - HPI Summary HPI Summary: This patient is a 61 year old F BIBA to [facility] with a chief complaint of SOB gradually worsening since approximately 2200 yesterday. The patient rates the pain 10/10 in severity. Symptoms aggravated by deep breaths. Symptoms alleviated by nothing. Symptoms not alleviated by nebulizer treatment. Pt given ASA by EMS DATA PROCESSING SYSTEMS CONSULTANT. Patient reports hot flashes, chills, diaphoresis, nausea, CP, back pain, and generalized weakness. - History of Current Complaint Chief Complaint: EDShortnessOfBreath Hx Obtained From: Patient Onset/Duration: Sudden Onset, Lasting Minutes - 2200 yesterday, Still Present Timing: Constant Aggrevating Factors: Deep Breaths Alleviating Factors: Nothing Associated Signs & Symptoms: Chest Pain Unrelated to Cough, Chills, Diaphoresis - Allergy/Home Medications Allergies/Adverse Reactions: Allergies Allergy/AdvReac Type Severity Reaction Status Date / Time Promethazine [From Phenergan] Allergy Severe Unknown Verified 08/20/17 03:06 Reaction Details Procaine [From Novocain] Allergy See Comment Verified 08/20/17 03:06 Home Medications: Home Medications Clonazepam 0.5 mg PO DAILY 08/20/17 [History Confirmed 08/20/17] PMH/Surg Hx/FS Hx/Imm Hx Endocrine/Hematology History: Reports: Hx Anemia Denies: Hx Anticoagulant Therapy, Hx Blood Transfusions, Hx Diabetes Cardiovascular History: Reports: Hx Angina, Hx Auto Implanted Cardiovert Defib, Hx Cardiac Arrest - 2013 X2 Aug/Sep, Hx Coronary Artery Disease, Hx Hypertension , Hx Myocardial Infarction - 03/2017 - stent placed - on Brilinta, Hx Pacemaker/ ICD, Hx Peripheral Vascular Disease - pending bypass, Hx Syncope - 2016, Hx Valvular Heart Disease, Other Cardiovascular Problems/Disorders - cardiac arrest following phenergan long QT syndrome; Percarditis-10/2014 Denies: Hx Congestive Heart Failure, Hx Hypercholesterolemia Respiratory History: Reports: Hx Chronic Bronchitis, Hx Chronic Obstructive Pulmonary Disease (COPD), Hx Pneumonia, Other Respiratory Problems/Disorders - PNA Denies: Hx Asthma, Hx Pulmonary Embolism, Hx Seasonal Allergies, Hx Sleep Apnea GI History: Reports: Hx Cirrhosis, Hx Gall Bladder Disease, Other GI Disorders - 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 Denies: Hx Crohn's Disease, Hx Diverticulosis, Hx Gastroesophageal Reflux Disease, Hx Jaundice History: Reports: Hx Acute Renal Failure - admission in 03/2017, Hx Chronic Renal Failure Denies: Hx Dialysis, Hx Renal Disease Musculoskeletal History: Reports: Hx Arthritis - chronic - pending pain management appt, Hx Back Problems - chronic, Other Musculoskeletal History - osteo-arthritis Denies: Hx Rheumatoid Arthritis - osteoarthritis Sensory History: Reports: Hx Contacts or Glasses - reading glasses Denies: Hx Hearing Aid Opthamlomology History: Reports: Hx Contacts or Glasses - reading glasses Neurological History: Denies: Hx Dementia, Hx Seizures Psychiatric History: Reports: Hx Anxiety, Hx Depression, Hx Inpatient Treatment , Hx Substance Abuse Denies: Hx Suicide Attempt - suicidal ideation, hospitalization - Surgical History Surgery Procedure, Year, and Place: Pacer December 1996, Liver transplant February 1996 , peripheral artery disease surgery in groin 2011, arthoscopic of left knee, Pacemaker Hx Anesthesia Reactions: No - Immunization History Date of Tetanus Vaccine: pt states she doesnt know Date of Influenza Vaccine: none Infectious Disease History: Yes Infectious Disease History: Reports: Hx Hepatitis - C - s/p liver transplant - no Hep C currently Denies: Hx Clostridium Difficile, Hx Human Immunodeficiency Virus (HIV), Hx of Known/Suspected MRSA, Hx Shingles, Hx Tuberculosis, Hx Known/Suspected VRE, Hx Known/Suspected VRSA, History Other Infectious Disease, Traveled Outside the [place] in Last 30 Days - Family History Known Family History: Positive: Cardiac Disease, Hypertension Family History: Denies FHx breast cancer - Social History Alcohol Use: None Hx Substance Use: Yes Substance Use Type: Reports: Marijuana Hx Tobacco Use: Yes Smoking Status (MU): Current Every Day Smoker Type: Cigarettes Amount Used/How Often: 1/2-1 PPD Review of Systems Positive: Chills, Skin Diaphoresis, Other - Hot flashes Positive: Chest Pain Positive: Shortness Of Breath Positive: Nausea Positive: Other - back pain Positive: Weakness All Other Systems Reviewed And Are Negative: Yes Physical Exam - Summary Physical Exam Summary: Appearance: Well-appearing, Well-nourished Sin: Warm Eyes: Normal ENT: Dry mucous membranes Neck: Supple, nontender Respiratory: Tachypnea, Bilateral rhonchi, Poor air entry, Bedside lung US shows sparse b-lines bilaterally Cardiovascular: Normal, Strong distal pulses, Bedside cardiac sonogram shows preserved ejection fraction and no evidence of tamponade or pericardial fluid Abdomen: Soft, nontender Bowel: Present Musculoskeletal: Normal, Strength/ROM Intact Neurological: Normal, A&Ox3, Neurologically intact. Psychiatric: Visually anxious, Speaking in short phrases Triage Information Reviewed: Yes Vital Signs On Initial Exam: Initial Vitals Temp Pulse Resp BP Pulse Ox 99.0 F 94 40 206/68 94 08/20/17 03:04 08/20/17 03:04 08/20/17 03:04 08/20/17 03:04 08/20/17 03:04 Vital Signs Reviewed: Yes Diagnostics - Vital Signs Vital Signs Temp Pulse Resp BP Pulse Ox 08/20/17 03:04 99.0 F 94 40 206/68 94 - Laboratory Lab Results: Lab Results 08/20/17 08/20/17 08/20/17 Range/Units 03:10 03:10 03:10 WBC 12.6 H (3.5-10.8) 10^3/ul RBC 3.39 L (4.0-5.4) 10^6/ul Hgb 9.7 L (12.0-16.0) g/dl Hct 30 L (35-47) % MCV 89 (80-97) fL MCH 29 (27-31) pg MCHC 32 (31-36) g/dl RDW 18 H (10.5-15) % Plt Count 243 (150-450) 10^3/ul MPV 8 (7.4-10.4) um3 Neut % (Auto) 75.0 (38-83) % Lymph % (Auto) 10.2 L (25-47) % [place] % (Auto) 8.7 (1-9) % Eos % (Auto) 5.6 (0-6) % Baso % (Auto) 0.5 (0-2) % Absolute Neuts (auto) 9.4 H (1.5-7.7) 10^3/ul Absolute Lymphs (auto) 1.3 (1.0-4.8) 10^3/ul Absolute Monos (auto) 1.1 H (0-0.8) 10^3/ul Absolute Eos (auto) 0.7 H (0-0.6) 10^3/ul Absolute Basos (auto) 0.1 (0-0.2) 10^3/ul Absolute Nucleated RBC 0.01 10^3/ul Nucleated RBC % 0 Patient Temperature ABG pH (7.35-7.45) ABG pH (Temp Correct) ABG pCO2 (35-45) mmHg ABG pCO2 (Temp Corrct ABG pO2 (80-100) mmHg ABG pO2 (Temp Correct ABG HCO3 (19-31) mmol/L ABG O2 Saturation (95-98) % ABG Base Excess (-2.0-2.0) Respiration Rate O2 Delivery Device Ventilator Type Vent Mode FiO2 Inspiratory Time PEEP Pressure Support Pressure Control EPAP IPAP BiPAP Sodium 134 (133-145) mmol/L Potassium 3.5 (3.5-5.0) mmol/L Chloride 105 (101-111) mmol/L Carbon Dioxide 20 L (22-32) mmol/L Anion Gap 9 (2-11) mmol/L BUN 23 (6-24) mg/dL Creatinine 1.55 H (0.51-0.95) mg/dL Est GFR ( Amer) 43.7 (>60) Est GFR (Non-Af Amer) 34.0 (>60) BUN/Creatinine Ratio 14.8 (8-20) Glucose 162 H (70-100) mg/dL Lactic Acid 2.2 H* (0.5-2.0) mmol/L Calcium 8.5 L (8.6-10.3) mg/dL Total Bilirubin 0.60 (0.2-1.0) mg/dL AST 33 (13-39) U/L ALT 109 H (7-52) U/L Alkaline Phosphatase 80 (34-104) U/L Troponin I 0.04 H* (<0.04) ng/mL B-Natriuretic Peptide ( - 100) pg/mL Total Protein 7.0 (6.4-8.9) g/dL Albumin 3.5 (3.2-5.2) g/dL Globulin 3.5 (2-4) g/dL Albumin/Globulin Ratio 1.0 (1-3) 08/20/17 08/20/17 Range/Units 03:10 03:30 WBC (3.5-10.8) 10^3/ul RBC (4.0-5.4) 10^6/ul Hgb (12.0-16.0) g/dl Hct (35-47) % MCV (80-97) fL MCH (27-31) pg MCHC (31-36) g/dl RDW (10.5-15) % Plt Count (150-450) 10^3/ul MPV (7.4-10.4) um3 Neut % (Auto) (38-83) % Lymph % (Auto) (25-47) % [place] % (Auto) (1-9) % Eos % (Auto) (0-6) % Baso % (Auto) (0-2) % Absolute Neuts (auto) (1.5-7.7) 10^3/ul Absolute Lymphs (auto) (1.0-4.8) 10^3/ul Absolute Monos (auto) (0-0.8) 10^3/ul Absolute Eos (auto) (0-0.6) 10^3/ul Absolute Basos (auto) (0-0.2) 10^3/ul Absolute Nucleated RBC 10^3/ul Nucleated RBC % Patient Temperature Not Reportable ABG pH 7.35 (7.35-7.45) ABG pH (Temp Correct) Not Reportable ABG pCO2 35 (35-45) mmHg ABG pCO2 (Temp Corrct Not Reportable ABG pO2 82 (80-100) mmHg ABG pO2 (Temp Correct Not Reportable ABG HCO3 20.5 (19-31) mmol/L ABG O2 Saturation 98.9 H (95-98) % ABG Base Excess -5.7 L (-2.0-2.0) Respiration Rate Not Reportable O2 Delivery Device vapotherm Ventilator Type Not Reportable Vent Mode Not Reportable FiO2 100 Inspiratory Time Not Reportable PEEP Not Reportable Pressure Support Not Reportable Pressure Control Not Reportable EPAP Not Reportable IPAP Not Reportable BiPAP Not Reportable Sodium (133-145) mmol/L Potassium (3.5-5.0) mmol/L Chloride (101-111) mmol/L Carbon Dioxide (22-32) mmol/L Anion Gap (2-11) mmol/L BUN (6-24) mg/dL Creatinine (0.51-0.95) mg/dL Est GFR ( Amer) (>60) Est GFR (Non-Af Amer) (>60) BUN/Creatinine Ratio (8-20) Glucose (70-100) mg/dL Lactic Acid (0.5-2.0) mmol/L Calcium (8.6-10.3) mg/dL Total Bilirubin (0.2-1.0) mg/dL AST (13-39) U/L ALT (7-52) U/L Alkaline Phosphatase (34-104) U/L Troponin I (<0.04) ng/mL B-Natriuretic Peptide 1028 H ( - 100) pg/mL Total Protein (6.4-8.9) g/dL Albumin (3.2-5.2) g/dL Globulin (2-4) g/dL Albumin/Globulin Ratio (1-3) Result Diagrams: 08/20/17 03:10 08/20/17 03:10 Lab Statement: Any lab studies that have been ordered have been reviewed, and results considered in the medical decision making process. - Radiology CXR Radiology Interpretation Completed By: ED Physician - Pneumonia, Radiologist - Pending official interpretation - CT Chest CT Interpretation Completed By: Radiologist - Patchy densities bilateral lungs, most confluent in left lower lobe, probably pneumonia. ED physician has reviewed this radiology report and agrees. - EKG 0419 Cardiac Rate: NL EKG Rhythm: Sinus Rhythm - BPM 83 EKG Interpretation: T-wave inversions seens on priors. 0305 Cardiac Rate: NL EKG Rhythm: Sinus Rhythm - BPM 94 EKG Interpretation: Prominent P waves, Excessive respiratory artifact Re-Evaluation - Re-Evaluation First Eval Change: Improved - pt less tachypneic, symptomatically improved after resp treatment and meds and fluids, will require icu for oxygen requirement high flow Course/Dx - Course Course Of Treatment: tachypnea improved with neb treatments nad high flow nasal cannula, initial ABG showed no evidence of hypercapnia. resp rate improved, symptomatically improving, b/l pulmonar yconsolidations seen on XR and CT, admitted for ICU for o2 requirment and further treatment - Diagnoses Provider Diagnoses: Pneumonia, Respiratory distress, acute - Physician Notifications Discussed Care of Patient With: Felipe Ortiz Time Discussed With Above Provider: 06:41 Instructed by Provider To: Other - Consulted Dr. Ortiz (hospitalist) at 0641 who agrees to admit. Discharge - Discharge Plan Condition: Stable Disposition: ADMITTED TO [facility] Referrals: Bill Koo MD [Primary Care Provider] - The documentation as recorded by the Ya dc Alfonso accurately reflects the service I personally performed and the decisions made by me, Jagdeep Dodd MD.
[2017-08-20] MEDS ORDERED: clonazePAM TAB(*) 0.5 MG PO SCH (09:00)
[2017-08-20] MEDS ORDERED: Diltiazem CD CAP* 120 MG PO SCH (09:00)
[2017-08-20] MEDS ORDERED: Diltiazem CD CAP* 180 MG PO SCH (09:00)
[2017-08-20] MEDS ORDERED: Metoprolol Tartrate TAB* 50 mg PO SCH (09:00)
[2017-08-20] MEDS ORDERED: Acetaminophen TAB* 325 MG PO PRN (09:28)
[2017-08-20] MEDS ORDERED: NS 0.9% 1000 ML* 1,000 ML IV ONE ×2 (09:48→10:59)
[2017-08-20] MEDS ORDERED: D5W NS 0.9% 20Meq KCL 1000 ML* 1,000 ML IV SCH (10:00)
--- NOTE | 2017-08-20 10:14 | RAD ---
INDICATION: Chest pain and shortness of breath COMPARISON: Most recent comparison chest x-rays dated June 22, 2017 TECHNIQUE: Single AP portable view of the chest was obtained. FINDINGS: Image quality is compromised due to the relative inferiority of a portable chest x-ray. Again seen is a right chest cardiac pacemaker with 3 leads overlying the heart. There is mild cardiomegaly. There is patchy density obscuring the bilateral mid-level and lower lungs, more severely affecting the left than the right. The costophrenic angles are minimally blunted. Visualized bones are normal for the patient's age. IMPRESSION: Chest x-ray findings could be consistent with cardiogenic pulmonary edema, pneumonitis or ARDS depending on the clinical presentation.
[2017-08-20] MEDS: Piperacillin/Tazobac ADVAN(*) 3.375 GM in NS 0.9% 100 ML* 100 ML IVPB SCH ×5 (10:27→18:37)
[2017-08-20] MEDS: Apixaban* 2.5 MG TAB PO SCH ×2 (11:01→21:26)
[2017-08-20] MEDS: Ticagrelor* 90 MG TAB PO SCH ×2 (11:02→21:26)
[2017-08-20] MEDS: Cyanocobalamin TAB* 500 MCG PO SCH (11:02)
[2017-08-20] MEDS: Aspirin EC Low Dose* 81 MG TAB.EC PO SCH (11:02)
--- NOTE | 2017-08-20 11:34 | CONSULT ---
Consult Consult: CRITICAL CARE MEDICINE DATE: 08/20/17 TIME: 1035 PRIMARY CARE PROVIDER: Mango REFERRING PROVIDER: Angel REASON/CHIEF COMPLAINT: sob HISTORY OF PRESENT ILLNESS: 61 F presenting thru ED with sob. states she was sob last pm, tired to sleep. felt even nauseas and had vomited. utilized nebulizer x2 and tried to go back to sleep. Awoke again, sob and tight. In ED placed on O2 needs and CXR with large air space disease. Admitted on HFO2 to ICU. ICU consult given her degree of acute hypoxic resp failure. REVIEW OF SYSTEMS: As per HPI. recently admitted for pna back in jun PAST MEDICAL HISTORY: As per HPI. CAD s/p STEMI with BMS to RCA 03/19, HTN, CKD 3 , Hep C, liver transplant 1995 ([place]) on tacrolimus, AICD from long QT, PAD s/o left LE endaterectomy, PAF, copd, tob abuse. MEDICATIONS: Reviewed. ALLERGIES: Reviewed. Promethazine, procaine SOCIAL HISTORY: Reviewed. FAMILY HISTORY: CAD PHYSICAL EXAM: mod distress Vital Signs: Reviewed. RR >30. 40lpm. 100%. 100% sat. HR 80s. Neurologic: awake, communicating, holds capacity HEENT: anicteric, mm dry Cardiovascular: reg, S1, S2, no appreciable m Respiratory: coarse rales bl, but more pronounced on left Abdomen: soft, nt; scarring Extremities: warm Access: piv LABS: Reviewed. IMAGING: Reviewed. CXR with b/l airspace disease, L>>R MEDICATIONS: Reviewed. ASSESSMENT: 61 F Acute hypoxic resp failure Health care associated pna Severe sepsis sec to above Mild Lactic acidosis on admission - cleared Mild demand ischemia with elevated troponin Mild marni - on chronic ckd 3 H/o liver transplant on tacrolimus PLAN: Neurologic: awake, tolerating, but fatigable Cardiovascular: Perfusing but escalated metabolic demand drive. iintravscular still low and trying to avoid interstitial overload. need for cvc. Respiratory: on HFO2. able to communicate well, but explain the high potential for this to worsen and need early rather then later MV. the fact that this is so vast and bl, and although she can oxygenate now her wob will remain too high for too long to avoid MV. States her son is on his way in and we agree to wait a little longer to see if anything improving and son can get here prior to intubation. Gastrointestinal: npo currently. sup. Renal/Metabolic: marni but tolerable. demands high. may linger on Uout. adjusting vol status. LA cleared. f/u. Infectious Disease: received vanco/zosyn. at risk for atypicals so azithro added. cx pending. at risk for oppurtunistic, but this seem more typical at present. can bronch post intubation for bal. Hematology: continue tacrolimus. chronic anemia. on brillinta post stent continued. chronic eliquis tx. Endocrine: may benefit from stress dose steroids but reserved at present. f/u bg Musculoskeletal: bedrest currently Psych/Social: call placed to son with no answer. will try other means. pt expressed understanding of plans. Supportive and preventative care as ordered. Vaccine: up to date SUP: H2 VTE prophylaxis: heparin Guadalupe catheter given critical illness, monitoring needs for accurate assessment of MARNI and KDIGO criteria for critically ill patients and to avoid potential harms of urinary retention, skin breakdown/ulcers. Disposition: ICU Code Status: Full Critical Care Time: 50min FRei Ivory DO
[2017-08-20] MEDS: Tacrolimus CAP(*) 1 MG PO SCH ×2 (11:36→21:26)
[2017-08-20] MEDS: Azithromycin IV(*) 500 MG in NS 0.9% 250 ML* 250 ML IVPB SCH (11:37)
[2017-08-20] MEDS ORDERED: fentaNYL* 50 MCG/ML 2 ML VIAL (100 MCG VIAL) ONE (11:55)
[2017-08-20] MEDS ORDERED: Propofol* 10 MG/ML 20 ML BTL IV PUSH ONE ×2 (11:56→12:03)
[2017-08-20] MEDS ORDERED: Propofol* 100 ML ONE (11:59)
[2017-08-20] MEDS ORDERED: fentaNYL* 50 MCG/ML 2 ML VIAL (100 MCG VIAL) IV SLOW PU ONE (12:20)
[2017-08-20] MEDS ORDERED: fentaNYL* 50 MCG/ML 5 ML VIAL (250 MCG VIAL) ONE (12:24)
[2017-08-20] MEDS ORDERED: Atropine SYRINGE* 0.1 MG/ML 10 ML SYRINGE (1 MG) ONE (12:29)
[2017-08-20] MEDS ORDERED: Atropine SYRINGE* 0.1 MG/ML 10 ML SYRINGE (1 MG) IV PUSH ONE ×2 (12:30→12:32)
[2017-08-20] MEDS ORDERED: Norepinephrine 16MCG/ML IVPRE* 4,000 MCG/250 ML BAG IV ONE (12:36)
[2017-08-20] MEDS ORDERED: EPINEPHrine SYR 0.1 MG/ML* (1:10,000) SYRINGE ONE ×2 (12:50→14:18)
[2017-08-20] MEDS ORDERED: fentaNYL* 50 MCG/ML 2 ML VIAL (100 MCG VIAL) IV SLOW PU PRN (13:15)
--- NOTE | 2017-08-20 13:26 | PN ---
Progress Note - Progress Note Date of Service: 08/20/17 Note: CRITICAL CARE MEDICINE PROCEDURE NOTE DATE: 08/20/17 TIME: 1200 SERVICE: Critical Care Medicine LOCATION OF PROCEDURE: ICU PROCEDURE: Endotracheal intubation PROCEDURALIST: Dr. Ivory Consent obtain: Yes, but, procedure performed emergently Time out held: Not indicated INDICATION: Acute respiratory failure PROCEDURE: Oxygenation maintained and vitals monitored. Patient in supine position. Pre-medication with fentanyl 200mcg / propofol 100mg. Glidescope #3 inserted with Grade 1 view obtained. 7.5 endotracheal tube inserted to 22cm lip. Good chest rise with breath sounds appreciated in bilaterally lung gerard. EtCO2 + color change. Pt with bronch post and ett low. brought back to 20cm and better on bronch; however, post bronch with with audible air leak. bronch re-confirmed ett location and ballow inflated without remedy. Decision made to extract tube and replace. Glidescope re-inserted and 8.0ett placed to 22cm and good position. Portable cxr pending. Patient otherwise tolerated well. Shoshana Ivory DO
--- NOTE | 2017-08-20 13:29 | PN ---
Progress Note - Progress Note Date of Service: 08/20/17 Note: CRITICAL CARE MEDICINE PROCEDURE NOTE DATE: 08/20/17 TIME: 1215 SERVICE: Critical Care Medicine LOCATION OF PROCEDURE: ICU PROCEDURE: Bronchoscopy PROCEDURALIST: Dr. Ivory Consent obtain: Yes verbal from pt, but procedure performed emergently Time out held: Yes INDICATION: Acute respiratory failure, immunosuppressed Pneumonia ISOLATION: HEPA Filter utilized. PROCEDURE: Oxygenation maintained and vitals monitored. Patient in supine position. Pre-medication with intubation and no additional needed for bronch immediately post. Bronchoscope inserted via endotracheal tube. Ett at right mainstem and retracted with better visualization. Frothy, edema secretions b/l.Pt with some difficulty tolerating and quick bronchial wash performed to left lower lobes. 10ml aliquots of saline were inserted, to a total of 50ml. Scope extracted without inspecting all bronchi. Specimens were sent to lab. Patient otherwise tolerated. Shoshana Ivory, DO
--- NOTE | 2017-08-20 13:32 | PN ---
Progress Note - Progress Note Date of Service: 08/20/17 Note: CRITICAL CARE MEDICINE PROCEDURE NOTE DATE: 08/20/17 TIME: 1240 SERVICE: Critical Care Medicine LOCATION OF PROCEDURE: ICU PROCEDURE: Central line insertion PROCEDURALIST: Dr. Ivory Consent obtain: Yes, verbal from pt but procedure otherwise performed emergently Time out held: Yes INDICATION: Acute respiratory failure / Septic shock / Pneumonia PROCEDURE: Oxygenation maintained and vitals monitored. Patient in trendelenberg position. SITE: LEFT Internal jugular (although Right evaluated first with inability to pass wire secondary to terminal vein; right abandoned) Then Left IJ Site preparation with chlorhexidine locally. Full sterile drape, gown, hat, mask, gloves. 5ml 1% Lidocaine utilized at incision site. Standard sterile Seldinger technique utilized via ultrasound guidance and catheter was inserted to 17cm and sutured in place. Good blood return. Minimal blood loss. Site dressed with tegaderm. Portable chest x-ray pending. Patient otherwise tolerated well. Shoshana Ivory, DO
--- NOTE | 2017-08-20 13:36 | RAD ---
INDICATION: Shortness of breath and chest pain. COMPARISON: Same day chest x-ray that shows bilateral infiltrates. CTA of the chest dated June 20, 2017. TECHNIQUE: Axial source images of the chest were acquired without intravenous contrast from just above the lung apices to the base of the diaphragm. Coronal and sagittal reconstructed images were acquired. FINDINGS: At the bilateral upper lobes, more severely affecting the left lobe than the right, there are groundglass densities that become more confluent at the central lungs. Inferiorly there are more confluent densities with air bronchograms involving the left lower lobe. There are small bibasilar pleural effusions. The heart is normal size. There is no pericardial effusion. Cardiac pacemaker with wires are noted. There is no readily apparent mediastinal, hilar, or axillary lymphadenopathy. The osseous structures appear normal. Limited views of the upper abdomen show no acute abnormalities. IMPRESSION: Diffuse groundglass densities and more confluent consolidation involving multiple lobes, overall more severely affecting the left than the right lung with small pleural effusions. Appearance is similar but worse when compared to the June 20, 2017 CT examination. Etiologies could include pulmonary edema, pneumonitis, ARDS or multifocal pneumonia.
[2017-08-20] MEDS: Umeclidin 62.5 MDI(NF) 1 INH MDI INH SCH (13:38)
--- NOTE | 2017-08-20 13:45 | RAD ---
INDICATION: Status post intubation COMPARISON: Similar radiograph acquired at 0319 hours on the same date TECHNIQUE: Single AP portable view of the chest was obtained at 1324 hours. FINDINGS: Image quality is compromised due to the relative inferiority of a portable chest x-ray. There is been interval placement of an endotracheal tube with the tip terminating approximately 3 cm above the frank as well as a gastric tube with the tip terminating below the diaphragm and out of the field of view, presumably in the lumen of the stomach. Patchy density overlying the left worse than right lung with obscuration of the bilateral hemidiaphragm is similar in appearance to the most recent chest x-ray. IMPRESSION: Interval placement of an endotracheal tube in appropriate position according to radiographic criteria. The tip of the gastric tube descends below the diaphragm and beyond the [id number] of the radiograph.
[2017-08-20] MEDS ORDERED: VASOPRESSIN 20 UNITS/ML 1 ML VIAL ONE (14:12)
[2017-08-20] MEDS ORDERED: Vasopressin* 100 UNITS in D5W 250 ML BAG* 245 ML IVPB SCH (14:15)
[2017-08-20] MEDS ORDERED: EPINEPHrine AMP 1 MG/ML ONE (14:21)
[2017-08-20] MEDS: Hydrocortisone INJ* 100 MG VIAL IV SCH ×2 (14:31→21:25)
[2017-08-20] MEDS: NS 0.9% 1000 ML* 3,000 ML IV ONE ×2 (14:36→14:37)
[2017-08-20] MEDS: Norepinephrine 16MCG/ML IVPRE* 4,000 MCG/250 ML BAG IV SCH ×3 (14:38→18:38)
[2017-08-20] MEDS: Propofol* 100 ML IV SCH ×2 (15:13→17:41)
[2017-08-20] MEDS ORDERED: Epinepherine DRIP 4 mcg/ml 250 mls (dosed in mcg/kg/min) IVPB SCH (15:15)
[2017-08-20] MEDS ORDERED: EPINEPHrine AMP 1 MG/ML* 1 MG in D5W 250 ML BAG* 250 ML IVPB SCH (15:45)
[2017-08-20] MEDS ORDERED: Cisatracurium* 100 MG in NS 0.9% 250 ML* 200 ML IVPB SCH (16:00)
--- NOTE | 2017-08-20 16:00 | PN ---
Progress Note - Progress Note Date of Service: 08/20/17 Note: CRITICAL CARE MEDICINE PROCEDURE NOTE DATE: 08/20/17 TIME: 1500 SERVICE: Critical Care Medicine LOCATION OF PROCEDURE: ICU PROCEDURE: Arterial line insertion. PROCEDURALIST: Dr. Ivory Consent obtain: Yes , from proxy, but procedure performed emergently Time out held: Yes INDICATION: Refractory shock PROCEDURE: Oxygenation maintained and vitals monitored. Patient in supine position. Pt already in refractory shock on levophed, vasopressin, and epi gtts. Radials not palpable nor targetable lumen able to visualize with US. Attempted Right femoral without success. Very calcified and no pulsatile flow obtainable. Site abandoned. SITE: RIGHT Axillary. Site preparation with chlorhexidine locally. Full sterile drape, gown, hat, mask, gloves. 3ml 1% Lidocaine utilized at incision site. Good visualization. Standard sterile Seldinger technique utilized via ultrasound guidance and catheter was inserted to 14cm and sutured in place. Good blood return /wave form. Minimal blood loss. Site dressed with tegaderm. Patient otherwise tolerated well. Son/proxy was present in room throughout. Shoshana Ivory DO
[2017-08-20] MEDS ORDERED: LORazepam INJ* 2 MG/ML 1 ML VIAL IV PUSH ONE (16:08)
[2017-08-20 16:09] LABS: PCO2 Arterial 35 mmHg (35-45)
[2017-08-20] MEDS ORDERED: LORazepam INJ* 2 MG/ML 1 ML VIAL ONE (16:10)
[2017-08-20] MEDS ORDERED: Sodium Bicarbonate 8.4%* 50 ML SYRINGE IV ONE (16:12)
--- NOTE | 2017-08-20 16:19 | PN ---
Progress Note - Progress Note Date of Service: 08/20/17 Note: CRITICAL CARE MEDICINE DATE: 08/20/17 TIME: 1600 Follow up through the day. While we were attempting to wait for family pt started feeling less optomistic for waiting and sats even dropped to low 90s. We proceeded to intubation. bronch. Central line. Iesha placed. (see procedure notes). Pt remained without much Hr response and only really responding to epi gtt. Levophed and vasopressin had been initiated but not maintaining bp. steroids given. Epi push and gtt started with better bp response. Post 6L fluid this am. Bedside US with dilated IVC. cardiac function globally depressed. Improves with epi but not to a degree equiviqual to the potency. While gaining improved perfusion to some degree and she began with myoclonus dynamics. Propofol increased some. Reserved benzos, as this is hypoxic driven at present. Shivering somewhat with fluids and potential rigors even but may need to utilize aed to raise threshold, along with prop. Towards coma state, but still with a resp drive. support. ARDS may require paralytics to decrease further consumption if she cannot remain sync and temp regulated. Checking abg and augement vent as able, but quite max with PHigh already 34. FiO2 100%. repeat CXR was worse. fluid balance. bicarb suppl. Unfortunately she continues to decline. D/w son/proxy at bedside and he expresses understanding. At risk for demise today. Continued all support and see if we can support in time. DNR. Acute hypoxic resp failure ARDS Health care associated pna Refractory septic shock Mild Lactic acidosis on admission - cleared Mild demand ischemia with elevated troponin Mild suhas - on chronic ckd 3 H/o liver transplant on tacrolimus Disposition: ICU Code Status: DNR : pts son and proxy pointed out that pt with previous DNR written on the proxy form, not molst and he supports DNR with continued support. Critical Care Time: 55min additional, excluding procedures. Shoshana Ivory DO
[2017-08-20] MEDS: EPINEPHrine AMP 1 MG/ML* 1 MG in D5W 250 ML BAG* 250 ML IVPB SCH ×2 (16:20→18:38)
[2017-08-20] MEDS ORDERED: Sodium Bicarbonate 8.4%* 50 ML SYRINGE ONE (16:21)
[2017-08-20] MEDS ORDERED: Sodium Bicarbonate 8.4% IV* 150 MEQ in D5W 1000 ML BAG* 1,000 ML IVPB SCH (17:00)
[2017-08-20] MEDS: fentaNYL PCA* 20 ML PCA SCH (17:05)
[2017-08-20] MEDS: Famotidine SUSP* 40 MG/5 ML ORAL.SYRIN G TUBE SCH (17:30)
[2017-08-20] MEDS: Chlorhexidine MOUTHWASH 0.12%* 15 ML UDC TOPICAL SCH ×3 (17:48→21:26)
[2017-08-20 18:49] LABS: FIO2 60; Patient Temp ABG 36.2; Resp Rate 27
[2017-08-20 18:50] LABS: PCO2 Arterial 30 mmHg (35-45)
[2017-08-20] MEDS: Vancomycin(*) 1,000 MG in NS 0.9% 250 ML* 250 ML IVPB SCH (21:26)
[2017-08-21] MEDS: Propofol* 100 ML IV SCH ×4 (00:55→21:07)
[2017-08-21] MEDS: Norepinephrine 16MCG/ML IVPRE* 4,000 MCG/250 ML BAG IV SCH ×2 (02:32→13:00)
[2017-08-21] MEDS: Piperacillin/Tazobac ADVAN(*) 3.375 GM in NS 0.9% 100 ML* 100 ML IVPB SCH ×3 (02:43→18:33)
[2017-08-21] MEDS: Chlorhexidine MOUTHWASH 0.12%* 15 ML UDC TOPICAL SCH ×6 (02:43→21:48)
[2017-08-21] MEDS: Hydrocortisone INJ* 100 MG VIAL IV SCH ×4 (02:43→20:28)
[2017-08-21 06:12] LABS: FIO2 40; Patient Temp ABG 98.6f
[2017-08-21 06:14] LABS: PCO2 Arterial 27 mmHg (35-45)
[2017-08-21 06:16] LABS: Hematocrit 26 % (35-47); Hemoglobin 8.6 g/dl (12.0-16.0); Mean Corpuscular HGB Conc 33 g/dl (31-36); Mean Corpuscular Hemoglobin 29 pg (27-31); Mean Corpuscular Volume 88 fL (80-97); Mean Platelet Volume 8 um3 (7.4-10.4); Red Blood Count 2.99 10^6/ul (4.0-5.4); Red Cell Distribution Width 17 % (10.5-15)
[2017-08-21 06:33] LABS: Albumin 2.5 g/dL (3.2-5.2); BUN/Creatinine Ratio 18.3 (8-20); Calcium 7.4 mg/dL (8.6-10.3); Direct Bilirubin 0.4 mg/dL (0.03-0.18); EGFR African American 53.1 (>60); EGFR Non-African American 41.3 (>60); Globulin 2.9 g/dL (2-4); Indirect Bilirubin 0.4 mg/dL (0.3-1.0); Magnesium 1.4 mg/dL (1.9-2.7); Phosphorus 2.5 mg/dL (2.5-5.0); Potassium 3.9 mmol/L (3.5-5.0); Total Bilirubin 0.8 mg/dL (0.2-1.0); Total Protein 5.4 g/dL (6.4-8.9)
[2017-08-21 06:35] LABS: Troponin I 0.03 ng/mL (<0.04)
[2017-08-21] MEDS: Umeclidin 62.5 MDI(NF) 1 INH MDI INH SCH (07:03)
[2017-08-21] MEDS: Vancomycin(*) 1,000 MG in NS 0.9% 250 ML* 250 ML IVPB SCH ×2 (09:17→20:28)
[2017-08-21] MEDS: Famotidine SUSP* 40 MG/5 ML ORAL.SYRIN G TUBE SCH (09:23)
[2017-08-21] MEDS: Ticagrelor* 90 MG TAB PO SCH ×2 (09:24→20:29)
[2017-08-21] MEDS: Apixaban* 2.5 MG TAB PO SCH ×2 (09:24→20:28)
[2017-08-21] MEDS: Cyanocobalamin TAB* 500 MCG PO SCH (09:24)
[2017-08-21] MEDS: Tacrolimus CAP(*) 1 MG PO SCH ×2 (09:25→20:29)
[2017-08-21] MEDS: Aspirin EC Low Dose* 81 MG TAB.EC PO SCH (09:25)
[2017-08-21] MEDS: fentaNYL PCA* 20 ML PCA SCH (09:37)
[2017-08-21] MEDS: Albumin Human 25%* 100 ML in PREMIX* 0 ML IV SCH ×3 (10:53→21:28)
[2017-08-21] MEDS: Azithromycin IV(*) 500 MG in NS 0.9% 250 ML* 250 ML IVPB SCH (10:58)
--- NOTE | 2017-08-21 11:06 | PN ---
Progress Note - Progress Note Date of Service: 08/21/17 Note: CRITICAL CARE MEDICINE DATE: 08/21/17 TIME: 1000 SUBJECTIVE: Patient seen and examined. son at bedside. PHYSICAL EXAM: Vital Signs: Reviewed. Fio2 40%. Phigh to 30. Hr still 60s until off prop and then to 70-80s. sync with vent and then overbreathing off prop. Neurologic: awakens, communicating; mod delirium, mckeon HEENT: anicteric, pupils eq and reactive. Cardiovascular: reg, S1, S2, no appreciable m Respiratory: coarse bl but much better. r8.0 ett. Abdomen: soft, nt, dec bs; chronic scarring Extremities: warm Access: piv, left IJ, R axillary nataliia with sites well LABS: Reviewed. IMAGING: Reviewed. MEDICATIONS: Reviewed. ASSESSMENT: 61 F Acute hypoxic resp failure ARDS Health care associated pna Septic shock Lactic acidosis on admission - cleared CAD with Demand ischemia with elevated troponin Marni, with slight component of atn likely - on chronic ckd 3 H/o liver transplant on tacrolimus h/o paf on anticoag PLAN: Neurologic: awakens. on fent casino investigator continued. less prop but can utilize today. Cardiovascular: Perfusing maintained. vol status optivolemic and not appearing too overloaded either. avoid excess fluid but no need to force mobilize at this time. going to utilize 25% albumin today to see if we can promote flow phase but reserve diuretics. utilize nataliia today and likely dc tomorrow. try to maintain off pressors today but needs cvc as is. Respiratory: APRV has worked superbly. 30%. maintain with drop and stretch slightly today to allow more spont breathing. repeat cxr to eval for clearance tomorrow am. Hopefully can foster even more spont breathing tomorrow with organ recoveries and push towards fluid mobilization and towards liberation come mid week perhaps. Gastrointestinal: start tf today. sup. Renal/Metabolic: marni but tolerable. holding on and maintain perfusion. may take a little time for full recovery towards maintaining baseline. Infectious Disease: receiving vanco/zosyn/azithro currently. onl able to achieve poor bronch wash yesterday but f/u cx and clinical care. can eval antigens. Hematology: continue tacrolimus; brillinta, eliquis tx. Endocrine: stress dose steroids. bg ok Musculoskeletal: bedrest currently give acuity Psych/Social: son/proxy (Ever) at bedside updated and expressed understanding. Supportive and preventative care as ordered. Vaccine: up to date SUP: H2 VTE prophylaxis: heparin Guadalupe catheter given critical illness, monitoring needs for accurate assessment of MARNI and KDIGO criteria for critically ill patients and to avoid potential harms of urinary retention, skin breakdown/ulcers. Disposition: ICU Code Status: Full Critical Care Time: 60min Shoshana Ivory DO
[2017-08-21] MEDS: Morphine INJ* 4 MG/ML 1 ML CARPUJECT IV PRN (11:50)
[2017-08-21] MEDS ORDERED: PREMIX* 0 ML ONE (21:21)
[2017-08-21] MEDS ORDERED: Magnesium Sulfate 2 GM IV* 2 GM/50 ML BAG IVPB ONE (21:57)
[2017-08-21] MEDS ORDERED: Magnesium Sulfate 2 GM IV* 2 GM/50 ML BAG ONE (22:22)
[2017-08-22] MEDS: fentaNYL PCA* 20 ML PCA SCH ×2 (00:44→17:48)
[2017-08-22] MEDS: Hydrocortisone INJ* 100 MG VIAL IV SCH ×4 (01:47→20:14)
[2017-08-22] MEDS: Chlorhexidine MOUTHWASH 0.12%* 15 ML UDC TOPICAL SCH ×2 (01:47→08:41)
[2017-08-22] MEDS: Propofol* 100 ML IV SCH ×2 (01:47→06:48)
[2017-08-22] MEDS: Piperacillin/Tazobac ADVAN(*) 3.375 GM in NS 0.9% 100 ML* 100 ML IVPB SCH (03:05)
[2017-08-22] MEDS: Albumin Human 25%* 100 ML in PREMIX* 0 ML IV SCH (04:01)
[2017-08-22 05:57] LABS: PCO2 Arterial 34 mmHg (35-45)
[2017-08-22 06:07] LABS: Hematocrit 20 % (35-47); Hemoglobin 6.6 g/dl (12.0-16.0); Mean Corpuscular HGB Conc 32 g/dl (31-36); Mean Corpuscular Hemoglobin 28 pg (27-31); Mean Corpuscular Volume 88 fL (80-97); Mean Platelet Volume 9 um3 (7.4-10.4); Red Blood Count 2.33 10^6/ul (4.0-5.4); Red Cell Distribution Width 18 % (10.5-15); White Blood Count 9.5 10^3/ul (3.5-10.8)
[2017-08-22 06:09] LABS: Add Diff/Slide Review? Slide Review Added; Comments Flag Yes
[2017-08-22 06:24] LABS: Potassium 3.1 mmol/L (3.5-5.0)
[2017-08-22 06:25] LABS: Albumin 3.8 g/dL (3.2-5.2); BUN/Creatinine Ratio 25.8 (8-20); Calcium 8.7 mg/dL (8.6-10.3); EGFR African American 54.5 (>60); EGFR Non-African American 42.4 (>60); Globulin 2.2 g/dL (2-4); Magnesium 2.4 mg/dL (1.9-2.7); Phosphorus 3.6 mg/dL (2.5-5.0)
[2017-08-22 07:28] LABS: Hypochromasia 2+
--- NOTE | 2017-08-22 07:49 | RAD ---
HISTORY: Follow-up ARDS, pneumonia COMPARISONS: August 20, 2017 VIEWS: 1: frontal portable view of the chest at 5:45 AM FINDINGS: LINES AND TUBES: An endotracheal tube is noted with the tip overlying the trachea between the clavicles and the frank. A gastric tube is noted. The tip is below the [id number] of the current examination, but is below the diaphragm. A right-sided pacemaker is noted. A right-sided PICC line is noted with the tip overlying the superior vena cava. A left internal jugular venous catheter is noted with the tip overlying the superior vena cava. CARDIOMEDIASTINAL SILHOUETTE: The cardiomediastinal silhouette is normal for portable technique. PLEURA: The costophrenic angles are sharp. No pleural abnormalities are noted. LUNG PARENCHYMA: There is a faint diffuse pattern of alveolar opacification, markedly improved from the previous examination. ABDOMEN: The upper abdomen is clear. There is no subphrenic gas. BONES AND SOFT TISSUES: No bone or soft tissue abnormalities are noted. IMPRESSION: 1. LINES AND TUBES ABOVE. 2. FAINT PATTERN OF DIFFUSE AIRSPACE DISEASE, MARKEDLY IMPROVED FROM AUGUST 20, 2017.
[2017-08-22] MEDS ORDERED: Vancomycin Trough Check NOTE FOLLOW UP ONE (08:00)
[2017-08-22] MEDS: Famotidine SUSP* 40 MG/5 ML ORAL.SYRIN G TUBE SCH (08:43)
[2017-08-22] MEDS: Apixaban* 2.5 MG TAB PO SCH ×2 (08:43→20:54)
[2017-08-22] MEDS: Aspirin EC Low Dose* 81 MG TAB.EC PO SCH (08:43)
[2017-08-22] MEDS: Cyanocobalamin TAB* 500 MCG PO SCH (08:43)
[2017-08-22] MEDS: Tacrolimus CAP(*) 1 MG PO SCH ×2 (08:43→20:54)
[2017-08-22] MEDS: Ticagrelor* 90 MG TAB PO SCH ×2 (08:43→20:54)
[2017-08-22] MEDS ORDERED: Furosemide IV* 10 MG/ML VIAL (40 MG) IV ONE ×2 (09:06→15:33)
[2017-08-22] MEDS: KCL 20 MEQ/100 ML IVPREMIX* 20 MEQ/100 ML BAG IV SCH ×2 (13:31→15:40)
[2017-08-22] MEDS: LORazepam INJ* 2 MG/ML 1 ML VIAL IV PUSH PRN ×4 (14:11→23:02)
[2017-08-22] MEDS ORDERED: Haloperidol INJ IV/IM* 5 MG/ML AMP IV SLOW PU PRN (14:32)
--- NOTE | 2017-08-22 15:14 | PN ---
Critical Care Services: Weaned and extubated this AM, and tolerating extubation. However, is confused. Vital Signs: Temp Pulse Resp BP SpO2 FiO2 98.6 F 97 23 174/85 94 30 Physical Exam: Gen: Awake but disoriented to place and time. HEENT: No audible stridor Lungs: Occasional crackles both bases posteriorly. No wheezes. Cardiac: Reg rhythm. No murmurs or rubs. Abdomen: Not distended. Bowel sounds hypoactive. Extremities: No cyanosis. Trace edema. Fluid Balance (Past 24 Hours): 08/21/17 08/22/17 06:59 06:59 Intake Total 9256.7 3026.6 Output Total 1170 1040 Balance +8086.7 +1986.6 Weight 128 lb 131 lb Intake: IV Fluids 5255.9 1028 ABX - AZITHROMYCIN 266 ABX - VANCOMYCIN 323 ABX - ZOSYN 87.9 201 NS (0.9%) 5168 238 IVPB 751 697 ABX - AZITHROMYCIN 252 100 ABX - VANCOMYCIN 278 373 ABX - ZOSYN 221 224 NS (0.9%) Medicated IV 3009.8 529.6 Bicarb 1076 CC - Epinephrine 817 CC - Norepinephrine/ 781 176 Levophed CC - Propofol/Diprivan 265.3 336.4 CC - Vasopressin/ 70.5 17.2 Pitressin IV Narcotic Infusion 240 Fentanyl 240 Oral 0 Tube Feeding 90 Albumin 200 NG Tube Irrigate Amount 482 Output: Urine 425 Guadalupe 745 1040 NOTE: About 10 liters positive over past 48 hrs. Labs: 08/22/17 08/22/17 08/22/17 05:35 05:55 05:55 WBC 9.5 Hgb 6.6 Hct 20 Plt Count 124 ABG pH 7.39 ABG pCO2 34 L ABG pO2 149 ABG HCO3 21.8 ABG O2 Saturation 99.9 Sodium 138 Potassium 3.1 Chloride 106 Carbon Dioxide 22 Anion Gap 10 BUN 33 Creatinine 1.28 Glucose 121 Calcium 8.7 Phosphorus 3.6 Magnesium 2.4 Total Bilirubin 1.00 AST 13 ALT 31 Alkaline Phosphatase 30 L Total Protein 6.0 L Albumin 3.8 NOTE: Decrease in Hb since yesterday could be dilutional. Studies: CXR: Bilateral airspace consolidation, but much improved from 08/20. Nutrition: Will start oral feedings. Impression: 1. Pulmonary process (? infection) improving. 2. No evidence for a treatable infection (i.e., all cultures negative to date). 3. Probable delirium (not sure if the symptoms wax and wane at this time). 4. Marked fluid accumulation recently. Plan: 1. I will d/c antibiotics at this time (because of the negative cultures). 2. Diuresis with furosemide. 3. Advance oral diet as quickly as tolerated. 4. Remainder of care will be supportive. Patient's son at bedside and aware of current situation. Critical Care Time: 60 minutes (including time to extubate patient).
[2017-08-22] MEDS: Albuterol/Ipratropium NEB.SOL* Albuterol 2.5 MG/Ipratropium 0.5 MG 3 ML INH PRN (16:17)
[2017-08-22] MEDS: Famotidine SUSP* 40 MG/5 ML ORAL.SYRIN PO SCH (17:39)
[2017-08-22] MEDS: Morphine INJ* 4 MG/ML 1 ML CARPUJECT IV PRN ×2 (21:58→23:58)
[2017-08-23] MEDS: LORazepam INJ* 2 MG/ML 1 ML VIAL IV PUSH PRN ×4 (00:55→17:09)
[2017-08-23] MEDS: Hydrocortisone INJ* 100 MG VIAL IV SCH ×4 (00:55→20:18)
[2017-08-23] MEDS: Morphine INJ* 4 MG/ML 1 ML CARPUJECT IV PRN ×2 (02:02→20:18)
[2017-08-23 04:01] LABS: Comments Flag Yes; Hematocrit 22 % (35-47); Mean Corpuscular HGB Conc 31 g/dl (31-36); Mean Corpuscular Hemoglobin 28 pg (27-31); Mean Corpuscular Volume 89 fL (80-97); Mean Platelet Volume 9 um3 (7.4-10.4); Red Blood Count 2.47 10^6/ul (4.0-5.4); Red Cell Distribution Width 18 % (10.5-15); White Blood Count 12.9 10^3/ul (3.5-10.8)
[2017-08-23 04:02] LABS: Hemoglobin 6.9 g/dl (12.0-16.0)
[2017-08-23 04:04] LABS: Venous Bicarbonate HCO3 24.5 mmol/L (24-28)
[2017-08-23 04:17] LABS: BUN/Creatinine Ratio 33.8 (8-20); Calcium 8.7 mg/dL (8.6-10.3); EGFR African American 50.8 (>60); EGFR Non-African American 39.5 (>60)
[2017-08-23 06:37] LABS: Phosphorus 4.2 mg/dL (2.5-5.0)
[2017-08-23] MEDS: KCL 20 MEQ/100 ML IVPREMIX* 20 MEQ/100 ML BAG IV SCH ×2 (07:17→10:46)
[2017-08-23] MEDS ORDERED: Furosemide IV* 10 MG/ML VIAL (40 MG) IV ONE (08:24)
[2017-08-23] MEDS ORDERED: niCARdipine 0.1MG/ML IVPREMIX* 20 MG/200 ML BAG ONE ×2 (09:52→16:09)
[2017-08-23] MEDS ORDERED: Thrombin 20,000 UNITS* KIT - spray for topical use - TOPICAL ONE (10:00)
[2017-08-23] MEDS: Cyanocobalamin TAB* 500 MCG PO SCH (14:13)
[2017-08-23] MEDS: Apixaban* 2.5 MG TAB PO SCH (14:22)
[2017-08-23] MEDS: Ticagrelor* 90 MG TAB PO SCH (14:23)
[2017-08-23] MEDS: Tacrolimus CAP(*) 1 MG PO SCH ×2 (14:23→22:03)
[2017-08-23] MEDS: Aspirin EC Low Dose* 81 MG TAB.EC PO SCH (14:23)
--- NOTE | 2017-08-23 14:30 | CONS ---
INTERVENTIONAL CARDIOLOGY CONSULT NOTE: DATE OF CONSULT: 08/23/17 HISTORY OF PRESENT ILLNESS: A 61-year-old woman patient in the ICU, known to me from prior coronary intervention. I was called regarding an opinion for management of bleeding of an axillary arterial line site. She was admitted with suspected sepsis and respiratory failure, was extubated this morning. She is chronically on Brilinta 90 b.i.d. because of previous coronary stenting on for an acute inferior wall ST elevation infarct. Because of peripheral vascular disease, access was via the left common femoral. She received a 2.75 x 32 bare-metal stent, post dilated with a 2.75 x 30 noncompliant balloon. Bare -metal stent was used because she was anticipating vascular bypass surgery with Dr. Scott in [place] within the next 2 months. She last received her Eliquis 2.5 b.i.d. last night as well as Brilinta 90 b.i.d. last night. The right axillary A line had been placed for pressure monitoring. It was pulled this morning and subsequently she had pulsatile bleeding from the puncture site. She has had prolonged manual compression, has received Kcentra IV, apparently packed cells. She has been started on Cardene for hypertension into the 160s. For past medical history, family history, social history, etc., see the H and P. PHYSICAL EXAMINATION: Limited because of the emergency of the situation. Her blood pressure today has ranged from 180s to 148. She is arousable but somewhat lethargic. Heart rate is in the 90s, sinus rhythm. She has a faintly palpable right radial pulse during axillary compression, with pressure she is not bleeding. The puncture site is high in the right axilla. There is no obvious hematoma in the axilla. She has a palpable left femoral pulse, no palpable right femoral pulse, no edema. LABORATORY DATA: Hemoglobin this morning was 6.9 with hematocrit 22. Creatinine 1.36 with GFR of 39.5. Platelet count 175,000. IMPRESSION: Right axillary arterial bleeding, post removal of A line. Attempts are continuing to control bleeding with manual compression after Kcentra and blood products. Her last dose of anticoagulant and antiplatelet agent was given last night. My recommendation is for discussion with Vascular Surgeon at a tertiary center regarding further management if the arterial bleeding stops, and if not emergent transfer. Thank you for the consultation. [id number]/[facility] #: [id number] DOROTHY
[2017-08-23] MEDS: Famotidine TAB* 20 MG PO SCH (15:58)
[2017-08-23] MEDS: Albuterol/Ipratropium NEB.SOL* Albuterol 2.5 MG/Ipratropium 0.5 MG 3 ML INH PRN (16:41)
[2017-08-23] MEDS: Famotidine SUSP* 40 MG/5 ML ORAL.SYRIN PO SCH (17:11)
--- NOTE | 2017-08-23 17:31 | PN ---
Critical Care Services: Patient on BiPAP overnight - We had problems with bleeding after discontinuing right-sided A-line (axillary artery) , partly because patient anticoagulated with Eliquiis and Brilinta. Bleeding finally subsided after 2 hours compression plus K-centra and 2 units packed RBCs (platelets not immediately available). Vital Signs: Temp Pulse Resp BP SpO2 FiO2 99.1 F 100 34 161/101 99 50 Physical Exam: Gen:Alert and oriented Lungs: Scattered rhonchi. Crackles both bases. Extremities:No cyanosis. Trace edema. Fluid Balance (Past 24 Hours): 08/23/17 06:59 Intake Total 1602 Output Total 3950 Balance -2348 Weight 124 lb Intake: IV Fluids 446 ABX - ZOSYN 65 NS (0.9%) 381 IVPB 35 ABX - ZOSYN 29 NS (0.9%) 6 Medicated IV 275 Bicarb CC - Propofol/Diprivan 85 Potassium 190 IV Narcotic Infusion 846 Fentanyl 846 Output: Urine 1100 Guadalupe 2850 Labs: 08/23/17 08/23/17 03:46 03:46 WBC 12.9 Hgb 6.9 Hct 22 MCV 89 Plt Count 175 Sodium 142 Potassium 3.0 Chloride 108 Carbon Dioxide 25 Anion Gap 9 BUN 46 Creatinine 1.36 Glucose 114 H Calcium 8.7 Phosphorus 4.2 Magnesium 2.0 Studies: None Nutrition: Full Liquids Impression: Tolerating spontaneous breathing, and is diuresing adequately. Plan: Continue to promote diuresis. Advance diet when tolerated. Check hemoglobin after 2 units packed RBCs. Critical Care Time: 75 minutes (includes time to stop bleeding after discontinuing arterial catheter).
[2017-08-24] MEDS: hydrALAZINE IV* 20 MG/ML VIAL IV PRN ×3 (00:15→08:25)
[2017-08-24] MEDS: Morphine INJ* 4 MG/ML 1 ML CARPUJECT IV PRN ×8 (00:22→23:14)
[2017-08-24] MEDS: LORazepam INJ* 2 MG/ML 1 ML VIAL IV PUSH PRN (04:09)
[2017-08-24] MEDS: Hydrocortisone INJ* 100 MG VIAL IV SCH ×3 (05:23→15:10)
[2017-08-24 05:42] LABS: Hematocrit 24 % (35-47); Hemoglobin 8.1 g/dl (12.0-16.0); Mean Corpuscular HGB Conc 34 g/dl (31-36); Mean Corpuscular Hemoglobin 29 pg (27-31); Mean Corpuscular Volume 85 fL (80-97); Mean Platelet Volume 8 um3 (7.4-10.4); Red Blood Count 2.82 10^6/ul (4.0-5.4); Red Cell Distribution Width 17 % (10.5-15); White Blood Count 11.4 10^3/ul (3.5-10.8)
[2017-08-24 05:59] LABS: BUN/Creatinine Ratio 42.3 (8-20); Calcium 8.2 mg/dL (8.6-10.3); EGFR African American 69.3 (>60); EGFR Non-African American 53.9 (>60)
[2017-08-24 06:04] LABS: Potassium 2.6 mmol/L (3.5-5.0)
[2017-08-24] MEDS: KCL 20 MEQ/100 ML IVPREMIX* 20 MEQ/100 ML BAG IV SCH ×2 (06:20→08:27)
[2017-08-24] MEDS: Famotidine TAB* 20 MG PO SCH (08:46)
[2017-08-24] MEDS: Tacrolimus CAP(*) 1 MG PO SCH ×2 (08:47→20:43)
[2017-08-24] MEDS: Cyanocobalamin TAB* 500 MCG PO SCH (08:47)
[2017-08-24] MEDS: Aspirin EC Low Dose* 81 MG TAB.EC PO SCH (08:47)
--- NOTE | 2017-08-24 08:48 | RAD ---
Indication: Pneumonia. Single frontal view of the chest performed at 0605 hours was reviewed. Comparison is made with previous exam dated August 22, 2017. No mediastinal shift is noted. Heart is of normal size and configuration. Increased infiltrates are noted in the left perihilar, right lower and right upper lobe areas. Pacemaker leads are in place. Central line is in place. IMPRESSION: PROGRESSIVE AIRSPACE DISEASE IN THE LEFT MIDLUNG ZONE, RIGHT BASE AND RIGHT UPPER LOBES CONSISTENT WITH PNEUMONIA. THIS WAS NOT PRESENT PREVIOUSLY.
[2017-08-24] MEDS ORDERED: diPHENhydraMINE IV* 50 MG/ML 1 ml VIAL (BENADRYL) ONE ×2 (08:54→23:44)
[2017-08-24] MEDS ORDERED: Metoprolol Tartrate IV* 1 MG/ML 5 ML VIAL ONE (10:46)
[2017-08-24 13:07] LABS: BUN/Creatinine Ratio 43.7 (8-20); Calcium 8.9 mg/dL (8.6-10.3); EGFR African American 70.1 (>60); EGFR Non-African American 54.5 (>60); Potassium 3.2 mmol/L (3.5-5.0)
--- NOTE | 2017-08-24 15:56 | PN ---
Critical Care Services: Improving clinically, even though CXR shows some progression of infiltrative disease. Has diuresed 5 liters in past 2 days. Also, no further bleeding from A- line site. New Problem: Patient developed urticaria his AM after a chlorhexidine skin bath. No prior Hx chlorhexidine allergy. No wheezing or SOB with the uriticaria. Given IV Benadryl with relief og pruritis. Lesions resolved after about 30 minutes. Vital Signs: Temp Pulse Resp BP SpO2 FiO2 99.3 F 99 29 180/97 98 50 Physical Exam: Gen:Awake, and responds appropriately to verbal commands. Lungs: scaterred rhonchi. occasional crackles bilaterally. Skin: No residual urticarial lesions Fluid Balance (Past 24 Hours): 08/23/17 08/24/17 06:59 06:59 Intake Total 1602 2526 Output Total 3950 5275 Balance -2348 -2749 Weight 124 lb 115 lb Intake: IV Fluids 446 393 ABX - ZOSYN 65 NS (0.9%) 381 393 IVPB 35 ABX - ZOSYN 29 NS (0.9%) 6 Medicated IV 275 178 CC - Nicarpidine/Cardene 178 CC - Propofol/Diprivan 85 Potassium 190 IV Narcotic Infusion 846 Fentanyl 846 Oral 1320 Tube Feeding Packed Cells 635 Output: Urine 1100 [place] 2850 [id number] Labs: 08/20/17 08/24/17 12:25 05:30 Sodium 145 Potassium 2.6 Chloride 107 Carbon Dioxide 28 Anion Gap 10 BUN 44 H Creatinine 1.04 H BUN/Creatinine Ratio 42.3 H Glucose 136 H Calcium 8.2 L Pneumocystis Source See comment Pneumocystis DNA (PCR) Negative Patient given 40 mEq KCL IV. 08/24/17 08/24/17 05:30 12:45 WBC 11.4 H RBC 2.82 L Hgb 8.1 Hct 24 L MCV 85 MCH 29 MCHC 34 RDW 17 H Plt Count 164 MPV 8 Sodium 142 Potassium 3.2 L Chloride 105 Carbon Dioxide 31 Anion Gap 6 BUN 45 H Creatinine 1.03 H Est GFR ( Amer) 70.1 Est GFR (Non-Af Amer) 54.5 BUN/Creatinine Ratio 43.7 H Glucose 114 H Calcium 8.9 Studies: CXR - as mentioned. Nutrition: Oral diet Impression: 1. Slow improvement in respiratory status. Overall, however, patient is frail and debilitated. 2. ? chlorhexidine allergy Plan: 1. Continue to diurese. 2. Start on oral meds for BP control. 3. No further chlorhexidine contact. 4. Transfer out of ICU if no problems overnight. Critical Care Time: 50 minutes (including time spent evaluating urticaria).
[2017-08-24] MEDS ORDERED: Diltiazem CD CAP* 180 MG PO SCH (16:00)
[2017-08-24] MEDS ORDERED: KCL 20 MEQ/100 ML IVPREMIX* 20 MEQ/100 ML BAG IV SCH (16:00)
[2017-08-24] MEDS ORDERED: Metoprolol Tartrate TAB* 50 mg ONE (16:02)
[2017-08-24] MEDS: Metoprolol Tartrate TAB* 50 mg PO SCH ×2 (16:05→19:19)
[2017-08-24] MEDS: Diltiazem CD CAP* 180 MG PO SCH (16:05)
[2017-08-24] MEDS: Diltiazem CD CAP* 120 MG PO SCH (16:05)
[2017-08-24] MEDS ORDERED: hydrALAZINE IV* 20 MG/ML VIAL IV PRN (17:15)
[2017-08-24] MEDS: Piperacillin/Tazobac ADVAN(*) 3.375 GM in NS 0.9% 100 ML* 100 ML IVPB SCH (19:18)
[2017-08-24] MEDS: Umeclidin 62.5 MDI(NF) 1 INH MDI INH SCH (19:18)
[2017-08-24] MEDS: Azithromycin IV(*) 500 MG in NS 0.9% 250 ML* 250 ML IVPB SCH (19:18)
[2017-08-24] MEDS: Chlorhexidine MOUTHWASH 0.12%* 15 ML UDC TOPICAL SCH (19:18)
[2017-08-24] MEDS: Vancomycin(*) 1,000 MG in NS 0.9% 250 ML* 250 ML IVPB SCH (19:18)
[2017-08-24] MEDS ORDERED: diPHENhydraMINE IV* 50 MG/ML 1 ml VIAL (BENADRYL) IV ONE (23:00)
[2017-08-25] MEDS: Morphine INJ* 4 MG/ML 1 ML CARPUJECT IV PRN ×5 (04:55→20:28)
[2017-08-25 05:38] LABS: Hematocrit 25 % (35-47); Hemoglobin 8.2 g/dl (12.0-16.0); Mean Corpuscular HGB Conc 33 g/dl (31-36); Mean Corpuscular Hemoglobin 28 pg (27-31); Mean Corpuscular Volume 86 fL (80-97); Mean Platelet Volume 8 um3 (7.4-10.4); Red Blood Count 2.91 10^6/ul (4.0-5.4); Red Cell Distribution Width 17 % (10.5-15); White Blood Count 12.9 10^3/ul (3.5-10.8)
[2017-08-25 05:48] LABS: BUN/Creatinine Ratio 41.1 (8-20); Calcium 8.7 mg/dL (8.6-10.3); EGFR African American 76.9 (>60); EGFR Non-African American 59.8 (>60)
[2017-08-25 06:05] LABS: Potassium 2.7 mmol/L (3.5-5.0)
[2017-08-25] MEDS: KCL 20 MEQ/100 ML IVPREMIX* 20 MEQ/100 ML BAG IV SCH ×2 (06:14→09:37)
[2017-08-25] MEDS: Cyanocobalamin TAB* 500 MCG PO SCH (09:31)
[2017-08-25] MEDS: Aspirin EC Low Dose* 81 MG TAB.EC PO SCH (09:31)
[2017-08-25] MEDS: Famotidine TAB* 20 MG PO SCH (09:31)
[2017-08-25] MEDS: Metoprolol Tartrate TAB* 50 mg PO SCH ×2 (09:31→20:19)
[2017-08-25] MEDS: Diltiazem CD CAP* 180 MG PO SCH (09:32)
[2017-08-25] MEDS: Diltiazem CD CAP* 120 MG PO SCH (09:32)
[2017-08-25] MEDS: Tacrolimus CAP(*) 1 MG PO SCH ×2 (09:32→20:19)
[2017-08-25] MEDS: diPHENhydraMINE IV* 50 MG/ML 1 ml VIAL (BENADRYL) IV PRN (09:47)
--- NOTE | 2017-08-25 09:49 | PN ---
Critical Care Services: Continues to do well from a respiratory standpoint. Now on nasal O2 at 5 L/min with adequate arterial oxygenation. Did have one more episode of urticaria ( only on the hand) which resolved spontaneously, and was not associated with any medication administration. Vital Signs: Temp Pulse Resp BP SpO2 FiO2 99.0 F 86 26 169/77 96 Physical Exam: Gen:Alert, oriented, breathing comfortably Lungs: Crackles in both lungs - No wheezes or rhonchi. Extremities: Trace edema. No cyanosis. Skin: No rash noted. Fluid Balance (Past 24 Hours): 08/25/17 06:59 Intake Total 1322 Output Total 1425 Balance -103 Weight 116 lb Intake: IV Fluids 136 ABX - ZOSYN NS (0.9%) 136 IVPB ABX - ZOSYN NS (0.9%) Medicated IV 236 CC - Nicarpidine/Cardene CC - Propofol/Diprivan Potassium 236 IV Narcotic Infusion Fentanyl Oral 950 Packed Cells Output: Urine [place] 1425 Labs: 08/25/17 08/25/17 05:08 05:08 WBC 12.9 Hgb 8.2 Hct 25 Plt Count 184 Sodium 140 Potassium 2.7 Chloride 104 Carbon Dioxide 30 Anion Gap 6 BUN 39 Creatinine 0.95 Glucose 110 Calcium 8.7 Studies: None today Nutrition: Oral diet. Impression: 1. Gradual improvement in respiratory status. 2. Recurrent episodes of urticaria of unclear etiology. Plan: Can transfer out of ICU at this time, and begin physical therapy, etc.
[2017-08-25] MEDS: Ticagrelor* 90 MG TAB PO SCH (20:19)
[2017-08-25] MEDS: LORazepam INJ* 2 MG/ML 1 ML VIAL IV PUSH PRN (20:29)
[2017-08-25] MEDS: Albuterol/Ipratropium NEB.SOL* Albuterol 2.5 MG/Ipratropium 0.5 MG 3 ML INH PRN (20:34)
[2017-08-25] MEDS: Apixaban* 2.5 MG TAB PO SCH (20:54)
[2017-08-26] MEDS: LORazepam INJ* 2 MG/ML 1 ML VIAL IV PUSH PRN ×7 (00:38→21:12)
[2017-08-26] MEDS: Morphine INJ* 4 MG/ML 1 ML CARPUJECT IV PRN ×7 (00:38→21:13)
[2017-08-26 05:22] LABS: Hematocrit 27 % (35-47); Hemoglobin 9.1 g/dl (12.0-16.0); Mean Corpuscular HGB Conc 33 g/dl (31-36); Mean Corpuscular Hemoglobin 29 pg (27-31); Mean Corpuscular Volume 87 fL (80-97); Mean Platelet Volume 8 um3 (7.4-10.4); Red Blood Count 3.15 10^6/ul (4.0-5.4); Red Cell Distribution Width 17 % (10.5-15); White Blood Count 11.2 10^3/ul (3.5-10.8)
[2017-08-26 05:34] LABS: BUN/Creatinine Ratio 34.7 (8-20); Calcium 8.7 mg/dL (8.6-10.3); EGFR African American 76.9 (>60); EGFR Non-African American 59.8 (>60); Potassium 2.8 mmol/L (3.5-5.0)
[2017-08-26 07:39] LABS: Magnesium 1.6 mg/dL (1.9-2.7)
--- NOTE | 2017-08-26 07:53 | RAD ---
HISTORY: Fall, unwitnessed on anticoagulation COMPARISONS: July 29, 2014 TECHNIQUE: Multiple contiguous axial CT scans were obtained of the head without intravenous contrast. FINDINGS: HEMORRHAGE/INFARCT: There is no hemorrhage or acute infarct. MASSES/SHIFT: There is no mass or shift. EXTRA-AXIAL SPACES: There are no extra-axial fluid collections. SULCI AND VENTRICLES: The sulci and ventricles are normal in size and position for the patient's stated age. CEREBRUM: There is hypoattenuation of the periventricular and subcortical white matter. BRAINSTEM: There are no focal parenchymal abnormalities. There is more focal hypoattenuation of the left parietal lobe that has developed from the previous examination. CEREBELLUM: There are no focal parenchymal abnormalities. VESSELS: The vessels are grossly normal. PARANASAL SINUSES: The paranasal sinuses are clear. ORBITS: The orbits are unremarkable. BONES AND SOFT TISSUE: No bone or soft tissue abnormalities are noted. OTHER: None IMPRESSION: 1. NO ACUTE INTRACRANIAL PATHOLOGY. 2. CHRONIC SMALL VESSEL ISCHEMIC CHANGES WITH MORE FOCAL ENCEPHALOMALACIA OF THE LEFT PARIETAL LOBE CONSISTENT WITH REMOTE INFARCT.
[2017-08-26] MEDS: KCL 10 MEQ/50 ML IVPREMIX* 10 MEQ/50 ML BAG IV SCH ×4 (08:18→11:15)
[2017-08-26] MEDS: Apixaban* 2.5 MG TAB PO SCH ×2 (08:30→21:15)
[2017-08-26] MEDS: Diltiazem CD CAP* 180 MG PO SCH (08:31)
[2017-08-26] MEDS: Metoprolol Tartrate TAB* 50 mg PO SCH ×2 (08:31→21:14)
[2017-08-26] MEDS: Diltiazem CD CAP* 120 MG PO SCH (08:32)
[2017-08-26] MEDS: Ticagrelor* 90 MG TAB PO SCH ×2 (08:33→21:15)
[2017-08-26] MEDS: Aspirin EC Low Dose* 81 MG TAB.EC PO SCH (08:33)
[2017-08-26] MEDS: Famotidine TAB* 20 MG PO SCH (08:33)
[2017-08-26] MEDS: Cyanocobalamin TAB* 500 MCG PO SCH (08:34)
[2017-08-26] MEDS: Potassium Chlor TAB* 20 MEQ TAB.ER PO SCH ×2 (08:34→21:15)
[2017-08-26] MEDS: Tacrolimus CAP(*) 1 MG PO SCH ×3 (09:30→21:15)
--- NOTE | 2017-08-26 12:32 | PN ---
Subjective Date of Service: 08/26/17 Interval History: HOSPITALIST PROGRESS NOTE Patient seen and examined at bedside. She feels a little better today. Very weak, fell last night trying to go to the bathroom. Breathing is easier. Family History: Unchanged from Admission Social History: Unchanged from Admission Past Medical History: Unchanged from Admission Objective Active Medications: Albuterol/Ipratropium (Duoneb (Albuterol 2.5 Mg/Ipratropium 0.5 Mg)) 1 neb INH Q2H PRN PRN Reason: SOB/WHEEZING Last Admin: 08/25/17 20:34 Dose: 1 neb Apixaban (Eliquis) 2.5 mg PO BID [facility] Last Admin: 08/26/17 08:30 Dose: 2.5 mg Aspirin (Aspirin Ec Low Dose*) 81 mg PO DAILY [facility] Last Admin: 08/26/17 08:33 Dose: 81 mg Clonazepam (Klonopin Tab(*)) 0.5 mg PO BID PRN PRN Reason: ANXIETY Cyanocobalamin (Vitamin B12 Tab*) 1,000 mcg PO DAILY [facility] Last Admin: 08/26/17 08:34 Dose: 1,000 mcg Diltiazem HCl (Cardizem Cd Cap*) 180 mg PO DAILY [facility] Last Admin: 08/26/17 08:31 Dose: 180 mg Diltiazem HCl (Cardizem Cd Cap*) 120 mg PO DAILY [facility] Last Admin: 08/26/17 08:32 Dose: 120 mg Diphenhydramine HCl (Benadryl Iv*) 25 mg IV Q6H PRN PRN Reason: PRURITUS Last Admin: 08/25/17 09:47 Dose: 25 mg Famotidine (Pepcid Tab*) 20 mg PO DAILY [facility] Last Admin: 08/26/17 08:33 Dose: 20 mg Heparin Sodium (Porcine) (Heparin Flush Picc/Ml/Cvc(*)) 1 - 3 ml FLUSH 0600, 1800 [facility] PRN Reason: Protocol Last Admin: 08/26/17 05:12 Dose: 1 ml Hydralazine HCl (Apresoline Iv*) 10 mg IV Q4H PRN PRN Reason: BLOOD PRESSURE Last Admin: 08/26/17 03:23 Dose: 10 mg Lorazepam (Ativan Inj*) 2 mg IV PUSH Q2H PRN PRN Reason: AGITATION Last Admin: 08/26/17 08:25 Dose: 2 mg Metoprolol Tartrate (Lopressor Tab*) 50 mg PO Q12HR [facility] Last Admin: 08/26/17 08:31 Dose: 50 mg Morphine Sulfate (Morphine Inj (Syringe)*) 3 mg IV Q2H PRN PRN Reason: PAIN Last Admin: 08/26/17 08:24 Dose: 3 mg Potassium Chloride (Klor Con Er Tab*) 40 meq PO BID [facility] Last Admin: 08/26/17 08:34 Dose: 40 meq Tacrolimus (Prograf Cap(*)) 1 mg PO BID [facility] Last Admin: 08/26/17 11:15 Dose: Not Given Ticagrelor (Brilinta*) 90 mg PO BID [facility] Last Admin: 08/26/17 08:33 Dose: 90 mg Vital Signs 08/26/17 11:48 Temperature 97.9 F Pulse Rate 64 Respiratory 18 Rate Blood Pressure 136/56 (mmHg) O2 Sat by Pulse 99 Oximetry Oxygen Devices in Use Now: Nasal Cannula - 2 liters Appearance: Frail lady lying in bed in NAD. Eyes: No Scleral Icterus Ears/Nose/Mouth/Throat: Mucous Membranes Moist Neck: Trachea Midline Respiratory: Symmetrical Chest Expansion and Respiratory Effort, Clear to Auscultation Cardiovascular: RRR - Normal S1 and S2 Abdominal: NL Sounds; No Tenderness; No Distention Neurological: Alert and Oriented x 3, NL Muscle Strength and Tone Lines/Tubes/Other Access: Clean, Dry and Intact Peripheral IV Nutrition: Taking PO's Result Diagrams: 08/26/17 05:07 08/26/17 05:07 Assess/Plan/Problems-Billing Assessment: Mrs. Coombs is a 61yo F with PMH of CAD s/p BMS stent to RCA, HTN, CKD stage 3 , Hep C s/p liver transplant on Tacrolimus, AICD for long QT, PVD, PAF, COPD, tobacco abuse, who presented to ED on 08/20 with c/o dyspnea, found to have pneumonia, resulting in intubation and ICU stay. - Patient Problems (1) Acute hypoxemic respiratory failure Comment: - Secondary to pneumonia. - Intubated on 08/20, extubated on 08/22. - Now on 3 liters of O2. (2) Pneumonia Comment: - Bilateral, multilobar, present on admission. - Cultures yielded no growth. - Treated with Vanco/Zosyn. (3) Delirium Comment: - Appears to be resolved at this time. (4) Atrial fibrillation Comment: - PAF, continue apixaban, diltiazem, and metoprolol. (5) CAD (coronary artery disease) Comment: - Continue ticagrelor, metoprolol, and ASA. (6) Physical deconditioning Comment: - PT/OT consults. (7) DNR (do not resuscitate) Status and Disposition: Inpatient. Will likely need placement for rehab.
[2017-08-26] MEDS ORDERED: Magnesium Sulfate 2 GM IV* 2 GM/50 ML BAG IVPB ONE (13:00)
[2017-08-27] MEDS: Morphine INJ* 4 MG/ML 1 ML CARPUJECT IV PRN (02:43)
[2017-08-27] MEDS: LORazepam INJ* 2 MG/ML 1 ML VIAL IV PUSH PRN ×3 (02:43→20:56)
[2017-08-27 05:55] LABS: BUN/Creatinine Ratio 30.4 (8-20); Calcium 8.7 mg/dL (8.6-10.3); EGFR African American 70.9 (>60); EGFR Non-African American 55.1 (>60); Magnesium 1.9 mg/dL (1.9-2.7); Potassium 3.6 mmol/L (3.5-5.0)
[2017-08-27] MEDS: Metoprolol Tartrate TAB* 50 mg PO SCH ×2 (09:46→20:57)
[2017-08-27] MEDS: Cyanocobalamin TAB* 500 MCG PO SCH (09:46)
[2017-08-27] MEDS: Apixaban* 2.5 MG TAB PO SCH ×2 (09:46→20:57)
[2017-08-27] MEDS: Tacrolimus CAP(*) 1 MG PO SCH ×2 (09:47→20:57)
[2017-08-27] MEDS: Ticagrelor* 90 MG TAB PO SCH ×2 (09:47→21:02)
[2017-08-27] MEDS: Aspirin EC Low Dose* 81 MG TAB.EC PO SCH (09:47)
[2017-08-27] MEDS: Diltiazem CD CAP* 120 MG PO SCH (09:47)
[2017-08-27] MEDS: Potassium Chlor TAB* 20 MEQ TAB.ER PO SCH ×2 (09:47→20:57)
[2017-08-27] MEDS: Diltiazem CD CAP* 180 MG PO SCH (09:51)
[2017-08-27] MEDS: Famotidine TAB* 20 MG PO SCH (09:51)
--- NOTE | 2017-08-27 10:34 | PN ---
Subjective Date of Service: 08/27/17 Interval History: HOSPITALIST PROGRESS NOTE Patient seen and examined at bedside. She offers no new complaints today. Confusion appears to be clearing up. Family History: Unchanged from Admission Social History: Unchanged from Admission Past Medical History: Unchanged from Admission Objective Active Medications: Albuterol/Ipratropium (Duoneb (Albuterol 2.5 Mg/Ipratropium 0.5 Mg)) 1 neb INH Q2H PRN PRN Reason: SOB/WHEEZING Last Admin: 08/25/17 20:34 Dose: 1 neb Apixaban (Eliquis) 2.5 mg PO BID [facility] Last Admin: 08/27/17 09:46 Dose: 2.5 mg Aspirin (Aspirin Ec Low Dose*) 81 mg PO DAILY [facility] Last Admin: 08/27/17 09:47 Dose: 81 mg Clonazepam (Klonopin Tab(*)) 0.5 mg PO BID PRN PRN Reason: ANXIETY Cyanocobalamin (Vitamin B12 Tab*) 1,000 mcg PO DAILY [facility] Last Admin: 08/27/17 09:46 Dose: 1,000 mcg Diltiazem HCl (Cardizem Cd Cap*) 180 mg PO DAILY [facility] Last Admin: 08/27/17 09:51 Dose: 180 mg Diltiazem HCl (Cardizem Cd Cap*) 120 mg PO DAILY [facility] Last Admin: 08/27/17 09:47 Dose: 120 mg Diphenhydramine HCl (Benadryl Iv*) 25 mg IV Q6H PRN PRN Reason: PRURITUS Last Admin: 08/25/17 09:47 Dose: 25 mg Famotidine (Pepcid Tab*) 20 mg PO DAILY [facility] Last Admin: 08/27/17 09:51 Dose: 20 mg Heparin Sodium (Porcine) (Heparin Flush Picc/Ml/Cvc(*)) 1 - 3 ml FLUSH 0600, 1800 [facility] PRN Reason: Protocol Last Admin: 08/27/17 05:23 Dose: 3 ml Hydralazine HCl (Apresoline Iv*) 10 mg IV Q4H PRN PRN Reason: BLOOD PRESSURE Last Admin: 08/26/17 03:23 Dose: 10 mg Lorazepam (Ativan Inj*) 2 mg IV PUSH Q2H PRN PRN Reason: AGITATION Last Admin: 08/27/17 02:43 Dose: 2 mg Metoprolol Tartrate (Lopressor Tab*) 50 mg PO Q12HR [facility] Last Admin: 08/27/17 09:46 Dose: 50 mg Potassium Chloride (Klor Con Er Tab*) 40 meq PO BID [facility] Last Admin: 08/27/17 09:47 Dose: 40 meq Tacrolimus (Prograf Cap(*)) 1 mg PO BID [facility] Last Admin: 08/27/17 09:47 Dose: 1 mg Ticagrelor (Brilinta*) 90 mg PO BID [facility] Last Admin: 08/27/17 09:47 Dose: 90 mg Vital Signs 08/26/17 08/26/17 08/26/17 21:12 21:13 23:40 Temperature 98.8 F Pulse Rate 67 Respiratory 18 18 15 Rate Blood Pressure 147/55 (mmHg) O2 Sat by Pulse 96 Oximetry Oxygen Devices in Use Now: Nasal Cannula - 2 liters Appearance: Frail lady, appears older than stated age, lying in bed in NAD. Eyes: No Scleral Icterus Ears/Nose/Mouth/Throat: Mucous Membranes Moist Neck: Trachea Midline Respiratory: Symmetrical Chest Expansion and Respiratory Effort, - - BS+ bilaterally with bibasilar crackles Cardiovascular: RRR - Normal S1 and S2 Abdominal: NL Sounds; No Tenderness; No Distention Neurological: Alert and Oriented x 3 - but has to look at the board to tell me date, NL Muscle Strength and Tone Lines/Tubes/Other Access: Clean, Dry and Intact Peripheral IV Nutrition: Taking PO's Result Diagrams: 08/26/17 05:07 08/27/17 05:23 Assess/Plan/Problems-Billing Assessment: Mrs. Coombs is a 61yo F with PMH of CAD s/p BMS stent to RCA, HTN, CKD stage 3 , Hep C s/p liver transplant on Tacrolimus, AICD for long QT, PVD, PAF, COPD, tobacco abuse, who presented to ED on 08/20 with c/o dyspnea, found to have pneumonia, resulting in intubation and ICU stay. - Patient Problems (1) Acute hypoxemic respiratory failure Comment: - Secondary to pneumonia. - Intubated on 08/20, extubated on 08/22. - Now on 2 liters of O2. (2) Pneumonia Comment: - Bilateral, multilobar, present on admission. - Cultures yielded no growth. - Treated with Vanco/Zosyn. (3) Delirium Comment: - Appears to be resolved at this time. (4) Atrial fibrillation Comment: - PAF, continue apixaban, diltiazem, and metoprolol. (5) CAD (coronary artery disease) Comment: - Continue ticagrelor, metoprolol, and ASA. (6) Physical deconditioning Comment: - PT input appreciated - will likely require rehab. (7) DNR (do not resuscitate) Status and Disposition: Inpatient. Will likely need placement for rehab.
[2017-08-27] MEDS: diPHENhydraMINE IV* 50 MG/ML 1 ml VIAL (BENADRYL) IV PRN (20:55)
[2017-08-28] MEDS: LORazepam INJ* 2 MG/ML 1 ML VIAL IV PUSH PRN ×3 (01:28→18:00)
[2017-08-28] MEDS: Apixaban* 2.5 MG TAB PO SCH ×2 (11:31→20:02)
[2017-08-28] MEDS: Famotidine TAB* 20 MG PO SCH (11:31)
[2017-08-28] MEDS: Metoprolol Tartrate TAB* 50 mg PO SCH ×2 (11:31→20:02)
[2017-08-28] MEDS: Diltiazem CD CAP* 180 MG PO SCH (11:32)
[2017-08-28] MEDS: Ticagrelor* 90 MG TAB PO SCH ×2 (11:32→20:02)
[2017-08-28] MEDS: Tacrolimus CAP(*) 1 MG PO SCH ×2 (11:32→20:02)
[2017-08-28] MEDS: Aspirin EC Low Dose* 81 MG TAB.EC PO SCH (11:32)
[2017-08-28] MEDS: Cyanocobalamin TAB* 500 MCG PO SCH (11:32)
[2017-08-28] MEDS: Potassium Chlor TAB* 20 MEQ TAB.ER PO SCH ×2 (11:32→20:03)
[2017-08-28] MEDS: Diltiazem CD CAP* 120 MG PO SCH (11:32)
--- NOTE | 2017-08-28 14:27 | PN ---
Subjective Date of Service: 08/28/17 Interval History: HOSPITALIST PROGRESS NOTE Patient seen and examined at bedside. Offers no new complaints today. Family History: Unchanged from Admission Social History: Unchanged from Admission Past Medical History: Unchanged from Admission Objective Active Medications: Albuterol/Ipratropium (Duoneb (Albuterol 2.5 Mg/Ipratropium 0.5 Mg)) 1 neb INH Q2H PRN PRN Reason: SOB/WHEEZING Last Admin: 08/25/17 20:34 Dose: 1 neb Apixaban (Eliquis) 2.5 mg PO BID [facility] Last Admin: 08/28/17 11:31 Dose: 2.5 mg Aspirin (Aspirin Ec Low Dose*) 81 mg PO DAILY [facility] Last Admin: 08/28/17 11:32 Dose: 81 mg Clonazepam (Klonopin Tab(*)) 0.5 mg PO BID PRN PRN Reason: ANXIETY Cyanocobalamin (Vitamin B12 Tab*) 1,000 mcg PO DAILY [facility] Last Admin: 08/28/17 11:32 Dose: 1,000 mcg Diltiazem HCl (Cardizem Cd Cap*) 180 mg PO DAILY [facility] Last Admin: 08/28/17 11:32 Dose: 180 mg Diltiazem HCl (Cardizem Cd Cap*) 120 mg PO DAILY [facility] Last Admin: 08/28/17 11:32 Dose: 120 mg Famotidine (Pepcid Tab*) 20 mg PO DAILY [facility] Last Admin: 08/28/17 11:31 Dose: 20 mg Heparin Sodium (Porcine) (Heparin Flush Picc/Ml/Cvc(*)) 1 - 3 ml FLUSH 0600, 1800 [facility] PRN Reason: Protocol Last Admin: 08/28/17 05:29 Dose: 1 ml Hydralazine HCl (Apresoline Iv*) 10 mg IV Q4H PRN PRN Reason: BLOOD PRESSURE Last Admin: 08/26/17 03:23 Dose: 10 mg Lorazepam (Ativan Inj*) 2 mg IV PUSH Q2H PRN PRN Reason: AGITATION Last Admin: 08/28/17 11:32 Dose: 2 mg Metoprolol Tartrate (Lopressor Tab*) 50 mg PO Q12HR [facility] Last Admin: 08/28/17 11:31 Dose: 50 mg Potassium Chloride (Klor Con Er Tab*) 40 meq PO BID [facility] Last Admin: 08/28/17 11:32 Dose: 40 meq Tacrolimus (Prograf Cap(*)) 1 mg PO BID [facility] Last Admin: 08/28/17 11:32 Dose: 1 mg Ticagrelor (Brilinta*) 90 mg PO BID [facility] Last Admin: 08/28/17 11:32 Dose: 90 mg Vital Signs 08/28/17 08/28/17 08/28/17 01:58 04:00 05:32 Temperature 97.3 F Pulse Rate 78 70 Respiratory 16 16 16 Rate Blood Pressure 128/51 (mmHg) O2 Sat by Pulse 100 Oximetry 08/28/17 08/28/17 07:23 11:32 Temperature Pulse Rate 70 Respiratory 16 32 Rate Blood Pressure (mmHg) O2 Sat by Pulse 100 Oximetry Oxygen Devices in Use Now: Nasal Cannula - 2 liters Appearance: Frail lady lying in bed in NAD. Eyes: No Scleral Icterus Ears/Nose/Mouth/Throat: Mucous Membranes Moist Neck: Trachea Midline Respiratory: Symmetrical Chest Expansion and Respiratory Effort, Clear to Auscultation Cardiovascular: RRR - Normal S1 and S2 Abdominal: NL Sounds; No Tenderness; No Distention Neurological: Alert and Oriented x 3 Nutrition: Taking PO's Result Diagrams: 08/26/17 05:07 08/27/17 05:23 Assess/Plan/Problems-Billing Assessment: Mrs. Coombs is a 61yo F with PMH of CAD s/p BMS stent to RCA, HTN, CKD stage 3 , Hep C s/p liver transplant on Tacrolimus, AICD for long QT, PVD, PAF, COPD, tobacco abuse, who presented to ED on 08/20 with c/o dyspnea, found to have pneumonia, resulting in intubation and ICU stay. - Patient Problems (1) Acute hypoxemic respiratory failure Comment: - Secondary to pneumonia. - Intubated on 08/20, extubated on 08/22. - Now on 2 liters of O2. (2) Pneumonia Comment: - Bilateral, multilobar, present on admission. - Cultures yielded no growth. - Treated with Vanco/Zosyn. (3) Delirium Comment: - She seems to be doing well during the day, but gets more confused overnight, compatible with ing. - Ammonia is normal. - Continue supportive care. (4) Atrial fibrillation Comment: - PAF, continue apixaban, diltiazem, and metoprolol. (5) CAD (coronary artery disease) Comment: - Continue ticagrelor, metoprolol, and ASA. (6) Physical deconditioning Comment: - PT input appreciated - will likely require rehab. (7) DNR (do not resuscitate) Status and Disposition: Inpatient. Will likely need placement for rehab.
[2017-08-28] MEDS: clonazePAM TAB(*) 0.5 MG PO PRN (20:02)
[2017-08-29] MEDS: LORazepam INJ* 2 MG/ML 1 ML VIAL IV PUSH PRN ×3 (00:02→05:21)
[2017-08-29 04:58] LABS: Hematocrit 26 % (35-47); Hemoglobin 8.5 g/dl (12.0-16.0); Mean Corpuscular HGB Conc 33 g/dl (31-36); Mean Corpuscular Hemoglobin 29 pg (27-31); Mean Corpuscular Volume 89 fL (80-97); Mean Platelet Volume 8 um3 (7.4-10.4); Red Blood Count 2.92 10^6/ul (4.0-5.4); Red Cell Distribution Width 17 % (10.5-15)
[2017-08-29 05:13] LABS: BUN/Creatinine Ratio 22.6 (8-20); Calcium 9.8 mg/dL (8.6-10.3); EGFR African American 61.7 (>60); Potassium 4.9 mmol/L (3.5-5.0)
[2017-08-29] MEDS: Diltiazem CD CAP* 120 MG PO SCH (10:56)
[2017-08-29] MEDS: Diltiazem CD CAP* 180 MG PO SCH (10:56)
[2017-08-29] MEDS: Metoprolol Tartrate TAB* 50 mg PO SCH ×2 (11:03→20:04)
[2017-08-29] MEDS: Tacrolimus CAP(*) 1 MG PO SCH ×2 (11:03→20:04)
[2017-08-29] MEDS: Cyanocobalamin TAB* 500 MCG PO SCH (11:03)
[2017-08-29] MEDS: Famotidine TAB* 20 MG PO SCH (11:03)
[2017-08-29] MEDS: Apixaban* 2.5 MG TAB PO SCH ×2 (11:03→20:04)
[2017-08-29] MEDS: Aspirin EC Low Dose* 81 MG TAB.EC PO SCH (11:03)
[2017-08-29] MEDS: Ticagrelor* 90 MG TAB PO SCH ×2 (11:03→20:05)
--- NOTE | 2017-08-29 13:09 | PN ---
Subjective Date of Service: 08/29/17 Interval History: HOSPITALIST PROGRESS NOTE Patient seen and examined at bedside. Initially sedated, but woke up while I was removing her IJ. Confused and agitated last night requiring Ativan. She offers no complaints at this time other than she would want to go home. Family History: Unchanged from Admission Social History: Unchanged from Admission Past Medical History: Unchanged from Admission Objective Active Medications: Albuterol/Ipratropium (Duoneb (Albuterol 2.5 Mg/Ipratropium 0.5 Mg)) 1 neb INH Q2H PRN PRN Reason: SOB/WHEEZING Last Admin: 08/25/17 20:34 Dose: 1 neb Apixaban (Eliquis) 2.5 mg PO BID [facility] Last Admin: 08/29/17 11:03 Dose: Not Given Aspirin (Aspirin Ec Low Dose*) 81 mg PO DAILY [facility] Last Admin: 08/29/17 11:03 Dose: Not Given Clonazepam (Klonopin Tab(*)) 0.5 mg PO BID PRN PRN Reason: ANXIETY Last Admin: 08/28/17 20:02 Dose: 0.5 mg Cyanocobalamin (Vitamin B12 Tab*) 1,000 mcg PO DAILY [facility] Last Admin: 08/29/17 11:03 Dose: Not Given Diltiazem HCl (Cardizem Cd Cap*) 180 mg PO DAILY [facility] Last Admin: 08/29/17 10:56 Dose: 180 mg Diltiazem HCl (Cardizem Cd Cap*) 120 mg PO DAILY [facility] Last Admin: 08/29/17 10:56 Dose: 120 mg Famotidine (Pepcid Tab*) 20 mg PO DAILY [facility] Last Admin: 08/29/17 11:03 Dose: Not Given Heparin Sodium (Porcine) (Heparin Flush Picc/Ml/Cvc(*)) 1 - 3 ml FLUSH 0600, 1800 [facility] PRN Reason: Protocol Last Admin: 08/29/17 04:37 Dose: 3 ml Hydralazine HCl (Apresoline Iv*) 10 mg IV Q4H PRN PRN Reason: BLOOD PRESSURE Last Admin: 08/26/17 03:23 Dose: 10 mg Lorazepam (Ativan Inj*) 2 mg IV PUSH Q2H PRN PRN Reason: AGITATION Last Admin: 08/29/17 05:21 Dose: 2 mg Metoprolol Tartrate (Lopressor Tab*) 50 mg PO Q12HR [facility] Last Admin: 08/29/17 11:03 Dose: Not Given Tacrolimus (Prograf Cap(*)) 1 mg PO BID [facility] Last Admin: 08/29/17 11:03 Dose: Not Given Ticagrelor (Brilinta*) 90 mg PO BID [facility] Last Admin: 08/29/17 11:03 Dose: Not Given Vital Signs 08/29/17 08/29/17 08/29/17 05:21 06:46 07:15 Temperature 97.8 F Pulse Rate Respiratory 22 22 Rate Blood Pressure (mmHg) O2 Sat by Pulse Oximetry 08/29/17 07:20 Temperature Pulse Rate 78 Respiratory 19 Rate Blood Pressure 168/84 (mmHg) O2 Sat by Pulse 100 Oximetry Oxygen Devices in Use Now: None Appearance: Frail lady sitting up in bed in NAD. Eyes: No Scleral Icterus Ears/Nose/Mouth/Throat: Mucous Membranes Moist Neck: Trachea Midline Respiratory: Symmetrical Chest Expansion and Respiratory Effort, - - BS+ bilaterally coarse with no added sounds Cardiovascular: RRR - Normal S1 and S2 Abdominal: NL Sounds; No Tenderness; No Distention Neurological: Alert and Oriented x 3, NL Muscle Strength and Tone Nutrition: Taking PO's Result Diagrams: 08/29/17 04:50 08/29/17 04:50 Assess/Plan/Problems-Billing Assessment: Mrs. Coombs is a 61yo F with PMH of CAD s/p BMS stent to RCA, HTN, CKD stage 3 , Hep C s/p liver transplant on Tacrolimus, AICD for long QT, PVD, PAF, COPD, tobacco abuse, who presented to ED on 08/20 with c/o dyspnea, found to have pneumonia, resulting in intubation and ICU stay. - Patient Problems (1) Acute hypoxemic respiratory failure Comment: - Secondary to pneumonia. - Intubated on 08/20, extubated on 08/22. - Much improved - now on RA. (2) Pneumonia Comment: - Bilateral, multilobar, present on admission. - Cultures yielded no growth. - Treated with Vanco/Zosyn. (3) Delirium Comment: - She seems to be doing well during the day, but gets more confused overnight, compatible with ing. - Ammonia is normal. - Continue supportive care. - Avoid benzos. (4) Atrial fibrillation Comment: - PAF, continue apixaban, diltiazem, and metoprolol. (5) CAD (coronary artery disease) Comment: - Continue ticagrelor, metoprolol, and ASA. (6) Physical deconditioning Comment: - PT input appreciated - will require rehab. (7) DNR (do not resuscitate) Status and Disposition: Inpatient. Will need placement for rehab.
[2017-08-29] MEDS ORDERED: Haloperidol INJ IV/IM* 5 MG/ML AMP IM PRN (13:10)
[2017-08-29] MEDS: clonazePAM TAB(*) 0.5 MG PO PRN ×2 (14:42→23:15)
[2017-08-29] MEDS: Acetaminophen TAB* 325 MG PO PRN (20:05)
[2017-08-30] MEDS: Acetaminophen TAB* 325 MG PO PRN (05:12)
[2017-08-30] MEDS: Aspirin EC Low Dose* 81 MG TAB.EC PO SCH (09:23)
[2017-08-30] MEDS: Cyanocobalamin TAB* 500 MCG PO SCH (09:23)
[2017-08-30] MEDS: Diltiazem CD CAP* 180 MG PO SCH (09:24)
[2017-08-30] MEDS: clonazePAM TAB(*) 0.5 MG PO PRN ×3 (09:24→21:29)
[2017-08-30] MEDS: Tacrolimus CAP(*) 1 MG PO SCH ×2 (09:24→21:30)
[2017-08-30] MEDS: Famotidine TAB* 20 MG PO SCH (09:24)
[2017-08-30] MEDS: Diltiazem CD CAP* 120 MG PO SCH (09:24)
[2017-08-30] MEDS: Metoprolol Tartrate TAB* 50 mg PO SCH ×2 (09:24→21:31)
[2017-08-30] MEDS: Ticagrelor* 90 MG TAB PO SCH ×2 (09:25→21:30)
[2017-08-30] MEDS: Apixaban* 2.5 MG TAB PO SCH ×2 (09:25→21:30)
--- NOTE | 2017-08-30 17:47 | PN ---
Subjective Date of Service: 08/30/17 Interval History: pain overnight. Walked well with PT. less confusion. Denies SOB, chest pressure. States would refuse to go back to [facility]. Family History: Unchanged from Admission Social History: Unchanged from Admission Past Medical History: Unchanged from Admission Objective Active Medications: Acetaminophen (Tylenol Tab*) 650 mg PO Q6H PRN PRN Reason: PAIN Last Admin: 08/30/17 05:12 Dose: 650 mg Albuterol/Ipratropium (Duoneb (Albuterol 2.5 Mg/Ipratropium 0.5 Mg)) 1 neb INH Q2H PRN PRN Reason: SOB/WHEEZING Last Admin: 08/25/17 20:34 Dose: 1 neb Apixaban (Eliquis) 2.5 mg PO BID [facility] Last Admin: 08/30/17 09:25 Dose: 2.5 mg Aspirin (Aspirin Ec Low Dose*) 81 mg PO DAILY [facility] Last Admin: 08/30/17 09:23 Dose: 81 mg Clonazepam (Klonopin Tab(*)) 0.5 mg PO Q6H PRN PRN Reason: ANXIETY Last Admin: 08/30/17 15:26 Dose: 0.5 mg Cyanocobalamin (Vitamin B12 Tab*) 1,000 mcg PO DAILY [facility] Last Admin: 08/30/17 09:23 Dose: 1,000 mcg Diltiazem HCl (Cardizem Cd Cap*) 180 mg PO DAILY [facility] Last Admin: 08/30/17 09:24 Dose: 180 mg Diltiazem HCl (Cardizem Cd Cap*) 120 mg PO DAILY [facility] Last Admin: 08/30/17 09:24 Dose: 120 mg Famotidine (Pepcid Tab*) 20 mg PO DAILY [facility] Last Admin: 08/30/17 09:24 Dose: 20 mg Metoprolol Tartrate (Lopressor Tab*) 50 mg PO Q12HR [facility] Last Admin: 08/30/17 09:24 Dose: 50 mg Tacrolimus (Prograf Cap(*)) 1 mg PO BID [facility] Last Admin: 08/30/17 09:24 Dose: 1 mg Ticagrelor (Brilinta*) 90 mg PO BID [facility] Last Admin: 08/30/17 09:25 Dose: 90 mg Vital Signs 08/29/17 08/29/17 08/29/17 19:48 20:00 23:15 Temperature 98.1 F Pulse Rate 92 Respiratory 21 21 18 Rate Blood Pressure 169/73 (mmHg) O2 Sat by Pulse 99 Oximetry 08/29/17 08/30/17 08/30/17 23:27 02:08 02:12 Temperature 98.0 F Pulse Rate 81 84 Respiratory 16 16 17 Rate Blood Pressure 174/83 (mmHg) O2 Sat by Pulse 100 100 Oximetry 08/30/17 08/30/17 08/30/17 03:31 05:08 08:00 Temperature 98.0 F 98.4 F Pulse Rate 88 90 Respiratory 16 16 18 Rate Blood Pressure 150/76 174/77 (mmHg) O2 Sat by Pulse 99 97 Oximetry 08/30/17 08/30/17 08/30/17 08:01 09:24 12:06 Temperature 100.0 F Pulse Rate 90 Respiratory 25 18 16 Rate Blood Pressure 152/87 (mmHg) O2 Sat by Pulse 100 Oximetry 08/30/17 08/30/17 12:14 15:26 Temperature 98.1 F Pulse Rate 81 Respiratory 24 18 Rate Blood Pressure 146/84 (mmHg) O2 Sat by Pulse 100 Oximetry Oxygen Devices in Use Now: None Appearance: NAD Eyes: No Scleral Icterus, PERRLA Ears/Nose/Mouth/Throat: NL Teeth, Lips, Gums, Mucous Membranes Moist Neck: NL Appearance and Movements; NL JVP Respiratory: Symmetrical Chest Expansion and Respiratory Effort, Clear to Auscultation Cardiovascular: NL Sounds; No Murmurs; No JVD, RRR Abdominal: NL Sounds; No Tenderness; No Distention, No Hepatosplenomegaly Extremities: No Edema, No Clubbing, Cyanosis Skin: No Rash or Ulcers Neurological: Alert and Oriented x 3, NL Muscle Strength and Tone Nutrition: Taking PO's Result Diagrams: 08/29/17 04:50 08/29/17 04:50 Microbiology and Other Data: Microbiology 08/20/17 03:40 Blood Venous Aerobic Blood Culture - Final No Growth Day 5 08/20/17 03:40 Blood Venous Anaerobic Blood Culture - Final No Growth Day 5 08/20/17 03:10 Blood Venous Aerobic Blood Culture - Final No Growth Day 5 08/20/17 03:10 Blood Venous Anaerobic Blood Culture - Final No Growth Day 5 08/20/17 12:25 Bronchial Wash Gram Stain - Final 08/20/17 12:25 Bronchial Wash Bronchoalveolar Lavage Cult, Quant - Final Normal Luli 08/21/17 21:30 Urine Legionella Urinary Antigen - Final Negative Legionella 08/21/17 21:30 Urine Streptococcus pneumoniae Ag Screen - Final Negative S. pneumo Antigen 08/20/17 06:02 Urine Urine Culture - Final Assess/Plan/Problems-Billing Assessment: Mrs. Coombs is a 61yo F with PMH of CAD s/p BMS stent to RCA, HTN, CKD stage 3 , Hep C s/p liver transplant on Tacrolimus, AICD for long QT, PVD, PAF, COPD, tobacco abuse, who presented to ED on 08/20 with c/o dyspnea, found to have pneumonia, resulting in intubation and ICU stay. Improved - Patient Problems (1) Sepsis Current Visit: Yes Status: Acute Comment: s/p pressors and intubation in ICU (2) Acute hypoxemic respiratory failure Current Visit: Yes Status: Acute Code(s): J96.01 - ACUTE RESPIRATORY FAILURE WITH HYPOXIA SNOMED Code(s): 650044095 Comment: - Secondary to pneumonia. - Intubated on 08/20, extubated on 08/22. - Much improved - now on RA. (3) Atrial fibrillation Current Visit: Yes Status: Acute Code(s): I48.91 - UNSPECIFIED ATRIAL FIBRILLATION SNOMED Code(s): 12037120 Comment: - PAF, continue apixaban, diltiazem, and metoprolol. (4) Delirium Current Visit: Yes Status: Acute Code(s): R41.0 - DISORIENTATION, UNSPECIFIED SNOMED Code(s): 4530592 Comment: - improving. has gotten more confused at night times. compatible with . - Ammonia is normal. - Continue supportive care. - Avoid benzos. (5) Physical deconditioning Current Visit: Yes Status: Acute Code(s): R53.81 - OTHER MALAISE SNOMED Code(s): 10349780088836 Comment: - PT input appreciated - will require rehab. (6) Pneumonia Current Visit: Yes Status: Acute Code(s): J18.9 - PNEUMONIA, UNSPECIFIED ORGANISM SNOMED Code(s): 557992447 Comment: - Bilateral, multilobar, present on admission. - Cultures yielded no growth. - Treated with Vanco/Zosyn. (7) CAD (coronary artery disease) Current Visit: Yes Status: Chronic Code(s): I25.10 - ATHSCL HEART DISEASE OF [place] CORONARY ARTERY W/O ANG PCTRS SNOMED Code(s): 93392316 Comment: - Continue ticagrelor, metoprolol, and ASA. Status and Disposition: Inpatient. Needing placement for rehab. Attending: Christian Rojas
[2017-08-31] MEDS: clonazePAM TAB(*) 0.5 MG PO PRN ×3 (05:01→20:26)
[2017-08-31] MEDS: Ticagrelor* 90 MG TAB PO SCH ×2 (09:01→20:20)
[2017-08-31] MEDS: Diltiazem CD CAP* 180 MG PO SCH (09:01)
[2017-08-31] MEDS: Metoprolol Tartrate TAB* 50 mg PO SCH ×2 (09:01→20:20)
[2017-08-31] MEDS: Diltiazem CD CAP* 120 MG PO SCH (09:01)
[2017-08-31] MEDS: Apixaban* 2.5 MG TAB PO SCH ×2 (09:01→20:20)
[2017-08-31] MEDS: Aspirin EC Low Dose* 81 MG TAB.EC PO SCH (09:01)
[2017-08-31] MEDS: Famotidine TAB* 20 MG PO SCH (09:01)
[2017-08-31] MEDS: Tacrolimus CAP(*) 1 MG PO SCH ×2 (09:02→20:20)
[2017-08-31] MEDS: Cyanocobalamin TAB* 500 MCG PO SCH (09:02)
--- NOTE | 2017-08-31 11:23 | PN ---
Subjective Date of Service: 08/31/17 Interval History: Patient seen this morning, just finished with PT, feels like she is making progress. No fever, chills, cough, SOB. Says appetite has been improving over the past few days. Family History: Unchanged from Admission Social History: Unchanged from Admission Past Medical History: Unchanged from Admission Objective Active Medications: Acetaminophen (Tylenol Tab*) 650 mg PO Q6H PRN Albuterol/Ipratropium (Duoneb (Albuterol 2.5 Mg/Ipratropium 0.5 Mg)) 1 neb INH Q2H PRN Apixaban (Eliquis) 2.5 mg PO BID [facility] Aspirin (Aspirin Ec Low Dose*) 81 mg PO DAILY [facility] Clonazepam (Klonopin Tab(*)) 0.5 mg PO Q6H PRN Cyanocobalamin (Vitamin B12 Tab*) 1,000 mcg PO DAILY [facility] Diltiazem HCl (Cardizem Cd Cap*) 180 mg PO DAILY [facility] Diltiazem HCl (Cardizem Cd Cap*) 120 mg PO DAILY [facility] Famotidine (Pepcid Tab*) 20 mg PO DAILY [facility] Metoprolol Tartrate (Lopressor Tab*) 50 mg PO Q12HR [facility] Tacrolimus (Prograf Cap(*)) 1 mg PO BID [facility] Ticagrelor (Brilinta*) 90 mg PO BID [facility] Vital Signs 08/30/17 08/30/17 08/30/17 12:06 12:14 15:26 Temperature 98.1 F Pulse Rate 81 Respiratory 16 24 18 Rate Blood Pressure 146/84 (mmHg) O2 Sat by Pulse 100 Oximetry 08/31/17 08/31/17 08/31/17 05:01 07:36 08:00 Temperature 98.1 F Pulse Rate 76 Respiratory 22 18 24 Rate Blood Pressure 146/61 (mmHg) O2 Sat by Pulse 99 Oximetry Oxygen Devices in Use Now: None Appearance: Middle-aged, frail, F, appears older than stated age, sitting in chair in NAD Eyes: No Scleral Icterus Ears/Nose/Mouth/Throat: Mucous Membranes Moist Neck: NL Appearance and Movements; NL JVP Respiratory: Symmetrical Chest Expansion and Respiratory Effort, Clear to Auscultation Cardiovascular: NL Sounds; No Murmurs; No JVD, RRR Abdominal: NL Sounds; No Tenderness; No Distention Lymphatic: No Cervical Adenopathy Extremities: No Edema Skin: No Rash or Ulcers Neurological: Alert and Oriented x 3 Result Diagrams: 08/29/17 04:50 08/29/17 04:50 Additional Lab and Data: Lab Results . Microbiology and Other Data: . Assess/Plan/Problems-Billing Assessment: Mrs. Coombs is a 61yo F with PMH of CAD s/p BMS stent to RCA, HTN, CKD stage 3 , Hep C s/p liver transplant on Tacrolimus, AICD for long QT, PVD, PAF, COPD, tobacco abuse, who presented to ED on 08/20 with c/o dyspnea, found to have pneumonia, resulting in intubation and ICU stay. Improved - Patient Problems (1) Sepsis Current Visit: Yes Comment: s/p pressors and intubation in ICU (2) Acute hypoxemic respiratory failure Current Visit: Yes Comment: - Secondary to pneumonia. - Intubated on 08/20, extubated on 08/22. - Much improved - now on RA. (3) Atrial fibrillation Current Visit: Yes Comment: - PAF, continue apixaban, diltiazem, and metoprolol. (4) Delirium Current Visit: Yes Comment: - improving. has gotten more confused at night times. compatible with . - Ammonia is normal. - Continue supportive care. - Avoid benzos. (5) Physical deconditioning Current Visit: Yes Comment: - PT input appreciated - will require rehab. (6) Pneumonia Current Visit: Yes Comment: - Bilateral, multilobar, present on admission. - Cultures yielded no growth. - Treated with Vanco/Zosyn. (7) CAD (coronary artery disease) Current Visit: Yes Comment: - Continue ticagrelor, metoprolol, and ASA. (8) Liver transplant recipient Current Visit: No Comment: Continue tacrolimus (9) DVT prophylaxis Current Visit: No Comment: Apixaban Status and Disposition: Inpatient. Needing placement for rehab.
[2017-08-31] MEDS: traMADol TAB* 50 MG PO PRN (18:21)
[2017-09-01] MEDS: Apixaban* 2.5 MG TAB PO SCH ×2 (08:24→20:33)
[2017-09-01] MEDS: traMADol TAB* 50 MG PO PRN (08:24)
[2017-09-01] MEDS: Cyanocobalamin TAB* 500 MCG PO SCH (08:24)
[2017-09-01] MEDS: clonazePAM TAB(*) 0.5 MG PO PRN ×2 (08:25→19:53)
[2017-09-01] MEDS: Diltiazem CD CAP* 120 MG PO SCH (08:26)
[2017-09-01] MEDS: Aspirin EC Low Dose* 81 MG TAB.EC PO SCH (08:26)
[2017-09-01] MEDS: Metoprolol Tartrate TAB* 50 mg PO SCH ×2 (08:26→20:34)
[2017-09-01] MEDS: Diltiazem CD CAP* 180 MG PO SCH (08:26)
[2017-09-01] MEDS: Tacrolimus CAP(*) 1 MG PO SCH ×2 (08:27→20:33)
[2017-09-01] MEDS: Famotidine TAB* 20 MG PO SCH (08:28)
[2017-09-01] MEDS: Ticagrelor* 90 MG TAB PO SCH ×2 (08:29→20:34)
--- NOTE | 2017-09-01 14:01 | PN ---
Subjective Date of Service: 09/01/17 Interval History: No new complaints today. Appetite good. Pleased she is gaining weight. No cough , fever, chills. Family History: Unchanged from Admission Social History: Unchanged from Admission Past Medical History: Unchanged from Admission Objective Active Medications: Acetaminophen (Tylenol Tab*) 650 mg PO Q6H PRN Albuterol/Ipratropium (Duoneb (Albuterol 2.5 Mg/Ipratropium 0.5 Mg)) 1 neb INH Q2H PRN Apixaban (Eliquis) 2.5 mg PO BID [facility] Aspirin (Aspirin Ec Low Dose*) 81 mg PO DAILY [facility] Clonazepam (Klonopin Tab(*)) 0.5 mg PO Q6H PRN Cyanocobalamin (Vitamin B12 Tab*) 1,000 mcg PO DAILY [facility] Diltiazem HCl (Cardizem Cd Cap*) 180 mg PO DAILY [facility] Diltiazem HCl (Cardizem Cd Cap*) 120 mg PO DAILY [facility] Famotidine (Pepcid Tab*) 20 mg PO DAILY [facility] Metoprolol Tartrate (Lopressor Tab*) 50 mg PO Q12HR [facility] Tacrolimus (Prograf Cap(*)) 1 mg PO BID [facility] Ticagrelor (Brilinta*) 90 mg PO BID [facility] Tramadol HCl (Ultram*) 50 mg PO Q4H PRN Vital Signs 08/31/17 08/31/17 08/31/17 14:10 16:05 18:21 Temperature 99.1 F Pulse Rate 68 Respiratory 16 16 14 Rate Blood Pressure 135/53 (mmHg) O2 Sat by Pulse 100 Oximetry 08/31/17 08/31/17 08/31/17 20:00 20:15 20:21 Temperature 98.1 F Pulse Rate 65 Respiratory 17 16 17 Rate Blood Pressure 137/61 (mmHg) O2 Sat by Pulse 99 Oximetry 09/01/17 09/01/17 09/01/17 03:52 04:29 07:49 Temperature 97.9 F 98.1 F Pulse Rate 54 62 67 Respiratory 16 16 16 Rate Blood Pressure 130/54 145/68 (mmHg) O2 Sat by Pulse 100 100 100 Oximetry Oxygen Devices in Use Now: None Appearance: Middle-aged, F, laying in bed in NAD Eyes: No Scleral Icterus Ears/Nose/Mouth/Throat: Mucous Membranes Moist Neck: NL Appearance and Movements; NL JVP Respiratory: Symmetrical Chest Expansion and Respiratory Effort, Clear to Auscultation Cardiovascular: NL Sounds; No Murmurs; No JVD, RRR Abdominal: NL Sounds; No Tenderness; No Distention Lymphatic: No Cervical Adenopathy Extremities: No Edema Skin: No Rash or Ulcers Neurological: Alert and Oriented x 3 Result Diagrams: 08/29/17 04:50 08/29/17 04:50 Additional Lab and Data: Lab Results . Microbiology and Other Data: . Assess/Plan/Problems-Billing Assessment: Mrs. Coombs is a 61yo F with PMH of CAD s/p BMS stent to RCA, HTN, CKD stage 3 , Hep C s/p liver transplant on Tacrolimus, AICD for long QT, PVD, PAF, COPD, tobacco abuse, who presented to ED on 08/20 with c/o dyspnea, found to have pneumonia, resulting in intubation and ICU stay. Improved - Patient Problems (1) Sepsis Current Visit: Yes Comment: s/p pressors and intubation in ICU (2) Acute hypoxemic respiratory failure Current Visit: Yes Comment: - Secondary to pneumonia. - Intubated on 08/20, extubated on 08/22. - Much improved - now on RA. (3) Atrial fibrillation Current Visit: Yes Comment: - PAF, continue apixaban, diltiazem, and metoprolol. (4) Delirium Current Visit: Yes Comment: - improving. has gotten more confused at night times but this seems to be resolving. - Ammonia is normal. - Continue supportive care. - Avoid benzos. (5) Physical deconditioning Current Visit: Yes Comment: - PT input appreciated - will require rehab. (6) Pneumonia Current Visit: Yes Comment: - Bilateral, multilobar, present on admission. - Cultures yielded no growth. - Treated with Vanco/Zosyn. (7) CAD (coronary artery disease) Current Visit: Yes Comment: - Continue ticagrelor, metoprolol, and ASA. (8) Liver transplant recipient Current Visit: No Comment: Continue tacrolimus (9) DVT prophylaxis Current Visit: No Comment: Apixaban Status and Disposition: Inpatient. Needing placement for rehab.
--- NOTE | 2017-09-02 03:22 | DS ---
CC: Dr. Koo * DISCHARGE SUMMARY: DATE OF ADMISSION: 08/20/17 DATE OF DISCHARGE: 09/02/17 PRIMARY CARE PHYSICIAN: Dr. Koo. PRINCIPAL DISCHARGE DIAGNOSES: 1. Acute hypoxic respiratory failure. 2. Acute respiratory distress syndrome. 3. Healthcare associated pneumonia. 4. Septic shock. 5. Coronary artery disease with demand ischemia. 6. Lactic acidosis. 7. Acute kidney injury on chronic kidney disease 3. 8. History of liver transplant. 9. History of paroxysmal atrial fibrillation. DISCHARGE MEDICATION REGIMEN: 1. Tacrolimus 1 mg by mouth 2 times daily. 2. Incruse Ellipta 1 inhaled daily. 3. Tramadol 50 mg by mouth every 4 hours as needed for pain. 4. Nitroglycerin 0.4 mg sublingual every 5 minutes as needed for angina. 5. Ventolin nebulizer 2.5 mg inhaled every 4 hours as needed for shortness of breath or wheezing. 6. Eliquis 2.5 mg 3 times daily. 7. Aspirin 81 mg by mouth daily. 8. Vitamin B12 1000 mcg by mouth daily. 9. Diltiazem 300 mg by mouth daily. 10. Metoprolol tartrate 50 mg by mouth 2 times daily. 11. Clonazepam 0.5 mg by mouth daily. 12. Famotidine 20 mg by mouth daily. 13. Ticagrelor 90 mg by mouth 2 times daily. STUDIES DONE DURING HOSPITALIZATION: Chest x-ray, impression: Chest x-ray findings could be consistent with cardiogenic pulmonary edema, pneumonitis or ARDS depending on the clinical presentation. CT of the chest without contrast, impression: Diffuse ground glass densities and more confluent consolidation involving multiple lobes, overall affecting the left than the right lung with small pleural effusions. Etiologies could include pulmonary edema, pneumonitis, ARDS, and multifocal pneumonia. CT of the brain, impression: No acute intracranial pathology. Chronic small vessel ischemic changes, more focal encephalomalacia of the left parietal lobe consistent with a remote infarct. HISTORY OF PRESENT ILLNESS AND HOSPITAL SUMMARY: Please see the full history and physical by Dr. David Ortiz as well as initial consultation note by Dr. Rah Ivory for details. Briefly, Ms. Coombs is a 61-year-old female with a past medical history of CAD, history of stent placement with hypertension , CKD 3, history of liver transplant, on tacrolimus, AICD due to long QT syndrome, peripheral artery disease, paroxysmal AFib, COPD, presented to the hospital with progressive shortness of breath. The patient had significant findings on chest imaging and was admitted to ICU on high flow nasal cannula. The patient was started on vanc, Zosyn, and azithromycin. The patient subsequently developed shock and worsening respiratory failure. She was intubated and required pressors. She was subsequently intubated and was maintained on BiPAP. When the patient's arterial line was removed, she had significant bleeding that required 2 units of packed blood cells and Kcentra. She was continued on broad spectrum antibiotics. She required significant diuresis and respiratory rate slowly, but surely improved. She was subsequently transferred out of the ICU and to the regular medical floor. She was able to be weaned off of oxygen and she completed the full course of antibiotics here in the hospital. The patient was maintained on Eliquis, ticagrelor, and aspirin with her history of AFib and significant CAD. She had some sundowning and confusion once on the floor; however, this cleared over the following days. She was able to be weaned to room air. Blood pressure has remained stable. The patient had no further respiratory symptoms. She was significantly debilitated and physical therapy recommended short- term rehab. She received an offer from [facility] on 09/02/17, and will be discharged there for continued rehab. TIME SPENT: Total time spent on this discharge 45 minutes. This is a summary of hospitalization; please see full medical record for further details. [id number]/[facility] #: [id number] MTDD
[2017-09-02] MEDS: clonazePAM TAB(*) 0.5 MG PO PRN (04:41)
[2017-09-02 09:34] VITALS: BP 126/74
[2017-09-02] MEDS: Cyanocobalamin TAB* 500 MCG PO SCH (09:36)
[2017-09-02] MEDS: Diltiazem CD CAP* 180 MG PO SCH (09:36)
[2017-09-02] MEDS: Ticagrelor* 90 MG TAB PO SCH (09:36)
[2017-09-02] MEDS: Apixaban* 2.5 MG TAB PO SCH (09:37)
[2017-09-02] MEDS: Metoprolol Tartrate TAB* 50 mg PO SCH (09:37)
[2017-09-02] MEDS: Famotidine TAB* 20 MG PO SCH (09:37)
[2017-09-02] MEDS: Tacrolimus CAP(*) 1 MG PO SCH (09:37)
[2017-09-02] MEDS: Aspirin EC Low Dose* 81 MG TAB.EC PO SCH (09:37)
[2017-09-02] MEDS: Diltiazem CD CAP* 120 MG PO SCH (09:37)
[2017-09-02] MEDS: traMADol TAB* 50 MG PO PRN (09:46)
== END 2017-09-02 10:55 | DRG 853 ==
LOC: ED 02:48 → ICU 07:24 → MED 08-25 09:37
PROVIDERS: ADMIT Internal Medicine; ATTEND Hospitalist
PROC: 0BH17EZ Insertion of Endotracheal Airway into Trachea, Via Natural or Artificial Opening (ICD-10-PCS; principal; 2017-08-20)
PROC: 0B9J8ZZ Drainage of Left Lower Lung Lobe, Via Natural or Artificial Opening Endoscopic (ICD-10-PCS; 2017-08-20)
PROC: 5A1945Z Respiratory Ventilation, 24-96 Consecutive Hours (ICD-10-PCS; 2017-08-20)
PROC: 05HN33Z Insertion of Infusion Device into Left Internal Jugular Vein, Percutaneous Approach (ICD-10-PCS; 2017-08-20)
PROC: B544ZZA Ultrasonography of Left Jugular Veins, Guidance (ICD-10-PCS; 2017-08-20)
PROC: 03H533Z Insertion of Infusion Device into Right Axillary Artery, Percutaneous Approach (ICD-10-PCS; 2017-08-20)
PROC: 3E043XZ Introduction of Vasopressor into Central Vein, Percutaneous Approach (ICD-10-PCS; 2017-08-20)
PROC: 0BP1XDZ Removal of Intraluminal Device from Trachea, External Approach (ICD-10-PCS; 2017-08-22)
PROC: 5A09457 Assistance with Respiratory Ventilation, 24-96 Consecutive Hours, Continuous Positive Airway Pressure (ICD-10-PCS; 2017-08-22)
PROC: 30283B1 Transfusion of Nonautologous 4-Factor Prothrombin Complex Concentrate into Vein, Percutaneous Approach (ICD-10-PCS; 2017-08-23)
PROC: 30243N1 Transfusion of Nonautologous Red Blood Cells into Central Vein, Percutaneous Approach (ICD-10-PCS; 2017-08-23)
PROC: 05PYX3Z Removal of Infusion Device from Upper Vein, External Approach (ICD-10-PCS; 2017-08-29)
DX: A41.9 Sepsis, unspecified organism (principal); R65.21 Severe sepsis with septic shock; J18.9 Pneumonia, unspecified organism; J90 Pleural effusion, not elsewhere classified; J80 Acute respiratory distress syndrome; N17.9 Acute kidney failure, unspecified; E87.2 Acidosis; N18.3 Chronic kidney disease, stage 3 (moderate); F05 Delirium due to known physiological condition; G93.89 Other specified disorders of brain; J44.0 Chronic obstructive pulmonary disease with (acute) lower respiratory infection; I24.8 Other forms of acute ischemic heart disease; Z94.4 Liver transplant status; I45.81 Long QT syndrome; I25.10 Atherosclerotic heart disease of native coronary artery without angina pectoris; D64.9 Anemia, unspecified; I12.9 Hypertensive chronic kidney disease with stage 1 through stage 4 chronic kidney disease, or unspecified chronic kidney disease; I73.9 Peripheral vascular disease, unspecified; M19.90 Unspecified osteoarthritis, unspecified site; F41.9 Anxiety disorder, unspecified; F32.9 Major depressive disorder, single episode, unspecified; F17.210 Nicotine dependence, cigarettes, uncomplicated; F12.90 Cannabis use, unspecified, uncomplicated; Y95 Nosocomial condition; R74.8 Abnormal levels of other serum enzymes; Z66 Do not resuscitate; I48.0 Paroxysmal atrial fibrillation; L50.0 Allergic urticaria; T49.0X5A Adverse effect of local antifungal, anti-infective and anti-inflammatory drugs, initial encounter; Y92.239 Unspecified place in hospital as the place of occurrence of the external cause; R58 Hemorrhage, not elsewhere classified; Z79.899 Other long term (current) drug therapy; Z79.01 Long term (current) use of anticoagulants; Z88.8 Allergy status to other drugs, medicaments and biological substances; Z82.49 Family history of ischemic heart disease and other diseases of the circulatory system; I25.2 Old myocardial infarction; Z95.5 Presence of coronary angioplasty implant and graft; Z95.810 Presence of automatic (implantable) cardiac defibrillator; Z87.01 Personal history of pneumonia (recurrent); Z79.82 Long term (current) use of aspirin
CPT/HCPCS: 31624; 36415; 36600; 70450; 71010; 71250; 80048; 80053; 80076; 80202; 82140; 82803; 83605; 83735; 83880; 84100; 84132; 84484; 85025; 85027; 85610; 86850; 86900; 86901; 86922; 87040; 87071; 87086; 87252; 87798; 87899; 93005; 94003; 94640; 94660; 94760; A9270-GY; C9132; J0171; J0360; J0456; J0461; J1200; J1720; J1940; J2060; J2270; J2543; J2704; J3010; J3370; J3475; J3480; J3490; J7060; J7507; P9016; P9040; P9047

== ENCOUNTER 2018-03-26 09:56 | Inpatient (IN) | payer MEDICARE, MEDICAID ==
[~2018-03-26 09:56] MED LIST: Albuterol/Ipratropium NEB.SOL* Albuterol 2.5 MG/Ipratropium 0.5 MG 3 ML ONE
[2018-03-26] MEDS ORDERED: Azithromycin IV(*) 500 MG in NS 0.9% 250 ML* 250 ML IVPB ONE ×2 (09:58→10:30)
[2018-03-26] MEDS ORDERED: cefTRIAXone(*) 1 GM in NS 0.9% 50 ML* 50 ML IVPB ONE (09:58)
[2018-03-26] MEDS ORDERED: Albuterol/Ipratropium NEB.SOL* Albuterol 2.5 MG/Ipratropium 0.5 MG 3 ML INH ONE ×2 (09:58→10:10)
[2018-03-26] MEDS ORDERED: methylPREDNISolone 125 MG* 2 ML VIAL IV ONE (09:58)
[2018-03-26] MEDS ORDERED: NS 0.9% 250 ML* 250 ML ONE (10:27)
--- NOTE | 2018-03-26 10:27 | RAD ---
INDICATION: Short of breath COMPARISON: Chest x-ray August 24, 2017 TECHNIQUE: An AP portable view obtained at 1013 hours is submitted. FINDINGS: Bones/Soft Tissues: There are no acute bony findings. There is a right-sided cardiac pacemaker/defibrillator Cardiomediastinal: The heart is normal in size. Central pulmonary vessels are prominent, unchanged. Lungs: There is mild diffuse interstitial change. Alveolar changes have largely resolved. There is mild hyperinflation. Pleura: There are no pleural effusions. Other: None IMPRESSION: MILD DIFFUSE INTERSTITIAL INFILTRATIVE CHANGES DEMONSTRATING INTERVAL IMPROVEMENT. INTERVAL RESOLUTION OF THE BILATERAL ALVEOLAR OPACITIES
[2018-03-26 10:30] LABS: Hematocrit 32 % (35-47); Hemoglobin 10.4 g/dl (12.0-16.0); Mean Corpuscular HGB Conc 33 g/dl (31-36); Mean Corpuscular Hemoglobin 29 pg (27-31); Mean Corpuscular Volume 87 fL (80-97); Platelet Count 318 10^3/ul (150-450); Red Blood Count 3.64 10^6/ul (4.00-5.40); Red Cell Distribution Width 18 % (10.5-15); White Blood Count 9.7 10^3/ul (3.5-10.8)
[2018-03-26 10:34] LABS: ABS Basophils 0.1 10^3/ul (0-0.2); ABS Eosinophils 0.6 10^3/ul (0-0.6); ABS Monocytes 0.9 10^3/ul (0-0.8); ABS Neutrophils 6.1 10^3/ul (1.5-7.7); ABS Nucleated RBC 0 10^3/ul; Eosinophil % 6.4 % (0-6); Lymphocyte % 20.4 % (25-47); Nucleated Red Blood Cells % 0.1
[2018-03-26 10:39] LABS: INR 1.13 (0.77-1.02)
--- OUTSIDE RECORDS SUMMARY | 2018-03-26 10:40 | XMS REPORT ---
:1955 External Reference #:[id number] Author Organization [facility] Address [address] [address] Phone [phone] Care Team Providers Name Role Phone Bill Koo MD Primary Care Physician Unavailable Payers Type Date Identification Numbers Payment Provider Subscriber Medicare Primary Effective: Policy Number: Medicare Adelekaila Zelaya 2015 [id number] PayID: [id number] [address] [place] [address] Medigap Part B Policy Number: [id number] Medicaid Adele Zelaya Group Name: 1 1 [address] PayID: [id number] [place] [address] Commercial Effective: Policy Number: [employer] Adele Corin 2015 [id number] Medicaid Expires: 2016 PayID: [id number] [address] [address] [place] [address] Problems Date Description Provider Status Onset: 12/31/2014 Disorder of pericardium April Ignacio M.D. Active Onset: 12/31/2014 Coronary arteriosclerosis April Ignacio M.D. Active Onset: 12/31/2014 Ventricular fibrillation April Ignacio M.D. Active Onset: 12/31/2014 Long QT syndrome April Ignacio M.D. Active Onset: 05/21/2015 Rheumatic disease of tricuspid valve April Ignacio M.D. 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 Active Onset: 07/02/2015 Peripheral vascular angioplasty status w April Ignacio M.D. Active implants and grafts Onset: 08/20/2016 Paroxysmal ventricular tachycardia April Ignacio M.D. 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 Active Family History Date Family Member(s) Problem(s) Comments Father due to [place] () - Age 62 Mother due to Arrhythmia () - in sleep, presumed/possibly LQTS First Brother Kidney Disease sibling with renal failier Social History Type Date Description Comments Marital Status Lives With Son Occupation Disabled Cigarette Use Former Cigarette Smoker ETOH Use Denies alcohol use Smoking Patient is a former smoker pt quit smoking in 2014 Recreational Drug Use Denies Drug Use Daily Caffeine Consumes on average 24oz of soda per day Exercise Type/Frequency Exercises sporadically General Hx Text Do you follow a special diet: Started 3 months ago a diabetic diet more meats and vegetables Do you have problems with snoring, day time fatigue: No snoring, no daytime fatigue. Allergies, Adverse Reactions, Alerts Date Description Reaction Status Severity Comments 12/30/2014 Phenergan cardiac arrest active Severe 12/30/2014 Lidocaine Urticaria active Moderate 12/30/2014 Morphine active 04/16/2015 Cilostazol bruising active Medications Medication Date Status Form Strength Qnty SIG Indications Ordering Provider Nitroglycerin / Active Tablet 0.4mg Sublingual Unknown 0000 every 5 min prn, may repeat x2, if pain perisists call 911 Tacrolimus / Active Capsules 1mg 90cap take 1 Unknown 0000 s capsules in the morning and 1 capsule in the evening Tramadol HCL / Active Tablets 50mg 1 po up to Diamond-H 0000 tid prn Carlene barber PA Metoprolol / Active Tablets 50mg 1 tablet po Diamond-H Tartrate 0000 b.i.d Am/PM Carlene barber PA Clobetasol / Active Cream 0.05% as needed Unknown Propionate 0000 Emollient Atorvastatin 00/00/ Active Tablets 80mg 1 by mouth Unknown Calcium 0000 every day Vitamin B-12 / Active Tablets 1000mcg 1 by mouth Unknown 0000 every day Advair Diskus / Active Aerosol 250-50mcg/ 1 puff by Unknown 0000 Dose mouth twice a day Brilinta / Active Tablets 90mg 1 tab by Unknown 0000 mouth twice a day Spiriva / Active Capsules 18mcg 1 unit Unknown Handihaler 0000 inhalation daily Clonazepam / Active Tablets 0.5mg 1 po qd Unknown 0000 Dispers Diltiazem CD / Active Caps ER 300mg 1 by mouth Unknown 0000 24HR every day Incruse Ellipta / Active Aerosol 62.5mcg/In inhale one Unknown 0000 h puff by mouth every day Melatonin ER / Active Tablets ER 5mg 1 by mouth Unknown 0000 every night at bedtime Loratadine / Active Capsules 10mg once a day Unknown 0000 for allergies Eliquis / Active Tablets 2.5mg 1 tablet by Unknown 0000 mouth twice a day. blood thinner. Oxycodone-Aceta / Active Tablets 5-325mg 1-2 tabs by Unknown minophen 0000 mouth every 4-6 hours as needed for pain Senna-S / Active Tablets 8.6-50mg 2 by mouth Unknown 0000 every day Sertraline HCL / Active Tablets 25mg 1 by mouth Unknown 0000 every day Furosemide / Active Tablets 20mg 1 by mouth Unknown 0000 every day Isosorbide 01/08/ Hx Tablets ER 30mg 90tab 1 by mouth I10 April Mononitrate ER 2015 - 24HR s every day Mateus, 01/09/ in the M.D. 2016 elda.( Pt told pharmacy did not have on hand ) Clopidogrel 06/26/ Hx Tablets 75mg 1 tablet po Unknown Bisulfate 2014 - daily 2015 Oxycodone HCL 06/26/ Hx Tablets 5mg 1 tablet po Unknown 2015 - daily prn 2015 Cartia XT 05/22/ Hx Caps ER 240mg 1 cap po Diamond-H 2014 - 24HR daily ektor, 05/18/ Marcio Gutiérrez PA Aspirin Low / Hx Chewtabs 81mg 1 by mouth Unknown Strength 0000 - every day 2017 Atorvastatin /00/ Hx Tablets 40mg 90tab 1 by mouth Unknown Calcium 0000 - s every day 2014 Diltiazem HCL / Hx Caps ER 180mg 30cap 1 by mouth Unknown ER 0000 - 24HR s every day 2014 Lisinopril / Hx Tablets 40mg 90tab 1 by mouth Unknown 0000 - s every day 2016 Lopressor / Hx Tablets 50mg 180ta 1 by mouth Unknown 0000 - bs twice a day 2014 Multivitamins / Hx Capsules 1 by mouth Unknown 0000 - every day 2014 Oxycodone HCL / Hx Tablets 5mg 30tab 1 tablet po Unknown 0000 - s every 11/02/ prn 2014 Magnesium OTC / Hx 1 po qd Unknown 0000 - 2015 Medications Administered in Office Medication Date Status Form Strength Qnty SIG Indications Ordering Provider Inj, Administered Injection Stanley Baker Regadenoson, 015 Yun, 0.1 MG M.DRei, FACC, FASNC Inj, Administered Injection Tayla Dakota, Regadenoson, 015 PA 0.1 MG Technetium TC Administered Injection Stanley Baker 99M 015 Yun, Tetrofosmin, MAzael, FACC, Per Unit Dose FASNC Up To 40 Millicuries Technetium TC Administered Injection Tayla Duncan, 99M 015 PA Tetrofosmin, Per Unit Dose Up To 40 Millicuries Immunizations CPT Code Status Date Vaccine Lot # [id number] Given 07/27/2006 Influenza Virus 3Yrs & Over Vital Signs Date Vital Result Comment 03/03/2018 Height 61.5 inches 5'1.50" Weight 117.25 lb w/shoes Heart Rate 66 /min BP Systolic Sitting 150 mmHg lue reg cuff BP Diastolic Sitting 80 mmHg lue reg cuff BMI (Body Mass Index) 21.8 kg/m2 Ejection Fraction 50-55% echo 06/06/2017 08/20/2016 Height 61.5 inches 5'1.50" Weight 126.00 lb without shoes Heart Rate 56 /min BP Systolic Sitting 130 mmHg Lue reg cuff BP Diastolic Sitting 78 mmHg Lue reg cuff BP Systolic Standing 130 mmHg Lue reg cuff BP Diastolic Standing 80 mmHg Lue reg cuff Respiratory Rate 16 /min BMI (Body Mass Index) 23.4 kg/m2 Ejection Fraction 50-55% date 04/08/15 ECHO 01/09/2016 Height 61.5 inches 5'1.50" Weight 132.00 lb Heart Rate 58 /min BP Systolic Sitting 150 mmHg LA reg cuff BP Diastolic Sitting 90 mmHg LA reg cuff BP Systolic Standing 154 mmHg LA BP Diastolic Standing 94 mmHg LA Respiratory Rate 16 /min BMI (Body Mass Index) 24.5 kg/m2 Ejection Fraction 50-55% 04/08/15 07/02/2015 Height 61.5 inches 5'1.50" Weight 144.00 lb without shoes Heart Rate 82 /min BP Systolic Sitting 160 mmHg LA reg cuff BP Diastolic Sitting 80 mmHg LA reg cuff BP Systolic Standing 172 mmHg LA reg cuff BP Diastolic Standing 80 mmHg LA reg cuff Respiratory Rate 18 /min BMI (Body Mass Index) 26.8 kg/m2 Ejection Fraction 50-55% date 04/08/15 ECHO 05/21/2015 Height 63 inches 5'3" Weight 141.00 lb with shoes Heart Rate 84 /min BP Systolic Sitting 128 mmHg LA reg cuff BP Diastolic Sitting 70 mmHg LA reg cuff BP Systolic Standing 130 mmHg LA reg cuff BP Diastolic Standing 70 mmHg LA reg cuff Respiratory Rate 18 /min BMI (Body Mass Index) 25.0 kg/m2 Ejection Fraction 50-55% date 04/08/15 ECHO 04/16/2015 Height 63 inches 5'3" Weight 139.00 lb Heart Rate 80 /min BP Systolic Sitting 138 mmHg Ra reg cuff BP Diastolic Sitting 82 mmHg Ra reg cuff BP Systolic Standing 124 mmHg Ra BP Diastolic Standing 80 mmHg Ra Respiratory Rate 16 /min BMI (Body Mass Index) 24.6 kg/m2 Ejection Fraction 50-55% 04/08/15 12/31/2014 Height 63 inches 5'3" Weight 140.50 lb w/ shoes Heart Rate 80 /min reg BP Systolic Sitting 134 mmHg LA, reg cuff BP Diastolic Sitting 76 mmHg LA, reg cuff BP Systolic Standing 136 mmHg LA BP Diastolic Standing 76 mmHg LA Respiratory Rate 16 /min BMI (Body Mass Index) 24.9 kg/m2 Results Test Date Test Result H/L Range Note Laboratory test finding 12/06/2016 Tacrolimus To Other Lab 2.5 ng/mL 1 Comp Metabolic Panel 12/06/2016 Sodium 134 mmol/L 133-145 Potassium 4.4 mmol/L 3.5-5.0 Chloride 102 mmol/L 101-111 Co2 Carbon Dioxide 25 mmol/L 22-32 Anion Gap 7 mmol/L 2-11 Glucose 76 mg/dL 70-100 Blood Urea Nitrogen 26 mg/dL High 6-24 Creatinine 2.45 mg/dL High 0.51-0.95 BUN/Creatinine Ratio 10.6 8-20 Calcium 9.7 mg/dL 8.6-10.3 Total Protein 7.6 g/dL 6.4-8.9 Albumin 4.0 g/dL 3.2-5.2 Globulin 3.6 g/dL 2-4 Albumin/Globulin Ratio 1.1 1-3 Total Bilirubin 0.40 mg/dL 0.2-1.0 Alkaline Phosphatase 82 U/L 34-104 Alt 13 U/L 7-52 Ast 23 U/L 13-39 Egfr Non- 20.0 >60 Egfr 25.8 >60 2 Lipid Profile (Trig/Chol/HDL) 12/06/2016 Triglycerides 96 mg/dL 3 Cholesterol 173 mg/dL 4 HDL Cholesterol 61.3 mg/dL 5 LDL Cholesterol 93 mg/dL 6 CBC Auto Diff 12/06/2016 White Blood Count 6.2 10^3/uL 3.5-10.8 Red Blood Count 3.90 10^6/uL Low 4.0-5.4 Hemoglobin 12.5 g/dL 12.0-16.0 Hematocrit 38 % 35-47 Mean Corpuscular Volume 99 fL High 80-97 Mean Corpuscular Hemoglobin 32 pg High 27-31 Mean Corpuscular HGB Conc 33 g/dL 31-36 Red Cell Distribution Width 13 % 10.5-15 Platelet Count 172 10^3/uL 150-450 Mean Platelet Volume 9 um3 7.4-10.4 Abs Neutrophils 3.6 10^3/uL 1.5-7.7 Abs Lymphocytes 1.4 10^3/uL 1.0-4.8 Abs Monocytes 0.5 10^3/uL 0-0.8 Abs Eosinophils 0.7 10^3/uL High 0-0.6 Abs Basophils 0 10^3/uL 0-0.2 Abs Nucleated RBC 0 10^3/uL Granulocyte % 58.1 % 38-83 Lymphocyte % 21.8 % Low 25-47 Monocyte % 7.7 % 1-9 Eosinophil % 11.6 % High 0-6 Basophil % 0.8 % 0-2 Nucleated Red Blood Cells % 0 Laboratory test finding 12/06/2016 Uric Acid 8.0 mg/dL High 2.3-6.6 Phosphorus 2.9 mg/dL 2.5-5.0 Magnesium 1.7 mg/dL Low 1.9-2.7 TSH (Thyroid Stim Horm) 0.84 mcIU/mL 0.34-5.60 Laboratory test finding 10/14/2016 Tacrolimus To Other Lab 5.7 ng/mL 7 CBC Auto Diff 10/14/2016 White Blood Count 8.6 10^3/uL 3.5-10.8 Red Blood Count 4.10 10^6/uL 4.0-5.4 Hemoglobin 13.1 g/dL 12.0-16.0 Hematocrit 39 % 35-47 Mean Corpuscular Volume 96 fL 80-97 Mean Corpuscular Hemoglobin 32 pg High 27-31 Mean Corpuscular HGB Conc 33 g/dL 31-36 Red Cell Distribution Width 14 % 10.5-15 Platelet Count 203 10^3/uL 150-450 Mean Platelet Volume 9 um3 7.4-10.4 Abs Neutrophils 3.9 10^3/uL 1.5-7.7 Abs Lymphocytes 2.9 10^3/uL 1.0-4.8 Abs Monocytes 0.8 10^3/uL 0-0.8 Abs Eosinophils 1.0 10^3/uL High 0-0.6 Abs Basophils 0.1 10^3/uL 0-0.2 Abs Nucleated RBC 0.01 10^3/uL Granulocyte % 45.5 % 38-83 Lymphocyte % 33.1 % 25-47 Monocyte % 9.6 % High 1-9 Eosinophil % 11.2 % High 0-6 Basophil % 0.6 % 0-2 Nucleated Red Blood Cells % 0.1 Comp Metabolic Panel 10/14/2016 Sodium 134 mmol/L 133-145 Potassium 4.2 mmol/L 3.5-5.0 Chloride 103 mmol/L 101-111 Co2 Carbon Dioxide 25 mmol/L 22-32 Anion Gap 6 mmol/L 2-11 Glucose 81 mg/dL 70-100 Blood Urea Nitrogen 27 mg/dL High 6-24 Creatinine 2.08 mg/dL High 0.51-0.95 BUN/Creatinine Ratio 13.0 8-20 Calcium 9.1 mg/dL 8.6-10.3 Total Protein 6.9 g/dL 6.4-8.9 Albumin 3.9 g/dL 3.2-5.2 Globulin 3.0 g/dL 2-4 Albumin/Globulin Ratio 1.3 1-3 Total Bilirubin 0.40 mg/dL 0.2-1.0 Alkaline Phosphatase 84 U/L 34-104 Alt 10 U/L 7-52 Ast 19 U/L 13-39 Egfr Non- 24.3 >60 Egfr 31.2 >60 8 Lipid Profile (Trig/Chol/HDL) 10/14/2016 Triglycerides 121 mg/dL 9 Cholesterol 178 mg/dL 10 HDL Cholesterol 45.4 mg/dL 11 LDL Cholesterol 108 mg/dL 12 Urine Culture And 10/14/2016 Urine Culture SEE RESULT BELOW 13 Sensitivities Laboratory test finding 10/14/2016 Uric Acid 9.9 mg/dL High 2.3-6.6 Phosphorus 4.2 mg/dL 2.5-5.0 Magnesium 1.9 mg/dL 1.9-2.7 TSH (Thyroid Stim Horm) 0.81 mcIU/mL 0.34-5.60 Creatinine Random Urine 80.19 mg/dL Total Protein Random Urine 14 mg/dL CBC No Diff 08/06/2016 White Blood Count 5.4 10^3/uL 3.5-10.8 Red Blood Count 4.16 10^6/uL 4.0-5.4 Hemoglobin 12.9 g/dL 12.0-16.0 Hematocrit 39 % 35-47 Mean Corpuscular Volume 94 fL 80-97 Mean Corpuscular Hemoglobin 31 pg 27-31 Mean Corpuscular HGB Conc 33 g/dL 31-36 Red Cell Distribution Width 13 % 10.5-15 Platelet Count 164 10^3/uL 150-450 Mean Platelet Volume 9 um3 7.4-10.4 Laboratory test finding 08/06/2016 TSH (Thyroid Stim Horm) 0.46 mcIU/mL 0.34-5.60 Comp Metabolic Panel 08/06/2016 Sodium 135 mmol/L 133-145 Potassium 4.2 mmol/L 3.5-5.0 Chloride 107 mmol/L 101-111 Co2 Carbon Dioxide 20 mmol/L Low 22-32 Anion Gap 8 mmol/L 2-11 Glucose 75 mg/dL 70-100 Blood Urea Nitrogen 43 mg/dL High 6-24 Creatinine 2.15 mg/dL High 0.51-0.95 BUN/Creatinine Ratio 20.0 8-20 Calcium 9.5 mg/dL 8.6-10.3 Total Protein 7.4 g/dL 6.4-8.9 Albumin 4.0 g/dL 3.2-5.2 Globulin 3.4 g/dL 2-4 Albumin/Globulin Ratio 1.2 1-3 Total Bilirubin 0.50 mg/dL 0.2-1.0 Alkaline Phosphatase 88 U/L 34-104 Alt 12 U/L 7-52 Ast 26 U/L 13-39 Egfr Non- 23.4 >60 Egfr 30.1 >60 14 Laboratory test finding 08/06/2016 Magnesium 1.8 mg/dL Low 1.9-2.7 15 GGTP 26 U/L 9-64.0 16 Hepatitis B Surface Ag Nonreactive Nonreactive 17 Hepatitis B Fazal AB Titer 08/06/2016 Hepatitis B Surface AB Reactive Nonreactive Hep B Surf AB Level 15.30 mIU/mL <12 18 Lipid Profile (Trig/Chol/HDL) 08/06/2016 Triglycerides 78 mg/dL 19 Cholesterol 194 mg/dL 20 HDL Cholesterol 54.0 mg/dL 21 LDL Cholesterol 124 mg/dL 22 Laboratory test finding 08/06/2016 Hepatitis B Core AB Total Positive Negative 23 Hepatitis B Dna Quantitative TNP () 24 Tacrolimus [place] 2.8 25 Laboratory test finding 06/24/2015 Erythrocyte Sed Rate 16 mm/Hr 0-30 Laboratory test finding 06/24/2015 Inr/Protime 0.96 0.78-1.07 CBC Auto Diff 06/24/2015 White Blood Count 7.0 10^3/uL 4.8-10.8 Red Blood Count 3.91 10^6/uL Low 4.0-5.4 Hemoglobin 12.9 g/dL 12.0-16.0 Hematocrit 38 % 35-47 Mean Corpuscular Volume 98 fL High 80-97 Mean Corpuscular Hemoglobin 33 pg High 27-31 Mean Corpuscular HGB Conc 34 g/dL 31-36 Red Cell Distribution Width 13 % 10.5-15 Platelet Count 167 10^3/uL 150-450 Mean Platelet Volume 9 um3 7.4-10.4 Abs Neutrophils 4.7 10^3/uL 1.5-7.7 Abs Lymphocytes 1.1 10^3/uL 1.0-4.8 Abs Monocytes 0.9 10^3/uL High 0-0.8 Abs Eosinophils 0.3 10^3/uL 0-0.6 Abs Basophils 0.1 10^3/uL 0-0.2 Abs Nucleated RBC 0 10^3/uL Granulocyte % 67.2 % 38-83 Lymphocyte % 15.0 % Low 25-47 Monocyte % 13.4 % High 1-9 Eosinophil % 3.6 % 0-6 Basophil % 0.8 % 0-2 Nucleated Red Blood Cells % 0.1 Laboratory test finding 06/24/2015 CRP High Sensitivity 6.51 mg/L 26 Comp Metabolic Panel 06/24/2015 Sodium 135 mmol/L 133-145 Chloride 106 mmol/L 101-111 Co2 Carbon Dioxide 22 mmol/L 22-32 Glucose 95 mg/dL 70-100 Blood Urea Nitrogen 23 mg/dL 6-24 Creatinine 1.47 mg/dL High 0.51-0.95 BUN/Creatinine Ratio 15.6 8-20 Calcium 9.6 mg/dL 8.6-10.3 Total Protein 7.5 g/dL 6.4-8.9 Albumin 3.8 g/dL 3.2-5.2 Globulin 3.7 g/dL 2-4 Albumin/Globulin Ratio 1.0 1-3 Total Bilirubin 0.50 mg/dL 0.2-1.0 Alkaline Phosphatase 90 U/L 34-104 Alt 13 U/L 7-52 Egfr Non- 36.4 >60 Egfr 46.8 >60 27 Potassium 4.6 mmol/L 3.5-5.0 Anion Gap 7 mmol/L 2-11 Ast 27 U/L 13-39 Order 04/08/2015 Echocardiogram <pending> CBC Auto Diff 12/31/2014 White Blood Count 6.0 10^3/uL 4.8-10.8 Red Blood Count 3.37 10^6/uL Low 4.0-5.4 Hemoglobin 10.6 g/dL Low 12.0-16.0 Hematocrit 32 % Low 35-47 Mean Corpuscular Volume 96 fL 80-97 Mean Corpuscular Hemoglobin 31 pg 27-31 Mean Corpuscular HGB Conc 33 g/dL 31-36 Red Cell Distribution Width 16 % High 10.5-15 Platelet Count 281 10^3/uL 150-450 Mean Platelet Volume 8 um3 7.4-10.4 Abs Neutrophils 3.4 10^3/uL 1.5-7.7 Abs Lymphocytes 1.5 10^3/uL 1.0-4.8 Abs Monocytes 0.7 10^3/uL 0-0.8 Abs Eosinophils 0.3 10^3/uL 0-0.6 Abs Basophils 0 10^3/uL 0-0.2 Abs Nucleated RBC 0 10^3/uL Granulocyte % 57.3 % 38-83 Lymphocyte % 25.5 % 25-47 Monocyte % 11.1 % High 1-9 Eosinophil % 5.5 % 0-6 Basophil % 0.6 % 0-2 Nucleated Red Blood Cells % 0 Comp Metabolic Panel 12/31/2014 Sodium 137 mmol/L 133-145 Potassium 3.9 mmol/L 3.5-5.0 Chloride 104 mmol/L 101-111 Co2 Carbon Dioxide 25 mmol/L 22-32 Anion Gap 8 mmol/L 2-11 Glucose 75 mg/dL 70-100 Blood Urea Nitrogen 9 mg/dL 6-24 Creatinine 1.03 mg/dL High 0.51-0.95 BUN/Creatinine Ratio 8.7 8-20 Calcium 8.6 mg/dL 8.6-10.3 Total Protein 6.6 g/dL 6.4-8.9 Albumin 3.3 g/dL 3.2-5.2 Globulin 3.3 g/dL 2-4 Albumin/Globulin Ratio 1.0 1-3 Total Bilirubin 0.70 mg/dL 0.2-1.0 Alkaline Phosphatase 93 U/L 34-104 Alt 8 U/L 7-52 Ast 24 U/L 13-39 Egfr Non- 54.8 >60 Egfr 70.5 >60 28 Laboratory test finding 12/31/2014 Magnesium 1.5 mg/dL Low 1.9-2.7 B Type Natriuretic Peptide 566 pg/mL 29 1 REFERENCE VALUE 5.0-15.0 (Trough) ADDITIONAL INFORMATION Target steady-state trough concentrations vary depending on the type of transplant, concomitant immunosuppression, clinical/institutional protocols, and time post-transplant. Results should be interpreted in conjunction with this clinical information and any physical signs/symptoms of rejection/toxicity. Testing performed by Liquid Chromatography-Tandem Mass Spectrometry (LC-MS/MS). This test was developed and its performance characteristics determined by [facility] in a manner consistent with CLIA requirements. This test has not been cleared or approved by the U.S. Food and Drug Administration. Test Performed by: [facility] - [address] [address] 2 Because ethnic data is not always readily available, this report includes an eGFR for both -Americans and non- Americans. The National Kidney Disease Education Program (NKDEP) does not endorse the use of the MDRD equation for patients that are not between the ages of 18 and 70, are , have extremes of body size, muscle mass, or nutritional status, or are non- or non-. According to the National Kidney Foundation, irrespective of diagnosis, the stage of the disease is based on the level of kidney function: Stage Description GFR(mL/min/1.73 m(2)) 1 Kidney damage with normal or decreased GFR 90 2 Kidney damage with mild decrease in GFR 60-89 3 Moderate decrease in GFR 30-59 4 Severe decrease in GFR 15-29 5 Kidney failure <15 (or dialysis) 3 Desirable <150 Borderline high 150-199 High 200-499 Very High >500 4 Desirable <200 Borderline high 200-239 High >239 5 Low <40 Desirable: 40-60 High: >60 6 Desirable: <100 mg/dL Near Optimal: 100-129 mg/dL Borderline High: 130-159 mg/dL High: 160-189 mg/dL Very High: >189 mg/dL 7 REFERENCE VALUE 5.0-15.0 (Trough) ADDITIONAL INFORMATION Target steady-state trough concentrations vary depending on the type of transplant, concomitant immunosuppression, clinical/institutional protocols, and time post-transplant. Results should be interpreted in conjunction with this clinical information and any physical signs/symptoms of rejection/toxicity. Testing performed by Liquid Chromatography-Tandem Mass Spectrometry (LC-MS/MS). This test was developed and its performance characteristics determined by [facility] in a manner consistent with CLIA requirements. This test has not been cleared or approved by the U.S. Food and Drug Administration. Test Performed by: [place] [address] Target Setter: Joce Leos II, M.D., Ph.D. 8 Because ethnic data is not always readily available, this report includes an eGFR for both -Americans and non- Americans. The National Kidney Disease Education Program (NKDEP) does not endorse the use of the MDRD equation for patients that are not between the ages of 18 and 70, are , have extremes of body size, muscle mass, or nutritional status, or are non- or non-. According to the National Kidney Foundation, irrespective of diagnosis, the stage of the disease is based on the level of kidney function: Stage Description GFR(mL/min/1.73 m(2)) 1 Kidney damage with normal or decreased GFR 90 2 Kidney damage with mild decrease in GFR 60-89 3 Moderate decrease in GFR 30-59 4 Severe decrease in GFR 15-29 5 Kidney failure <15 (or dialysis) 9 Desirable <150 Borderline high 150-199 High 200-499 Very High >500 10 Desirable <200 Borderline high 200-239 High >239 11 Low <40 Desirable: 40-60 High: >60 12 Desirable: <100 mg/dL Near Optimal: 100-129 mg/dL Borderline High: 130-159 mg/dL High: 160-189 mg/dL Very High: >189 mg/dL 13 SEE RESULT BELOW Name: ADELE ZELAYA : [address]: Bill Koo MD Acct: [id number] Unit: [id number] AGE: 60 Location: LAB Re10/14/16 SEX: F Status: REG REF SPEC: [id number] ROBB: 10/14/16-[address] [facility] [address]: Bill Koo MD PC REQ: [id number] RECD: 10/14/16-4 STATUS: ROQUE COCHRAN DR: April Ignacio MD _ SOURCE: URINE SPDESC: ORDERED: Urine Culture QUERIES: Urine Source: Clean Catch Procedure Result Reported Site Urine Culture Final 10/15/16- 0838 ML No growth of clinically significant organisms * ML - MAIN LAB ([facility]) . END OF REPORT * ML=Testing performed at Main Lab DEPARTMENT OF PATHOLOGY, [address] [place] [address] Ramon López M.D. Director [facility] # [id number] 14 Because ethnic data is not always readily available, this report includes an eGFR for both -Americans and non- Americans. The National Kidney Disease Education Program (NKDEP) does not endorse the use of the MDRD equation for patients that are not between the ages of 18 and 70, are , have extremes of body size, muscle mass, or nutritional status, or are non- or non-. According to the National Kidney Foundation, irrespective of diagnosis, the stage of the disease is based on the level of kidney function: Stage Description GFR(mL/min/1.73 m(2)) 1 Kidney damage with normal or decreased GFR 90 2 Kidney damage with mild decrease in GFR 60-89 3 Moderate decrease in GFR 30-59 4 Severe decrease in GFR 15-29 5 Kidney failure <15 (or dialysis) 15 PRN VALID 07/26/16-01/24/17 FAX: 16 PRN VALID 07/26/16-01/24/17 FAX: 17 PRN VALID 07/26/16-01/24/17 FAX: 18 This assay does not differentiate between reactivity due to a vaccine-induced immune response or an immune response induced by infection with HBV. 19 Desirable <150 Borderline high 150-199 High 200-499 Very High >500 20 Desirable <200 Borderline high 200-239 High >239 21 Low <40 Desirable: 40-60 High: >60 22 Desirable: <100 mg/dL Near Optimal: 100-129 mg/dL Borderline High: 130-159 mg/dL High: 160-189 mg/dL Very High: >189 mg/dL 23 If clinically indicated, testing for Hepatitis B Core IgM antibody is necessary to differentiate between acute and past HBV infection. Test Performed by: [place] [address] Target Setter: Joce Leos II, M.D., Ph.D. 24 HBV DNA Detect/Quant, S was cancelled on 08/09/2016 at 09:34; Test cancelled. Quantity not sufficient. Please submit new or stored strict frozen specimen under separate order. Test Performed by: [facility] - [address] [address] Target Setter: Joce Leos II, M.D., Ph.D. 25 Reference Range (ng/mL) +Steroids + Mycrophenolate (or azathioprine) Post Transplant Kidney Kid/Panc Liver Heart 0-3 months 9-14 11-14 8-12 12-15 4-6 months 8-12 9-12 6-9 9-12 6-12 months 6-8 8-9 4-8 8-11 >12 months 4-8 6.9 4-8 6-8 +Steriods + Sirolimus (5-15 ng/mL) 0-3 months 6-8 6-9 N/A 3-6 months 3-6 6-8 4-6 >6 months 3-6 3-6 4-6 NOTE: Immunosuppressant blood levels must be interpreted in the specific context of the patient, taking into account various risk factors and clinical variables. Testing performed by: [address] [address] 26 Low risk: <1.00 Average risk: 1.00-3.00 High risk: >3.00 27 Because ethnic data is not always readily available, this report includes an eGFR for both -Americans and non- Americans. The National Kidney Disease Education Program (NKDEP) does not endorse the use of the MDRD equation for patients that are not between the ages of 18 and 70, are , have extremes of body size, muscle mass, or nutritional status, or are non- or non-. According to the National Kidney Foundation, irrespective of diagnosis, the stage of the disease is based on the level of kidney function: Stage Description GFR(mL/min/1.73 m(2)) 1 Kidney damage with normal or decreased GFR 90 2 Kidney damage with mild decrease in GFR 60-89 3 Moderate decrease in GFR 30-59 4 Severe decrease in GFR 15-29 5 Kidney failure <15 (or dialysis) 28 Because ethnic data is not always readily available, this report includes an eGFR for both -Americans and non- Americans. The National Kidney Disease Education Program (NKDEP) does not endorse the use of the MDRD equation for patients that are not between the ages of 18 and 70, are , have extremes of body size, muscle mass, or nutritional status, or are non- or non-. According to the National Kidney Foundation, irrespective of diagnosis, the stage of the disease is based on the level of kidney function: Stage Description GFR(mL/min/1.73 m(2)) 1 Kidney damage with normal or decreased GFR 90 2 Kidney damage with mild decrease in GFR 60-89 3 Moderate decrease in GFR 30-59 4 Severe decrease in GFR 15-29 5 Kidney failure <15 (or dialysis) 29 >100 to <200 pg/mL: likely compensated congestive heart failure (CHF) 200 to 400 pg/mL: likely moderate CHF >400 pg/mL: likely moderate to severe CHF [facility] Procedures Date CPT Code Description Status 03/03/2018 55006 EKG Tracing & Interpretation Completed 01/30/2018 69062 Icd Eval With Inerative Adjustmt Dual Lead System Completed 01/30/2018 84396 Icd Eval With Inerative Adjustmt Dual Lead System Completed 09/15/2017 13443 Icd Eval With Inerative Adjustmt Dual Lead System Completed 08/23/2017 87654 EKG, Interpretation Only Completed 08/20/2017 25959 Arterial Line Completed 08/20/2017 42668 Insert Non-Tunneled Venous Catether Completed 08/20/2017 83511 Bronchoscopy W/Aspiration Tracheobronchial Tree Initial Completed 08/20/2017 34177 Endo-Trachial Tube Completed 06/23/2017 20662 EKG, Interpretation Only Completed 06/22/2017 62149 EKG, Interpretation Only Completed 06/21/2017 50993 EKG, Interpretation Only Completed 06/06/2017 23929 ECHO Transthorasic Realtime 2D W Doppler & Color Flow Completed Hosp 03/17/2017 70976 EKG, Interpretation Only Completed 03/16/2017 19156 EKG, Interpretation Only Completed 03/15/2017 53339 ECHO Transthorasic Realtime 2D W Doppler & Color Flow Completed Hosp 03/15/2017 70310 EKG, Interpretation Only Completed 03/14/2017 18425 Left Heart Cath. Incl S/I Coronaries, Angio S/I V Gram Completed If Done 03/14/2017 49440 Revascularization Acute Total/Subtotal Occlusion Completed 03/14/2017 48788 Insert Non-Tunneled Venous Catether Completed 03/03/2017 93404 Treadmill Interp/Report Only Completed 03/03/2017 86551 Stress Test Supervsn W/Out I/R Completed 03/02/2017 54962 ECHO Transthorasic Realtime 2D W Doppler & Color Flow Completed Hosp 01/18/2017 Bone Mineral Density Test Completed 12/08/2016 89492 Icd Eval With Inerative Adjustmt Dual Lead System Completed 08/19/2016 90448 Icd Eval With Inerative Adjustmt Dual Lead System Completed 01/09/2016 97419 Interrogation Device Eval In Person W/DR Completed Analysis,Single,Dual,Mul 01/09/2016 14592 Pace Maker Eval W/Iterative Adjustment Single Lead Completed 07/03/2015 58063 Icd Eval With Inerative Adjustmt Dual Lead System Completed 07/02/2015 79775 EKG Tracing & Interpretation Completed 05/09/2015 47932 Myocardial Perfusion Imaging Tomographic (Spect) Completed Multiple Studies 05/09/2015 20636 Stress Test Completed 05/09/2015 27834 Myocardial Perfusion Imaging Tomographic (Spect) Completed Multiple Studies 04/16/2015 10409 Icd Eval With Inerative Adjustmt Dual Lead System Completed 04/16/2015 96539 Icd Eval With Inerative Adjustmt Dual Lead System Completed 04/11/2015 24371 ECHO Stress Test Incl Perf Contiuous ekg Monitoring Completed W/Phys Superv 04/08/2015 13110 ECHO Transthoracic, Real-Time 2D With Doppler And Color Completed Flow 12/31/2014 43393 EKG Tracing & Interpretation Completed 09/25/2014 49761 Electroencephalogram EEG Extended Monitoring Over 1 Completed Hour 09/25/2014 20199 Pace Maker Eval W/Iterative Adjment Dual Lead Completed 09/25/2014 45291 EKG, Interpretation Only Completed 09/24/2014 44931 Electroencephalogram EEG Extended Monitoring Over 1 Completed Hour 09/24/2014 81325 ECHO Transthorasic Realtime 2D W Doppler & Color Flow Completed Hosp 09/24/2014 46232 Insert Non-Tunneled Venous Catether Completed 09/24/2014 07403 Endo-Trachial Tube Completed 07/30/2014 30756 EEG Recording Awake & Asleep Completed 07/30/2014 90837 ECHO Transthorasic Realtime 2D W Doppler & Color Flow Completed Hosp 07/30/2014 35905 EKG, Interpretation Only Completed Encounters Type Date Location Provider CPT E/M Dx Office Visit 09/01/2017 [facility], [place] [address] J96.01 8:56a Hospitalists J18.9 I48.91 Office Visit 08/31/2017 8:56a [facility], [place] [address] J96.01 Hospitalists J18.9 I48.91 Office Visit 08/30/2017 8:55a [facility], [place] [address] J96.01 Hospitalists J18.9 I48.91 Office Visit 08/29/2017 8:54a [facility], Theresa Lopez, 75054 J96.01 Hospitalists Darby J18.9 I48.91 Office Visit 08/28/2017 8[facility]01[facility] Theresa Lopez, 15480 J18.9 Hospitalists Darby I48.91 J96.01 Office Visit 08/27/2017 8:01a [facility], Theresa Lopez, 07229 J96.01 Hospitalists Darby J18.9 I48.91 Office Visit 08/26/2017 8:00a [facility], Theresa Lopez, 86525 J96.01 Hospitalists Darby J18.9 I48.91 Office Visit 08/25/2017 8:00a [facility], Arnold Apodaca M.D. 30336 J96.01 Hospitalists I48.91 L50.9 Office Visit 08/24/2017 7:59a [facility],pc Arnold Apodaca M.D. 21053 J96.01 Hospitalists I48.91 L50.9 Office Visit 08/23/2017 9:33a [facility] Kat VeronicaRei Robertson, 346[address]97.[address] [facility] , FACC, FSCAI Office Visit 08/23/2017 7:58a [facility],pc Arnold Apodaca M.D. 78552 J96.01 Hospitalists I48.91 R58 Office Visit 08/22/2017 7:57a [facility],pc Arnold Apodaca M.D. 07886 J96.01 Hospitalists R65.21 I48.91 Office Visit 08/21/2017 7:55a [facility],hitesh Jack 32035 J96.01 Hospitalists Christopher Ivory R65.21 A40.9 Office Visit 08/20/2017 7:48a [facility],hitesh Jack 76749 J96.01 Hospitalists Christopher Ivory R65.21 J80 A40.9 Office Visit 08/20/2017 7:46a [facility],pc Felipe Ortiz, 36084 J18.9 Hospitalists Darby I47.2 N18.3 I48.91 Office Visit 06/24/2017 8:58a [facility] Berkley Vazquez, STRAP STITCHER 10242 I48.91 Assoc,pc Hospitalists J96.01 Z94.4 Office Visit 06/23/2017 8:58a [facility] Nhan Smith, 76408 I48.91 Assoc,pc PA Hospitalists J96.01 F17.200 Z94.4 Office Visit 06/23/2017 1:54p [facility] Beatricetaybeh SRei Rizzo, 38755 I48.91 M.DRei I25.10 I45.81 Office Visit 06/22/2017 1:53p [facility] Beatricetaybeh SRei Rizzo, 31397 I48.91 M.DRei I25.10 Office Visit 06/22/2017 8:57a [facility] Nhan Smith, 02955 I48.91 Assoc,pc PA Hospitalists J96.01 F17.200 Z94.4 Office Visit 06/21/2017 8:56a [facility] Nhan Smith, 53704 I48.91 Assoc,pc PA Hospitalists J96.01 Z94.4 F17.200 Office Visit 06/21/2017 2:46p [facility] Nicholas Harley, 18827 I48.0 [place] M.Alicia I45.81 I25.10 Z94.4 Z95.810 Office Visit 06/20/2017 8:54a [facility] Kasandra Hawthorne, 23618 I48.91 Assoc,pc Hospitalists MAzael J96.01 F17.200 Z94.4 Office Visit 06/08/2017 3:23p [facility] [address] I50.31 Hospitalists I16.0 N17.9 I25.118 Office Visit 06/08/2017 10:20a [facility] April Ignacio M.D. 57047 I50.9 Supervisor Loading Office Visit 06/07/2017 3:22p [facility] [address] I50.31 Hospitalists N17.9 I16.0 I25.118 Office Visit 06/06/2017 3:21p [facility] Lucy Vora, 06152 I50.9 Assoc,pc [employer]ITCHER Hospitalists I25.118 I10 R78.5 Office Visit 06/05/2017 10:59a [facility] Nicholas Harley, 47788 I50.9 [place] Pastor I25.10 I25.2 Office Visit 06/05/2017 3:20p [facility] Sam Minor, 31227 I50.9 Hospitalists N.P. I25.118 I10 E78.5 Office Visit 03/18/2017 3:45p [facility] Kat Robertson, 50772 I21.[address] [facility] , FACIleana, [facility] Office Visit 03/18/2017 9:39a [facility] Nhan 20978 I21.11 Hospitalists CARLA Smith R57.0 I73.9 N17.8 Office Visit 03/17/2017 3:44p [facility] Kat Robertson, 19303 I21.[address] [facility] JOY WHITE, [facility] Office Visit 03/17/2017 9:39a [facility],pc Nhan 10001 I21.11 Hospitalists CARLA Smith N17.8 R57.0 I73.9 Office Visit 03/16/2017 3:44p [facility] Kat Robertson, 54679 I21.[address] [facility] JOY WHITE, [facility] Office Visit 03/16/2017 9:38a [facility],pc Nhan 26447 I21.11 Hospitalists CARLA Smith N17.8 R57.0 I73.9 Office Visit 03/15/2017 9:38a [facility],hitesh Jack 55830 I21.11 Hospitalists Christopher Ivory N17.8 R57.0 I73.9 Office Visit 03/15/2017 3:42p [facility] Kat Robertson, 80374 I21.[address] [facility] JOY WHITE, [facility] I95.9 Office Visit 03/14/2017 9:37a [facility],hitesh Jack 03349 I21.11 Hospitalists Christopher Ivory N17.8 R57.0 I73.9 Office Visit 03/14/2017 9:50a [facility] Kat Robertson, 87335 I21.[address] [facility] JOY WHITE, [facility] I95.9 I73.9 I25.10 Office Visit 03/03/2017 9:11a [facility] Lucy Vora, 31028 R07.9 Assoc,pc STRAP STITCHER Hospitalists I48.91 F32.9 Office Visit 03/02/2017 9:09a [facility],pc Inocencia Fountain, 16593 R07.9 Hospitalists D.ORei I45.81 F32.9 Office Visit 08/20/2016 1:45p [facility] April Ignacio M.D. 28693 I45.81 Supervisor Loading I10 I47.2 Z95.810 I25.10 Office Visit 04/07/2016 9:25a [facility] Theresa Lopez, 29308 I77.9 Hospitalists Darby M79.672 Z94.4 Office Visit 04/06/2016 [facility] 09432 M79.672 Assoc,pc Hospitalists Darby SCHMIDT I77.9 Z94.4 Office Visit 01/09/2016 3:00p [facility] April Ignacio M.D. 18761 I45.81 [facility] I10 I70.213 Office Visit 07/02/2015 3:30p [facility] April Ignacio M.D. 08650 Z95.820 Supervisor Loading I48.0 Z95.810 I45.81 Office Visit 05/21/2015 4:00p [facility] April Ignacio M.D. 00274 397.0 Supervisor Loading 414.01 V45.02 440.21 426.82 786.09 780.79 Office Visit 04/16/2015 2:30p [facility] CARLA Mosley 01035 424.0 397.0 427.5 414.01 427.41 426.82 786.05 V45.02 Office Visit 12/31/2014 1:30p [facility] April Ignacio M.D. 99230 423.9 Supervisor Loading 414.01 427.41 426.82 Office Visit 11/03/2014 11:17a [facility] Stanley Yun, 52424 786.50 [place] Pastor, FACC, FASNC 786.05 423.9 Office Visit 09/26/2014 6:41p [facility] Remy Dugan D.O. 15467 427.1 Hospitalists 426.82 599.0 V42.7 Office Visit 09/26/2014 11:04a [facility] Stanley Yun, 32016 427.5 [place] Pastor, FACC, FASNC 427.81 Office Visit 09/25/2014 10:18a [facility] Stanley Yun, 71961 427.5 [place] Pastor, FACC, FASNC 427.81 V45.01 Office Visit 09/25/2014 6:41p [facility], Remy Dugan D.O. 53234 427.5 Hospitalists 427.1 780.01 276.2 Office Visit 09/24/2014 6:38p [facility], Remy Dugan D.O. 10668 427.5 Hospitalists 780.01 276.2 276.8 Office Visit 08/01/2014 11:40a [facility], Felipe Ortiz, 12549 799.1 Hospitalists MReiDRei 276.2 780.97 Office Visit 07/31/2014 3:17p [facility] Gary Ashley M.D. 90014 780.2 Services Of Supervisor Loading 276.51 Office Visit 07/31/2014 11:40a [facility], Arnold Apodaca M.D. 17164 276.51 Hospitalists 780.97 Office Visit 07/30/2014 3:15p [facility] Gary Ashley M.D. 71893 780.2 Services Of Supervisor Loading 276.51 Office Visit 07/30/2014 11:39a [facility], Arnold Apodaca M.D. 03883 780.97 Hospitalists 276.8 276.51 276.2 Office Visit 07/30/2014 11:38a [facility], Ever Brown, 53359 518.81 Hospitalists Darby 584.9 401.9 V42.7 Office Visit 11/24/2012 12:41p [facility], Laurence Andrews, N.PRei 31182 584.9 Hospitalists 276.51 V62.84 Office Visit 07/27/2006 4:00p DO Not Use Maegan Fishman 31657 789.09 Adilene Pastor 276.8 V04.81 Office Visit 05/31/2006 4:15p DO Not Use Maegan Fishman 33091 724.2 Adilene Pastor 724.6 300.00 311 Plan of Care Future Appointment(s):03/13/2018 11:00 am - [place] [facility] Schedule at [facility]04/19/2018 1:00 pm - Pacemaker Schedule at [facility]2017 - Zacarias Rizzo M.D.I45.81 Long QT sdeqahuqF14.2 Ventricular qvbruysqssbJ20.0 Paroxysmal atrial xsrxnkkkngsnU07.810 Presence of automatic ( implantable) cardiac gmbcwdzauuxxaP39.10 Athscl heart disease of [place] coronary artery w/o ang pctrsFollow up:6 months ov Cheryl one yr ov with meI21.02 Stemi involving left anterior descending coronary pnigsbR70.0 Nonrheumatic mitral (valve) insufficiencyNew Orders:IagjrfngooneppC81.1 Nonrheumatic tricuspid (valve) insufficiency
[2018-03-26] MEDS ORDERED: Morphine VIAL* 4 MG/ML VIAL (1 ml vial) IV ONE ×2 (10:56→13:13)
[2018-03-26] MEDS ORDERED: Ondansetron ODT TAB* 4 MG PO ONE (10:56)
[2018-03-26] MEDS ORDERED: Furosemide IV* 10 MG/ML VIAL (40 MG) IV ONE (10:56)
[2018-03-26 10:57] LABS: EGFR Non-African American 37.2 (>60)
[2018-03-26] MEDS ORDERED: Morphine INJ* 2 MG/ML 1 ML CARPUJECT IV PRN (12:07)
[2018-03-26] MEDS ORDERED: Nitroglycerin 2% OINT* 1 GM PAK ONE (12:13)
[2018-03-26] MEDS ORDERED: Nitroglycerin 2% OINT* 1 GM PAK TOPICAL ONE (12:19)
[2018-03-26] MEDS ORDERED: Albuterol 2.5 MG/3 ML NEB.SOL* (0.083%) INH PRN (12:37)
[2018-03-26] MEDS ORDERED: Aspirin 81 mg CHEW TAB* 81 MG TAB.CHEW PO ONE (15:16)
--- NOTE | 2018-03-26 15:19 | ED ---
Jin Yates Julia, scribed for Joce Tavares MD on 03/26/18 at 1005 . Respiratory - HPI Summary HPI Summary: This patient is a 62 year old F BIBA to [facility] with a chief complaint of SOB for the past two days worsening this morning with chest pain. Pain is 8/10. Denies fever. Current symptoms similar to COPD. EMS reports no relief CPAP, SaO2 at 92% , respiratory rate of 28-30, and crackles in lungs bilaterally. EMS unable to get IV access. - History of Current Complaint Chief Complaint: EDShortnessOfBreath Stated Complaint: SOB Time Seen by Provider: 03/26/18 09:57 Hx Obtained From: Patient, EMS Onset/Duration: Lasting Days, Worse Since - this morning Initial Severity: Worse Since: - this morning Pain Intensity: 8 Character: Dyspnea at Rest Aggravating Factor(s): Nothing Alleviating Factor(s): Nothing Associated Signs and Symptoms: SOB, Chest Pain Related History: Similar Episode/Dx as - COPD - Allergy/Home Medications Allergies/Adverse Reactions: Allergies Allergy/AdvReac Type Severity Reaction Status Date / Time procaine Allergy See Comment Verified 03/24/18 10:43 promethazine Allergy Unknown Verified 03/24/18 10:43 Reaction Details PMH/Surg Hx/FS Hx/Imm Hx Endocrine/Hematology History: Reports: Hx Anemia Denies: Hx Anticoagulant Therapy, Hx Blood Transfusions, Hx Diabetes Cardiovascular History: Reports: Hx Angina, Hx Auto Implanted Cardiovert Defib, Hx Cardiac Arrest, Hx Coronary Artery Disease, Hx Hypertension, Hx Myocardial Infarction - 03/2017 - stent placed - on Brilinta, Hx Pacemaker/ICD, Hx Peripheral Vascular Disease, Hx Syncope - 2016, Hx Valvular Heart Disease, Other Cardiovascular Problems/Disorders - cardiac arrest following phenergan long QT syndrome; Percarditis-10/2014 Denies: Hx Congestive Heart Failure, Hx Hypercholesterolemia Respiratory History: Reports: Hx Chronic Bronchitis, Hx Chronic Obstructive Pulmonary Disease (COPD), Hx Pneumonia, Hx Pulmonary Embolism, Other Respiratory Problems/Disorders - PNA Denies: Hx Asthma, Hx Seasonal Allergies, Hx Sleep Apnea GI History: Reports: Hx Cirrhosis, Hx Gall Bladder Disease, Hx Gastroesophageal Reflux Disease, Other GI Disorders - 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 Denies: Hx Crohn's Disease, Hx Diverticulosis, Hx Jaundice History: Reports: Hx Acute Renal Failure - admission in 03/2017, Hx Chronic Renal Failure Denies: Hx Dialysis, Hx Renal Disease Musculoskeletal History: Reports: Hx Arthritis - chronic - pending pain management appt, Hx Back Problems - chronic, Hx Gout, Other Musculoskeletal History - osteo-arthritis Denies: Hx Rheumatoid Arthritis - osteoarthritis Sensory History: Reports: Hx Contacts or Glasses - for reading Denies: Hx Hearing Aid Opthamlomology History: Reports: Hx Contacts or Glasses - for reading Neurological History: Denies: Hx Dementia, Hx Seizures Psychiatric History: Reports: Hx Anxiety, Hx Depression, Hx Inpatient Treatment , Hx Substance Abuse Denies: Hx Suicide Attempt - suicidal ideation, hospitalization - Surgical History Surgery Procedure, Year, and Place: Pacer December 1996, Liver transplant February 1996 , peripheral artery disease surgery in groin 2011, arthoscopic of left knee, Pacemaker Hx Anesthesia Reactions: No - Immunization History Date of Tetanus Vaccine: pt states she doesnt know Date of Influenza Vaccine: none Infectious Disease History: Unable to Obtain/Confirm Infectious Disease History: Reports: Hx Hepatitis - C - s/p liver transplant - no Hep C currently Denies: Hx Clostridium Difficile, Hx Human Immunodeficiency Virus (HIV), Hx of Known/Suspected MRSA, Hx Shingles, Hx Tuberculosis, Hx Known/Suspected VRE, Hx Known/Suspected VRSA, History Other Infectious Disease, Traveled Outside the [place] in Last 30 Days - Family History Known Family History: Positive: Cardiac Disease, Hypertension Family History: Denies FHx breast cancer - Social History Alcohol Use: None Hx Substance Use: Yes Substance Use Type: Reports: Marijuana Hx Tobacco Use: Yes Smoking Status (MU): Former Smoker Type: Cigarettes Amount Used/How Often: 1/2-1 PPD Review of Systems Negative: Fever, Chills Positive: Chest Pain Positive: Shortness Of Breath All Other Systems Reviewed And Are Negative: Yes Physical Exam - Summary Physical Exam Summary: General: well-appearing, no pain distress Skin: warm, color reflects adequate perfusion, dry Head: normal Eyes: EOMI, ROHINI ENT: normal Neck: supple, nontender Respiratory: rhochi bilaterally, poor air movement Cardiovascular: RRR Abdomen: soft, nontender Bowel: present Musculoskeletal: normal, strength/ROM intact Neurological: sensory/motor intact, A&O x3 Psychological: affect/mood appropriate Triage Information Reviewed: Yes Vital Signs On Initial Exam: Initial Vitals Temp Pulse Resp BP Pulse Ox 96.0 F 97 40 188/99 94 03/26/18 09:59 03/26/18 09:59 03/26/18 09:59 03/26/18 09:59 03/26/18 09:59 Vital Signs Reviewed: Yes Diagnostics - Vital Signs Vital Signs Temp Pulse Resp BP Pulse Ox 03/26/18 09:59 96.0 F 97 40 188/99 94 - Laboratory Lab Results: Lab Results 03/26/18 03/26/18 03/26/18 Range/Units 10:11 10:11 10:11 WBC 9.7 (3.5-10.8) 10^3/ul RBC 3.64 L (4.00-5.40) 10^6/ul Hgb 10.4 L (12.0-16.0) g/dl Hct 32 L (35-47) % MCV 87 (80-97) fL MCH 29 (27-31) pg MCHC 33 (31-36) g/dl RDW 18 H (10.5-15) % Plt Count 318 (150-450) 10^3/ul MPV 8.0 (7.4-10.4) um3 Neut % (Auto) 62.7 (38-83) % Lymph % (Auto) 20.4 L (25-47) % [place] % (Auto) 9.2 H (0-7) % Eos % (Auto) 6.4 H (0-6) % Baso % (Auto) 1.3 (0-2) % Absolute Neuts (auto) 6.1 (1.5-7.7) 10^3/ul Absolute Lymphs (auto) 2.0 (1.0-4.8) 10^3/ul Absolute Monos (auto) 0.9 H (0-0.8) 10^3/ul Absolute Eos (auto) 0.6 (0-0.6) 10^3/ul Absolute Basos (auto) 0.1 (0-0.2) 10^3/ul Absolute Nucleated RBC 0 10^3/ul Nucleated RBC % 0.1 INR (Anticoag Therapy) 1.13 H (0.77-1.02) APTT 37.3 H (26.0-36.3) seconds D-Dimer, Quantitative 369 H (Less Than 230) ng/mL ABG pH (7.35-7.45) ABG pCO2 (35-45) mmHg ABG pO2 (80-100) mmHg ABG HCO3 (19-31) mmol/L ABG O2 Saturation (95-98) % ABG Base Excess (-2.0-2.0) Sodium 135 (135-145) mmol/L Potassium TNP Chloride 104 (101-111) mmol/L Carbon Dioxide 22 (22-32) mmol/L Anion Gap 9 (2-11) mmol/L BUN 32 H (6-24) mg/dL Creatinine 1.43 H (0.51-0.95) mg/dL Est GFR ( Amer) 45.0 (>60) Est GFR (Non-Af Amer) 37.2 (>60) BUN/Creatinine Ratio 22.4 H (8-20) Glucose 199 H (70-100) mg/dL Lactic Acid (0.5-2.0) mmol/L Calcium 9.6 (8.6-10.3) mg/dL Magnesium 2.0 (1.9-2.7) mg/dL Total Bilirubin 0.70 (0.2-1.0) mg/dL AST TNP ALT 26 (7-52) U/L Alkaline Phosphatase 96 (34-104) U/L Total Creatine Kinase 656 H (10-223) U/L CK-MB (CK-2) 37.0 H (0.6-6.3) ng/mL Troponin I 0.02 (<0.04) ng/mL C-Reactive Protein 2.03 (<8.01) mg/L B-Natriuretic Peptide ( - 100) pg/mL Total Protein 8.8 (6.4-8.9) g/dL Albumin 4.1 (3.2-5.2) g/dL Globulin 4.7 H (2-4) g/dL Albumin/Globulin Ratio 0.9 L (1-3) Lipase 16 (11.0-82.0) U/L TSH 1.12 (0.34-5.60) mcIU/mL 03/26/18 03/26/18 03/26/18 Range/Units 10:11 10:11 10:25 WBC (3.5-10.8) 10^3/ul RBC (4.00-5.40) 10^6/ul Hgb (12.0-16.0) g/dl Hct (35-47) % MCV (80-97) fL MCH (27-31) pg MCHC (31-36) g/dl RDW (10.5-15) % Plt Count (150-450) 10^3/ul MPV (7.4-10.4) um3 Neut % (Auto) (38-83) % Lymph % (Auto) (25-47) % [place] % (Auto) (0-7) % Eos % (Auto) (0-6) % Baso % (Auto) (0-2) % Absolute Neuts (auto) (1.5-7.7) 10^3/ul Absolute Lymphs (auto) (1.0-4.8) 10^3/ul Absolute Monos (auto) (0-0.8) 10^3/ul Absolute Eos (auto) (0-0.6) 10^3/ul Absolute Basos (auto) (0-0.2) 10^3/ul Absolute Nucleated RBC 10^3/ul Nucleated RBC % INR (Anticoag Therapy) (0.77-1.02) APTT (26.0-36.3) seconds D-Dimer, Quantitative (Less Than 230) ng/mL ABG pH 7.33 L (7.35-7.45) ABG pCO2 38 (35-45) mmHg ABG pO2 87 (80-100) mmHg ABG HCO3 20.6 (19-31) mmol/L ABG O2 Saturation 98.3 H (95-98) % ABG Base Excess -5.5 L (-2.0-2.0) Sodium (135-145) mmol/L Potassium Chloride (101-111) mmol/L Carbon Dioxide (22-32) mmol/L Anion Gap (2-11) mmol/L BUN (6-24) mg/dL Creatinine (0.51-0.95) mg/dL Est GFR ( Amer) (>60) Est GFR (Non-Af Amer) (>60) BUN/Creatinine Ratio (8-20) Glucose (70-100) mg/dL Lactic Acid 1.2 (0.5-2.0) mmol/L Calcium (8.6-10.3) mg/dL Magnesium (1.9-2.7) mg/dL Total Bilirubin (0.2-1.0) mg/dL AST ALT (7-52) U/L Alkaline Phosphatase (34-104) U/L Total Creatine Kinase (10-223) U/L CK-MB (CK-2) (0.6-6.3) ng/mL Troponin I (<0.04) ng/mL C-Reactive Protein (<8.01) mg/L B-Natriuretic Peptide 1485 H ( - 100) pg/mL Total Protein (6.4-8.9) g/dL Albumin (3.2-5.2) g/dL Globulin (2-4) g/dL Albumin/Globulin Ratio (1-3) Lipase (11.0-82.0) U/L TSH (0.34-5.60) mcIU/mL 03/26/18 03/26/18 Range/Units 11:09 12:59 WBC (3.5-10.8) 10^3/ul RBC (4.00-5.40) 10^6/ul Hgb (12.0-16.0) g/dl Hct (35-47) % MCV (80-97) fL MCH (27-31) pg MCHC (31-36) g/dl RDW (10.5-15) % Plt Count (150-450) 10^3/ul MPV (7.4-10.4) um3 Neut % (Auto) (38-83) % Lymph % (Auto) (25-47) % [place] % (Auto) (0-7) % Eos % (Auto) (0-6) % Baso % (Auto) (0-2) % Absolute Neuts (auto) (1.5-7.7) 10^3/ul Absolute Lymphs (auto) (1.0-4.8) 10^3/ul Absolute Monos (auto) (0-0.8) 10^3/ul Absolute Eos (auto) (0-0.6) 10^3/ul Absolute Basos (auto) (0-0.2) 10^3/ul Absolute Nucleated RBC 10^3/ul Nucleated RBC % INR (Anticoag Therapy) (0.77-1.02) APTT (26.0-36.3) seconds D-Dimer, Quantitative (Less Than 230) ng/mL ABG pH (7.35-7.45) ABG pCO2 (35-45) mmHg ABG pO2 (80-100) mmHg ABG HCO3 (19-31) mmol/L ABG O2 Saturation (95-98) % ABG Base Excess (-2.0-2.0) Sodium (135-145) mmol/L Potassium 3.7 Chloride (101-111) mmol/L Carbon Dioxide (22-32) mmol/L Anion Gap (2-11) mmol/L BUN (6-24) mg/dL Creatinine (0.51-0.95) mg/dL Est GFR ( Amer) (>60) Est GFR (Non-Af Amer) (>60) BUN/Creatinine Ratio (8-20) Glucose (70-100) mg/dL Lactic Acid (0.5-2.0) mmol/L Calcium (8.6-10.3) mg/dL Magnesium (1.9-2.7) mg/dL Total Bilirubin (0.2-1.0) mg/dL AST 39 ALT (7-52) U/L Alkaline Phosphatase (34-104) U/L Total Creatine Kinase (10-223) U/L CK-MB (CK-2) (0.6-6.3) ng/mL Troponin I 0.07 H* (<0.04) ng/mL C-Reactive Protein (<8.01) mg/L B-Natriuretic Peptide ( - 100) pg/mL Total Protein (6.4-8.9) g/dL Albumin (3.2-5.2) g/dL Globulin (2-4) g/dL Albumin/Globulin Ratio (1-3) Lipase (11.0-82.0) U/L TSH (0.34-5.60) mcIU/mL Result Diagrams: 03/26/18 10:11 03/26/18 11:09 Lab Statement: Any lab studies that have been ordered have been reviewed, and results considered in the medical decision making process. - Radiology CXR Radiology Interpretation Completed By: Radiologist - MILD DIFFUSE INTERSTITIAL INFILTRATIVE CHANGES DEMONSTRATING INTERVAL IMPROVEMENT. INTERVAL RESOLUTION OF THE BILATERAL ALVEOLAR OPACITIES ED Physician has reviewed this report. - EKG 0957 Cardiac Rate: NL - 91 BPM EKG Rhythm: Sinus Rhythm EKG Interpretation: LVH, flipped T waves in lateral leads, prolonged QT intervals with QTc 565 1310 Cardiac Rate: NL - 69 BPM EKG Rhythm: Sinus Rhythm EKG Interpretation: LVH, prolonged QT w/ QTc 592, flipped T waves in lateral and inferior leads Re-Evaluation - Re-Evaluation 1 Re-Evaluation Time: 10:30 Change: Improved - Breathing is improved with BiPAP Disposition - Course Course Of Treatment: IMPROVED WITH BIPAP AND BREATHING TREATMENTS. LASIX GIVEN IN ED. ADMIT HOSPITALIST. - Diagnoses Provider Diagnoses: Dyspnea, CHF (congestive heart failure), Chest pain - Physician Notifications Discussed Care Of Patient With: Raymundo Kohler - hospitalist Time Discussed With Above Provider: 11:05 Instructed by Provider To: Admit As Inpatient - Critical Care Time Critical Care Time: 30-74 min Discharge - Sign-Out/Discharge Documenting (check all that apply): Discharge/Admit/Transfer - admit - Discharge Plan Condition: Fair Disposition: ADMITTED TO [facility] - Billing Disposition and Condition Condition: FAIR Disposition: Admitted to [facility] The documentation as recorded by the Jin dc Julia accurately reflects the service I personally performed and the decisions made by me, Joce Tavares MD.
--- NOTE | 2018-03-26 16:33 | HP ---
CC: Dr. Koo; Dr. Rizzo * HOSPITAL MEDICINE HISTORY AND PHYSICAL: DATE OF ADMISSION: 03/26/18 PRIMARY CARE PHYSICIAN: Dr. Koo. STERNMAN: Dr. Rizzo. ATTENDING PHYSICIAN: Raymundo Kohler MD * (dictation provided by Laurence Andrews NP). CHIEF COMPLAINT: Shortness of breath and chest pain. HISTORY OF PRESENT ILLNESS: Ms. Coombs is a 62-year-old female with a complicated past medical history including liver transplant 20 years ago on tacrolimus therapy, paroxysmal atrial fibrillation, long QT syndrome with ICD placement, COPD, coronary artery disease with stent in March 2017, and recent diagnosis of severe pulmonary hypertension and [id number] mitral regurgitation on echocardiogram with her outpatient in service educator, Dr. Rizzo , who comes to the hospital today with concern for shortness of breath and chest pain. Ms. Coombs states that she has been feeling a little bit more short of breath than usual over the past couple of days. She did recently follow up with Dr. Rizzo in his office, and at least at that point about a week ago she was feeling okay. She did have a transthoracic echocardiogram which showed a progression in her mitral regurgitation from moderate to severe and that she had severe pulmonary hypertension. The patient states that she has had no lower extremity edema. She continues to sleep with 1 pillow with no change to her dyspnea when lying flat. She reports this morning that when she woke up she became very short of breath and then developed chest pain all across her lower chest wall. She then came to the emergency room for evaluation. She denies any cough, fever. She has had no nausea, vomiting, diarrhea, abdominal pain. In the emergency room, Ms. Coombs had a chest x-ray which showed mild diffuse interstitial infiltrative changes demonstrating interval improvement. She had labs which showed an elevated BNP to 1485. Her BUN and creatinine were elevated , but consistent with previous. Her blood gas shows pH was 7.33, pCO2 of 38, pO2 of 87. The patient was felt to be in respiratory extremis with tachypnea and she was placed on BiPAP immediately upon arrival. She received DuoNeb nebulizer treatments, morphine and Lasix. She has not had any urine output yet , but with the addition of the BiPAP, she states that she is feeling better in terms of her breathing, but she continues to have chest discomfort to that and she has had troponin which was negative, and EKG which shows evidence of cardiac strain with some T-wave inversions, but no clear evidence of overt ischemia or ST elevation IN. At this time, the patient has been placed on 2 L nasal cannula with an O2 saturation of 97% with respiratory rate of about 20. PAST MEDICAL HISTORY: 1. Atrial fibrillation. 2. COPD. 3. Anxiety. 4. Hypertension. 5. History of liver transplant 20 years ago. 6. Coronary artery disease with stent placement, acute inferior wall IN in March 2017. 7. Diastolic congestive heart failure, chronic. 8. Long QT syndrome with ICD placement. 9. History of hepatitis C. 10. Peripheral arterial disease with lower extremity endarterectomy in the past. 11. Chronic lower back pain. 12. History of neuropathy. 13. History of osteoporosis. MEDICATIONS: 1. Diltiazem 300 mg p.o. daily. 2. Clonazepam 0.5 mg p.o. daily. 3. Incruse Ellipta 1 inhalation p.o. daily. 4. Ticagrelor 90 mg p.o. b.i.d. 5. Tacrolimus 1 mg p.o. b.i.d. 6. Sertraline 25 mg p.o. daily. 7. Oxycodone 5 mg p.o. b.i.d. p.r.n. 8. Nitroglycerin 0.4 mg sublingually q.5 minutes p.r.n. 9. Metoprolol tartrate 50 mg p.o. b.i.d. 10. Melatonin 5 mg p.o. at bedtime p.r.n. 11. Furosemide 20 mg p.o. daily. 12. Famotidine 20 mg p.o. daily. 13. Cyanocobalamin 1000 mcg p.o. daily. 14. Apixaban 2.5 mg p.o. b.i.d. 15. Albuterol nebulizer 2.5 mg inhaled q.4 hours p.r.n. FAMILY HISTORY: The patient reports her mother and father both had heart disease. SOCIAL HISTORY: The patient states she was a long-term smoker, but quit in 2014. No report of alcohol or drug use. She states that her son Ever Coombs would be the healthcare proxy. REVIEW OF SYSTEMS: A 14-point review of systems was completed with Ms. Coombs and all those not mentioned above were negative. PHYSICAL EXAMINATION GENERAL: Ms. Coombs is now off the BiPAP and is breathing comfortably. She is in no acute distress. VITAL SIGNS: Temperature 96.0, pulse rate 96, respiratory rate 24, O2 saturation is currently 97% on 2 L nasal cannula, blood pressure is about 120/ 60. LUNGS: Show some diminishment but are clear to auscultation. There is no accessory muscle use. HEART: S1, S2. There is a systolic murmur in the 5th intercostal space along the midclavicular line that radiates into the axilla. It is regular. ABDOMEN: Soft, nontender. Bowel sounds positive x4. EXTREMITIES: No cyanosis, no edema. NEURO: She is alert. She is oriented x3. She moves all extremities equally. There is no facial asymmetry or focal weakness. Extraocular movements are intact. SKIN: Intact. LABORATORY DATA: Sodium 135, potassium 3.7, chloride 104, serum bicarbonate 22 , BUN 32, creatinine 1.43, glucose 199, lactic acid 1.2. Troponin 0.02, CRP 2.03, BNP 1485, TSH 1.12. WBC 9.7, hemoglobin 10.4, hematocrit 32, platelet count 318,000. INR 1.13, D-dimer 369. IMAGING: Chest x-ray shows mild diffuse interstitial infiltrative changes demonstrating interval improvement and interval resolution of bilateral alveolar opacities and this is compared to chest x-ray from 08/24/17. EKG shows evidence of strain in the ventricular leads with T-wave inversion in V5 and V6, and some ST depression noted in V4, V5, V6. When compared to previous, these are new changes. ASSESSMENT/PLAN: Ms. Coombs is a 62-year-old female with past medical history of coronary artery disease with ST elevation myocardial infarction In March 2017 with stent placement, atrial fibrillation and long QT syndrome with ICD replacement, liver transplant 20 years ago, chronic obstructive pulmonary disease, newly worsened lytajluw-ig-iawjma mitral regurgitation, and severe pulmonary hypertension who presents today to the hospital with concern for shortness of breath and chest pain. Our plans are for inpatient admission as I expect the length of stay to be greater than 2 days for the following. 1. Shortness of breath and chest pain: The patient has had significant improvement since arrival to the ED with administration of BiPAP, morphine, and Lasix. The patient shows no evidence of an infection. No evidence of pulmonary infiltrate. I suspect that her symptoms are all related to her complex cardiac history, however, she has no overt symptoms of heart failure. She has no lower extremity edema and the chest x-ray does not show significant pulmonary edema. Her troponins are negative which makes acute coronary syndrome somewhat less likely, although she is certainly at high risk. Additional troponins have been ordered. Additional EKGs has been ordered. The patient will have morphine available for pain, as well as oxygen and nitroglycerin. She will be monitored on telemetry unit. I have discussed the case with Dr. Kohler, as well as Dr. Ignacio from Cardiology who will be providing consultation. Dr. Ignacio surmises that the patient likely needs a mitral valve replacement given the new finding of moderate to severe MR on her most recent echo. At this time we are continuing with nitroglycerin paste. She has already received Lasix in the ED. I am concerned about excessive diuresis in this patient and would like to monitor I's and O's closely with placement of Guadalupe if needed. At this point, her blood pressure is well controlled and running systolically about 120s. I would like to continue her diltiazem at 60 mg q.6 hours with her metoprolol with hold parameters with further adjustments as needed and recommended per Dr. Ignacio. 2. Atrial fibrillation. Continue Eliquis, diltiazem and metoprolol with hold parameters. 3. Coronary artery disease. Continue brilinta and metoprolol. 4. Anxiety. Continue clonazepam. 5. Hypertension. Continue metoprolol and diltiazem with hold parameters. 6. Code status is DNR./DNI. 7. Disposition to telemetry floor. TIME SPENT: Approximately 75 minutes were spent on the admission of this patient, more than half of the time was spent with the patient at the bedside reviewing the events leading up to this hospitalization, performing the physical examination, reviewing my plan of care. LAURENCE ANDREWS NP [id number]/[facility] #: [id number] DOROTHY
[2018-03-26] MEDS: oxyCODONE TAB* 5 MG TAB PO PRN (17:25)
[2018-03-26] MEDS ORDERED: Diltiazem TAB* 30 MG PO SCH (18:00)
[2018-03-26 19:00] LABS: Urine Appearance Clear; Urine Blood Negative (Negative); Urine Color Yellow; Urine Ketones Negative (Negative); Urine Protein 2+(100 mg/dL) (Negative); Urine Red Blood Cell Absent (Absent); Urine Specific Gravity 1.011 (1.010-1.030); Urine Urobilinogen Negative (Negative); Urine White Blood Cell Absent (Absent)
[2018-03-26] MEDS ORDERED: Tacrolimus CAP(*) 1 MG PO SCH (21:00)
[2018-03-26] MEDS: Apixaban* 2.5 MG TAB PO SCH (21:58)
[2018-03-26] MEDS: Ticagrelor* 90 MG TAB PO SCH (21:59)
[2018-03-26] MEDS: Tacrolimus CAP(*) 0.5 MG PO SCH (21:59)
[2018-03-26] MEDS: Metoprolol Tartrate TAB* 50 mg PO SCH (21:59)
[2018-03-26] MEDS ORDERED: NS 0.9% 250 ML* 250 ML IV SCH (22:00)
[2018-03-27] MEDS ORDERED: NS 0.9% 500 ML* 500 ML IV SCH (00:39)
[2018-03-27] MEDS: Diltiazem TAB* 30 MG PO SCH ×4 (01:12→16:13)
[2018-03-27] MEDS: oxyCODONE TAB* 5 MG TAB PO PRN ×2 (04:17→22:25)
[2018-03-27] MEDS ORDERED: Nitroglycerin 2% OINT* 1 GM PAK TOPICAL SCH (06:00)
[2018-03-27] MEDS ORDERED: NS 0.9% 1000 ML* 1,000 ML IV SCH (06:00)
[2018-03-27 06:24] LABS: ABS Basophils 0 10^3/ul (0-0.2); ABS Eosinophils 0 10^3/ul (0-0.6); ABS Lymphocytes 0.7 10^3/ul (1.0-4.8); ABS Monocytes 0.4 10^3/ul (0-0.8); ABS Neutrophils 13.8 10^3/ul (1.5-7.7); ABS Nucleated RBC 0 10^3/ul; Eosinophil % 0 % (0-6); Hematocrit 28 % (35-47); Hemoglobin 8.9 g/dl (12.0-16.0); Lymphocyte % 4.9 % (25-47); Mean Corpuscular HGB Conc 32 g/dl (31-36); Mean Corpuscular Hemoglobin 28 pg (27-31); Mean Corpuscular Volume 87 fL (80-97); Nucleated Red Blood Cells % 0; Platelet Count 215 10^3/ul (150-450); Red Cell Distribution Width 18 % (10.5-15); White Blood Count 14.9 10^3/ul (3.5-10.8)
[2018-03-27 06:43] LABS: EGFR Non-African American 23.6 (>60)
[2018-03-27] MEDS: Metoprolol Tartrate TAB* 50 mg PO SCH ×2 (08:19→22:15)
[2018-03-27] MEDS ORDERED: NS 0.9% 500 ML* 500 ML IV ONE (08:32)
[2018-03-27] MEDS ORDERED: Morphine VIAL* 4 MG/ML VIAL (1 ml vial) IV ONE (09:00)
[2018-03-27] MEDS: Ticagrelor* 90 MG TAB PO SCH ×2 (09:01→22:15)
[2018-03-27] MEDS: Apixaban* 2.5 MG TAB PO SCH ×2 (09:02→22:15)
[2018-03-27] MEDS: Famotidine TAB* 20 MG PO SCH (09:02)
[2018-03-27] MEDS: Cyanocobalamin TAB* 500 MCG PO SCH (09:02)
[2018-03-27] MEDS: clonazePAM TAB(*) 0.5 MG PO SCH (09:02)
[2018-03-27] MEDS: Sertraline* 25 MG TAB PO SCH (09:02)
[2018-03-27] MEDS: Tacrolimus CAP(*) 0.5 MG PO SCH ×2 (09:24→22:15)
[2018-03-27] MEDS ORDERED: Dextrose 50% Syringe 50 ML* 25 GM/50 ML SYRINGE IV PUSH PRN (10:14)
[2018-03-27] MEDS ORDERED: Insulin REGULAR(*) 1 UNITS UNIT IV PUSH ONE (10:15)
[2018-03-27] MEDS ORDERED: Nitroglycerin 2% OINT* 1 GM PAK TOPICAL ONE (12:14)
--- NOTE | 2018-03-27 13:29 | RAD ---
Indication: Elevated d-dimer. Ventilation and perfusion lung scan was performed after 5.8 mCi of aerosolized xenon-133 was given. 6.8 mCi of technetium 99m macroaggregated albumin was injected. The ventilation scan demonstrates no evidence of air trapping. Perfusion lung scan demonstrates no evidence of segmental or subsegmental perfusion defects. IMPRESSION: Low probability scan for pulmonary embolus.
--- NOTE | 2018-03-27 15:47 | RAD ---
Indication: Elevated d-dimer, shortness of breath and chest pain. 2 views of the chest including dual energy PA views are reviewed. Pacemaker leads are in place. Lung gerard appear clear. No pneumothorax is noted. IMPRESSION: No active cardiopulmonary disease is noted. Pacemaker leads are in place.
[2018-03-27] MEDS: Morphine VIAL* 4 MG/ML VIAL (1 ml vial) IV PRN (16:13)
--- NOTE | 2018-03-27 17:14 | PN ---
Subjective Date of Service: 03/27/18 Interval History: Pt seen and examined. Meds and labs reviewed. ROS: Denied ANTON/dizziness, F/C, N/V, CP, SOB, increased cough, sputum production , abd pain, diarrhea, constipation, dysuria, myalgias, arthralgias, throat pain , and new skin lesions. The rest of the 14 point ROS are unremarkable. PHYSICAL EXAM: GEN APPEARANCE: Awake, not in acute distress HEENT: NC/AT, PERRLA, moist oral mucosa, (-) throat erythema NECK: Soft, supple, (-) cervical LAD, (-)JVD HEART: S1S2 WNL, RRR, No MRG CHEST: CTA, BL, GAE, No W/R/R ABD: Soft, ND/NT, NABS 4x Q EXT: No C/C/E SKIN: Warm to touch PSYCH: No active psychosis, hallucinations, depression, SI/HI Objective Active Medications: Albuterol (Ventolin 2.5 Mg/3 Ml Neb.Monique*) 2.5 mg INH Q4H PRN PRN Reason: SOB/WHEEZING Apixaban (Eliquis) 2.5 mg PO BID [facility] Last Admin: 03/27/18 09:02 Dose: 2.5 mg Clonazepam (Klonopin Tab(*)) 0.5 mg PO DAILY [facility] Last Admin: 03/27/18 09:02 Dose: 0.5 mg Cyanocobalamin (Vitamin B12 Tab*) 1,000 mcg PO DAILY [facility] Last Admin: 03/27/18 09:02 Dose: 1,000 mcg Dextrose (D50w Syringe 50 Ml*) 50 gm IV PUSH ONCE PRN PRN Reason: FS < 60 Last Admin: 03/27/18 10:51 Dose: 50 gm Diltiazem HCl (Cardizem Tab*) 45 mg PO Q6HR [facility] Last Admin: 03/27/18 16:13 Dose: 45 mg Famotidine (Pepcid Tab*) 20 mg PO DAILY [facility] Last Admin: 03/27/18 09:02 Dose: 20 mg Metoprolol Tartrate (Lopressor Tab*) 50 mg PO BID [facility] Last Admin: 03/27/18 08:19 Dose: Not Given Morphine Sulfate (Morphine Vial*) 4 mg IV Q2H PRN PRN Reason: PAIN Last Admin: 03/27/18 16:13 Dose: 4 mg Oxycodone HCl (Roxycodone Tab*) 5 mg PO BID PRN PRN Reason: PAIN Last Admin: 03/27/18 04:17 Dose: 5 mg Sertraline HCl (Zoloft*) 25 mg PO DAILY [facility] Last Admin: 03/27/18 09:02 Dose: 25 mg Tacrolimus (Prograf Cap(*)) 1 mg PO BID [facility] Last Admin: 03/27/18 09:24 Dose: 1 mg Ticagrelor (Brilinta*) 90 mg PO BID [facility] Last Admin: 03/27/18 09:01 Dose: 90 mg Vital Signs - 8 hr 03/27/18 03/27/18 03/27/18 10:29 12:25 15:45 Temperature 97.5 F 97.9 F Pulse Rate 64 69 Respiratory 16 16 18 Rate Blood Pressure 124/59 143/65 (mmHg) O2 Sat by Pulse 100 Oximetry 03/27/18 16:13 Temperature Pulse Rate Respiratory 24 Rate Blood Pressure (mmHg) O2 Sat by Pulse Oximetry Oxygen Devices in Use Now: Nasal Cannula Result Diagrams: 03/27/18 05:56 03/27/18 05:56 Additional Lab and Data: Lab Results 03/26/18 03/26/18 03/26/18 Range/Units 10:11 10:11 10:11 WBC 9.7 (3.5-10.8) 10^3/ul RBC 3.64 L (4.00-5.40) 10^6/ul Hgb 10.4 L (12.0-16.0) g/dl Hct 32 L (35-47) % MCV 87 (80-97) fL MCH 29 (27-31) pg MCHC 33 (31-36) g/dl RDW 18 H (10.5-15) % Plt Count 318 (150-450) 10^3/ul MPV 8.0 (7.4-10.4) um3 Neut % (Auto) 62.7 (38-83) % Lymph % (Auto) 20.4 L (25-47) % [place] % (Auto) 9.2 H (0-7) % Eos % (Auto) 6.4 H (0-6) % Baso % (Auto) 1.3 (0-2) % Absolute Neuts (auto) 6.1 (1.5-7.7) 10^3/ul Absolute Lymphs (auto) 2.0 (1.0-4.8) 10^3/ul Absolute Monos (auto) 0.9 H (0-0.8) 10^3/ul Absolute Eos (auto) 0.6 (0-0.6) 10^3/ul Absolute Basos (auto) 0.1 (0-0.2) 10^3/ul Absolute Nucleated RBC 0 10^3/ul Nucleated RBC % 0.1 INR (Anticoag Therapy) 1.13 H (0.77-1.02) APTT 37.3 H (26.0-36.3) seconds D-Dimer, Quantitative 369 H (Less Than 230) ng/mL ABG pH (7.35-7.45) ABG pCO2 (35-45) mmHg ABG pO2 (80-100) mmHg ABG HCO3 (19-31) mmol/L ABG O2 Saturation (95-98) % ABG Base Excess (-2.0-2.0) Sodium 135 (135-145) mmol/L Potassium TNP Chloride 104 (101-111) mmol/L Carbon Dioxide 22 (22-32) mmol/L Anion Gap 9 (2-11) mmol/L BUN 32 H (6-24) mg/dL Creatinine 1.43 H (0.51-0.95) mg/dL Est GFR ( Amer) 45.0 (>60) Est GFR (Non-Af Amer) 37.2 (>60) BUN/Creatinine Ratio 22.4 H (8-20) Glucose 199 H (70-100) mg/dL Lactic Acid (0.5-2.0) mmol/L Calcium 9.6 (8.6-10.3) mg/dL Magnesium 2.0 (1.9-2.7) mg/dL Total Bilirubin 0.70 (0.2-1.0) mg/dL AST TNP ALT 26 (7-52) U/L Alkaline Phosphatase 96 (34-104) U/L Total Creatine Kinase 656 H (10-223) U/L CK-MB (CK-2) 37.0 H (0.6-6.3) ng/mL Troponin I 0.02 (<0.04) ng/mL C-Reactive Protein 2.03 (<8.01) mg/L B-Natriuretic Peptide ( - 100) pg/mL Total Protein 8.8 (6.4-8.9) g/dL Albumin 4.1 (3.2-5.2) g/dL Globulin 4.7 H (2-4) g/dL Albumin/Globulin Ratio 0.9 L (1-3) Lipase 16 (11.0-82.0) U/L TSH 1.12 (0.34-5.60) mcIU/mL 03/26/18 03/26/18 03/26/18 Range/Units 10:11 10:11 10:25 WBC (3.5-10.8) 10^3/ul RBC (4.00-5.40) 10^6/ul Hgb (12.0-16.0) g/dl Hct (35-47) % MCV (80-97) fL MCH (27-31) pg MCHC (31-36) g/dl RDW (10.5-15) % Plt Count (150-450) 10^3/ul MPV (7.4-10.4) um3 Neut % (Auto) (38-83) % Lymph % (Auto) (25-47) % [place] % (Auto) (0-7) % Eos % (Auto) (0-6) % Baso % (Auto) (0-2) % Absolute Neuts (auto) (1.5-7.7) 10^3/ul Absolute Lymphs (auto) (1.0-4.8) 10^3/ul Absolute Monos (auto) (0-0.8) 10^3/ul Absolute Eos (auto) (0-0.6) 10^3/ul Absolute Basos (auto) (0-0.2) 10^3/ul Absolute Nucleated RBC 10^3/ul Nucleated RBC % INR (Anticoag Therapy) (0.77-1.02) APTT (26.0-36.3) seconds D-Dimer, Quantitative (Less Than 230) ng/mL ABG pH 7.33 L (7.35-7.45) ABG pCO2 38 (35-45) mmHg ABG pO2 87 (80-100) mmHg ABG HCO3 20.6 (19-31) mmol/L ABG O2 Saturation 98.3 H (95-98) % ABG Base Excess -5.5 L (-2.0-2.0) Sodium (135-145) mmol/L Potassium Chloride (101-111) mmol/L Carbon Dioxide (22-32) mmol/L Anion Gap (2-11) mmol/L BUN (6-24) mg/dL Creatinine (0.51-0.95) mg/dL Est GFR ( Amer) (>60) Est GFR (Non-Af Amer) (>60) BUN/Creatinine Ratio (8-20) Glucose (70-100) mg/dL Lactic Acid 1.2 (0.5-2.0) mmol/L Calcium (8.6-10.3) mg/dL Magnesium (1.9-2.7) mg/dL Total Bilirubin (0.2-1.0) mg/dL AST ALT (7-52) U/L Alkaline Phosphatase (34-104) U/L Total Creatine Kinase (10-223) U/L CK-MB (CK-2) (0.6-6.3) ng/mL Troponin I (<0.04) ng/mL C-Reactive Protein (<8.01) mg/L B-Natriuretic Peptide 1485 H ( - 100) pg/mL Total Protein (6.4-8.9) g/dL Albumin (3.2-5.2) g/dL Globulin (2-4) g/dL Albumin/Globulin Ratio (1-3) Lipase (11.0-82.0) U/L TSH (0.34-5.60) mcIU/mL 03/26/18 03/26/18 Range/Units 11:09 12:59 WBC (3.5-10.8) 10^3/ul RBC (4.00-5.40) 10^6/ul Hgb (12.0-16.0) g/dl Hct (35-47) % MCV (80-97) fL MCH (27-31) pg MCHC (31-36) g/dl RDW (10.5-15) % Plt Count (150-450) 10^3/ul MPV (7.4-10.4) um3 Neut % (Auto) (38-83) % Lymph % (Auto) (25-47) % [place] % (Auto) (0-7) % Eos % (Auto) (0-6) % Baso % (Auto) (0-2) % Absolute Neuts (auto) (1.5-7.7) 10^3/ul Absolute Lymphs (auto) (1.0-4.8) 10^3/ul Absolute Monos (auto) (0-0.8) 10^3/ul Absolute Eos (auto) (0-0.6) 10^3/ul Absolute Basos (auto) (0-0.2) 10^3/ul Absolute Nucleated RBC 10^3/ul Nucleated RBC % INR (Anticoag Therapy) (0.77-1.02) APTT (26.0-36.3) seconds D-Dimer, Quantitative (Less Than 230) ng/mL ABG pH (7.35-7.45) ABG pCO2 (35-45) mmHg ABG pO2 (80-100) mmHg ABG HCO3 (19-31) mmol/L ABG O2 Saturation (95-98) % ABG Base Excess (-2.0-2.0) Sodium (135-145) mmol/L Potassium 3.7 Chloride (101-111) mmol/L Carbon Dioxide (22-32) mmol/L Anion Gap (2-11) mmol/L BUN (6-24) mg/dL Creatinine (0.51-0.95) mg/dL Est GFR ( Amer) (>60) Est GFR (Non-Af Amer) (>60) BUN/Creatinine Ratio (8-20) Glucose (70-100) mg/dL Lactic Acid (0.5-2.0) mmol/L Calcium (8.6-10.3) mg/dL Magnesium (1.9-2.7) mg/dL Total Bilirubin (0.2-1.0) mg/dL AST 39 ALT (7-52) U/L Alkaline Phosphatase (34-104) U/L Total Creatine Kinase (10-223) U/L CK-MB (CK-2) (0.6-6.3) ng/mL Troponin I 0.07 H* (<0.04) ng/mL C-Reactive Protein (<8.01) mg/L B-Natriuretic Peptide ( - 100) pg/mL Total Protein (6.4-8.9) g/dL Albumin (3.2-5.2) g/dL Globulin (2-4) g/dL Albumin/Globulin Ratio (1-3) Lipase (11.0-82.0) U/L TSH (0.34-5.60) mcIU/mL Microbiology and Other Data: Microbiology 03/26/18 10:35 Aerobic Blood Culture - Preliminary Blood Venous No Growth Day 1 Anaerobic Blood Culture - Preliminary No Growth Day 1 03/26/18 10:28 Aerobic Blood Culture - Preliminary Blood Venous No Growth Day 1 Anaerobic Blood Culture - Preliminary No Growth Day 1 03/26/18 16:05 Nasal Screen MRSA (PCR) - Final Nasal Mrsa Detected Assess/Plan/Problems-Billing Assessment: - Patient Problems (1) SOB (shortness of breath) Current Visit: Yes Status: Acute Code(s): R06.02 - SHORTNESS OF BREATH SNOMED Code(s): 688770281 Comment: -Likely due to severe pulmonary HTN causing severe TR, causing elevated JVD -Pt low probability for PE on V/Q scan; sent given pt is at high risk, although age limit for D-dimer initially noted below age cut off in the setting of CKD (2) Hyperkalemia Current Visit: Yes Status: Acute Code(s): E87.5 - HYPERKALEMIA SNOMED Code (s): 51292097 Comment: -Given D50 and Insulin -Continue to follow levels (3) Hypotension Current Visit: Yes Status: Acute Comment: -Responded well with IVF boluses -Discussed with Dr. Bunch and will hold off any fluid boluses unless MAP<60 -Will await Dr. Bunch official evaluation -Checked telemetry earlier and pt was paced with rate in 50sordered for interrogation of pacemakerdiscussed with Dr. Bunch (4) Atrial fibrillation Current Visit: No Status: Acute Code(s): I48.91 - UNSPECIFIED ATRIAL FIBRILLATION SNOMED Code(s): 41250449 Comment: -Continue Apixaban, Diltiazem, and Metoprolol (5) CAD (coronary artery disease) Current Visit: Yes Status: Acute Code(s): I25.10 - ATHSCL HEART DISEASE OF [place] CORONARY ARTERY W/O ANG PCTRS SNOMED Code(s): 65279483 (6) CAD (coronary artery disease) Current Visit: No Status: Chronic Code(s): I25.10 - ATHSCL HEART DISEASE OF [place] CORONARY ARTERY W/O ANG PCTRS SNOMED Code(s): 85926111 Comment: -Continue Ticagrelor -As above (7) Anxiety Current Visit: Yes Status: Acute Code(s): F41.9 - ANXIETY DISORDER, UNSPECIFIED SNOMED Code(s): 23722661 Comment: -Continue Clonazepam (8) DVT prophylaxis Current Visit: Yes Status: Acute Code(s): MCJ8563 - SNOMED Code(s): 956500894 Comment: -Pt on Apixaban as discussed Status and Disposition: -For PT eval -As above
[2018-03-28] MEDS: Diltiazem TAB* 30 MG PO SCH ×4 (00:14→18:40)
[2018-03-28 06:28] LABS: Hematocrit 25 % (35-47); Hemoglobin 8.1 g/dl (12.0-16.0); Mean Corpuscular HGB Conc 33 g/dl (31-36); Mean Corpuscular Hemoglobin 28 pg (27-31); Mean Corpuscular Volume 86 fL (80-97); Mean Platelet Volume 7.7 um3 (7.4-10.4); Platelet Count 193 10^3/ul (150-450); Red Blood Count 2.87 10^6/ul (4.00-5.40); Red Cell Distribution Width 18 % (10.5-15); White Blood Count 9.8 10^3/ul (3.5-10.8)
[2018-03-28 06:46] LABS: EGFR Non-African American 29.1 (>60)
[2018-03-28] MEDS: Cyanocobalamin TAB* 500 MCG PO SCH (09:45)
[2018-03-28] MEDS: Famotidine TAB* 20 MG PO SCH (09:45)
[2018-03-28] MEDS: Apixaban* 2.5 MG TAB PO SCH ×2 (09:45→20:59)
[2018-03-28] MEDS: Sertraline* 25 MG TAB PO SCH (09:46)
[2018-03-28] MEDS: clonazePAM TAB(*) 0.5 MG PO SCH (09:47)
[2018-03-28] MEDS: Ticagrelor* 90 MG TAB PO SCH ×2 (09:47→20:59)
[2018-03-28] MEDS: Metoprolol Tartrate TAB* 50 mg PO SCH ×2 (09:47→22:36)
[2018-03-28] MEDS: oxyCODONE TAB* 5 MG TAB PO PRN ×2 (09:48→21:07)
[2018-03-28] MEDS: Tacrolimus CAP(*) 0.5 MG PO SCH ×2 (09:54→20:59)
[2018-03-28] MEDS: Morphine VIAL* 4 MG/ML VIAL (1 ml vial) IV PRN (15:59)
--- NOTE | 2018-03-28 16:46 | PN ---
Subjective Date of Service: 03/28/18 Interval History: Pt seen and examined. Meds and labs reviewed. ROS: Denied ANTON/dizziness, F/C, N/V, CP, SOB, increased cough, sputum production , abd pain, diarrhea, constipation, dysuria, myalgias, arthralgias, throat pain , and new skin lesions. The rest of the 14 point ROS are unremarkable. PHYSICAL EXAM: GEN APPEARANCE: Awake, not in acute distress HEENT: NC/AT, PERRLA, moist oral mucosa, (-) throat erythema NECK: Soft, supple, (-) cervical LAD, (+)JVD HEART: S1S2 WNL, RRR, No MRG CHEST: CTA, BL, GAE, No W/R/R ABD: Soft, ND/NT, NABS 4x Q EXT: No C/C/E SKIN: Warm to touch PSYCH: No active psychosis, hallucinations, depression, SI/HI Objective Active Medications: Albuterol (Ventolin 2.5 Mg/3 Ml Neb.Monique*) 2.5 mg INH Q4H PRN PRN Reason: SOB/WHEEZING Apixaban (Eliquis) 2.5 mg PO BID [facility] Last Admin: 03/28/18 09:45 Dose: 2.5 mg Clonazepam (Klonopin Tab(*)) 0.5 mg PO DAILY [facility] Last Admin: 03/28/18 09:47 Dose: 0.5 mg Cyanocobalamin (Vitamin B12 Tab*) 1,000 mcg PO DAILY [facility] Last Admin: 03/28/18 09:45 Dose: 1,000 mcg Dextrose (D50w Syringe 50 Ml*) 50 gm IV PUSH ONCE PRN PRN Reason: FS < 60 Last Admin: 03/27/18 10:51 Dose: 50 gm Diltiazem HCl (Cardizem Tab*) 45 mg PO Q6HR [facility] Last Admin: 03/28/18 12:28 Dose: 45 mg Famotidine (Pepcid Tab*) 20 mg PO DAILY [facility] Last Admin: 03/28/18 09:45 Dose: 20 mg Metoprolol Tartrate (Lopressor Tab*) 50 mg PO BID [facility] Last Admin: 03/28/18 09:47 Dose: 50 mg Morphine Sulfate (Morphine Vial*) 4 mg IV Q2H PRN PRN Reason: PAIN Last Admin: 03/28/18 15:59 Dose: 4 mg Oxycodone HCl (Roxycodone Tab*) 5 mg PO BID PRN PRN Reason: PAIN Last Admin: 03/28/18 09:48 Dose: 5 mg Sertraline HCl (Zoloft*) 25 mg PO DAILY [facility] Last Admin: 03/28/18 09:46 Dose: 25 mg Tacrolimus (Prograf Cap(*)) 1 mg PO BID [facility] Last Admin: 03/28/18 09:54 Dose: 1 mg Ticagrelor (Brilinta*) 90 mg PO BID [facility] Last Admin: 03/28/18 09:47 Dose: 90 mg Vital Signs - 8 hr 03/28/18 03/28/18 03/28/18 09:47 09:48 11:42 Temperature Pulse Rate Respiratory 18 18 20 Rate Blood Pressure (mmHg) O2 Sat by Pulse Oximetry 03/28/18 03/28/18 03/28/18 12:18 15:41 15:59 Temperature 97.7 F 97.8 F Pulse Rate 58 54 Respiratory 16 16 16 Rate Blood Pressure 125/52 122/51 (mmHg) O2 Sat by Pulse 100 97 Oximetry Oxygen Devices in Use Now: Nasal Cannula Result Diagrams: 03/28/18 06:17 03/28/18 06:17 Additional Lab and Data: Lab Results 03/26/18 03/26/18 03/26/18 Range/Units 10:11 10:11 10:11 WBC 9.7 (3.5-10.8) 10^3/ul RBC 3.64 L (4.00-5.40) 10^6/ul Hgb 10.4 L (12.0-16.0) g/dl Hct 32 L (35-47) % MCV 87 (80-97) fL MCH 29 (27-31) pg MCHC 33 (31-36) g/dl RDW 18 H (10.5-15) % Plt Count 318 (150-450) 10^3/ul MPV 8.0 (7.4-10.4) um3 Neut % (Auto) 62.7 (38-83) % Lymph % (Auto) 20.4 L (25-47) % [place] % (Auto) 9.2 H (0-7) % Eos % (Auto) 6.4 H (0-6) % Baso % (Auto) 1.3 (0-2) % Absolute Neuts (auto) 6.1 (1.5-7.7) 10^3/ul Absolute Lymphs (auto) 2.0 (1.0-4.8) 10^3/ul Absolute Monos (auto) 0.9 H (0-0.8) 10^3/ul Absolute Eos (auto) 0.6 (0-0.6) 10^3/ul Absolute Basos (auto) 0.1 (0-0.2) 10^3/ul Absolute Nucleated RBC 0 10^3/ul Nucleated RBC % 0.1 INR (Anticoag Therapy) 1.13 H (0.77-1.02) APTT 37.3 H (26.0-36.3) seconds D-Dimer, Quantitative 369 H (Less Than 230) ng/mL ABG pH (7.35-7.45) ABG pCO2 (35-45) mmHg ABG pO2 (80-100) mmHg ABG HCO3 (19-31) mmol/L ABG O2 Saturation (95-98) % ABG Base Excess (-2.0-2.0) Sodium 135 (135-145) mmol/L Potassium TNP Chloride 104 (101-111) mmol/L Carbon Dioxide 22 (22-32) mmol/L Anion Gap 9 (2-11) mmol/L BUN 32 H (6-24) mg/dL Creatinine 1.43 H (0.51-0.95) mg/dL Est GFR ( Amer) 45.0 (>60) Est GFR (Non-Af Amer) 37.2 (>60) BUN/Creatinine Ratio 22.4 H (8-20) Glucose 199 H (70-100) mg/dL Lactic Acid (0.5-2.0) mmol/L Calcium 9.6 (8.6-10.3) mg/dL Magnesium 2.0 (1.9-2.7) mg/dL Total Bilirubin 0.70 (0.2-1.0) mg/dL AST TNP ALT 26 (7-52) U/L Alkaline Phosphatase 96 (34-104) U/L Total Creatine Kinase 656 H (10-223) U/L CK-MB (CK-2) 37.0 H (0.6-6.3) ng/mL Troponin I 0.02 (<0.04) ng/mL C-Reactive Protein 2.03 (<8.01) mg/L B-Natriuretic Peptide ( - 100) pg/mL Total Protein 8.8 (6.4-8.9) g/dL Albumin 4.1 (3.2-5.2) g/dL Globulin 4.7 H (2-4) g/dL Albumin/Globulin Ratio 0.9 L (1-3) Lipase 16 (11.0-82.0) U/L TSH 1.12 (0.34-5.60) mcIU/mL 03/26/18 03/26/18 03/26/18 Range/Units 10:11 10:11 10:25 WBC (3.5-10.8) 10^3/ul RBC (4.00-5.40) 10^6/ul Hgb (12.0-16.0) g/dl Hct (35-47) % MCV (80-97) fL MCH (27-31) pg MCHC (31-36) g/dl RDW (10.5-15) % Plt Count (150-450) 10^3/ul MPV (7.4-10.4) um3 Neut % (Auto) (38-83) % Lymph % (Auto) (25-47) % [place] % (Auto) (0-7) % Eos % (Auto) (0-6) % Baso % (Auto) (0-2) % Absolute Neuts (auto) (1.5-7.7) 10^3/ul Absolute Lymphs (auto) (1.0-4.8) 10^3/ul Absolute Monos (auto) (0-0.8) 10^3/ul Absolute Eos (auto) (0-0.6) 10^3/ul Absolute Basos (auto) (0-0.2) 10^3/ul Absolute Nucleated RBC 10^3/ul Nucleated RBC % INR (Anticoag Therapy) (0.77-1.02) APTT (26.0-36.3) seconds D-Dimer, Quantitative (Less Than 230) ng/mL ABG pH 7.33 L (7.35-7.45) ABG pCO2 38 (35-45) mmHg ABG pO2 87 (80-100) mmHg ABG HCO3 20.6 (19-31) mmol/L ABG O2 Saturation 98.3 H (95-98) % ABG Base Excess -5.5 L (-2.0-2.0) Sodium (135-145) mmol/L Potassium Chloride (101-111) mmol/L Carbon Dioxide (22-32) mmol/L Anion Gap (2-11) mmol/L BUN (6-24) mg/dL Creatinine (0.51-0.95) mg/dL Est GFR ( Amer) (>60) Est GFR (Non-Af Amer) (>60) BUN/Creatinine Ratio (8-20) Glucose (70-100) mg/dL Lactic Acid 1.2 (0.5-2.0) mmol/L Calcium (8.6-10.3) mg/dL Magnesium (1.9-2.7) mg/dL Total Bilirubin (0.2-1.0) mg/dL AST ALT (7-52) U/L Alkaline Phosphatase (34-104) U/L Total Creatine Kinase (10-223) U/L CK-MB (CK-2) (0.6-6.3) ng/mL Troponin I (<0.04) ng/mL C-Reactive Protein (<8.01) mg/L B-Natriuretic Peptide 1485 H ( - 100) pg/mL Total Protein (6.4-8.9) g/dL Albumin (3.2-5.2) g/dL Globulin (2-4) g/dL Albumin/Globulin Ratio (1-3) Lipase (11.0-82.0) U/L TSH (0.34-5.60) mcIU/mL 18 03/26/18 Range/Units 11:09 12:59 WBC (3.5-10.8) 10^3/ul RBC (4.00-5.40) 10^6/ul Hgb (12.0-16.0) g/dl Hct (35-47) % MCV (80-97) fL MCH (27-31) pg MCHC (31-36) g/dl RDW (10.5-15) % Plt Count (150-450) 10^3/ul MPV (7.4-10.4) um3 Neut % (Auto) (38-83) % Lymph % (Auto) (25-47) % [place] % (Auto) (0-7) % Eos % (Auto) (0-6) % Baso % (Auto) (0-2) % Absolute Neuts (auto) (1.5-7.7) 10^3/ul Absolute Lymphs (auto) (1.0-4.8) 10^3/ul Absolute Monos (auto) (0-0.8) 10^3/ul Absolute Eos (auto) (0-0.6) 10^3/ul Absolute Basos (auto) (0-0.2) 10^3/ul Absolute Nucleated RBC 10^3/ul Nucleated RBC % INR (Anticoag Therapy) (0.77-1.02) APTT (26.0-36.3) seconds D-Dimer, Quantitative (Less Than 230) ng/mL ABG pH (7.35-7.45) ABG pCO2 (35-45) mmHg ABG pO2 (80-100) mmHg ABG HCO3 (19-31) mmol/L ABG O2 Saturation (95-98) % ABG Base Excess (-2.0-2.0) Sodium (135-145) mmol/L Potassium 3.7 Chloride (101-111) mmol/L Carbon Dioxide (22-32) mmol/L Anion Gap (2-11) mmol/L BUN (6-24) mg/dL Creatinine (0.51-0.95) mg/dL Est GFR ( Amer) (>60) Est GFR (Non-Af Amer) (>60) BUN/Creatinine Ratio (8-20) Glucose (70-100) mg/dL Lactic Acid (0.5-2.0) mmol/L Calcium (8.6-10.3) mg/dL Magnesium (1.9-2.7) mg/dL Total Bilirubin (0.2-1.0) mg/dL AST 39 ALT (7-52) U/L Alkaline Phosphatase (34-104) U/L Total Creatine Kinase (10-223) U/L CK-MB (CK-2) (0.6-6.3) ng/mL Troponin I 0.07 H* (<0.04) ng/mL C-Reactive Protein (<8.01) mg/L B-Natriuretic Peptide ( - 100) pg/mL Total Protein (6.4-8.9) g/dL Albumin (3.2-5.2) g/dL Globulin (2-4) g/dL Albumin/Globulin Ratio (1-3) Lipase (11.0-82.0) U/L TSH (0.34-5.60) mcIU/mL Microbiology and Other Data: Microbiology 03/26/18 10:35 Aerobic Blood Culture - Preliminary Blood Venous No Growth Day 1 Anaerobic Blood Culture - Preliminary No Growth Day 1 03/26/18 10:28 Aerobic Blood Culture - Preliminary Blood Venous No Growth Day 1 Anaerobic Blood Culture - Preliminary No Growth Day 1 03/26/18 16:05 Nasal Screen MRSA (PCR) - Final Nasal Mrsa Detected Assess/Plan/Problems-Billing Assessment: - Patient Problems (1) SOB (shortness of breath) Current Visit: Yes Status: Acute Code(s): R06.02 - SHORTNESS OF BREATH SNOMED Code(s): 262306540 Comment: -Likely due to severe pulmonary HTN causing severe TR, causing elevated JVD -Pt low probability for PE on V/Q scan; sent given pt is at high risk, although age limit for D-dimer initially noted below age cut off in the setting of CKD -D/W Dr. Bunch; continue current therapy and plan for possible D/C in AM (2) Hypotension Current Visit: Yes Status: Acute Comment: -Discussed with Dr. Bunch and will hold off any fluid boluses unless MAP<60 -Appreciate Dr. Horowitz input (3) Atrial fibrillation Current Visit: No Status: Acute Code(s): I48.91 - UNSPECIFIED ATRIAL FIBRILLATION SNOMED Code(s): 37204715 Comment: -Continue Apixaban, Diltiazem, and Metoprolol (4) CAD (coronary artery disease) Current Visit: No Status: Chronic Code(s): I25.10 - ATHSCL HEART DISEASE OF [place] CORONARY ARTERY W/O ANG PCTRS SNOMED Code(s): 16145524 Comment: -Continue Ticagrelor -As above (5) Anxiety Current Visit: Yes Status: Acute Code(s): F41.9 - ANXIETY DISORDER, UNSPECIFIED SNOMED Code(s): 29579695 Comment: -Continue Clonazepam (6) DVT prophylaxis Current Visit: Yes Status: Acute Code(s): SAC3903 - SNOMED Code(s): 820113297 Comment: -Pt on Apixaban as discussed Status and Disposition: -Possible D/C home in AM -For AM ambulatory sats
[2018-03-29] MEDS: Diltiazem TAB* 30 MG PO SCH ×3 (00:49→11:57)
[2018-03-29] MEDS: Morphine VIAL* 4 MG/ML VIAL (1 ml vial) IV PRN ×2 (04:47→09:14)
[2018-03-29] MEDS: Metoprolol Tartrate TAB* 50 mg PO SCH (09:12)
[2018-03-29] MEDS: Sertraline* 25 MG TAB PO SCH (09:12)
[2018-03-29] MEDS: clonazePAM TAB(*) 0.5 MG PO SCH (09:13)
[2018-03-29] MEDS: Famotidine TAB* 20 MG PO SCH (09:13)
[2018-03-29] MEDS: Ticagrelor* 90 MG TAB PO SCH (09:13)
[2018-03-29] MEDS: Apixaban* 2.5 MG TAB PO SCH (09:13)
[2018-03-29] MEDS: Cyanocobalamin TAB* 500 MCG PO SCH (09:14)
[2018-03-29] MEDS: Tacrolimus CAP(*) 0.5 MG PO SCH (09:17)
[2018-03-29] MEDS: oxyCODONE TAB* 5 MG TAB PO PRN (10:19)
[2018-03-29 12:09] VITALS: BP 124/44
--- NOTE | 2018-03-30 05:19 | DS ---
CC: Dr. Kohler; Dr. Joce Tavares; Dr. April Ignacio; Dr. Bill Koo * DISCHARGE SUMMARY: DATE OF ADMISSION: DATE OF DISCHARGE: 03/29/18 DISCHARGE DIAGNOSES: As follows: 1. Shortness of breath likely due to severe pulmonary hypertension causing severe tricuspid regurgitation and elevated JVD. 2. Hypertension, resolved likely due to prerenal cause, improved with intravenous fluid resuscitation. 3. Atrial fibrillation. 4. Coronary artery disease. 5. History of anxiety. DISCHARGE MEDICATIONS: As follows: 1. Albuterol 2.5 mg inhalation q.4 hours p.r.n. 2. Apixaban 2.5 mg p.o. b.i.d. 3. Clonazepam 0.5 mg p.o. daily. 4. Cyanocobalamin 1000 mcg p.o. daily. 5. Diltiazem 180 mg p.o. daily to start on 03/30/18. 6. Diltiazem 45 mg p.o. q.6, three tablets were dispensed with 0 refills to complete for the day and to stop when long-acting diltiazem is started the following day. 7. Famotidine 20 mg p.o. daily. 8. Melatonin 5 mg p.o. q.h.s. 9. Metoprolol tartrate 50 mg p.o. b.i.d. 10. Nitroglycerin tablets 0.4 mg sublingual q.5 minutes p.r.n. 11. Oxycodone 5 mg p.o. b.i.d. 12. Sertraline 25 mg p.o. daily. 13. Tacrolimus 1 mg p.o. b.i.d. 14. Ticagrelor 90 mg p.o. b.i.d. 15. Umeclidinium bromide 62.5 mcg p.o. daily. HISTORY OF PRESENT ILLNESS/HOSPITAL COURSE: The patient is a 62-year-old lady with history of atrial fibrillation, COPD and anxiety, who presented on 03/26/18 secondary to chief complaint of shortness of breath and chest pain. The patient had mildly elevated troponins likely due to demand ischemia due to her severe pulmonary hypertension. The patient was given IV fluid boluses which improved her blood pressures as well as her symptoms. The patient was also seen in consultation and Dr. Harley agreed with the assessment and plan with nothing to add at this point and to continue her current medical therapy. She was also ruled out for PE with a V/Q scan during this admission, which showed low probability scan for PE. Her atrial fibrillation was well controlled during her hospitalization stay and given her initial hypotension on presentation, the dose of her diltiazem was subsequently decreased. She had been advised to follow up/call her PCP within [address] and schedule an appointment [facility]. She was also advised that if her PCP is unable to evaluate her soon after discharge, if she feels unwell to call [facility] when they can schedule an earlier appointment. She was advised to follow up with her associate financial analyst, Dr. Harley within [address] and to take her medications as prescribed. PHYSICAL EXAMINATION: Shows a most recent vital signs of records with blood pressure of 124/44, 20 per minute respiratory rate, heart rate of 57, 98.2 degrees Fahrenheit. General Appearance: The patient is awake, alert, and oriented x3, not in acute distress. HEENT: Normocephalic, atraumatic. PERRLA. Extraocular muscles intact. Negative for icterus. Moist oral mucosa. Negative throat erythema. Neck is soft, supple with no cervical lymphadenopathy. Positive for JVD. Heart: S1, S2 within normal limits. Regular rate and rhythm. No murmurs, rubs, and gallops. Chest: Clear to auscultation bilaterally. Abdomen is soft, nondistended, nontender. Normoactive bowel sounds x4. Extremities: No cyanosis, clubbing, or edema. Psychiatric: No active psychosis, depression, suicidal or homicidal ideations. Skin is warm to touch. TIME SPENT: The total time spent evaluating the patient, reviewing pertinent data and appropriate documentation is greater than 30 minutes. [id number]/CPS #: [id number] MTDD
== END 2018-03-29 14:00 | disposition home health service (06) | DRG 315 ==
LOC: ED 09:56 → MEDTELE 14:23 → UNDOADMIN 14:36
PROVIDERS: ADMIT Internal Medicine; ATTEND Student in an Organized Health Care Education/Training Program
PROC: 5A09357 Assistance with Respiratory Ventilation, Less than 24 Consecutive Hours, Continuous Positive Airway Pressure (ICD-10-PCS; principal; 2018-03-26)
DX: I27.22 Pulmonary hypertension due to left heart disease (principal); Z94.4 Liver transplant status; I50.32 Chronic diastolic (congestive) heart failure; I11.0 Hypertensive heart disease with heart failure; I25.10 Atherosclerotic heart disease of native coronary artery without angina pectoris; I08.1 Rheumatic disorders of both mitral and tricuspid valves; F41.9 Anxiety disorder, unspecified; I48.0 Paroxysmal atrial fibrillation; I45.81 Long QT syndrome; R06.02 Shortness of breath; I73.9 Peripheral vascular disease, unspecified; M81.0 Age-related osteoporosis without current pathological fracture; M54.5 Low back pain; R07.9 Chest pain, unspecified; G62.9 Polyneuropathy, unspecified; I25.2 Old myocardial infarction; Z79.891 Long term (current) use of opiate analgesic; Z95.810 Presence of automatic (implantable) cardiac defibrillator; Z95.5 Presence of coronary angioplasty implant and graft; Z79.899 Other long term (current) drug therapy; Z82.49 Family history of ischemic heart disease and other diseases of the circulatory system; Z87.891 Personal history of nicotine dependence; Z79.01 Long term (current) use of anticoagulants; I95.9 Hypotension, unspecified; E87.5 Hyperkalemia
CPT/HCPCS: 1036F; 36415; 71045; 71046; 78582; 80048; 80053; 81003; 81015; 82550; 82553; 82607; 82728; 82746; 82803; 83540; 83550; 83605; 83690; 83735; 83880; 83921; 84100; 84146; 84443; 84484; 85025; 85027; 85379; 85610; 85730; 86140; 87040; 87641; 93005; 99212; 99213; 99285; A9270-GY; A9540; A9558; G0463; G8427; G8730; G8978-GP-CI; G8979-GP-CI; G8980-GP-CI; J0456; J0696; J1940; J2270; J2930; J7507

== ENCOUNTER 2018-05-14 17:15 | Inpatient (IN) | payer MEDICARE, MEDICAID ==
[2018-05-14] MEDS ORDERED: cefTRIAXone(*) 1 GM in NS 0.9% 50 ML* 50 ML IVPB ONE (17:41)
[2018-05-14] MEDS ORDERED: Acetaminophen TAB* 325 MG PO ONE (17:44)
[2018-05-14] MEDS ORDERED: cefTRIAXone(*) 1 GM ADVAN/BAG ONE (17:58)
--- NOTE | 2018-05-14 18:17 | RAD ---
INDICATION: Chest pain. COMPARISON: Comparison is made with a prior study from March 27, 2018. TECHNIQUE: A portable view of the chest was obtained. FINDINGS: Cardiac and mediastinal contours appear to be within normal limits. There is a multilead transvenous pacemaker present. There is a small infiltrate at the right lung base. No pleural effusion is seen. IMPRESSION: SMALL RIGHT BASILAR INFILTRATE.
[2018-05-14 18:19] LABS: ABS Basophils 0.1 10^3/ul (0-0.2); ABS Eosinophils 0.3 10^3/ul (0-0.6); ABS Lymphocytes 1.2 10^3/ul (1.0-4.8); ABS Monocytes 0.7 10^3/ul (0-0.8); ABS Neutrophils 6.5 10^3/ul (1.5-7.7); ABS Nucleated RBC 0 10^3/ul; Eosinophil % 3.4 % (0-6); Hematocrit 32 % (35-47); Hemoglobin 10.3 g/dl (12.0-16.0); Lymphocyte % 13.1 % (25-47); Mean Corpuscular HGB Conc 32 g/dl (31-36); Mean Corpuscular Hemoglobin 28 pg (27-31); Mean Corpuscular Volume 86 fL (80-97); Mean Platelet Volume 7.7 um3 (7.4-10.4); Nucleated Red Blood Cells % 0; Platelet Count 225 10^3/ul (150-450); Red Blood Count 3.72 10^6/ul (4.00-5.40); Red Cell Distribution Width 16 % (10.5-15); White Blood Count 8.8 10^3/ul (3.5-10.8)
--- NOTE | 2018-05-14 18:20 | ED ---
Respiratory - HPI Summary HPI Summary: This is scribe Enmanuelleon Guerin documenting for attending Charlie Vera MD. A 62 y/o female CALVIN presents to ED c/o SOB and cough reaching 8/10 in severity. Additionally c/o fever, chest pain, back pain and headache. In the ED room, the patient has a pulse of 71 BPM, O2 saturation of 97% and blood pressure of 201/85. As per triage, ""lung pain" started yesterday morning, got worse, denies radiation. pt reports headache and SOB received nebulizer in ambulance which helped". According to the patient, she has been experiencing chest and back pain, fever, cough and headache since yesterday. The patient believes she has pneumonia again. Pt denies any N/V and abdominal pain. She noted that she had pneumonia in June which stayed till August as it kept coming back. It was further noted that the patient's flem is white not clear when coughing. Patient would like pain medication. I, Dr. Vera personally performed the services described in this documentation as scribed in my presence and it is both accurate and complete. - History of Current Complaint Chief Complaint: EDChestWallPain Stated Complaint: SOB Time Seen by Provider: 05/14/18 17:27 Hx Obtained From: Patient Onset/Duration: Sudden Onset, Lasting Days - yesterday, Still Present Timing: Constant Initial Severity: Severe Current Severity: Severe Pain Intensity: 8 Character: Cough (Productive) - White flem Sputum Amount: Scant Sputum Color: White Aggravating Factor(s): Nothing Alleviating Factor(s): Nothing Associated Signs and Symptoms: Fever, SOB, Chest Pain - Allergy/Home Medications Allergies/Adverse Reactions: Allergies Allergy/AdvReac Type Severity Reaction Status Date / Time procaine Allergy See Comment Verified 05/14/18 17:34 promethazine Allergy Unknown Verified 05/14/18 17:34 Reaction Details Home Medications: Home Medications Acetaminophen TAB* [Tylenol TAB*] 650 mg PO Q4H PRN 05/14/18 [History Confirmed 05/14/18] Sorbitol Solution [Sorbitol] 70 % PO Q24HR PRN 05/14/18 [History Confirmed 05/14] Ticagrelor* [Brilinta 90 MG*] 90 mg PO DAILY 05/14/18 [History Confirmed ] Saturnino Avina [Preparation H Totables] 50 % EX TID 05/14/18 [History Confirmed 09/19] PMH/Surg Hx/FS Hx/Imm Hx Endocrine/Hematology History: Reports: Hx Anemia Denies: Hx Anticoagulant Therapy, Hx Blood Transfusions, Hx Diabetes Cardiovascular History: Reports: Hx Angina, Hx Auto Implanted Cardiovert Defib, Hx Cardiac Arrest, Hx Coronary Artery Disease, Hx Hypertension, Hx Myocardial Infarction - 03/2017 - stent placed - on Brilinta, Hx Pacemaker/ICD, Hx Peripheral Vascular Disease, Hx Syncope - 2016, Hx Valvular Heart Disease, Other Cardiovascular Problems/Disorders - cardiac arrest following phenergan long QT syndrome; Percarditis-10/2014 Denies: Hx Congestive Heart Failure, Hx Hypercholesterolemia Respiratory History: Reports: Hx Chronic Bronchitis, Hx Chronic Obstructive Pulmonary Disease (COPD), Hx Pneumonia, Hx Pulmonary Embolism, Other Respiratory Problems/Disorders - PNA Denies: Hx Asthma, Hx Seasonal Allergies, Hx Sleep Apnea GI History: Reports: Hx Cirrhosis, Hx Gall Bladder Disease, Hx Gastroesophageal Reflux Disease, Other GI Disorders - 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 Denies: Hx Crohn's Disease, Hx Diverticulosis, Hx Jaundice History: Reports: Hx Acute Renal Failure - admission in 03/2017, Hx Chronic Renal Failure Denies: Hx Dialysis, Hx Renal Disease Musculoskeletal History: Reports: Hx Arthritis - chronic - pending pain management appt, Hx Back Problems - chronic, Hx Gout, Other Musculoskeletal History - osteo-arthritis Denies: Hx Rheumatoid Arthritis - osteoarthritis Sensory History: Reports: Hx Contacts or Glasses - for reading Denies: Hx Hearing Aid Opthamlomology History: Reports: Hx Contacts or Glasses - for reading Neurological History: Denies: Hx Dementia, Hx Seizures Psychiatric History: Reports: Hx Anxiety, Hx Depression, Hx Inpatient Treatment , Hx Substance Abuse Denies: Hx Suicide Attempt - suicidal ideation, hospitalization - Surgical History Surgery Procedure, Year, and Place: Pacer December 1996, Liver transplant February 1996 , peripheral artery disease surgery in groin 2011, arthoscopic of left knee, Pacemaker Hx Anesthesia Reactions: No - Immunization History Date of Tetanus Vaccine: pt states she doesnt know Date of Influenza Vaccine: none Infectious Disease History: No Infectious Disease History: Reports: Hx Hepatitis - C - s/p liver transplant - no Hep C currently, Hx of Known/Suspected MRSA Denies: Hx Clostridium Difficile, Hx Human Immunodeficiency Virus (HIV), Hx Shingles, Hx Tuberculosis, Hx Known/Suspected VRE, Hx Known/Suspected VRSA, History Other Infectious Disease, Traveled Outside the [place] in Last 30 Days - Family History Known Family History: Positive: Cardiac Disease, Hypertension Family History: Denies FHx breast cancer - Social History Alcohol Use: None Hx Substance Use: Yes Substance Use Type: Reports: Marijuana, Prescribed Hx Tobacco Use: Yes Smoking Status (MU): Former Smoker Type: Cigarettes Amount Used/How Often: 1/2-1 PPD Review of Systems Positive: Fever Positive: Chest Pain Positive: Shortness Of Breath, Cough Negative: Abdominal Pain, Vomiting, Nausea Positive: Other - POSITIVE: Back pain All Other Systems Reviewed And Are Negative: Yes Physical Exam - Summary Physical Exam Summary: VITAL SIGNS: Reviewed. GENERAL: Patient is a well-developed and nourished female who is lying comfortable in the stretcher. Patient is not in any acute respiratory distress. Patient is tactile febrile. HEAD AND FACE: No signs of trauma. No ecchymosis, hematomas or skull depressions. No sinus tenderness. EYES: PERRLA, EOMI x 2, No injected conjunctiva, no nystagmus. EARS: Hearing grossly intact. Ear canals and tympanic membranes are within normal limits. MOUTH: Oropharynx within normal limits. NECK: Supple, trachea is midline, no adenopathy, no JVD, no carotid bruit, no c- spine tenderness, neck with full ROM. CHEST: Symmetric, no tenderness at palpation LUNGS: Decreased breathe sounds bilaterally, crackles at base of lungs CVS: Regular rate and rhythm, S1 and S2 present, no murmurs or gallops appreciated. ABDOMEN: Soft, non-tender. No signs of distention. No rebound no guarding, and no masses palpated. Bowel sounds are normal. EXTREMITIES: FROM in all major joints, no edema, no cyanosis or clubbing. NEURO: Alert and oriented x 3. No acute neurological deficits. Speech is normal and follows commands. SKIN: Dry and warm Triage Information Reviewed: Yes Vital Signs On Initial Exam: Initial Vitals Temp Pulse Resp BP Pulse Ox 101.5 F 71 20 192/160 97 05/14/18 17:23 05/14/18 17:23 05/14/18 17:23 05/14/18 17:23 05/14/18 17:23 Vital Signs Reviewed: Yes Diagnostics - Vital Signs Vital Signs Temp Pulse Resp BP Pulse Ox 05/14/18 18:00 20 05/14/18 17:35 97 05/14/18 17:29 72 18 201/85 96 05/14/18 17:26 75 19 200/90 97 05/14/18 17:23 101.5 F 71 20 192/160 97 - Laboratory Result Diagrams: 05/14/18 18:07 05/14/18 18:07 Lab Statement: Any lab studies that have been ordered have been reviewed, and results considered in the medical decision making process. - Radiology CXR Radiology Interpretation Completed By: Radiologist - SMALL RIGHT BASILAR INFILTRATE. ED PHYSICIAN REVIEWED THIS RADIOLOGY REPORT. - EKG 1758 Cardiac Rate: NL - 74 BPM EKG Rhythm: Sinus Rhythm EKG Interpretation: ST impressions in 2 and 3, AVF V2-V6 EKG Comparison: No Significant Change - Unchange from 03/26/18 Disposition - Course Assessment/Plan: This patient is 62-year-old female who presents to the emergency room with chief complaint of having fevers, chills, productive cough and chest pain. Test results shows slight anemia, creatinine 124, lactic acid is 2.7, magnesium is 1.7, total bili 1.2, AST 44, CPK of 474, troponin was 0.04 , BNP is 2029. Globulin is 4.1. Chest x-ray shows a small right basilar infiltrate. In the ED course the patient was placed in a lunchroom monitor,. Patient was not given IV fluids since the patient is in CHF exacerbation so she was started and Rocephin and Azithroycin for the pneumonia. She was given lasix for CHF exacerbation. At this time I discussed my physical exam, findings and test results with Dr. Banda who accepted the patient for admission. Patient is hemodynamically stable alert and oriented 3. - Differential Dx - Cardiopulmonary Differential Diagnoses - Cardiopulmonary: Aspiration, Bronchitis, CHF - Diagnoses Provider Diagnoses: CHF (congestive heart failure), Pneumonia - Physician Notifications Discussed Care Of Patient With: Aspen Banad Time Discussed With Above Provider: 19:23 Instructed by Provider To: Other - Accepts patient for admission. Discharge - Sign-Out/Discharge Documenting (check all that apply): Patient Departure - ADMIT - Discharge Plan Condition: Stable Disposition: ADMITTED TO [facility] Attestation Statement Scribe Attestation: This is scribe Enmanuel Guerin documenting for attending Charlie Vera MD. User Type: Provider with Scribe Provider Attestation: The documentation recorded by the scribe accurately reflects the service I personally performed and the decisions made by me.
[2018-05-14 18:33] LABS: EGFR Non-African American 44.2 (>60)
[2018-05-14] MEDS ORDERED: Azithromycin IV* 500 MG ADVAN VIAL/BAG IVPB ONE (18:45)
[2018-05-14] MEDS ORDERED: Furosemide IV* 10 MG/ML 10 ML VIAL (100 MG) IV ONE (18:45)
[2018-05-14] MEDS ORDERED: Morphine VIAL* 10 MG/ML 1 ML VIAL IV ONE (18:46)
[2018-05-14] MEDS ORDERED: Acetaminophen TAB* 325 MG PO PRN (20:04)
[2018-05-14] MEDS ORDERED: Levalbuterol 0.63MG/3ML NEB* UNIT OF USE INH PRN (20:04)
[2018-05-14] MEDS ORDERED: Nitroglycerin TAB 0.4 MG* 0.4 MG TAB SL PRN (20:04)
[2018-05-14] MEDS ORDERED: Albuterol 2.5 MG/3 ML NEB.SOL* (0.083%) INH PRN (20:04)
[2018-05-14 20:20] LABS: Urine Appearance Clear; Urine Blood 1+ (Negative); Urine Color Straw; Urine Ketones Negative (Negative); Urine Protein 1+(30 mg/dL) (Negative); Urine Red Blood Cell Trace(0-2/hpf) (Absent); Urine Specific Gravity 1.005 (1.010-1.030); Urine Urobilinogen Negative (Negative); Urine White Blood Cell Absent (Absent)
[2018-05-14] MEDS: Metoprolol Tartrate TAB* 50 mg PO SCH (21:11)
[2018-05-14] MEDS: oxyCODONE TAB* 5 MG TAB PO SCH (21:11)
[2018-05-14] MEDS: Tacrolimus CAP(*) 1 MG PO SCH (21:12)
[2018-05-14] MEDS: Apixaban* 2.5 MG TAB PO SCH (21:12)
--- NOTE | 2018-05-14 23:36 | HP ---
CC: Dr. Koo; Dr. Rizzo* HISTORY AND PHYSICAL: DATE OF ADMISSION: 05/14/18 PRIMARY CARE PHYSICIAN: Dr. Koo. CANDY VENDOR: Dr. Rizzo. ATTENDING PHYSICIAN: Aspen Banda MD* (dictation provided by Laurence Andrews NP). CHIEF COMPLAINT: Chest pain, shortness of breath, cough, and malaise. HISTORY OF PRESENT ILLNESS: Ms. Coombs is a 62-year-old female with a past medical history of atrial fibrillation, on chronic Eliquis therapy; distant history of liver transplant, on chronic tacrolimus therapy; severe pulmonary hypertension; coronary artery disease with stent in March 2017; and COPD who presents to the hospital today with concern for the onset yesterday of chest pain across the front of her chest and across her back, shortness of breath, productive cough, and malaise. Ms. Coombs states that she was in her normal state of health until yesterday. She resides at [facility]. Yesterday, she had the onset of pain across the front of her chest and across her back. She states that this is very similar to the last time she had pneumonia and felt convinced that that was likely what was going on. She also felt short of breath and had a cough with production of minimal white sputum. She stayed in her room throughout the day resting. Today when she woke up, she did not feel any better and therefore ultimately spoke with the staff at [facility] about transfer to the emergency room for evaluation. She states that she felt cold and chilled at home, but she did not check her temperature. She denies any nausea, vomiting, diarrhea, or abdominal pain. She states that her weight has been up over the past few months, but that has been an intentional effort on her part to gain some weight as she was quite thin. She denies any edema in her legs. She is able to lay flat to sleep. In the emergency room, Ms. Coombs had a chest x-ray, which showed concern for a right lower lobe infiltrate. She had a fever with a white count of 101.5. She did not have any leukocytosis. Her ESR, CRP, and procalcitonin are pending. She did have an elevated BNP to 2028, but no associated pulmonary edema noted on her chest x-ray. PAST MEDICAL HISTORY: 1. Atrial fibrillation, on chronic Eliquis therapy. 2. Anxiety. 3. Coronary artery disease with stent placement in March 2017, on Brilinta. 4. Liver transplant, on tacrolimus. 5. History of pacemaker defibrillator for long QT syndrome. 6. COPD. 7. Severe pulmonary hypertension. 8. Moderate to severe mitral regurgitation. MEDICATIONS: 1. Occasional Preparation H Totables 50% t.i.d. to anus. 2. Tylenol 650 mg p.o. q.4 hours p.r.n. 3. Sorbitol 70% p.o. q.24 hours p.r.n. 4. Albuterol nebulizer 2.5 mg inhaled q.4 hours p.r.n. 5. Nitroglycerin 0.4 mg sublingually q.5 minutes p.r.n. 6. Melatonin 5 mg p.o. at bedtime p.r.n. 7. Tacrolimus 1 mg p.o. b.i.d. 8. Metoprolol tartrate 50 mg p.o. b.i.d. 9. Sertraline 25 mg p.o. daily. 10. Apixaban 2.5 mg p.o. b.i.d. 11. Diltiazem 180 mg p.o. daily. 12. Incruse Ellipta 1 inhalation p.o. daily. 13. Cyanocobalamin 1000 mcg p.o. daily. 14. Clonazepam 0.5 mg p.o. daily. 15. Oxycodone 5 mg p.o. mg p.o. b.i.d. 16. Ticagrelor 90 mg p.o. daily. 17. Levalbuterol 0.63 mg inhaled q.4 hours p.r.n. ALLERGIES: PROCAINE and PROMETHAZINE. FAMILY HISTORY: The patient reports her mother and father both had heart disease. SOCIAL HISTORY: The patient is a long-term smoker, but she quit in 2014. No report of alcohol or drug use. States that her son, Ever Coombs, will be her healthcare proxy. REVIEW OF SYSTEMS: A 14-point review of systems was completed with Ms. Coombs and all those not mentioned above were negative PHYSICAL EXAMINATION GENERAL: Ms. Coombs is lying in the bed. She is in no acute distress. VITAL SIGNS: Temperature 101.5, pulse rate 67, respiratory rate 15, O2 saturation 97% on room air, and blood pressure 168/70. LUNGS: Clear to auscultation bilaterally with no accessory muscle use and good aeration. There is no wheezing or crackles. HEART: S1 and S2. No murmur, rub, or gallop. ABDOMEN: Soft and nontender with bowel sounds positive x4. EXTREMITIES: No cyanosis or edema. SKIN: Intact. NEUROLOGIC: She is alert, she is oriented x3, she moves all extremities equally. There is no facial asymmetry or focal weakness. Extraocular movements are intact. LABORATORY DATA: WBC 8.8, hemoglobin 10.3, hematocrit 32, platelet count 225. Sodium 136, potassium 4.0, chloride 103, serum bicarbonate 23, BUN 21, creatinine 1.23, glucose 124, lactic acid 2.7, magnesium 1.7. Troponin 0.04, CRP 15.15, BNP 2029, TSH 2.03, ESR and procalcitonin are pending. Chest x-ray shows a small right basilar infiltrate. EKG shows a sinus rhythm with heart rate of 74 with T-wave inversions are unchanged from previous. ASSESSMENT: Ms. Coombs is a 62-year-old female with a past medical history of chronic obstructive pulmonary disease, severe pulmonary hypertension, moderate to severe mitral regurgitation, coronary artery disease with stent placement in March 2017, and atrial fibrillation who presents today to the hospital with concern for concern for new onset of chest discomfort associated with cough, malaise, and shortness of breath found to have likely pneumonia. Our plans are for observation in the hospital for the followin. Fever with cough and shortness of breath and chest pain: The patient has a small infiltrate noted on her chest x-ray and she is febrile today. Her CRP is not dramatically elevated. Her ESR and procalcitonin are pending. She has no leukocytosis. I think the overall picture is most consistent with pneumonia in the setting of immunocompromise on long-term tacrolimus therapy. Plan to treat with ceftriaxone and azithromycin. Blood cultures have been sent. Her lactic acid was 2.7, we will repeat in 4 hours. She is not currently requiring oxygen. She will continue with nebulizers p.r.n. for her history of chronic obstructive pulmonary disease, but is not in chronic obstructive pulmonary disease exacerbation at this point. 2. Chest pain: The patient's chest pain developed in the setting of shortness of breath and cough. She has a chronically elevated troponin going back to 2014. We will repeat x1, but I have a low index of suspicion for coronary artery disease based on the overall clinical picture. 3. Question of congestive heart failure: The patient does have an elevated BNP to 2028; however, she has no lower extremity edema and no pulmonary edema noted on chest x-ray. She also states that her weight has been unchanged in the past few days. She is also able to lay flat easily with no orthopnea. I do not at this time think she has component of congestive heart failure. She was given Lasix x1 in the emergency department. We will monitor her fluid status closely and will be rechecking her basic metabolic panel, Is and Os, and daily weights. 4. Anemia, chronic stable. Likely secondary to chronic disease. 5. History of coronary artery disease with stent placement, continue Brilinta and metoprolol. 6. Liver transplant, continue tacrolimus. 7. Chronic obstructive pulmonary disease, continue home inhalers. 8. Chronic pain, continue oxycodone. 9. Anxiety, continue clonazepam and sertraline. 10. DVT prophylaxis with Eliquis. 11. Code status is DNR/DNI. 12. Disposition to medical floor. TIME SPENT: Approximately 60 minutes were spent on the admission of this patient, more than half the time spent with the patient at the bedside reviewing the events leading up to this hospitalization, performing the physical examination, and reviewing my plan of care. LAURENCE ANDREWS NP [id number]/CPS #: [id number] DOROTHY
[2018-05-15 07:02] LABS: ABS Basophils 0 10^3/ul (0-0.2); ABS Eosinophils 0.4 10^3/ul (0-0.6); ABS Lymphocytes 1.6 10^3/ul (1.0-4.8); ABS Monocytes 0.7 10^3/ul (0-0.8); ABS Neutrophils 2.8 10^3/ul (1.5-7.7); ABS Nucleated RBC 0 10^3/ul; Eosinophil % 7.9 % (0-6); Hematocrit 29 % (35-47); Hemoglobin 9.6 g/dl (12.0-16.0); Lymphocyte % 28.9 % (25-47); Mean Corpuscular HGB Conc 34 g/dl (31-36); Mean Corpuscular Hemoglobin 28 pg (27-31); Mean Corpuscular Volume 84 fL (80-97); Mean Platelet Volume 7.9 um3 (7.4-10.4); Nucleated Red Blood Cells % 0; Platelet Count 210 10^3/ul (150-450); Red Blood Count 3.42 10^6/ul (4.00-5.40); Red Cell Distribution Width 16 % (10.5-15); White Blood Count 5.5 10^3/ul (3.5-10.8)
[2018-05-15 07:07] LABS: EGFR Non-African American 40.1 (>60)
[2018-05-15] MEDS: Diltiazem CD CAP* 180 MG PO SCH (08:29)
[2018-05-15] MEDS: oxyCODONE TAB* 5 MG TAB PO SCH (08:29)
[2018-05-15] MEDS: Sertraline* 25 MG TAB PO SCH (08:30)
[2018-05-15] MEDS: Tacrolimus CAP(*) 1 MG PO SCH ×2 (08:30→21:14)
[2018-05-15] MEDS: Apixaban* 2.5 MG TAB PO SCH ×2 (08:30→21:14)
[2018-05-15] MEDS: Cyanocobalamin TAB* 500 MCG PO SCH (08:31)
[2018-05-15] MEDS: Ticagrelor* 90 MG TAB PO SCH (08:31)
[2018-05-15] MEDS: clonazePAM TAB(*) 0.5 MG PO SCH (08:31)
[2018-05-15] MEDS: Metoprolol Tartrate TAB* 50 mg PO SCH ×2 (08:36→21:14)
--- NOTE | 2018-05-15 11:27 | PN ---
Subjective Date of Service: 05/15/18 Interval History: Patient seen and examined at bedside. Denies fever, chills, N/V/D. Pt states that she continues to have a cough and her left upper back hurts more when she coughs. She also reports SOB with ambulation. She reports that she has had a cough for a couple of days. Pt states that her intermitted chest discomfort is different than her typical chest pain, she has reproduction of pain with palpation. Family History: Unchanged from Admission Social History: Unchanged from Admission Past Medical History: Unchanged from Admission Objective Active Medications: Acetaminophen (Tylenol Tab*) 650 mg PO Q4H PRN Reason: PAIN Albuterol (Ventolin 2.5 Mg/3 Ml Neb.Monique*) 2.5 mg INH Q4H PRN Reason: SOB/ WHEEZING Apixaban (Eliquis) 2.5 mg PO BID TAI Clonazepam (Klonopin Tab(*)) 0.5 mg PO DAILY TAI Cyanocobalamin (Vitamin B12 Tab*) 1,000 mcg PO DAILY TAI Diltiazem HCl (Cardizem Cd Cap*) 180 mg PO DAILY [facility] Ceftriaxone Sodium 1 gm/ (Sodium Chloride) 50 mls @ 200 mls/hr IVPB Q24H TAI Azithromycin 250 mg/ Sodium (Chloride) 250 mls @ 250 mls/hr IVPB Q24H TAI Levalbuterol HCl (Xopenex 0.63mg/3ml Neb*) 0.63 mg INH Q4H PRNN Reason: WHEEZING Metoprolol Tartrate (Lopressor Tab*) 50 mg PO BID TAI Nitroglycerin (Nitroglycerin Tab 0.4 Mg*) 0.4 mg SL Q5M PRN Reason: PAIN - CHEST Oxycodone HCl (Roxycodone Tab*) 5 mg PO BID TAI Sertraline HCl (Zoloft*) 25 mg PO DAILY TAI Tacrolimus (Prograf Cap(*)) 1 mg PO BID TAI Ticagrelor (Brilinta*) 90 mg PO DAILY [facility] Vital Signs - 8 hr 05/15/18 05/15/18 05/15/18 07:18 08:29 08:31 Temperature 98.7 F Pulse Rate 51 Respiratory 22 18 18 Rate Blood Pressure 133/77 (mmHg) O2 Sat by Pulse 94 Oximetry 05/15/18 08:36 Temperature Pulse Rate 60 Respiratory 18 Rate Blood Pressure (mmHg) O2 Sat by Pulse Oximetry Oxygen Devices in Use Now: None Appearance: NAD, laying in bed Ears/Nose/Mouth/Throat: Mucous Membranes Moist Respiratory: Symmetrical Chest Expansion and Respiratory Effort, Clear to Auscultation Cardiovascular: NL Sounds; No Murmurs; No JVD, RRR Abdominal: NL Sounds; No Tenderness; No Distention Extremities: No Edema Skin: No Rash or Ulcers Neurological: Alert and Oriented x 3, NL Muscle Strength and Tone Lines/Tubes/Other Access: Clean, Dry and Intact Peripheral IV - site benign Nutrition: Taking PO's Result Diagrams: 05/15/18 06:29 05/15/18 06:29 Assess/Plan/Problems-Billing Assessment: Ms. Coombs is a 62 yo female with PMH significant for Afib, liver transplant, severe pulmonary HTN, CAD, and COPD who presented to the emergency room with complaints of chest pain, SOB, cough and malaise. - Patient Problems (1) Pneumonia Code(s): J18.9 - PNEUMONIA, UNSPECIFIED ORGANISM SNOMED Code(s): 172215025 Comment: - Now afebrile and no leukocytosis - Continues to have SOB with exertion, suspect secondary to PNA and not CHF (Pt able to lay flat, no edema, no weight change) - Small right basilar infiltrate - Blood cultures pending - Will check urine legionella and S. penumo antigens - Continue ceftriaxone and azithromycin (2) Chest pain Code(s): R07.9 - CHEST PAIN, UNSPECIFIED SNOMED Code(s): 74203323 Comment: - Mostly resolved, suspect this is non-cardiac. Pain is reproducible and she has PNA - Troponins 0.04 x 3 (chronically elevated in setting of CKD) - Echo 06/2017- EF 50-55%, abnormal ventricular septal wall motion consistent wtih right ventricular pacemaker - No new EKG changes (3) Anemia Code(s): D64.9 - ANEMIA, UNSPECIFIED SNOMED Code(s): 965918420 Comment: - ACD - HH Stable (4) Anxiety Code(s): F41.9 - ANXIETY DISORDER, UNSPECIFIED SNOMED Code(s): 66425716 Comment: -Continue Clonazepam and sertraline (5) CKD (chronic kidney disease) stage 3, GFR 30-59 ml/min Code(s): N18.3 - CHRONIC KIDNEY DISEASE, STAGE 3 (MODERATE) SNOMED Code(s): 344687238 Comment: - Suspect near baseline (6) COPD (chronic obstructive pulmonary disease) Code(s): J44.9 - CHRONIC OBSTRUCTIVE PULMONARY DISEASE, UNSPECIFIED SNOMED Code(s): 32889128 Comment: - No acute exacerbation - Continue home inhaled medications (7) Hypertension Code(s): I10 - ESSENTIAL (PRIMARY) HYPERTENSION SNOMED Code(s): 29475844 Comment: - SBP 130-170's - Continue metoprolol, cardizem (8) CAD (coronary artery disease) Code(s): I25.10 - ATHSCL HEART DISEASE OF [place] CORONARY ARTERY W/O ANG PCTRS SNOMED Code(s): 86789026 Comment: - Continue Ticagrelor, metoprolol, and statin (9) Chronic back pain Code(s): M54.9 - DORSALGIA, UNSPECIFIED; G89.29 - OTHER CHRONIC PAIN SNOMED Code(s): 970091573 Comment: - Continue PRN oxycodone (10) Depression Code(s): F32.9 - MAJOR DEPRESSIVE DISORDER, SINGLE EPISODE, UNSPECIFIED SNOMED Code(s): 29774037 Comment: - Continue zoloft (11) Atrial fibrillation Code(s): I48.91 - UNSPECIFIED ATRIAL FIBRILLATION SNOMED Code(s): 57653102 Comment: - Rate controlled -Continue Apixaban, Diltiazem, and Metoprolol (12) Liver transplant recipient Code(s): Z94.4 - LIVER TRANSPLANT STATUS SNOMED Code(s): 767031660 Comment: - Continue tacrolimus (13) PAD (peripheral artery disease) Code(s): I73.9 - PERIPHERAL VASCULAR DISEASE, UNSPECIFIED SNOMED Code(s): 940440772 Comment: - Asymptomatic - Continue statin (14) DVT prophylaxis Code(s): DCP7739 - SNOMED Code(s): 815744653 Comment: - Apixaban (15) DNR (do not resuscitate) Status and Disposition: OBV to Inpatient. Discharge to home when medically stable.
[2018-05-15] MEDS: oxyCODONE TAB* 5 MG TAB PO PRN ×2 (14:44→21:17)
[2018-05-15] MEDS: cefTRIAXone(*) 1 GM in NS 0.9% 50 ML* 50 ML IVPB SCH (17:51)
[2018-05-15] MEDS: Azithromycin IV(*) 250 MG in NS 0.9% 250 ML* 250 ML IVPB SCH (18:52)
[2018-05-16] MEDS: Tacrolimus CAP(*) 1 MG PO SCH ×2 (08:37→19:44)
[2018-05-16] MEDS: Diltiazem CD CAP* 180 MG PO SCH (08:37)
[2018-05-16] MEDS: Cyanocobalamin TAB* 500 MCG PO SCH (08:37)
[2018-05-16] MEDS: Apixaban* 2.5 MG TAB PO SCH ×2 (08:37→19:44)
[2018-05-16] MEDS: clonazePAM TAB(*) 0.5 MG PO SCH (08:38)
[2018-05-16] MEDS: Sertraline* 25 MG TAB PO SCH (08:38)
[2018-05-16] MEDS: Ticagrelor* 90 MG TAB PO SCH (08:38)
[2018-05-16] MEDS: oxyCODONE TAB* 5 MG TAB PO PRN ×3 (08:51→21:33)
[2018-05-16] MEDS: Metoprolol Tartrate TAB* 50 mg PO SCH ×2 (09:23→20:22)
--- NOTE | 2018-05-16 10:10 | PN ---
Subjective Date of Service: 05/16/18 Interval History: Patient seen and examined at bedside. Denies fever, chills, N/V/D. States that she continues to have mild shortness of breath with exertion but over all feels this is improving. She also continues to have chest discomfort and left upper back pain with coughing. She continues to have an intermittent cough. She feels like she needs another day before she is ready for discharge to home. Family History: Unchanged from Admission Social History: Unchanged from Admission Past Medical History: Unchanged from Admission Objective Active Medications: Acetaminophen (Tylenol Tab*) 650 mg PO Q4H PRN Reason: PAIN Albuterol (Ventolin 2.5 Mg/3 Ml Neb.Monique*) 2.5 mg INH Q4H PRN Reason: SOB/ WHEEZING Apixaban (Eliquis) 2.5 mg PO BID TAI Clonazepam (Klonopin Tab(*)) 0.5 mg PO DAILY TAI Cyanocobalamin (Vitamin B12 Tab*) 1,000 mcg PO DAILY TAI Diltiazem HCl (Cardizem Cd Cap*) 180 mg PO DAILY TAI Ceftriaxone Sodium 1 gm/ (Sodium Chloride) 50 mls @ 200 mls/hr IVPB Q24H TAI Azithromycin 250 mg/ Sodium (Chloride) 250 mls @ 250 mls/hr IVPB Q24H TAI Levalbuterol HCl (Xopenex 0.63mg/3ml Neb*) 0.63 mg INH Q4H PRN Reason: WHEEZING Metoprolol Tartrate (Lopressor Tab*) 50 mg PO BID TAI Nitroglycerin (Nitroglycerin Tab 0.4 Mg*) 0.4 mg SL Q5M PRN Reason: PAIN - CHEST Oxycodone HCl (Roxycodone Tab*) 5 mg PO Q6H PRN Reason: PAIN Sertraline HCl (Zoloft*) 25 mg PO DAILY TAI Tacrolimus (Prograf Cap(*)) 1 mg PO BID TAI Ticagrelor (Brilinta*) 90 mg PO DAILY [facility] Vital Signs - 8 hr 05/16/18 05/16/18 05/16/18 03:27 07:30 08:38 Temperature 97.9 F 97.9 F Pulse Rate 53 59 Respiratory 18 16 20 Rate Blood Pressure 126/63 129/62 (mmHg) O2 Sat by Pulse 97 95 Oximetry 05/16/18 05/16/18 08:51 08:54 Temperature Pulse Rate 58 Respiratory 18 Rate Blood Pressure (mmHg) O2 Sat by Pulse Oximetry Oxygen Devices in Use Now: None Appearance: NAD, sitting up in bed Ears/Nose/Mouth/Throat: Mucous Membranes Moist Respiratory: Symmetrical Chest Expansion and Respiratory Effort, Clear to Auscultation - , diminished Cardiovascular: NL Sounds; No Murmurs; No JVD, RRR Abdominal: NL Sounds; No Tenderness; No Distention Extremities: No Edema Skin: No Rash or Ulcers Neurological: Alert and Oriented x 3, NL Muscle Strength and Tone Lines/Tubes/Other Access: Clean, Dry and Intact Peripheral IV - site benign Nutrition: Taking PO's Result Diagrams: 05/15/18 06:29 05/15/18 06:29 Microbiology and Other Data: Microbiology 05/15/18 20:55 Legionella Urinary Antigen - Final Urine Negative Legionella Antigen 05/15/18 20:55 Streptococcus pneumoniae Ag Screen - Final Urine Negative S. pneumo Antigen 05/14/18 19:59 Aerobic Blood Culture - Preliminary Blood Venous No Growth Day 1 Anaerobic Blood Culture - Preliminary No Growth Day 1 05/14/18 18:07 Aerobic Blood Culture - Preliminary Blood Venous No Growth Day 1 Anaerobic Blood Culture - Preliminary No Growth Day 1 Assess/Plan/Problems-Billing Assessment: Ms. Coombs is a 62 yo female with PMH significant for Afib, liver transplant, severe pulmonary HTN, CAD, and COPD who presented to the emergency room with complaints of chest pain, SOB, cough and malaise. - Patient Problems (1) Pneumonia Code(s): J18.9 - PNEUMONIA, UNSPECIFIED ORGANISM SNOMED Code(s): 403844325 Comment: - Afebrile and no leukocytosis - Continues to have SOB with exertion, suspect secondary to PNA and not CHF (Pt able to lay flat, no edema, no weight change) - Small right basilar infiltrate - Blood cultures no growth day 1/2 - Urine legionella and S. penumo antigens negative - Continue ceftriaxone and azithromycin (2) Chest pain Code(s): R07.9 - CHEST PAIN, UNSPECIFIED SNOMED Code(s): 07615206 Comment: - Mostly resolved, suspect this is non-cardiac. Pain is reproducible and she has PNA - Troponins 0.04 x 3 (chronically elevated in setting of CKD) - Echo 06/2017- EF 50-55%, abnormal ventricular septal wall motion consistent wtih right ventricular pacemaker - No new EKG changes (3) Anemia Code(s): D64.9 - ANEMIA, UNSPECIFIED SNOMED Code(s): 949359498 Comment: - ACD - HH Stable (4) Anxiety Code(s): F41.9 - ANXIETY DISORDER, UNSPECIFIED SNOMED Code(s): 32257541 Comment: -Continue Clonazepam and sertraline (5) CKD (chronic kidney disease) stage 3, GFR 30-59 ml/min Code(s): N18.3 - CHRONIC KIDNEY DISEASE, STAGE 3 (MODERATE) SNOMED Code(s): 260779938 Comment: - Suspect near baseline (6) COPD (chronic obstructive pulmonary disease) Code(s): J44.9 - CHRONIC OBSTRUCTIVE PULMONARY DISEASE, UNSPECIFIED SNOMED Code(s): 90370903 Comment: - No acute exacerbation - Continue home inhaled medications (7) Hypertension Code(s): I10 - ESSENTIAL (PRIMARY) HYPERTENSION SNOMED Code(s): 19468088 Comment: - SBP 120-140's - Continue metoprolol, and cardizem (8) CAD (coronary artery disease) Code(s): I25.10 - ATHSCL HEART DISEASE OF [place] CORONARY ARTERY W/O ANG PCTRS SNOMED Code(s): 67619400 Comment: - Continue Ticagrelor, metoprolol, and statin (9) Chronic back pain Code(s): M54.9 - DORSALGIA, UNSPECIFIED; G89.29 - OTHER CHRONIC PAIN SNOMED Code(s): 768102098 Comment: - Continue PRN oxycodone (10) Depression Code(s): F32.9 - MAJOR DEPRESSIVE DISORDER, SINGLE EPISODE, UNSPECIFIED SNOMED Code(s): 89467086 Comment: - Continue zoloft (11) Atrial fibrillation Code(s): I48.91 - UNSPECIFIED ATRIAL FIBRILLATION SNOMED Code(s): 55597613 Comment: - Rate controlled -Continue Apixaban, Diltiazem, and Metoprolol (12) Liver transplant recipient Code(s): Z94.4 - LIVER TRANSPLANT STATUS SNOMED Code(s): 661840727 Comment: - Continue tacrolimus (13) PAD (peripheral artery disease) Code(s): I73.9 - PERIPHERAL VASCULAR DISEASE, UNSPECIFIED SNOMED Code(s): 116089668 Comment: - Asymptomatic - Continue statin (14) DVT prophylaxis Code(s): WAO2252 - SNOMED Code(s): 973916276 Comment: - Apixaban (15) DNR (do not resuscitate) Status and Disposition: Inpatient. Discharge to home when medically stable. Attending: Theresa Lopez
[2018-05-16] MEDS: cefTRIAXone(*) 1 GM in NS 0.9% 50 ML* 50 ML IVPB SCH (18:57)
[2018-05-16] MEDS: Azithromycin IV(*) 250 MG in NS 0.9% 250 ML* 250 ML IVPB SCH (19:44)
[2018-05-17] MEDS: Apixaban* 2.5 MG TAB PO SCH (08:02)
[2018-05-17] MEDS: clonazePAM TAB(*) 0.5 MG PO SCH (08:02)
[2018-05-17] MEDS: Ticagrelor* 90 MG TAB PO SCH (08:02)
[2018-05-17] MEDS: Sertraline* 25 MG TAB PO SCH (08:02)
[2018-05-17] MEDS: Diltiazem CD CAP* 180 MG PO SCH (08:02)
[2018-05-17] MEDS: Cyanocobalamin TAB* 500 MCG PO SCH (08:02)
[2018-05-17] MEDS: Tacrolimus CAP(*) 1 MG PO SCH (08:02)
[2018-05-17] MEDS: oxyCODONE TAB* 5 MG TAB PO PRN (08:02)
[2018-05-17] MEDS: Metoprolol Tartrate TAB* 50 mg PO SCH (08:03)
[2018-05-17 11:37] VITALS: BP 151/56
--- NOTE | 2018-05-17 22:48 | PN ---
Subjective Date of Service: 05/17/18 Interval History: examined at the bedside, c/o left chest pain with deep breath and movement. Denies shortness of breath. does report cough with brown secretions. Denies abd pain n/v/d. Family History: Unchanged from Admission Social History: Unchanged from Admission Past Medical History: Unchanged from Admission Objective Vital Signs - 8 hr 05/17/18 14:58 Respiratory 18 Rate Oxygen Devices in Use Now: None Appearance: resting in bed, no acute distress Eyes: No Scleral Icterus Ears/Nose/Mouth/Throat: Clear Oropharnyx, Mucous Membranes Moist Neck: NL Appearance and Movements; NL JVP, Trachea Midline Respiratory: Symmetrical Chest Expansion and Respiratory Effort, Clear to Auscultation - slightly diminshed in the bases bilat Cardiovascular: NL Sounds; No Murmurs; No JVD, No Edema Abdominal: NL Sounds; No Tenderness; No Distention Extremities: No Edema Skin: No Rash or Ulcers Neurological: Alert and Oriented x 3 Nutrition: Taking PO's Result Diagrams: 05/15/18 06:29 05/15/18 06:29 Microbiology and Other Data: Microbiology 05/15/18 20:55 Legionella Urinary Antigen - Final Urine Negative Legionella Antigen 05/15/18 20:55 Streptococcus pneumoniae Ag Screen - Final Urine Negative S. pneumo Antigen 05/14/18 19:59 Aerobic Blood Culture - Preliminary Blood Venous No Growth Day 1 Anaerobic Blood Culture - Preliminary No Growth Day 1 05/14/18 18:07 Aerobic Blood Culture - Preliminary Blood Venous No Growth Day 1 Anaerobic Blood Culture - Preliminary No Growth Day 1 Assess/Plan/Problems-Billing Assessment: Ms. Coombs is a 62 yo female with PMH significant for Afib, liver transplant, severe pulmonary HTN, CAD, and COPD who presented to the emergency room with complaints of chest pain, SOB, cough and malaise. - Patient Problems (1) Chest pain Status: Acute Code(s): R07.9 - CHEST PAIN, UNSPECIFIED SNOMED Code(s): 59385263 Comment: - Mostly resolved, suspect this is non-cardiac. Pain is reproducible and she has PNA - Troponins 0.04 x 3 (chronically elevated in setting of CKD) - Echo 06/2017- EF 50-55%, abnormal ventricular septal wall motion consistent wtih right ventricular pacemaker - No new EKG changes (2) Pneumonia Status: Acute Code(s): J18.9 - PNEUMONIA, UNSPECIFIED ORGANISM SNOMED Code(s ): 240950207 Comment: - Afebrile and no leukocytosis - Continues to have SOB with exertion, suspect secondary to PNA and not CHF (Pt able to lay flat, no edema, no weight change) - Small right basilar infiltrate - Blood cultures no growth - Urine legionella and S. penumo antigens negative - Continue azithromycin for 3 more days and will start vantin to complete 7 day course of antibiotics (3) Hypertension Status: Chronic Priority: Medium Code(s): I10 - ESSENTIAL (PRIMARY) HYPERTENSION SNOMED Code(s): 29329721 Comment: - SBP 150 - Continue metoprolol, and cardizem (4) Liver transplant recipient Status: Chronic Code(s): Z94.4 - LIVER TRANSPLANT STATUS SNOMED Code(s): 528902891 Comment: - Continue tacrolimus (5) Anemia Status: Chronic Code(s): D64.9 - ANEMIA, UNSPECIFIED SNOMED Code(s): 493848751 Comment: - ACD - HH Stable (6) Anxiety Status: Chronic Code(s): F41.9 - ANXIETY DISORDER, UNSPECIFIED SNOMED Code(s ): 95761495 Comment: -Continue Clonazepam and sertraline (7) Atrial fibrillation Status: Chronic Code(s): I48.91 - UNSPECIFIED ATRIAL FIBRILLATION SNOMED Code(s): 62777754 Comment: - Rate controlled -Continue Apixaban, Diltiazem, and Metoprolol (8) DVT prophylaxis Status: Acute Code(s): GXL3051 - SNOMED Code(s): 066817106 Comment: - Apixaban Status and Disposition: Discharge to home
--- NOTE | 2018-05-19 04:23 | DS ---
CC: Dr. Koo; Dr. Rizzo* DISCHARGE SUMMARY: DATE OF ADMISSION: 05/15/18 DATE OF DISCHARGE: 05/17/18 PROVIDER: Vashti Walter NP ATTENDING PHYSICIAN: Dr. Theresa Pinto* (dictated by Vashti Walter NP). PRIMARY CARE PROVIDER: Dr. Koo. PRIMARY DIAGNOSES: 1. Chest pain, noncardiac. 2. Pneumonia. 3. Elevated BNP. SECONDARY DIAGNOSES: 1. Atrial fibrillation, on chronic Eliquis. 2. Anxiety. 3. Coronary artery disease with stent placement in March 2017. 4. Liver transplant. 5. Pacemaker defibrillator for long QT syndrome. 6. Chronic obstructive pulmonary disease. 7. Severe pulmonary hypertension. 8. [id number] mitral regurgitation. STUDIES COMPLETED WHILE IN THE HOSPITAL: She had a chest x-ray on 05/14/18. Radiologist's impression: Small right basilar infiltrate. She had an electrocardiogram on 05/14/18, which showed sinus rhythm at a rate of 74. DISCHARGE MEDICATIONS: She will be discharged on: 1. Azithromycin 250 mg p.o. daily x3 days. 2. Vantin 200 mg p.o. q.12 hours x5 days. Continued home medications: 1. Acetaminophen 650 mg p.o. q.4 hours as needed for pain. 2. Albuterol nebulizer q.4 hours as needed for shortness of breath. 3. Eliquis 2.5 mg p.o. b.i.d. 4. Clonazepam 0.5 mg p.o. daily. 5. Vitamin B12 1000 mcg p.o. daily. 6. Diltiazem 180 mg p.o. daily. 7. Xopenex 0.63 q.4 hours as needed for shortness of breath or wheezing. 8. Melatonin 5 mg p.o. daily at bedtime. 9. Metoprolol tartrate 50 mg p.o. b.i.d. 10. Nitroglycerin 0.4 mg q.5 minutes as needed for chest pain. 11. Oxycodone 5 mg p.o. b.i.d. as needed for pain. 12. Sertraline 25 mg p.o. daily. 13. Sorbitol 70% p.o. q.24 hours. 14. Prograf 1 tablet p.o. b.i.d. 15. Brilinta 90 mg p.o. daily. 16. Ellipta 1 inhaled p.o. daily. 17. Witch Kailyn preparation h.s. as needed. HISTORY OF PRESENT ILLNESS AND HOSPITAL COURSE: Ms. Coombs is a 62-year-old female with a past medical history significant for atrial fibrillation, on chronic Eliquis; distant history of liver transplant, on chronic Prograf therapy ; severe pulmonary hypertension; coronary artery disease with stent placement in March 2017 and COPD, who presents to the hospital today with the concern of yesterday chest pain across her chest and back, shortness of breath, productive cough and malaise. Ms. Coombs states that she was in her normal state of health until yesterday. She was at [facility] yesterday. She had an onset of pain across the front of her chest and across her back. She states that it was very similar to last time she had pneumonia and felt convinced that was likely what was going on. She was also short of breath and with a minimal productive cough with white sputum. On her day of admission, she woken up and did not feel any better. She spoke with staff at [facility] and was ultimately transferred to the emergency room for further evaluation. She did report fever and chills, but did not check her temperature. She denied any nausea, vomiting or diarrhea. Denied any abdominal pain. She denies any changes in her weight over the past few months. Denies any edema in her leg. Report she is able to lie flat while sleeping. While in the emergency room, Ms. Coombs had a chest x-ray, which showed a concern for right lower lobe infiltrate. She did have a fever. She had an elevated BNP of 9, but no associated pulmonary edema or associated symptoms. She was able to lay lie in the bed. During her hospitalization, she was monitored on telemetry. Her troponins were trended. They remained at baseline at 0.04 x2. Her BUN and creatinine were slightly elevated at 25 and 1.34, which is at her baseline. Her procalcitonin was negative at 0.1. Her C-reactive protein was 15.15. During her hospitalization, she was monitored on telemetry. She had no cardiac arrhythmias. She was given nebulizers and IV antibiotics. During her hospitalization, she received ceftriaxone and azithromycin. On the day of discharge, the patient states that she is feeling better. Her shortness of breath has improved. She does continue to have some chest pain with deep breath palpation and coughing that is reproducible. I suspect that her chest pain is related to her right lower lobe pneumonia. At this time, Ms. Coombs is stable for discharge to home. Vital signs are as follows: Blood pressure 151/56, heart rate is 56, respirations 16, O2 saturation on room air is 100%, temperature was 97.9. DISCHARGE PLAN: Ms. Coombs will be discharged back home to [facility]. Activity as tolerated. 1. Pneumonia. She should continue azithromycin 250 mg p.o. daily x3 days. She should continue on Vantin 200 mg p.o. b.i.d. x5 days. She should continue to do her nebulizers and inhalers for shortness of breath and wheezing. She should follow up with her primary care provider in 4 to 7 days to confirm resolution of her symptoms. 2. Elevated BNP. The patient did have an elevated BNP during this hospitalization. She showed no signs of symptoms of congestive heart failure or pulmonary edema. She was able to lie flat in the bed without any orthopnea. She had no lower extremity swelling. Her lungs were diminished with a few expiratory wheezes. Given these findings, I feel that her elevation in her BNP is not associated with acute CHF exacerbation or pulmonary edema. 3. Liver transplant. She should continue on her home medications of Prograf. 4. COPD. She should continue on her home medication of albuterol and Xopenex nebulizers. She should follow up with her primary care provider in 4 to 7 days. The patient was instructed to return to the emergency room for any increased chest pain or shortness of breath, fever or chills or any other concerning or worsening symptoms. The patient verbalized understanding. This is summarization of her hospitalization. TIME SPENT: Time spent on this discharge was approximately 60 minutes, greater than half that time was spent with the patient discussing discharge plans and instructions. CONDITION ON DISCHARGE: Stable. I have discussed this with my attending, Dr. Theresa Pinto, and she is in agreement with my plan. VASHTI WALTER, [place] [id number]/[facility] #: [id number] DOROTHY
== END 2018-05-17 15:15 | disposition home or self-care (01) | DRG 194 ==
LOC: ED 17:15 → MED 20:01 → OBSVTOIN 05-15 11:37
PROVIDERS: ADMIT Pediatrics; ATTEND Student in an Organized Health Care Education/Training Program
DX: J18.9 Pneumonia, unspecified organism (principal); Z94.4 Liver transplant status; I13.0 Hypertensive heart and chronic kidney disease with heart failure and stage 1 through stage 4 chronic kidney disease, or unspecified chronic kidney disease; I25.10 Atherosclerotic heart disease of native coronary artery without angina pectoris; I73.9 Peripheral vascular disease, unspecified; J44.9 Chronic obstructive pulmonary disease, unspecified; K21.9 Gastro-esophageal reflux disease without esophagitis; I12.9 Hypertensive chronic kidney disease with stage 1 through stage 4 chronic kidney disease, or unspecified chronic kidney disease; F41.9 Anxiety disorder, unspecified; F32.9 Major depressive disorder, single episode, unspecified; M10.9 Gout, unspecified; M19.90 Unspecified osteoarthritis, unspecified site; I48.91 Unspecified atrial fibrillation; I27.20 Pulmonary hypertension, unspecified; D63.8 Anemia in other chronic diseases classified elsewhere; Z66 Do not resuscitate; G89.29 Other chronic pain; I50.9 Heart failure, unspecified; N18.3 Chronic kidney disease, stage 3 (moderate); M54.9 Dorsalgia, unspecified; I34.0 Nonrheumatic mitral (valve) insufficiency; Z95.810 Presence of automatic (implantable) cardiac defibrillator; I25.2 Old myocardial infarction; Z95.5 Presence of coronary angioplasty implant and graft; Z86.711 Personal history of pulmonary embolism; Z87.891 Personal history of nicotine dependence
CPT/HCPCS: 36415; 71045; 80048; 80053; 81003; 81015; 82550; 82553; 83605; 83735; 83880; 84145; 84443; 84484; 85025; 85652; 86140; 87040; 87899; 93005; 99285; A9270-GY; G0378; J0456; J0696; J1940; J2270; J7507

== ENCOUNTER 2018-09-19 05:35 | Inpatient (IN) | payer MEDICARE, MEDICAID ==
[2018-09-19] MEDS ORDERED: methylPREDNISolone 125 MG* 2 ML VIAL IV ONE (05:52)
--- NOTE | 2018-09-19 05:52 | ED ---
Shortness of Breath - HPI Summary HPI Summary: This patient is a 62 year old female brought in by ambulance to [facility] with a chief complaint of SOB since approx. 2000 yesterday. Patient additionally states that she has had chest pain and a headache for the past 2 days. The pain is rated 9/10 in severity. Symptoms aggravated by nothing. Symptoms alleviated by nothing. Patient has a hx of COPD. Level 5 Caveat: Respiratory Distress - History of Current Complaint Chief Complaint: EDShortnessOfBreath Time Seen by Provider: 09/19/18 05:46 Hx Obtained From: Patient Hx From Patient Unobtainable Due To: Other - Respiratory Distress Onset/Duration: Sudden Onset, Lasting Hours, Still Present Timing: Constant Current Severity: Moderate Dyspnea At: Rest Aggrevating Factors: Nothing Alleviating Factors: Nothing Associated Signs & Symptoms: Chest Pain Unrelated to Cough - Allergy/Home Medications Allergies/Adverse Reactions: Allergies Allergy/AdvReac Type Severity Reaction Status Date / Time procaine Allergy See Comment Verified 05/14/18 17:34 promethazine Allergy Unknown Verified 05/14/18 17:34 Reaction Details PMH/Surg Hx/FS Hx/Imm Hx Previously Healthy: No - Level 5 Caveat: Respiratory Distress Endocrine/Hematology History: Reports: Hx Anemia Denies: Hx Anticoagulant Therapy, Hx Blood Transfusions, Hx Diabetes Cardiovascular History: Reports: Hx Angina, Hx Auto Implanted Cardiovert Defib, Hx Cardiac Arrest, Hx Coronary Artery Disease, Hx Hypertension, Hx Myocardial Infarction - 03/2017 - stent placed - on Brilinta, Hx Pacemaker/ICD, Hx Peripheral Vascular Disease, Hx Syncope - 2016, Hx Valvular Heart Disease, Other Cardiovascular Problems/Disorders - cardiac arrest following phenergan long QT syndrome; Percarditis-10/2014 Denies: Hx Congestive Heart Failure, Hx Hypercholesterolemia Respiratory History: Reports: Hx Chronic Bronchitis, Hx Chronic Obstructive Pulmonary Disease (COPD), Hx Pneumonia, Hx Pulmonary Embolism, Other Respiratory Problems/Disorders - PNA Denies: Hx Asthma, Hx Seasonal Allergies, Hx Sleep Apnea GI History: Reports: Hx Cirrhosis, Hx Gall Bladder Disease, Hx Gastroesophageal Reflux Disease, Other GI Disorders - 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 Denies: Hx Crohn's Disease, Hx Diverticulosis, Hx Jaundice History: Reports: Hx Acute Renal Failure - admission in 03/2017, Hx Chronic Renal Failure Denies: Hx Dialysis, Hx Renal Disease Musculoskeletal History: Reports: Hx Arthritis - chronic - pending pain management appt, Hx Back Problems - chronic, Hx Gout, Other Musculoskeletal History - osteo-arthritis Denies: Hx Rheumatoid Arthritis - osteoarthritis Sensory History: Reports: Hx Contacts or Glasses - for reading Denies: Hx Hearing Aid Opthamlomology History: Reports: Hx Contacts or Glasses - for reading Neurological History: Denies: Hx Dementia, Hx Seizures Psychiatric History: Reports: Hx Anxiety, Hx Depression, Hx Inpatient Treatment , Hx Substance Abuse Denies: Hx Suicide Attempt - suicidal ideation, hospitalization - Surgical History Surgery Procedure, Year, and Place: Pacer December 1996, Liver transplant February 1996 , peripheral artery disease surgery in groin 2011, arthoscopic of left knee, Pacemaker Hx Anesthesia Reactions: No - Immunization History Date of Tetanus Vaccine: pt states she doesnt know Date of Influenza Vaccine: none Infectious Disease History: No Infectious Disease History: Reports: Hx Hepatitis - C - s/p liver transplant - no Hep C currently, Hx of Known/Suspected MRSA Denies: Hx Clostridium Difficile, Hx Human Immunodeficiency Virus (HIV), Hx Shingles, Hx Tuberculosis, Hx Known/Suspected VRE, Hx Known/Suspected VRSA, History Other Infectious Disease, Traveled Outside the [place] in Last 30 Days - Family History Known Family History: Positive: Cardiac Disease, Hypertension Family History: Denies FHx breast cancer - Social History Alcohol Use: None Hx Substance Use: No Substance Use Type: Reports: None Hx Tobacco Use: Yes Smoking Status (MU): Former Smoker Type: Cigarettes Amount Used/How Often: 1/2-1 PPD Review of Systems Negative: Fever Positive: Chest Pain Positive: Shortness Of Breath Positive: Headache All Other Systems Reviewed And Are Negative: No - Comments Additional Review of Systems Comments: Level 5 Caveat: Respiratory Distress Physical Exam - Summary Physical Exam Summary: Appearance: Well-appearing, Well-nourished, lying in bed in moderate respiratory distress Skin: Warm, dry, no obvious rash Eyes: sclera anicteric, no conjunctival pallor ENT: mucous membranes moist, pharynx appears normal Neck: Supple, nontender Respiratory: Diffuse wheezing, poor aeration Cardiovascular: Normal S1, S2. No murmurs. Normal distal pulses in tibial and radial bilaterally. Abdomen: Soft, nontender, normal active bowel sounds present Musculoskeletal: Normal, Strength/ROM Intact Neurological: A&Ox3, awake and alert, mentation is normal, Psychiatric: affect is normal, does not appear anxious or depressed Level 5 Caveat: Respiratory Distress Triage Information Reviewed: Yes Vital Signs On Initial Exam: Initial Vitals Temp Pulse Resp BP Pulse Ox 100 F 84 24 214/99 94 09/19/18 05:39 09/19/18 05:39 09/19/18 05:39 09/19/18 05:39 09/19/18 05:39 Vital Signs Reviewed: Yes Completion Of Physical Exam Limited Due To: Level 5 Diagnostics - Vital Signs Vital Signs Temp Pulse Resp BP Pulse Ox 09/19/18 05:39 100 F 84 24 214/99 94 - Laboratory Result Diagrams: 09/20/18 06:53 09/20/18 06:53 Lab Statement: Any lab studies that have been ordered have been reviewed, and results considered in the medical decision making process. - Radiology CXR Radiology Interpretation Completed By: ED Physician Summary of Radiographic Findings: CXR reveals poor inspiratory effort with crowding of lung markings, no acute infiltrates, no pulmonary edema. ED physician has reviewed this radiology report. - EKG 0548 Cardiac Rate: NL EKG Rhythm: Sinus Rhythm - 96 BPM Summary of EKG Findings: An EKG, taken 0548, reveals NSR (96 BPM), wandering baseline, nonspecific ST and T wave changes, similar to previous EKG at 0540. Re-Evaluation - Re-Evaluation First Eval Re-Evaluation Time: 06:27 Change: Improved Comment: Work of breathing improved, as is aeration, pt feels subjectively better. Will continue vapotherm and nebs. Course/Dx - Diagnoses Provider Diagnoses: COPD (chronic obstructive pulmonary disease), Chest pain - Critical Care Time Critical Care Time: 30-74 min Discharge - Sign-Out/Discharge Documenting (check all that apply): Patient Departure - Discharge Plan Condition: Stable Disposition: ADMITTED TO [facility] - Billing Disposition and Condition Condition: STABLE Disposition: Admitted to [facility] - Attestation Statements Document Initiated by Doc: Yes Documenting Scribe: Camron Hathaway Provider For Whom Doc is Documenting (Include Credential): Castillo Gonzalez MD Scribe Attestation: Camron Yates scribed for Castillo Gonzalez MD on 09/22/18 at 0231. Scribe Documentation Reviewed: Yes Provider Attestation: The documentation as recorded by the Camron dc accurately reflects the service I personally performed and the decisions made by me, Castillo Gonzalez MD Status of Scribe Document: Viewed
[2018-09-19] MEDS ORDERED: Albuterol/Ipratropium NEB.SOL* Albuterol 2.5 MG/Ipratropium 0.5 MG 3 ML ONE ×2 (06:00→06:01)
[2018-09-19] MEDS ORDERED: Albuterol/Ipratropium NEB.SOL* Albuterol 2.5 MG/Ipratropium 0.5 MG 3 ML INH ONE (06:06)
[2018-09-19] MEDS ORDERED: Morphine VIAL* 4 MG/ML VIAL (1 ml vial) IV ONE (06:09)
[2018-09-19] MEDS ORDERED: Magnesium Sulfate 2 GM IV* 2 GM/50 ML BAG IVPB ONE (06:19)
[2018-09-19 06:28] LABS: ABS Basophils 0 10^3/ul (0-0.2); ABS Eosinophils 0.1 10^3/ul (0-0.6); ABS Monocytes 0.9 10^3/ul (0-0.8); ABS Neutrophils 7.7 10^3/ul (1.5-7.7); ABS Nucleated RBC 0 10^3/ul; Eosinophil % 1.4 %; Hematocrit 31 % (35-47); Lymphocyte % 10.5 %; Mean Corpuscular HGB Conc 33 g/dl (31-36); Mean Corpuscular Hemoglobin 26 pg (27-31); Mean Corpuscular Volume 81 fL (80-97); Mean Platelet Volume 7.7 fL (7.4-10.4); Nucleated Red Blood Cells % 0; Platelet Count 284 10^3/ul (150-450); Red Blood Count 3.79 10^6/ul (4.00-5.40); Red Cell Distribution Width 18 % (10.5-15); White Blood Count 9.9 10^3/ul (3.5-10.8)
[2018-09-19 06:46] LABS: Albumin 3.9 g/dL (3.2-5.2); BUN/Creatinine Ratio 17.4 (8-20); Calcium 9.2 mg/dL (8.6-10.3); EGFR Non-African American 47.8 (>60); Globulin 4.1 g/dL (2-4); Potassium 3.7 mmol/L (3.5-5.0); Total Bilirubin 0.7 mg/dL (0.2-1.0)
--- NOTE | 2018-09-19 07:17 | ED ---
Progress - Progress Note Progress Note: Patient is received as a sign out from Dr. Gonzalez to Dr. Hill at 0700 shift change. Pt greeted by me. Pt states feeling much better, no distress. Pt on vapotherm Dr. Gonzalez d/w hospitalist - await admission pt aware - requesting po water no other concerns at present Will continue to monitor [address] Su - accepting admission Re-Evaluation - Re-Evaluation First Eval Re-Evaluation Time: 06:27 Change: Improved Comment: Work of breathing improved, as is aeration, pt feels subjectively better. Will continue vapotherm and nebs. Course/Dx - Diagnoses Provider Diagnoses: COPD (chronic obstructive pulmonary disease), Chest pain - Provider Notifications Discussed Care Of Patient With: Janeen Su Time Discussed With Above Provider: 07:37 Instructed by Provider To: Admit As Inpatient - Patient's case was discussed with Dr. Su at 0737, Dr. Su accepts for admission. Discharge - Sign-Out/Discharge Documenting (check all that apply): Patient Departure - admit - Discharge Plan Condition: Stable Disposition: ADMITTED TO [facility] Referrals: Bill Koo MD [Primary Care Provider] - - Billing Disposition and Condition Condition: STABLE Disposition: Admitted to [facility] - Attestation Statements Document Initiated by Doc: Yes Documenting Scribe: MADHAVI GOMEZ Provider For Whom [facility] is Documenting (Include Credential): MISAEL HILL MD Scribe Attestation: IMADHAVI , scribed for MISAEL HILL MD on 09/19/18 at 0740. Scribe Documentation Reviewed: Yes Provider Attestation: The documentation as recorded by the MADHAVI dc accurately reflects the service I personally performed and the decisions made by me, MISAEL HILL MD Status of Scribe Document: Viewed
[2018-09-19] MEDS ORDERED: Acetaminophen TAB* 325 MG PO PRN ×2 (07:53→07:56)
[2018-09-19] MEDS ORDERED: Albuterol/Ipratropium NEB.SOL* Albuterol 2.5 MG/Ipratropium 0.5 MG 3 ML INH PRN (07:53)
[2018-09-19] MEDS ORDERED: Levalbuterol 0.63MG/3ML NEB* UNIT OF USE INH PRN (07:56)
[2018-09-19] MEDS ORDERED: Nitroglycerin TAB 0.4 MG* 0.4 MG TAB SL PRN (07:56)
[2018-09-19] MEDS: Metoprolol Tartrate TAB* 50 mg PO SCH ×2 (09:41→19:42)
[2018-09-19] MEDS: clonazePAM TAB(*) 0.5 MG PO SCH (09:41)
[2018-09-19] MEDS: Cyanocobalamin TAB* 500 MCG PO SCH (09:41)
[2018-09-19] MEDS: Diltiazem CD CAP* 180 MG PO SCH (09:41)
[2018-09-19] MEDS: Sertraline* 25 MG TAB PO SCH (09:41)
[2018-09-19] MEDS: oxyCODONE TAB* 5 MG TAB PO SCH ×2 (09:41→19:38)
[2018-09-19] MEDS: Ticagrelor* 90 MG TAB PO SCH (09:41)
[2018-09-19] MEDS: Apixaban* 2.5 MG TAB PO SCH ×2 (09:41→19:38)
[2018-09-19] MEDS: Tacrolimus CAP(*) 1 MG PO SCH ×2 (09:42→20:08)
--- NOTE | 2018-09-19 11:14 | HP ---
CC: Dr. Koo; Dr. Rizzo * HISTORY AND PHYSICAL: DATE OF ADMISSION: 09/19/18 CHIEF COMPLAINT: Shortness of breath. HISTORY OF PRESENT ILLNESS: This is a 62-year-old female with history of COPD, severe pulmonary hypertension, mitral regurgitation, coronary artery disease and tricuspid regurgitation who presents to the emergency department with a few days of worsening shortness of breath. On a good day, she is able to walk 3 to 4 city blocks but yesterday she could not even leave her house. She was so short of breath than last night when she was lying down she "could not get comfortable" so she called EMS. In the emergency department, she received morphine, Solu-Medrol, magnesium and nebulizer and was placed on Vapotherm and is feeling much better. She has no complaints at this time and feels back to herself. Over the past few days, she also noted some chest pressure and back discomfort; however, the back pain is not unusual for her as she states she has ongoing back pain and pain issues. At this time, she has no pain. She has had a productive cough with a little phlegm and some subjective fevers. PAST MEDICAL HISTORY: 1. Atrial fibrillation, on anticoagulation. 2. Anxiety. 3. Coronary artery disease with stent. 4. Hepatitis C cirrhosis status post liver transplant in 1995. 5. Long QT syndrome with VT status post AICD. 6. COPD with no home O2 requirement. 7. Severe pulmonary hypertension. 8. Moderate to severe mitral regurgitation. 9. Peripheral vascular disease. FAMILY HISTORY: She has a positive family history for coronary artery disease in both her parents. HEALTHCARE PROXY: Her son, Ever Coombs. SOCIAL HISTORY: She lives at [place]. She quit smoking in 2014 but had a long smoking history prior to that. She does not drink alcohol or use any other illicit drugs. REVIEW OF SYSTEMS: As per the HPI. Remainder of the 14-point review of systems is negative. PHYSICAL EXAMINATION GENERAL: Alert elderly female in no acute distress. She is breathing comfortably and able to speak in full sentences. She is nontoxic appearing. VITAL SIGNS: Temperature 100, heart rate 54, respiratory rate 17, pulse ox 98% on 40 L at 100% FiO2, blood pressure 122/65. HEENT: Her pupils are round and reactive to light. Her oral mucosa is very dry. NECK: JVP to the mandible LUNGS: She has crackles in the bases. I hear no wheezes and good air movement. CHEST: She is in a regular rate and rhythm with a systolic murmur over the apex. Her PMI is nondisplaced. She has a device in her right chest wall. ABDOMEN: An old transplant scar is well healed. Her liver is not palpable. Abdomen is soft, nontender, nondistended. No guarding or rebound. EXTREMITIES: No edema, no rashes or ulcers. NEUROLOGIC: Her strength is 5/5 in all extremities. LABORATORY DATA: Troponin 0.02. Sodium 134, potassium 3.7, chloride 103, bicarb 21, creatinine 1.15, glucose 198, lactic 1.5, total bilirubin 0.7, AST 40 , ALT 120. White blood cell is 9.9, hemoglobin 10.0, platelets 284,000. IMAGING: Chest x-ray shows COPD and pulmonary interstitial edema. EKG shows sinus rhythm with left axis deviation, ST depression across the precordium with T-wave inversions laterally. This is similar to an EKG from May. ASSESSMENT AND PLAN: This is a 62-year-old female with history of chronic obstructive pulmonary disease, pulmonary hypertension and valvular heart disease who presents to the emergency department with 3 days of shortness of breath and was placed on Vapotherm in the emergency department for work of breathing. 1. Acute respiratory failure. This may be multifactorial and related to chronic obstructive pulmonary disease exacerbation versus worsening valvular disease or pulmonary hypertension. Her volume exam is challenging; however, I do not believe that she is markedly volume overloaded based on her JVP; however , her chest x-ray certainly has some pulmonary edema and I wonder if her valves are worsening as they were noted and both her mitral and tricuspid valves were noted to have moderate to severe regurgitation back in June 2017. I am going to repeat her echo to reevaluate her valves and her right-sided heart pressures and she may need diuresis. Alternatively, it is possible that a chronic obstructive pulmonary disease exacerbation and an upper respiratory infection are playing a role in her shortness of breath as she had a low-grade fever and describes subjective fevers at home and a cough, sore throat and runny nose. Still, her pulmonary exam does not suggest a COPD exacerbation, and I suspect a cardiac etiology over a pulmonary source of her shortness of breath and am most concerned about worsening valvular heart failure. I do not see any indication for antibiotics at this time but we will continue to monitor her closely. I will discuss her case with Dr. Rizzo as she is well known to him. I will continue prednisone and nebulizers. For her heart failure, continue her on metoprolol. 2. Atrial fibrillation. She is currently in normal sinus rhythm. I am continuing her Cardizem, metoprolol and Eliquis. 3. Coronary artery disease with an RCA stent. I am continuing her Brilinta, metoprolol and I do not see that she is on a statin but she should be. 4. History of liver transplant. I am continuing her Prograf. I am a little concerned that her alkaline phosphatase and AST are elevated and will need to monitor her LFTs closely; however, rejection at this stage after transplant would be very unusual. 5. Chronic pain syndrome. I am continuing her home oxycodone. 6. DVT prophylaxis. She is already therapeutically anticoagulated. 7. Disposition. Ms. Sifuentes will be admitted to the ICU since she is on the Vapotherm under the medical service. [id number]/[facility] #: [id number] [facility]
--- NOTE | 2018-09-19 12:49 | ECHO ---
Patient: ADELE ZELAYA [facility] Rec#: [id number] : 1955 Date: 09/19/2018 Age: 62y Height: 157 cm / 61.8 in Weight: 63 kg / 138.9 lbs Sex: F BSA: 1.63 Room#: ICU 3 Admit Date#: 09/19/2018 Type: Inpatient Referring: Janeen Su MD Reading: Nicholas Harley MD Health Information Assistant: Rachna Josue RDCS,RDMS CC: Bill Koo MD Transthoracic Echocardiogram Indication: Valvular disease, Dyspnea BP: 146/72 HR: 65 Rhythm: NSR Findings History: ICD, long QT syndrome, HTN, PAD, AFIB, COPD, pericarditis, liver transplant Technical Comments: The study quality is good. Left Ventricle: The left ventricular chamber size is normal. Mild concentric left ventricular hypertrophy is observed. Global left ventricular wall motion and contractility are within normal limits. There is normal left ventricular systolic function. The estimated ejection fraction is 55-60%. Abnormal left ventricular diastolic function is observed. Left Atrium: The left atrium is moderately dilated. Right Ventricle: The right ventricular chamber size and systolic function are within normal limits. Right Atrium: The right atrial cavity size is normal. Aortic Valve: The aortic valve is trileaflet. Systolic excursion of the aortic valve is normal. There is a trace of aortic regurgitation. There is no evidence of aortic stenosis. Mitral Valve: The mitral valve leaflets are mildly thickened. There is moderate to severe mitral regurgitation. There is no evidence of mitral stenosis. Tricuspid Valve: The tricuspid valve leaflets are normal. There is moderate to severe tricuspid regurgitation. The right ventricular systolic pressure is estimated at 54 mmHg. There is evidence of moderate to severe pulmonary hypertension. Pulmonic Valve: The pulmonic valve appears normal. There is a trace pulmonic regurgitation. Pericardium: There is no significant pericardial effusion. Aorta: The aortic root appears normal. There is no dilatation of the aortic arch. Pulmonary Artery: The main pulmonary artery appears normal. Venous: The inferior vena cava appears normal in size. There is an approximate 50% respiratory change in the inferior vena cava dimension. Conclusions Mild concentric left ventricular hypertrophy is observed. Global left ventricular wall motion and contractility are within normal limits. There is normal left ventricular systolic function. The estimated ejection fraction is 55-60%. There is a trace of aortic regurgitation. There is moderate to severe mitral regurgitation. There is moderate to severe tricuspid regurgitation. There is evidence of moderate to severe pulmonary hypertension. There is no significant pericardial effusion. Compared to study of 06/06/17, the LV function is the same. The degree of MR is slightly worse. Elevated PASP is new Measurements Name Value Normal Range RVIDd (AP) 2D 2.8 cm (0.9 - 2.6) RAd ISD 4CH 4.7 cm (3.4 - 4.9) RA (A4C)W 3.7 cm (2.9 - 4.6) IVSd (2D) 1.2 cm (0.6 - 1) LVPWd (2D) 1 cm (0.6 - 1) LVIDd (2D) 4.9 cm (3.6 - 5.4) LVIDs (2D) 3.8 cm - LV FS (2D) 24 % (25 - 45) Aortic Annulus 2 cm (1.4 - 2.6) Ao root diameter (2D) 2.5 cm (2.1 - 3.5) Ascending Ao 3.2 cm (2.1 - 3.4) Aortic arch 3 cm (1.8 - 3.4) LA dimension (AP) 2D 4.2 cm (2.3 - 3.8) LAd ISD 4CH 5.9 cm (2.9 - 5.3) LA ISD 4CH W 4.5 cm (2.5 - 4.5) Name Value Normal Range LA ESV BP (A/L) index 39 ml/m2 - Name Value Normal Range MV E-wave Vmax 1.1 m/sec - MV deceleration time 63 msec - MV A-wave Vmax 0.9 m/sec - MV E:A ratio 1.3 ratio - P. vein S-wave Vmax 0.4 m/sec - P. vein D-wave Vmax 0.5 m/sec - P. vein S:D Vmax ratio 1 ratio - P. vein A-wave duration 151 msec - LV septal e' Vmax 0.04 m/sec - LV lateral e' Vmax 0.06 m/sec - LV E:e' septal ratio 27.5 ratio - LV E:e' lateral ratio 17 ratio - Name Value Normal Range AV Vmax 1.4 m/sec - AV VTI 33 cm - AV peak gradient 84 mmHg - LVOT Vmax 1 m/sec - LVOT VTI 21 cm - LVOT peak gradient 4 mmHg - LVOT mean gradient 2 mmHg - JD Vmax 0.7 m/sec - Name Value Normal Range MV Vmax 1 m/sec - MV VTI 32.5 cm - MV peak gradient 4 mmHg - MV mean gradient 2 mmHg - MV PHT 78 msec - MR Vmax 4.9 m/sec - MR VTI 183 cm - MR volume (PISA) 11 ml - MR ERO 0.06 cm2 - MR PISA radius 0.4 cm - MR alias Vmax 31 cm/sec - MVA (PHT) 2.8 cm2 - MVA (continuity VTI) 2.1 cm2 - Name Value Normal Range TR Vmax 3.4 m/sec - TR peak gradient 46 mmHg - RAP 8 mmHg - RVSP 54 mmHg - IVC diameter 1.9 cm - Name Value Normal Range PV Vmax 0.8 m/sec - PV peak gradient 3 mmHg -
--- NOTE | 2018-09-19 16:40 | PN ---
Progress Note - Progress Note Date of Service: 09/19/18 Note: Preliminary CXR read not entered in ED. Radiologist final read today shows interstitial edema. Pt. admitted. No change in treatment needed at this time.
[2018-09-20 07:16] LABS: ABS Basophils 0 10^3/ul (0-0.2); ABS Eosinophils 0 10^3/ul (0-0.6); ABS Lymphocytes 0.7 10^3/ul (1.0-4.8); ABS Monocytes 0.5 10^3/ul (0-0.8); ABS Neutrophils 12.1 10^3/ul (1.5-7.7); ABS Nucleated RBC 0 10^3/ul; Eosinophil % 0.1 %; Hematocrit 28 % (35-47); Lymphocyte % 5.2 %; Mean Corpuscular HGB Conc 33 g/dl (31-36); Mean Corpuscular Hemoglobin 26 pg (27-31); Mean Corpuscular Volume 81 fL (80-97); Mean Platelet Volume 8.1 fL (7.4-10.4); Nucleated Red Blood Cells % 0; Platelet Count 249 10^3/ul (150-450); Red Blood Count 3.41 10^6/ul (4.00-5.40); Red Cell Distribution Width 18 % (10.5-15); White Blood Count 13.3 10^3/ul (3.5-10.8)
[2018-09-20 07:32] LABS: BUN/Creatinine Ratio 28.2 (8-20); Calcium 9.4 mg/dL (8.6-10.3); EGFR Non-African American 41.1 (>60); Potassium 4.5 mmol/L (3.5-5.0)
[2018-09-20] MEDS: oxyCODONE TAB* 5 MG TAB PO SCH ×2 (08:59→20:57)
[2018-09-20] MEDS: Cyanocobalamin TAB* 500 MCG PO SCH (09:00)
[2018-09-20] MEDS: Ticagrelor* 90 MG TAB PO SCH (09:00)
[2018-09-20] MEDS: Apixaban* 2.5 MG TAB PO SCH ×2 (09:00→20:57)
[2018-09-20] MEDS: clonazePAM TAB(*) 0.5 MG PO SCH (09:00)
[2018-09-20] MEDS: Diltiazem CD CAP* 180 MG PO SCH (09:00)
[2018-09-20] MEDS: Metoprolol Tartrate TAB* 50 mg PO SCH ×2 (09:00→20:57)
[2018-09-20] MEDS: Sertraline* 25 MG TAB PO SCH (09:00)
[2018-09-20] MEDS: Tacrolimus CAP(*) 1 MG PO SCH ×2 (09:00→20:57)
--- NOTE | 2018-09-20 10:09 | PN ---
Subjective Date of Service: 09/20/18 Interval History: Feeling much better today. No more chest pain or SOB; no wheezing. Weaned down to 4L from vapotherm yesterday. Eating breakfast comfortably. Objective Active Medications: Acetaminophen (Tylenol Tab*) 650 mg PO Q4H PRN PRN Reason: FEVER/PAIN Albuterol/Ipratropium (Duoneb (Albuterol 2.5 Mg/Ipratropium 0.5 Mg)) 1 neb INH [id number] AWAKE PRN PRN Reason: sob/wheexing Apixaban (Eliquis*) 2.5 mg PO BID [facility] Last Admin: 09/20/18 09:00 Dose: 2.5 mg Clonazepam (Klonopin Tab(*)) 0.5 mg PO DAILY [facility] Last Admin: 09/20/18 09:00 Dose: 0.5 mg Cyanocobalamin (Vitamin B12 Tab*) 1,000 mcg PO DAILY [facility] Last Admin: 09/20/18 09:00 Dose: 1,000 mcg Diltiazem HCl (Cardizem Cd Cap*) 180 mg PO DAILY [facility] Last Admin: 09/20/18 09:00 Dose: 180 mg Levalbuterol HCl (Xopenex 0.63mg/3ml Neb*) 0.63 mg INH Q4H PRN PRN Reason: WHEEZING Metoprolol Tartrate (Lopressor Tab*) 50 mg PO BID [facility] Last Admin: 09/20/18 09:00 Dose: 50 mg Nitroglycerin (Nitroglycerin Tab 0.4 Mg*) 0.4 mg SL Q5M PRN PRN Reason: PAIN - CHEST Oxycodone HCl (Roxycodone Tab*) 5 mg PO BID [facility] Last Admin: 09/20/18 08:59 Dose: 5 mg Sertraline HCl (Zoloft*) 25 mg PO DAILY [facility] Last Admin: 09/20/18 09:00 Dose: 25 mg Tacrolimus (Prograf Cap(*)) 1 mg PO BID [facility] Last Admin: 09/20/18 09:00 Dose: 1 mg Ticagrelor (Brilinta*) 90 mg PO DAILY [facility] Last Admin: 09/20/18 09:00 Dose: 90 mg Vital Signs - 8 hr 09/20/18 09/20/18 09/20/18 03:09 08:00 08:59 Temperature 98.0 F 98.1 F Pulse Rate 50 65 Respiratory 20 18 18 Rate Blood Pressure 108/47 134/55 (mmHg) O2 Sat by Pulse 98 99 Oximetry 09/20/18 09:00 Temperature Pulse Rate Respiratory 18 Rate Blood Pressure (mmHg) O2 Sat by Pulse Oximetry Oxygen Devices in Use Now: Nasal Cannula Appearance: alert, resting comfortably in bed Eyes: No Scleral Icterus Ears/Nose/Mouth/Throat: NL Teeth, Lips, Gums Neck: - - JVP + 14cm Respiratory: Symmetrical Chest Expansion and Respiratory Effort, - - few crackles, no rhonchi or wheezing Cardiovascular: No Edema, - - systolic murmur at apex without radiation. RRR. icd right chest wall. Abdominal: NL Sounds; No Tenderness; No Distention Lymphatic: No Cervical Adenopathy Skin: No Rash or Ulcers Neurological: Alert and Oriented x 3 Result Diagrams: 09/20/18 06:53 09/20/18 06:53 Microbiology and Other Data: Microbiology 09/19/18 19:25 Nasal Screen MRSA (PCR) - Final Nasal Mrsa Detected Assess/Plan/Problems-Billing Assessment: This is a 62 year old lady with history of mod-sev MR and mod-sev TR and COPD who presented to the ED with Chest pain and SOB and was found to be hypoxic and have increased work of breathing. - Patient Problems (1) Acute hypoxemic respiratory failure Current Visit: No Status: Acute Code(s): J96.01 - ACUTE RESPIRATORY FAILURE WITH HYPOXIA SNOMED Code(s): 424930778 Comment: Seems more likely related to valvular heart failure, which may have been exacerbated by elevated blood pressure, or worsening mitral valve disease TTE yesterday showed worsening MR She is supposed to have a MILKA in October; I wonder if this should be done while she is here Dr. Ignacio recommends a stress TTE to eval R-sided and PA pressures with exercise (2) Acute diastolic heart failure Current Visit: No Status: Acute Code(s): I50.31 - ACUTE DIASTOLIC ( CONGESTIVE) HEART FAILURE SNOMED Code(s): 877268789 Comment: as above; will try gentle diuresis today (3) Chest pain Current Visit: No Status: Acute Code(s): R07.9 - CHEST PAIN, UNSPECIFIED SNOMED Code(s): 39674096 Comment: May be having demand ischemia due to valve disease Troponins peaked at 0.11; ekg was paced and unchanged from prior Stress echo will also eval for ischemia (4) Chronic pain Current Visit: No Status: Acute Code(s): G89.29 - OTHER CHRONIC PAIN SNOMED Code(s): 70616426 Comment: follows with pain clinic, will continue home oxy (5) Hypertensive urgency Current Visit: No Status: Acute Priority: High Code(s): I16.0 - HYPERTENSIVE URGENCY SNOMED Code(s): 662998279 Comment: resolved in the ED without bp intervention (6) CKD (chronic kidney disease) stage 3, GFR 30-59 ml/min Current Visit: No Status: Chronic Code(s): N18.3 - CHRONIC KIDNEY DISEASE, STAGE 3 (MODERATE) SNOMED Code(s): 355785866 Comment: at baseline today (7) COPD (chronic obstructive pulmonary disease) Current Visit: No Status: Chronic Code(s): J44.9 - CHRONIC OBSTRUCTIVE PULMONARY DISEASE, UNSPECIFIED SNOMED Code(s): 86012598 Comment: not exacerbated continue Ellipta and Albuterol PRN (8) Liver transplant recipient Current Visit: No Status: Chronic Code(s): Z94.4 - LIVER TRANSPLANT STATUS SNOMED Code(s): 641546581 Comment: Continue tacrolimus
[2018-09-20] MEDS ORDERED: oxyCODONE TAB* 5 MG TAB PO ONE (16:56)
[2018-09-20] MEDS ORDERED: oxyCODONE TAB* 5 MG TAB ONE (17:08)
--- NOTE | 2018-09-21 06:44 | CONS ---
CC: Dr. Koo; Dr. Rizzo; Hospitalist Service CARDIOLOGY CONSULTATION: DATE OF CONSULT: 09/20/18 REASON FOR CONSULT: Shortness of breath, possible congestive heart failure. CHIEF COMPLAINT: Shortness of breath. HISTORY OF PRESENT ILLNESS: Mrs. Coombs is a 62-year-old woman followed by Cardiology for long QT syndrome, coronary artery disease, atrial fibrillation. The patient additionally has valvular heart disease with mitral insufficiency. Noncardiac conditions include COPD, she has severe longstanding pu lmonary hypertension, and she has hepatitis C. The patient states she was in her usual state of health until about 2 days ago. She was just tired. She went to bed, she awoke to go to the bathroom, and then when she laid down, she could not breathe well. She sat up and breathing was better, and she tried a couple of home nebulizers, but there was no benefit, so she sought care at [facility] and was sent to the hospital. The patient states she is b heidi today, and the nurses confirm that they have been able to turn her oxygen levels down. The patient said she started feeling better as soon as she got the Vapotherm treatment. The patient denies any awareness of eating salty foods. No fevers, chills, or sweats. No coughing. No other infectious signs. In reading Dr. Su's note, however, she states that she had a product estephanie cough with a small amount of phlegm and that the patient felt feverish. PAST MEDICAL HISTORY: 1. Paroxysmal AFib. 2. Long QT syndrome (ICD). 3. Coronary artery disease with stent to the right coronary artery, March 2017. 4. Peripheral vascular disease. 5. COPD. 6. Hepatitis C, history of liver transplant (1995). 7. Chronic renal insufficiency. MEDICATIONS: Current inpatient medications include: 1. Tylenol p.r.n. 2. Albuterol nebulizer. 3. Xopenex nebulizer. 4. Nitroglycerin p.r.n. 5. Eliquis 2.5 mg b.i.d. 6. Klonopin 0.5 mg a day. 7. Vitamin B12 1000 mg a day. 8. Diltiazem 180 mg a day. 9. Metoprolol 50 mg b.i.d. 10. Roxicodone p.r.n. 11. Zoloft 75 mg a day. 12. Prograf (tacrolimus) 1 cap b.i.d. 13. Ticagrelor (Brilinta) 90 mg daily. ALLERGIES: Include PHENERGAN and PROCAINE. FAMILY HISTORY: Positive for coronary artery disease in both of her parents. SOCIAL HISTORY: The patient is a resident of [place]. She stopped smoking approximately 2014. For dina alcohol abuse. Does not use recreational drugs. REVIEW OF SYSTEMS: A 14-point review of systems was negative for change in bowel or bladder habits. No palpitations. No racing of the heart. Slightly dizzy, but no falling. No chest pain, pressure, or heaviness. All other review of systems was negative. PHYSICAL EXAM: On exam, the patient is 5 feet 2 inches, weighs 136 pounds with a BMI of 25. General Appearance: Petite woman appearing somewhat older than 62 years, lying in bed at 35 to 40 degrees w ith oxygen prongs and appearing comfortable. Psychologically, pleasant and cooperative. Neurologica lly, awake, alert, and oriented to person, place, and time. Cranial nerves II through XII intact. G rossly normal sensory and motor function in the upper and lower extremities and normal gait. Skin: [place] complexion, warm, dry. No cyanosis. HEENT: Pupils are equal and round. Mucous membranes mode rately moist. Neck: Without thyromegaly or lymphadenopathy. Breath sounds distant but clear. No wh eezing, rales, or rhonchi. Coronary: Also distant S1 and S2, regular, low-pitch pansystolic murmur heard at the apex, and also soft murmur heard in the upper sternal border. Abdomen: Soft and nonten radha. Liver can be felt bouncing in the right upper quadrant. Lower extremities are free of edema an d warmth. DIAGNOSTIC STUDIES/LAB DATA: White count 13.3, hematocrit 28, platelets 249. Sodium 135, potassium 4 .5, chloride 104, bicarb 21, BUN 37, creatinine 1.3, lactic acid 1.5, glucose 132. AST 40, ALT 23. BNP 1502. Troponin #1 of 0.2, troponin #2 of 0.05, troponin #3 of 0.12, troponin #4 of 0.11, troponi n #5 of 0.07. Studies: The patient's transthoracic echo shows mild left ventricular hypertrophy with an ejection f raction of 55% to 60%, [id number] mitral insufficiency, fmyxoysv-lc-zhkvyi tricuspid insuffic iency, and PA pressure was moderate-to- severely elevated at 54 mmHg. Compared with echo of 2017, th e MR had increased. A 12-lead ECG showed sinus rhythm, 82 beats a minute, [place] QRS with motion artifact but also signif icant ST depression across the precordial leads that is 09/19/18 at 0753. A 12-lead ECG at 1549 show s a ventricularly paced rhythm, what looks like AV dissociation. Chest x-ray shows COPD with interst itial edema. IMPRESSION AND PLAN: In summary, Ms. Maria Coombs is a 62-year-old woman with long QT syndrome w ith an ICD, paroxysmal atrial fibrillation, coronary artery disease, [id number] mitral and mo honjnq-bm-qbowie tricuspid insufficiency, and severe chronic obstructive pulmonary disease, presentin g with rather acute shortness of breath. It appeared to respond to Vapotherm treatments, but also peñaloza s evidence of congestive heart failure on the basis of her elevated BNP, chest x-ray, and her orthopn ea could represent chronic obstructive pulmonary disease or congestive heart failure. Additionally, her troponins are mildly elevated and her EKGs are concerning to me not for the prolonged QT and sign ificant ST changes which are chronic, but for evidence of complete heart block requiring her backup p acing for her defibrillator to kick in. To look into the possibility of her mitral valve contributing to congestive heart failure or ischemic -induced congestive heart failure, I would recommend an exercise echo with the aim of walking her to her peak, checking the degree of mitral and tricuspid insufficiency rest and post stress, and more im portantly PA pressures rest and post stress and see if these elevate significantly. This would also allow us the ability to see if there is inducible ischemia. It would be further interesting to see i f she developed any more heart block and ventricular pacing. This too could lead to a change in sympt omatology. I talked to Maria about this and she does not feel quite ready to do this tomorrow, and I would continue with treatment for possible chronic obstructive pulmonary disease exacerbation for now, as she is responding well to it and consider adding the stress test on Tuesday. I would also recommend a pacemaker interrogation in the morning to see if she has had any atrial fibr illation or non-sustained ventricular tachycardia that might have contributed to her original present ation. Thank you for allowing me to assist in this nice woman's care. [id number]/[facility] #: [id number]
[2018-09-21] MEDS ORDERED: Furosemide IV* 10 MG/ML 2 ML VIAL (20 MG) IV ONE ×2 (09:34→17:01)
--- NOTE | 2018-09-21 09:37 | PN ---
Subjective Date of Service: 09/21/18 Interval History: No overnight events. She feels "a little better" today. She denies shortness of breath. O2 has been weaned down to 2L/min. She has no pain, just feels tired. Objective Active Medications: Acetaminophen (Tylenol Tab*) 650 mg PO Q4H PRN PRN Reason: FEVER/PAIN Albuterol/Ipratropium (Duoneb (Albuterol 2.5 Mg/Ipratropium 0.5 Mg)) 1 neb INH [id number] AWAKE PRN PRN Reason: sob/wheexing Apixaban (Eliquis*) 2.5 mg PO BID [facility] Last Admin: 09/20/18 20:57 Dose: 2.5 mg Clonazepam (Klonopin Tab(*)) 0.5 mg PO DAILY [facility] Last Admin: 09/20/18 09:00 Dose: 0.5 mg Cyanocobalamin (Vitamin B12 Tab*) 1,000 mcg PO DAILY [facility] Last Admin: 09/20/18 09:00 Dose: 1,000 mcg Diltiazem HCl (Cardizem Cd Cap*) 180 mg PO DAILY [facility] Last Admin: 09/20/18 09:00 Dose: 180 mg Levalbuterol HCl (Xopenex 0.63mg/3ml Neb*) 0.63 mg INH Q4H PRN PRN Reason: WHEEZING Metoprolol Tartrate (Lopressor Tab*) 50 mg PO BID [facility] Last Admin: 09/20/18 20:57 Dose: 50 mg Nitroglycerin (Nitroglycerin Tab 0.4 Mg*) 0.4 mg SL Q5M PRN PRN Reason: PAIN - CHEST Oxycodone HCl (Roxycodone Tab*) 5 mg PO BID [facility] Last Admin: 09/20/18 20:57 Dose: 5 mg Sertraline HCl (Zoloft*) 25 mg PO DAILY [facility] Last Admin: 09/20/18 09:00 Dose: 25 mg Tacrolimus (Prograf Cap(*)) 1 mg PO BID [facility] Last Admin: 09/20/18 20:57 Dose: 1 mg Ticagrelor (Brilinta*) 90 mg PO DAILY [facility] Last Admin: 09/20/18 09:00 Dose: 90 mg Vital Signs - 8 hr 09/21/18 03:39 Temperature 97.8 F Pulse Rate 59 Respiratory 18 Rate Blood Pressure 150/69 (mmHg) O2 Sat by Pulse 94 Oximetry Oxygen Devices in Use Now: Nasal Cannula Appearance: alert, well appearing but does become short of breath with speaking Eyes: No Scleral Icterus Ears/Nose/Mouth/Throat: NL Teeth, Lips, Gums Neck: - - +JVP Respiratory: Symmetrical Chest Expansion and Respiratory Effort, - - crackles right base Cardiovascular: - - murmur at apex. icd right chest wall. Abdominal: NL Sounds; No Tenderness; No Distention Lymphatic: No Cervical Adenopathy Extremities: No Edema Skin: No Rash or Ulcers Neurological: Alert and Oriented x 3 Result Diagrams: 09/20/18 06:53 09/20/18 06:53 Microbiology and Other Data: Microbiology 09/19/18 19:25 Nasal Screen MRSA (PCR) - Final Nasal Mrsa Detected Assess/Plan/Problems-Billing Assessment: This is a 62 year old lady with history of mod-sev MR and mod-sev TR and COPD who presented to the ED with Chest pain and SOB and was found to be hypoxic and have increased work of breathing. - Patient Problems (1) Acute hypoxemic respiratory failure Current Visit: No Status: Acute Code(s): J96.01 - ACUTE RESPIRATORY FAILURE WITH HYPOXIA SNOMED Code(s): 870228290 Comment: Seems more likely related to valvular heart failure, which may have been exacerbated by elevated blood pressure, or worsening mitral valve disease TTE 09/19 showed worsening MR She agrees to a stress TTE to eval R-sided and PA pressures with exercise (2) NSTEMI (non-ST elevated myocardial infarction) Current Visit: Yes Status: Acute Code(s): I21.4 - NON-ST ELEVATION (NSTEMI) MYOCARDIAL INFARCTION SNOMED Code(s): 81039498 Comment: suspect demand, but her ekg is nondiagnostic so a stress test will also be helpful in evaluating for ischemia (3) Acute diastolic heart failure Current Visit: No Status: Acute Code(s): I50.31 - ACUTE DIASTOLIC ( CONGESTIVE) HEART FAILURE SNOMED Code(s): 224152503 Comment: as above; will try gentle diuresis today (4) Chest pain Current Visit: No Status: Acute Code(s): R07.9 - CHEST PAIN, UNSPECIFIED SNOMED Code(s): 31909562 Comment: May be having demand ischemia due to valve disease Troponins peaked at 0.11; ekg was paced and unchanged from prior Stress echo will also eval for ischemia (5) Chronic pain Current Visit: No Status: Acute Code(s): G89.29 - OTHER CHRONIC PAIN SNOMED Code(s): 59398084 Comment: follows with pain clinic, will continue home oxy (6) Hypertensive urgency Current Visit: No Status: Acute Priority: High Code(s): I16.0 - HYPERTENSIVE URGENCY SNOMED Code(s): 788534731 Comment: resolved in the ED without bp intervention (7) CKD (chronic kidney disease) stage 3, GFR 30-59 ml/min Current Visit: No Status: Chronic Code(s): N18.3 - CHRONIC KIDNEY DISEASE, STAGE 3 (MODERATE) SNOMED Code(s): 094461272 Comment: at baseline today (8) COPD (chronic obstructive pulmonary disease) Current Visit: No Status: Chronic Code(s): J44.9 - CHRONIC OBSTRUCTIVE PULMONARY DISEASE, UNSPECIFIED SNOMED Code(s): 80084853 Comment: not exacerbated continue Ellipta and Albuterol PRN (9) Liver transplant recipient Current Visit: No Status: Chronic Code(s): Z94.4 - LIVER TRANSPLANT STATUS SNOMED Code(s): 316845267 Comment: Continue tacrolimus
[2018-09-21] MEDS: clonazePAM TAB(*) 0.5 MG PO SCH (11:59)
[2018-09-21] MEDS: Cyanocobalamin TAB* 500 MCG PO SCH (12:00)
[2018-09-21] MEDS: Metoprolol Tartrate TAB* 50 mg PO SCH ×2 (12:00→20:17)
[2018-09-21] MEDS: oxyCODONE TAB* 5 MG TAB PO SCH ×2 (12:00→20:15)
[2018-09-21] MEDS: Apixaban* 2.5 MG TAB PO SCH ×2 (12:00→20:16)
[2018-09-21] MEDS: Sertraline* 25 MG TAB PO SCH (12:00)
[2018-09-21] MEDS: Tacrolimus CAP(*) 1 MG PO SCH ×2 (12:01→20:17)
[2018-09-21] MEDS: Diltiazem CD CAP* 180 MG PO SCH (12:01)
[2018-09-21] MEDS: Ticagrelor* 90 MG TAB PO SCH (12:01)
[2018-09-22 06:47] LABS: BUN/Creatinine Ratio 31.3 (8-20); Calcium 9.3 mg/dL (8.6-10.3); EGFR Non-African American 40.1 (>60)
[2018-09-22] MEDS: Metoprolol Tartrate TAB* 50 mg PO SCH ×3 (07:35→20:11)
[2018-09-22] MEDS: Diltiazem CD CAP* 180 MG PO SCH (07:35)
[2018-09-22] MEDS: clonazePAM TAB(*) 0.5 MG PO SCH (07:40)
[2018-09-22] MEDS: Tacrolimus CAP(*) 1 MG PO SCH ×2 (07:40→20:10)
[2018-09-22] MEDS: Apixaban* 2.5 MG TAB PO SCH ×2 (07:40→20:10)
[2018-09-22] MEDS: oxyCODONE TAB* 5 MG TAB PO SCH ×2 (07:40→20:11)
[2018-09-22] MEDS: Sertraline* 25 MG TAB PO SCH (07:41)
[2018-09-22] MEDS: Ticagrelor* 90 MG TAB PO SCH (07:41)
[2018-09-22] MEDS: Cyanocobalamin TAB* 500 MCG PO SCH (07:41)
[2018-09-22] MEDS ORDERED: Regadenoson* 0.4 MG/5 ML SYRINGE ONE (10:00)
[2018-09-22] MEDS ORDERED: Naloxone* 0.4 MG/ML 1 ML VIAL ONE (13:35)
[2018-09-22] MEDS ORDERED: Midazolam* 1 MG/ML 10 ML VIAL (10 MG) ONE (13:35)
[2018-09-22] MEDS ORDERED: fentaNYL* 50 MCG/ML 2 ML VIAL (100 MCG VIAL) ONE (13:35)
[2018-09-22] MEDS ORDERED: Flumazenil* 0.1 MG/ML 5 ML MDV ONE (13:35)
[2018-09-22] MEDS ORDERED: Lidocaine 2% VISCOUS* 15 ML UDC ONE (13:36)
--- NOTE | 2018-09-22 17:10 | TEE ---
Patient: ADELE ZELAYA [facility] Rec#: [id number] : 1955 Date: 09/22/2018 Age: 62y Height: 157.48 cm / 62.0 in Weight: 58.97 kg / 130.0 lbs Sex: F BSA: 1.59 Room#: 418 Type: Inpatient Referring: Cheko Angeles MD Performing: Cheko Angeles MD Reading: Cheko Angeles MD Mumps Developer: Rachna Moser RDCS Nurse: Estela Olmstead Nurse: Jordan Castañeda RN CC: Bill Koo MD Transesophageal Echocardiogram Indication: Mitral Valve Disorder BP: 164/74 HR: 65 Rhythm: Paced Findings History: Long QT syndrome, s/p ICD insert,HTN,PAD,a-fib,COPD,prior liver transplant. Technical Comments: The study quality is good. Completed at 1540. Left Ventricle: The left ventricular chamber size is normal. There is moderately decreased left ventricular systolic function. The estimated ejection fraction is 40-45%. Wall motion abnormality more pronounced in the inferior-lateral segments with Hypokinesis noted. Left Atrium: The left atrium is mildly dilated. There is no thrombus visualized in the left atrial appendage. Right Ventricle: The right ventricular cavity size is normal. The right ventricular global systolic function is mildly reduced. A pacemaker wire is visualized in the right ventricle. Right Atrium: The right atrial cavity size is normal. A pacemaker wire is visualized in the right atrium. There is no patent foramen ovale visualized. There is no evidence of patent foramen ovale shunting. A patent foramen ovale is not demonstrated with color Doppler and agitated contrast. Aortic Valve: The aortic valve is trileaflet. There is a trace of aortic regurgitation. There is no evidence of aortic stenosis. Mitral Valve: The mitral valve leaflets appear normal.Manual BP was 142/64 during the evaluation. There is moderate mitral regurgitation. there is a moderate sized central jet and a smaller eccentric jet directred toward the interatrial symtpoms. There is no evidence of mitral stenosis. Tricuspid Valve: The tricuspid valve leaflets are normal. There is trace to mild tricuspid regurgitation. Unable to estimate the right ventricular systolic pressure. There is evidence that pulmonary hypertension may be underestimated. There is no tricuspid stenosis. Pulmonic Valve: The pulmonic valve structure is not well visualized. Pericardium: The pericardium appears normal. Aorta: There is no dilatation of the ascending aorta. There is no dilatation of the aortic arch. There is no dilation of the aortic root. There is plaque visualized in the ascending aorta. Seen in distal arch and measured 0.6 cm in height x 1.0 cm in length. Pulmonary Artery: The main pulmonary artery is not well visualized. Venous: The bicaval view was obtained and appears normal. The pulmonary veins appear normal in size. Right lower and left upper seen. The flow pattern of the pulmonary veins appear normal. MILKA Procedures: History and physical as well as labs were reviewed. The patient was in a fasting state. Risks and benefits of the procedure, including alternatives, were discussed and written informed consent was obtained. The patient and/or their health care artist representative expressed understanding of the procedure, risks and benefits. Baseline and continuous monitoring of blood pressure, heart rate, pulse oximetry and heart rhythm was performed throughout the procedure. The appropriate time-out procedure was performed as per [facility] protocol. The patient was placed in the left lateral decubitus position. The patient received IV Midazolam with a total dose of 8mg. The patient received IV Fentanyl with a total dose of 25mcg. An oral bite block was inserted for protection of oral dentition. The multiplane transesophageal echocardiogram probe was inserted through the posterior oropharynx and advanced into the esophagus without difficulty. Multiple 2D images were obtained of the heart and its related structures. Color flow Doppler was used for evaluation. Spectral Doppler was also used. The atrial septum was interrogated with color flow Doppler. At the conclusion of the procedure the probe was removed with continuous suction without complications. The patient tolerated the procedure with no apparent complications. Contrast: Normal saline was used as contrast for the bubble study. Intravenous contrast was used to help determine presence of intracardiac shunting. Conclusions There is moderately decreased left ventricular systolic function. The estimated ejection fraction is 40-45%. Wall motion abnormalities more pronounced in the inferior-lateral segments with hypokinesis noted. The left atrium is mildly dilated. The right ventricular global systolic function is mildly reduced. There is moderate mitral regurgitation: there is a moderate sized central jet and a smaller eccentric jet directred toward the interatrial symtpoms. There is trace to mild tricuspid regurgitation. There is plaque visualized in the ascending aorta. There is a focal lesion seen in the distal arch and measured 0.6 cm in height x 1.0 cm in length. Compared to 09/19/18, the EF has decreased from 55-60%. Discussed with Dr. Hardin and Dr. Quintero. She is at increased risk at cath due in part to her complex vascular disease. Plan: 1. advance medical therapy for possible ischemic cardiomyopathy and ischemic MR vs hypertensive cardiomyopathy. 2. followup with her primary coater slate for further evaluation for possible cardiac cath if symptoms progress. Measurements Name Value Normal Range Aortic Annulus 1.9 cm (1.4 - 2.6) Ao root diameter (2D) 2.6 cm (2.1 - 3.5) Ascending Ao 2.7 cm (2.1 - 3.4)
--- NOTE | 2018-09-22 17:46 | PN ---
Subjective Date of Service: 09/22/18 Interval History: Pt seen and examined. Meds and labs reviewed. CC: N/A ROS: Denied ANTON/dizziness, F/C, N/V, CP, SOB, increased cough, sputum production , abd pain, diarrhea, constipation, dysuria, myalgias, arthralgias, throat pain , and new skin lesions. The rest of the 14 point ROS are unremarkable. PHYSICAL EXAM: GEN APPEARANCE: Awake, not in acute distress HEENT: NC/AT, PERRLA, moist oral mucosa, (-) throat erythema NECK: Soft, supple, (-) cervical LAD, (-)JVD HEART: S1S2 WNL, RRR, No MRG CHEST: CTA, BL, GAE, No W/R/R ABD: Soft, ND/NT, NABS 4x Q EXT: No C/C/E SKIN: Warm to touch PSYCH: No active psychosis, hallucinations, depression, SI/HI Objective Active Medications: Acetaminophen (Tylenol Tab*) 650 mg PO Q4H PRN PRN Reason: FEVER/PAIN Albuterol/Ipratropium (Duoneb (Albuterol 2.5 Mg/Ipratropium 0.5 Mg)) 1 neb INH [id number] AWAKE PRN PRN Reason: sob/wheexing Apixaban (Eliquis*) 2.5 mg PO BID [facility] Last Admin: 09/22/18 07:40 Dose: 2.5 mg Clonazepam (Klonopin Tab(*)) 0.5 mg PO DAILY [facility] Last Admin: 09/22/18 07:40 Dose: 0.5 mg Cyanocobalamin (Vitamin B12 Tab*) 1,000 mcg PO DAILY [facility] Last Admin: 09/22/18 07:41 Dose: 1,000 mcg Diltiazem HCl (Cardizem Cd Cap*) 180 mg PO DAILY [facility] Last Admin: 09/22/18 07:35 Dose: Not Given Levalbuterol HCl (Xopenex 0.63mg/3ml Neb*) 0.63 mg INH Q4H PRN PRN Reason: WHEEZING Metoprolol Tartrate (Lopressor Tab*) 50 mg PO BID [facility] Last Admin: 09/22/18 10:25 Dose: 50 mg Nitroglycerin (Nitroglycerin Tab 0.4 Mg*) 0.4 mg SL Q5M PRN PRN Reason: PAIN - CHEST Nitroglycerin (Nitroglycerin 2.5 Mg Patch*) 1 patch TRANSDERM BEDTIME@1999 [facility] Oxycodone HCl (Roxycodone Tab*) 5 mg PO BID [facility] Last Admin: 09/22/18 07:40 Dose: 5 mg Sertraline HCl (Zoloft*) 25 mg PO DAILY [facility] Last Admin: 09/22/18 07:41 Dose: 25 mg Tacrolimus (Prograf Cap(*)) 1 mg PO BID [facility] Last Admin: 09/22/18 07:40 Dose: 1 mg Ticagrelor (Brilinta*) 90 mg PO DAILY [facility] Last Admin: 09/22/18 07:41 Dose: 90 mg Vital Signs - 8 hr 09/22/18 09/22/18 09/22/18 10:23 10:24 12:00 Temperature 97.5 F Pulse Rate 53 Respiratory 18 18 14 Rate Blood Pressure 126/42 (mmHg) O2 Sat by Pulse 95 Oximetry 09/22/18 09/22/18 09/22/18 12:10 15:45 16:16 Temperature 97.9 F 97.3 F Pulse Rate 60 68 55 Respiratory 16 18 Rate Blood Pressure 128/72 134/82 153/57 (mmHg) O2 Sat by Pulse 97 99 99 Oximetry 09/22/18 16:30 Temperature Pulse Rate Respiratory Rate Blood Pressure 144/80 (mmHg) O2 Sat by Pulse Oximetry Oxygen Devices in Use Now: Nasal Cannula Result Diagrams: 09/20/18 06:53 09/22/18 06:16 Microbiology and Other Data: Microbiology 09/19/18 19:25 Nasal Screen MRSA (PCR) - Final Nasal Mrsa Detected Assess/Plan/Problems-Billing Assessment: This is a 62 year old lady with history of mod-sev MR and mod-sev TR and COPD who presented to the ED with Chest pain and SOB and was found to be hypoxic and have increased work of breathing. - Patient Problems (1) CHF (congestive heart failure) Current Visit: Yes Status: Acute Code(s): I50.9 - HEART FAILURE, UNSPECIFIED SNOMED Code(s): 85919067 Comment: -Possibly driven by MR -S/P MILKA today to differentiate MR due to ischemia or rate related -D/W Dr. Angeles and per his conversation w/Dr. Leonard, pt had previous cath w/ PCI in RCA, however, had a complicated anatomy -At this time, optimal medical therapy is preferred and will place pt on low dose NTG patch -Continue watchful waiting on tele -Will await official MILKA report (2) NSTEMI (non-ST elevated myocardial infarction) Current Visit: Yes Status: Acute Code(s): I21.4 - NON-ST ELEVATION (NSTEMI) MYOCARDIAL INFARCTION SNOMED Code(s): 63380682 Comment: -Please see above discussion -Defer w/Dr. Leonard on F/U (3) Hypertensive urgency Current Visit: No Status: Acute Priority: High Code(s): I16.0 - HYPERTENSIVE URGENCY SNOMED Code(s): 137085403 Comment: -Resolved -Please see above discussion (4) CKD (chronic kidney disease) Current Visit: Yes Status: Acute Code(s): N18.9 - CHRONIC KIDNEY DISEASE, UNSPECIFIED SNOMED Code(s): 003831213 Comment: -Stable (5) DVT prophylaxis Current Visit: No Status: Acute Code(s): ANG6467 - SNOMED Code(s): 663125315 Comment: -Continue Eliquis Status and Disposition: -For possible D/C in AM
[2018-09-22] MEDS ORDERED: Nitroglycerin 0.1 mg/Hr PATCH* (2.5 MG) TRANSDERM SCH (20:00)
[2018-09-23 07:27] LABS: Hematocrit 31 % (35-47); Hemoglobin 10.1 g/dl (12.0-16.0); Mean Corpuscular HGB Conc 32 g/dl (31-36); Mean Corpuscular Hemoglobin 26 pg (27-31); Mean Corpuscular Volume 81 fL (80-97); Mean Platelet Volume 7.3 fL (7.4-10.4); Platelet Count 298 10^3/ul (150-450); Red Blood Count 3.84 10^6/ul (4.00-5.40); Red Cell Distribution Width 18 % (10.5-15); White Blood Count 5.5 10^3/ul (3.5-10.8)
[2018-09-23] MEDS: Metoprolol Tartrate TAB* 50 mg PO SCH (07:40)
[2018-09-23] MEDS: clonazePAM TAB(*) 0.5 MG PO SCH (07:40)
[2018-09-23] MEDS: Apixaban* 2.5 MG TAB PO SCH (07:41)
[2018-09-23] MEDS: Sertraline* 25 MG TAB PO SCH (07:41)
[2018-09-23] MEDS: oxyCODONE TAB* 5 MG TAB PO SCH (07:41)
[2018-09-23] MEDS: Tacrolimus CAP(*) 1 MG PO SCH (07:41)
[2018-09-23] MEDS: Diltiazem CD CAP* 180 MG PO SCH (07:42)
[2018-09-23] MEDS: Ticagrelor* 90 MG TAB PO SCH (07:42)
[2018-09-23] MEDS: Cyanocobalamin TAB* 500 MCG PO SCH (07:42)
[2018-09-23 07:43] LABS: Albumin 3.5 g/dL (3.2-5.2); Albumin/Globulin Ratio 0.9 (1-3); BUN/Creatinine Ratio 28.2 (8-20); Calcium 9.2 mg/dL (8.6-10.3); EGFR Non-African American 41.1 (>60); Globulin 3.7 g/dL (2-4); Magnesium 1.7 mg/dL (1.9-2.7); Phosphorus 3.5 mg/dL (2.5-5.0); Total Bilirubin 0.8 mg/dL (0.2-1.0); Total Protein 7.2 g/dL (6.4-8.9)
[2018-09-23] MEDS ORDERED: Polyethylene Glycol 3350* 17 GM PACKET PO PRN (08:58)
[2018-09-23] MEDS ORDERED: Senna TAB PO SCH (09:00)
[2018-09-23] MEDS ORDERED: Senna/Docusate (NF) TAB PO SCH (09:00)
[2018-09-23] MEDS ORDERED: Docusate CAP* 100 MG PO SCH (09:00)
[2018-09-23] MEDS ORDERED: Magnesium Sulfate IV* 3 GM in NS 0.9% 100 ML* 100 ML IVPB ONE (09:00)
[2018-09-23 11:37] VITALS: BP 123/55
--- NOTE | 2018-09-23 13:44 | DS ---
CC: Dr. Janeen Su; Dr. Leticia Voss; Dr. April Ignacio; Dr. Angeles; Dr. Bill Koo DISCHARGE SUMMARY: DATE OF ADMISSION: 09/19/18 DATE OF DISCHARGE: 09/23/18 DISCHARGE DIAGNOSES: 1. Congestive heart failure exacerbation, possibly driven by moderate mitral regurgitation. 2. Elevated troponins, likely due to non-ST elevation myocardial infarction versus type 2 myocardial infarction. 3. Hypertensive urgency, resolved. 4. Chronic kidney disease, stable. DISCHARGE MEDICATIONS: 1. Apixaban 2.5 mg p.o. b.i.d. 2. Clonazepam 0.5 mg p.o. daily. 3. Cyanocobalamin 1000 mcg p.o. daily. 4. Colace 200 mg p.o. daily. 5. Xopenex nebulization inhalation q.4 p.r.n. 6. Metoprolol tartrate 50 mg p.o. b.i.d. 7. Nitroglycerin 0.4 mg sublingual q.5 minutes p.r.n. 8. Oxycodone 5 mg p.o. b.i.d. 9. Sertraline 25 mg p.o. daily. 10. Tacrolimus 1 mg p.o. b.i.d. The patient is on tacrolimus due to the patient having had a history of liver transplant and for rejection prophylaxis. 11. Ticagrelor (Brilinta) 90 mg p.o. daily. 12. Tylenol 650 mg p.o. q.4 p.r.n. 13. Albuterol nebulization 2.5 mg inhalation q.4 p.r.n. 14. Diltiazem 180 mg p.o. daily. 15. Melatonin 5 mg p.o. q.h.s. 16. Nitro patch 0.1 mg per hour patch, 1 patch q.h.s., at least 10 on, at least 12 off. 17. Incruse Ellipta 1 inhalation p.o. daily. HISTORY OF PRESENT ILLNESS/HOSPITAL COURSE: The patient is a 62-year-old woman with history of COPD, severe hypertension and known mitral regurgitation with history of CAD, who presented with shortness of breath in the ED on 09/19/18. She mentioned that she had been quite short of breath the night prior to admission and was subsequently diagnosed with acute respiratory failure possibly due to CHF driven by her MR. She was subsequently diuresed and has done well. She was also seen in consultation by the cardiology service , who had initially reviewed the 2D echo suggesting that possibly the MR might be moderate to severe and hence there is a question of whether her CHF exacerbation is due to an MR due to mari ischemic process or a rate related process; however, she was not noted to be significantly tachycardic during her hospital course. Hence, a MILKA was done by Dr. Angeles, which showed moderately decreased left ventricular systolic function than the one compared to the TTE done just recently with an EF of about 40% to 45% by MILKA and by TTE done on , shows an EF of around 55% to 60%. In addition, the mitral regurgitation was noted to be only of moderate amount by MILKA. After reviewing her complex vascular history, Dr. Angeles had touched base with Dr. Quintero, who then mentioned that she had a previous cath with a stent in her RCA; however, given her complicated anatomy, Dr. Quintero mentioned that he would advise against repeat catheterization at this time and hence would prefer her to be on optimal medical therapy at this time. Nitroglycerin patch was also added to further decrease afterload and hence we will defer. The patient has done well overnight post MILKA and with no notable other arrhythmias seen on telemetry. She had been advised to follow up and/or call her PCP within 3 days postdischarge. She was further advised to follow up with Dr. Rizzo in 1 to 2 weeks and to call his office to make an appointment. She was advised that if her symptoms resume or develop new ones or feel unwell for any reason, to call her PCP first and if her PCP cannot entertain her due to scheduling issues alone , to call [facility] if the issue is considered nonemergent. She was advised to call my office regarding any questions, concerns, or further clarifications regarding her discharge plans and/or prescriptions and to take her medications as prescribed. REVIEW OF SYSTEMS: Currently, the patient mentioned earlier that she was constipated and has not had a bowel movement since her admission, therefore, she was given a one-time dose of MiraLAX as well as senna plus and she mentions a few minutes later she was able to move her bowels and has since resolved. She denied any headaches, dizziness, fevers, chills, nausea, vomiting, chest pain, shortness of breath, increased coughing or sputum production, abdominal pain, myalgias, arthralgias, throat pain, or new skin lesions. The rest of the 14-point review of systems is otherwise unremarkable. PHYSICAL EXAMINATION: Shows the most recent vital signs of records with blood pressure of 123/55, 54 beats per minute heart rate, 16 per minute respiratory rate, 97.6 degrees Fahrenheit temperature, saturating at 99% on room air. General Appearance: The patient is awake, alert, and oriented x3, not in acute distress. HEENT: Normocephalic, atraumatic. PERRLA. Extraocular muscles intact. Negative for icterus. Moist oral mucosa. Negative throat erythema. Neck is soft, supple with no cervical lymphadenopathy, no JVD. Heart: S1, S2 within normal limits. Regular rate and rhythm. No murmurs, rubs, or gallops. Chest: Clear to auscultation bilaterally. Good air entry. No wheezes, rales, or rhonchi. Abdomen is soft, nondistended, nontender. Normoactive bowel sounds x4 quadrants. Extremities: No cyanosis, clubbing, or edema. Psychiatric : No active psychosis, depression, suicidal or homicidal ideation. Skin is warm to touch. TIME SPENT: The total time spent evaluating the patient, reviewing pertinent data, and appropriate documentation is 50 minutes. [id number]/CPS #: [id number] DOROTHY
== END 2018-09-23 12:45 | disposition home health service (06) | DRG 280 ==
LOC: ED 05:35 → ICU 07:53 → MED 18:26
PROVIDERS: ADMIT Internal Medicine; ATTEND Student in an Organized Health Care Education/Training Program
PROC: 4A02XM4 Measurement of Cardiac Total Activity, External Approach (ICD-10-PCS; principal; 2018-09-21)
PROC: B24BZZ4 Ultrasonography of Heart with Aorta, Transesophageal (ICD-10-PCS; 2018-09-22)
DX: I13.0 Hypertensive heart and chronic kidney disease with heart failure and stage 1 through stage 4 chronic kidney disease, or unspecified chronic kidney disease (principal); I21.A1 Myocardial infarction type 2; J96.01 Acute respiratory failure with hypoxia; I50.33 Acute on chronic diastolic (congestive) heart failure; Z94.4 Liver transplant status; J44.9 Chronic obstructive pulmonary disease, unspecified; I25.10 Atherosclerotic heart disease of native coronary artery without angina pectoris; I73.9 Peripheral vascular disease, unspecified; K21.9 Gastro-esophageal reflux disease without esophagitis; M10.9 Gout, unspecified; M19.90 Unspecified osteoarthritis, unspecified site; G89.29 Other chronic pain; F41.9 Anxiety disorder, unspecified; I27.20 Pulmonary hypertension, unspecified; I16.0 Hypertensive urgency; I08.1 Rheumatic disorders of both mitral and tricuspid valves; N18.3 Chronic kidney disease, stage 3 (moderate); I48.0 Paroxysmal atrial fibrillation; F32.9 Major depressive disorder, single episode, unspecified; Z86.14 Personal history of Methicillin resistant Staphylococcus aureus infection; Z82.49 Family history of ischemic heart disease and other diseases of the circulatory system; I25.2 Old myocardial infarction; Z95.5 Presence of coronary angioplasty implant and graft; Z88.8 Allergy status to other drugs, medicaments and biological substances; Z86.74 Personal history of sudden cardiac arrest; Z95.810 Presence of automatic (implantable) cardiac defibrillator; Z80.3 Family history of malignant neoplasm of breast; Z87.891 Personal history of nicotine dependence; Z79.01 Long term (current) use of anticoagulants
CPT/HCPCS: 36415; 71045; 78452; 80048; 80053; 83605; 83735; 83880; 84100; 84484; 85025; 85027; 87641; 93005; 93017; 93306; 93312; 93325; 99156; 99157; 99284; A9270-GY; A9502; G8978-GP-CH; G8979-GP-CH; G8980-GP-CH; J1940; J2250; J2270; J2310; J2785; J2930; J3010; J3475; J7507

== ENCOUNTER 2020-03-25 14:43 | Inpatient (IN) ==
[2020-03-25 17:14] LABS: Urine Appearance Clear; Urine Bilirubin Negative (Negative); Urine Blood 1+ (Negative); Urine Color Straw; Urine Glucose Negative (Negative); Urine Ketones Negative (Negative); Urine Nitrite Negative (Negative); Urine Protein Negative (Negative); Urine Specific Gravity 1.005 (1.010-1.030); Urine Urobilinogen Negative (Negative)
[2020-03-25 17:27] LABS: Urine Bacteria Absent (Absent); Urine Red Blood Cell Trace(0-2/hpf) (Absent); Urine Squamous Epithelial Cell Present (Absent); Urine White Blood Cell Trace(0-5/hpf) (Absent)
[2020-03-25 17:55] LABS: ABS Basophils 0.1 10^3/ul (0-0.2); ABS Eosinophils 0.5 10^3/ul (0-0.6); ABS Lymphocytes 1.8 10^3/ul (1.0-4.8); ABS Monocytes 0.4 10^3/ul (0-0.8); Eosinophil % 7.5 %; Hematocrit 42 % (35-47); Hemoglobin 14.3 g/dL (12.0-16.0); Lymphocyte % 25.9 %; Mean Corpuscular HGB Conc 34 g/dL (31-36); Mean Corpuscular Hemoglobin 33 pg (27-31); Mean Corpuscular Volume 98 fL (80-97); Mean Platelet Volume 8.1 fL (7.4-10.4); Platelet Count 130 10^3/uL (150-450); Red Blood Count 4.32 10^6 /uL (3.70-4.87); Red Cell Distribution Width 14 % (10-15); White Blood Count 6.8 10^3/uL (3.5-10.8)
[2020-03-25 18:01] LABS: Urine Benzodiazepine Screen None Detected (None Detect); Urine Opiates Screen None Detected (None Detect)
[2020-03-25 18:27] LABS: Acetaminophen < 15 mcg/mL; Alcohol, S < 10 mg/dL (<10); Salicylate < 2.50 mg/dL (<30)
[2020-03-25 18:31] LABS: Albumin 4.1 g/dL (3.2-5.2); Anion Gap 7 mmol/L (2-11); CO2 Carbon Dioxide 27 mmol/L (22-32); Calcium 9.6 mg/dL (8.6-10.3); Chloride 106 mmol/L (101-111); Potassium 4.3 mmol/L (3.5-5.0); Sodium 140 mmol/L (135-145)
[2020-03-25] MEDS ORDERED: LORazepam 1 mg TAB (*) PO ONE (18:36)
[2020-03-25 18:37] LABS: ALT 40 U/L (7-52); AST 51 U/L (13-39); Albumin/Globulin Ratio 1.1 (1-3); Alkaline Phosphatase 88 U/L (34-104); BUN/Creatinine Ratio 21.5 (8-20); Blood Urea Nitrogen 20 mg/dL (6-24); EGFR African American 73.4 (>60); EGFR Non-African American 60.7 (>60); Globulin 3.9 g/dL (2-4); Glucose 97 mg/dL (70-100)
[2020-03-25] MEDS ORDERED: Levalbuterol 0.63MG/3ML NEB UNIT OF USE INH PRN (20:50)
[2020-03-26] MEDS: Nitroglycerin 0.1 mg/hr PATCH (2.5 mg) TRANSDERM SCH ×2 (00:36→21:03)
[2020-03-26] MEDS: TACROLIMUS 1 MG PO SCH ×3 (00:36→21:05)
[2020-03-26] MEDS ORDERED: Al Hydrox/Mg Hydrox/Simet LIQ 30 ML UDC PO PRN (03:26)
[2020-03-26] MEDS: Vitamin THERAPEUTIC TAB PO SCH (10:07)
[2020-03-26] MEDS: Nitro Patch/OINT Remove PATCH PATCH OFF SCH (10:09)
[2020-03-26] MEDS: SPIRIVA Respimat (tiotropium) 2.5 mcg/inh Inhaler INH SCH (10:11)
[2020-03-26] MEDS ORDERED: LORazepam 0.5 mg TAB (*) ONE ×2 (13:50→13:56)
[2020-03-26] MEDS ORDERED: LORazepam 0.5 mg TAB (*) PO ONE (15:00)
[2020-03-26] MEDS ORDERED: Neosporin TOPICAL OINT PACKET TOPICAL SCH (16:00)
[2020-03-26 17:43] LABS: Folate > 20.00 ng/mL (>3.99)
[2020-03-27] MEDS: Nitro Patch/OINT Remove PATCH PATCH OFF SCH (08:08)
[2020-03-27] MEDS: TACROLIMUS 1 MG PO SCH ×2 (08:08→20:06)
[2020-03-27] MEDS: Vitamin THERAPEUTIC TAB PO SCH (08:08)
[2020-03-27] MEDS: SPIRIVA Respimat (tiotropium) 2.5 mcg/inh Inhaler INH SCH (08:08)
[2020-03-27] MEDS: clonazePAM 0.5 mg TAB (*) PO SCH (20:06)
[2020-03-27] MEDS: Nitroglycerin 0.1 mg/hr PATCH (2.5 mg) TRANSDERM SCH (20:06)
[2020-03-28] MEDS: clonazePAM 0.5 mg TAB (*) PO SCH ×2 (07:57→20:11)
[2020-03-28] MEDS: TACROLIMUS 1 MG PO SCH ×2 (07:57→20:11)
[2020-03-28] MEDS: Vitamin THERAPEUTIC TAB PO SCH (07:58)
[2020-03-28] MEDS: LORazepam 1 mg TAB (*) PO PRN ×2 (08:04→20:15)
[2020-03-28] MEDS: Nitro Patch/OINT Remove PATCH PATCH OFF SCH (10:44)
[2020-03-28] MEDS: SPIRIVA Respimat (tiotropium) 2.5 mcg/inh Inhaler INH SCH (10:45)
[2020-03-28] MEDS: Nitroglycerin 0.1 mg/hr PATCH (2.5 mg) TRANSDERM SCH (20:11)
[2020-03-29] MEDS: TACROLIMUS 1 MG PO SCH ×2 (09:07→20:49)
[2020-03-29] MEDS: Vitamin THERAPEUTIC TAB PO SCH (09:07)
[2020-03-29] MEDS: clonazePAM 0.5 mg TAB (*) PO SCH ×2 (09:07→20:47)
[2020-03-29] MEDS: SPIRIVA Respimat (tiotropium) 2.5 mcg/inh Inhaler INH SCH (09:09)
[2020-03-29] MEDS: Nitro Patch/OINT Remove PATCH PATCH OFF SCH (09:09)
[2020-03-29] MEDS: LORazepam 1 mg TAB (*) PO PRN ×2 (10:56→18:49)
[2020-03-29] MEDS: Nitroglycerin 0.1 mg/hr PATCH (2.5 mg) TRANSDERM SCH (20:47)
[2020-03-30] MEDS: TACROLIMUS 1 MG PO SCH ×2 (08:58→20:19)
[2020-03-30] MEDS: clonazePAM 0.5 mg TAB (*) PO SCH ×2 (08:59→20:19)
[2020-03-30] MEDS: Vitamin THERAPEUTIC TAB PO SCH (08:59)
[2020-03-30] MEDS: Nitro Patch/OINT Remove PATCH PATCH OFF SCH (09:00)
[2020-03-30] MEDS: LORazepam 1 mg TAB (*) PO PRN ×2 (09:02→15:39)
[2020-03-30] MEDS: SPIRIVA Respimat (tiotropium) 2.5 mcg/inh Inhaler INH SCH (09:03)
[2020-03-30] MEDS: Nitroglycerin 0.1 mg/hr PATCH (2.5 mg) TRANSDERM SCH (20:20)
[2020-03-31] MEDS: LORazepam 1 mg TAB (*) PO PRN (01:14)
[2020-03-31] MEDS: Vitamin THERAPEUTIC TAB PO SCH (08:56)
[2020-03-31] MEDS: clonazePAM 0.5 mg TAB (*) PO SCH ×2 (08:57→19:51)
[2020-03-31] MEDS: SPIRIVA Respimat (tiotropium) 2.5 mcg/inh Inhaler INH SCH (08:57)
[2020-03-31] MEDS: TACROLIMUS 1 MG PO SCH ×2 (08:57→19:52)
[2020-03-31] MEDS: Nitro Patch/OINT Remove PATCH PATCH OFF SCH (09:00)
[2020-03-31] MEDS: Nitroglycerin 0.1 mg/hr PATCH (2.5 mg) TRANSDERM SCH (19:50)
[2020-03-31 23:36] LABS: ABS Eosinophils 0.4 10^3/ul (0-0.6); ABS Lymphocytes 1.7 10^3/ul (1.0-4.8); ABS Monocytes 0.7 10^3/ul (0-0.8); Eosinophil % 6.6 %; Hematocrit 38 % (35-47); Hemoglobin 12.3 g/dL (12.0-16.0); Lymphocyte % 27.9 %; Mean Corpuscular HGB Conc 33 g/dL (31-36); Mean Corpuscular Hemoglobin 33 pg (27-31); Mean Corpuscular Volume 100 fL (80-97); Mean Platelet Volume 8.1 fL (7.4-10.4); Nucleated Red Blood Cells % 0.1; Platelet Count 110 10^3/uL (150-450); Red Blood Count 3.74 10^6 /uL (3.70-4.87); Red Cell Distribution Width 14 % (10-15)
[2020-03-31 23:53] LABS: Albumin 3.3 g/dL (3.2-5.2); Albumin/Globulin Ratio 0.9 (1-3); BUN/Creatinine Ratio 26.8 (8-20); Calcium 9.4 mg/dL (8.6-10.3); EGFR Non-African American 57.8 (>60); Globulin 3.5 g/dL (2-4); Potassium 4.3 mmol/L (3.5-5.0); Total Bilirubin 0.4 mg/dL (0.2-1.0); Total Protein 6.8 g/dL (6.4-8.9)
[2020-04-01 00:36] LABS: C Reactive Protein 1.1 mg/L (<8.01)
[2020-04-01] MEDS: Nitro Patch/OINT Remove PATCH PATCH OFF SCH (10:22)
[2020-04-01] MEDS: clonazePAM 0.5 mg TAB (*) PO SCH ×3 (12:10→20:26)
[2020-04-01] MEDS: TACROLIMUS 1 MG PO SCH ×2 (12:11→20:28)
[2020-04-01] MEDS: Vitamin THERAPEUTIC TAB PO SCH (12:12)
[2020-04-01] MEDS: SPIRIVA Respimat (tiotropium) 2.5 mcg/inh Inhaler INH SCH (12:12)
[2020-04-01 13:02] LABS: Urine Appearance Clear; Urine Bilirubin Negative (Negative); Urine Blood 1+ (Negative); Urine Color Yellow; Urine Glucose Negative (Negative); Urine Ketones Negative (Negative); Urine Nitrite Negative (Negative); Urine Protein Negative (Negative); Urine Specific Gravity 1.006 (1.010-1.030); Urine Urobilinogen Negative (Negative)
[2020-04-01 13:06] LABS: Urine Bacteria 1+ (Absent); Urine Red Blood Cell Trace(0-2/hpf) (Absent); Urine Squamous Epithelial Cell Present (Absent); Urine White Blood Cell 2+(11-20/hpf) (Absent)
[2020-04-01] MEDS ORDERED: Iodixanol (CONTRAST) 320 MG/ML 100 ML SDV IV ONE (18:52)
[2020-04-01] MEDS: Nitroglycerin 0.1 mg/hr PATCH (2.5 mg) TRANSDERM SCH (20:30)
[2020-04-02] MEDS: SPIRIVA Respimat (tiotropium) 2.5 mcg/inh Inhaler INH SCH (08:59)
[2020-04-02] MEDS: clonazePAM 0.5 mg TAB (*) PO SCH ×2 (09:00→20:42)
[2020-04-02] MEDS: TACROLIMUS 1 MG PO SCH ×2 (09:01→20:43)
[2020-04-02] MEDS: Vitamin THERAPEUTIC TAB PO SCH (09:06)
[2020-04-02] MEDS: Nitro Patch/OINT Remove PATCH PATCH OFF SCH (10:26)
[2020-04-02] MEDS: Witch Hazel PAD JAR TOPICAL SCH ×2 (18:47→23:19)
[2020-04-02] MEDS: Nitroglycerin 0.1 mg/hr PATCH (2.5 mg) TRANSDERM SCH (20:42)
[2020-04-03] MEDS: Vitamin THERAPEUTIC TAB PO SCH (08:35)
[2020-04-03] MEDS: clonazePAM 0.5 mg TAB (*) PO SCH (08:35)
[2020-04-03] MEDS: SPIRIVA Respimat (tiotropium) 2.5 mcg/inh Inhaler INH SCH (08:38)
[2020-04-03] MEDS: TACROLIMUS 1 MG PO SCH (08:38)
[2020-04-03] MEDS: Nitro Patch/OINT Remove PATCH PATCH OFF SCH (08:38)
[2020-04-03 10:17] VITALS: BP 140/86
[2020-04-03] MEDS: Witch Hazel PAD JAR TOPICAL SCH ×2 (10:47→13:30)
[2020-04-03] MEDS ORDERED: LORazepam 0.5 mg TAB (*) ONE (13:18)
== END 2020-04-03 14:15 | disposition home or self-care (01) | DRG 885 ==
LOC: ED 14:43 → BSU 20:34
PROVIDERS: ADMIT Psychiatry & Neurology Psychiatry; ATTEND Psychiatry & Neurology Psychiatry